=== PATIENT | male | born 1960 | race American Indian/Alaskan Native ===

== ENCOUNTER 2016-08-24 14:56 | Inpatient (IN) | payer MEDICARE, MEDICAID ==
[2016-08-24 14:56] VITALS: BMI 25.9
[2016-08-24] MEDS ORDERED: Sodium Chloride 0.9% 1,000 ML IV ONE (15:16)
[2016-08-24 15:37] LABS: BASO % 0.7 % (0.0-2.0); HEMATOCRIT 46.8 % (35.0-51.0); LYMPH # 0.7 K/uL (1.0-4.3); LYMPH % 10.4 % (20.0-40.0); MEAN CELL VOLUME 77.7 fL (80.0-94.0); MEAN CORPUSCULAR HEMOGLOBIN 25.3 pg (27.0-31.0); MEAN CORPUSCULAR HGB CONC 32.5 g/dL (33.0-37.0); MEAN PLATELET VOLUME 7.7 fL (7.2-11.7); MONO # 0.5 K/uL (0.0-0.8); MONO % 8.6 % (0.0-10.0); NRBC % 0.1 % (0.0-2.0); RED CELL DISTRIBUTION WIDTH 13.5 % (11.5-14.5); WHITE BLOOD COUNT 6.3 K/uL (4.8-10.8)
[2016-08-24 15:43] LABS: CHLORIDE 82 mmol/L (98-107)
[2016-08-24 15:44] LABS: POTASSIUM 3.8 mmol/L (3.6-5.2)
[2016-08-24 15:46] LABS: BILIRUBIN,TOTAL 0.6 mg/dL (0.2-1.3); GFR AFRICAN-AMERICAN > 60
[2016-08-24 15:47] LABS: ALB/GLOB RATIO 1.1 (1.0-2.1); ALKALINE PHOSPHATASE 73 U/L (38-126); ALT/SGPT 42 U/L (21-72); AST/SGOT 69 U/L (17-59); BLOOD UREA NITROGEN 12 mg/dL (9-20); CALCIUM 8.5 mg/dl (8.6-10.4); CARBON DIOXIDE 24 mmol/L (22-30); GLUCOSE,RANDOM 87 mg/dL (75-110); TOTAL PROTEIN 7.9 g/dL (6.3-8.3)
[2016-08-24 15:48] LABS: ALCOHOL SERUM 20 mg/dl (0-10)
[2016-08-24 15:50] LABS: SODIUM 118 mmol/L (132-148)
[2016-08-24] MEDS ORDERED: Sodium Chloride 0.9% 1,000 ML ONE (16:37)
--- NOTE | 2016-08-24 17:02 | RAD ---
PROCEDURE: CHEST RADIOGRAPH, 1 VIEW. Portable study 15:15. HISTORY: FEVER COMPARISON: 06/12/2016. FINDINGS: LUNGS: New right lower lobe infiltrate with air bronchograms consistent with acute pneumonia. PLEURA: No pneumothorax or pleural fluid seen. CARDIOVASCULAR: No radiographic findings to suggest acute or significant cardiovascular disease. OSSEOUS STRUCTURES: No significant abnormalities. VISUALIZED UPPER ABDOMEN: Normal. OTHER FINDINGS: None. IMPRESSION: Right lower lobe infiltrate suspicious for acute pneumonia. Finding not seen previously.
--- NOTE | 2016-08-24 17:03 | C.PDOC ---
History Of Present Illness 56-year-old male BIBA for evaluation of witnessed seizure at [facility]. Patient admits to a history of seizures, states he has seizure disorder independently of alcohol withdrawal. He states he has not taken any seizure medications "for a long time". Last alcoholic drink was this morning. Patient does admit to being sick recently with a productive cough, fever and chills. He denies chest pain, shortness of breath, nausea/vomiting/diarrhea, dysuria. . No other complaints at this time. Time Seen by Provider: 08/24/16 15:16 Chief Complaint (Nursing): Seizure History Per: Patient, EMS History/Exam Limitations: no limitations Recent Seizure Activity Began: Just Before Arrival Number Of Seizures: One Length Of Seizures (Duration): Unknown Quality Of Seizure: Generalized Precipitating Factor(s): Other (medication noncompliance vs alcohol withdrawal) Past Medical History Reviewed: Historical Data, Nursing Documentation, Vital Signs Vital Signs: Last Vital Signs Temp 100.6 F H 08/27/16 03:17 Pulse 98 H 08/27/16 03:17 Resp 20 08/27/16 03:17 BP 151/83 H 08/27/16 03:17 Pulse Ox 98 08/27/16 03:17 - Medical History PMH: Anxiety, Asthma, Bipolar Disorder, Depression, Deep Vein Thrombosis (IVC FILTER INSERTED), HTN, Schizophrenia, Seizures (Alcohol induced) - [facility] Procedures DETOXIFICATION SERVICES FOR SUBSTANCE ABUSE TREATMENT (04/07/15) GROUP PSYCHOTHERAPY (05/14/15) MEDICATION MANAGEMENT (05/14/15) Family History: States: No Known Family Hx - Social History Hx Tobacco Use: Yes Hx Alcohol Use: Yes Hx Substance Use: No - Immunization History Hx Tetanus Toxoid Vaccination: No Hx Influenza Vaccination: Yes Hx Pneumococcal Vaccination: Yes Review Of Systems Except As Marked, All Systems Reviewed And Found Negative. Constitutional: Positive for: Fever, Chills Cardiovascular: Negative for: Chest Pain, Palpitations Respiratory: Positive for: Cough, Sputum. Negative for: Shortness of Breath Gastrointestinal: Negative for: Nausea, Vomiting, Abdominal Pain, Diarrhea Genitourinary: Negative for: Dysuria, Hematuria Musculoskeletal: Negative for: Back Pain Neurological: Positive for: Seizures. Negative for: Weakness, Numbness, Headache, Dizziness Physical Exam - Physical Exam Appears: Non-toxic, No Acute Distress, Other ( trembling due to fever) Skin: Warm, Dry, No Rash Head: Atraumatic, Normacephalic Eye(s): bilateral: Normal Inspection, PERRL, EOMI Oral Mucosa: Moist Tongue: No Laceration, Other (No fasciculations) Neck: Normal, Normal ROM, No Midline Cervical Tenderness, No Paracervical Tenderness, No Step Off Deformity, Supple Cardiovascular: Rhythm Regular Respiratory: Normal Breath Sounds, No Accessory Muscle Use, No Rales, No Rhonchi , No Wheezing Gastrointestinal/Abdominal: Normal Exam, Bowel Sounds, Soft, No Tenderness Extremity: Normal ROM, No Pedal Edema, No Calf Tenderness Extremity: Bilateral: Atraumatic, Normal Color And Temperature, Normal ROM Neurological/Psych: Oriented x3, Normal Speech, Normal Cognition, Other (no tremors) ED Course And Treatment - Laboratory Results Result Diagrams: 08/25/16 10:56 08/26/16 23:38 O2 Sat by Pulse Oximetry: 96 (RA) Pulse Ox Interpretation: Normal - Radiology CXR: Read By Radiologist (right lower lobe suspicious for infiltrate) Progress Note: Blood work, CXR and UA ordered and reviewed. Patient given IV NS bolus. Prior records reviewed - patient has had hyponatremia during prior visits. PO tylenol given for fever, and IV rocephin + azithromycin given for pneumonia. - Physician Consult Information Physician Contacted: Mikel Carroll Outcome Of Conversation: Discussed patient with hospitalist, he agrees with admission for fever, pneumonia, seizure (withdrawal vs hyponatremia vs epilepsy) , hyponatremia. Disposition - Disposition Disposition: HOSPITALIZED Disposition Time: 18:06 Condition: STABLE - Clinical Impression Clinical Impression: Tonic-clonic seizure, Alcohol abuse, Hyponatremia, Pneumonia - Scribe Statement The provider has reviewed the documentation as recorded by the Kyler Browning All medical record entries made by the Alexisibdre were at my direction and personally dictated by me. I have reviewed the chart and agree that the record accurately reflects my personal performance of the history, physical exam, medical decision making, and the department course for this patient. I have also personally directed, reviewed, and agree with the discharge instructions and disposition. Decision To Admit - Pt Status Changed To: Hospital Disposition Of: Inpatient - Admit Certification Admit to Inpatient:: After my assessment, the patient will require hospitalization for at least two midnights. This is because of the severity of symptoms shown, intensity of services needed, and/or the medical risk in this patient being treated as an outpatient. - InPatient: Physician Admission Certification: I certify that this patient requires 2 or more midnights of care for the following reason:: see notes - . Bed Request Type: Telemetry Admitting Physician: Mikel Craroll Patient Diagnosis: Tonic-clonic seizure, Alcohol abuse, Hyponatremia, Pneumonia
[2016-08-24 17:33] LABS: RBC URINE 2 /hpf (0-3); URINE BILIRUBIN NEGATIVE (NEGATIVE); URINE BLOOD TRACE (NEGATIVE); URINE COLOR Yellow (YELLOW); URINE GLUCOSE (UA) NORMAL (Normal); URINE KETONE NEGATIVE (NEGATIVE); URINE LEUKOCYTE ESTERASE NEG Leu/uL (Negative); URINE PROTEIN 3+ mg/dL (NEGATIVE); URINE UROBILINOGEN NORMAL mg/dL (0.2-1.0); WBC URINE 2 /hpf (0-5)
[2016-08-24] MEDS ORDERED: cefTRIAXone IV 1 gm in Dextros 50 ML IV ONE (17:55)
[2016-08-24] MEDS ORDERED: Azithromycin 500 MG in Sodium Chloride 0.9% 250 ML IVPB STA (17:56)
[2016-08-24] MEDS ORDERED: cefTRIAXone IV 1 gm in Dextros 50 ML IVPB ONE (18:14)
--- NOTE | 2016-08-24 18:19 | CP.PCM.HP ---
<Vonda Monsalve - Last Filed: 08/24/16 20:50> History of Present Illness - History of Present Illness History of Present Illness: CC: "I got pnuemonia" HPI: Patient is a 56 year old male PMHx of EtOH abuse, HTN? 2 CVAs in the past? DM? RLE DVT? schizophrenia and anxiety presenting after having a witnessed seizure. Patient reports he had as seizure this AM and one last night and another one 2 days prior while he was going to the bathroom. The most recent seizure on morning of presentation occurred when he was sitting in a chair and he fell to the floor. Patient denied any tongue biting or incontinence but reported he fell hard and his head and neck hurt from the fall. Patient denied any history of seizures and denied taking any medications for seizures. He reported an extensive EtOh abuse history where he drinks 3 cans of 24oz beer daily and has been since he was 17 years old. Patient stated he stopped drinking hard liquor when he was hospitalized for it. He reported he drank this morning. Patient stated he has been having a runny nose, productive cough with white sputum and no blood, and some dyspnea with coughing recently. He also admitted to subjective fevers, chills, diaphoresis, weakness, dry mouth, headache, SOB, cough. Patient denied chest pain, palpitations, abdominal pain, nausea, vomiting, bowel/bladder complaints, pain in his legs bilaterally. He denied travel recently but admitted to sick contacts and recent cold/cough symptoms. He also admitted to a decreased appetite and that he had not eaten in 4 days as he was feeling unwell. PMD: None PMHx: EtOH abuse, HTN? 2 CVAs in the past? DM? RLE DVT? schizophrenia and anxiety Meds: vitamins, an anxiety pill, BP pill - not taken any of his medications today ALL: NKDA PSurg: R leg stent placed at [facility]? questionable Hx of IVC filter? Family Hx: sister with seizures, cousin with cancer, [place] in mother Social Hx: drinks 3 cans of 24oz beer daily since he was 17yo, smokes < 1ppd since he was 17 years old, has roommates but does not live in a prison, on social security money ROS: admitted to: fever, chills, diaphoresis, weakness, dry mouth, headache, SOB , cough. ED Course: Blood work, CXR and UA, IVF and abx Present on Admission - Present on Admission Any Indicators Present on Admission: No Review of Systems - Constitutional Constitutional: As Per HPI, Chills, Excessive Sweating, Fever, Headache, Weakness - EENT Eyes: As Per HPI. absent: Blurred Vision Ears: As Per HPI. absent: Decreased Hearing, Dizziness Nose/Mouth/Throat: As Per HPI. absent: Dysphagia, Sore Throat - Cardiovascular Cardiovascular: As Per HPI. absent: Chest Pain, Edema, Palpitations - Respiratory Respiratory: As Per HPI, Cough, Dyspnea, Chest Congestion. absent: Wheezing - Gastrointestinal Gastrointestinal: As Per HPI. absent: Abdominal Pain, Constipation, Diarrhea, Nausea, Vomiting - Genitourinary Genitourinary: As Per HPI. absent: Dysuria, Hematuria, Pyuria, Urinary Frequency - Musculoskeletal Musculoskeletal: As Per HPI. absent: Back Pain, Myalgias, Numbness, Tingling - Integumentary Integumentary: As Per HPI. absent: Rash - Neurological Neurological: As Per HPI, Weakness. absent: Dizziness, Syncope - Endocrine Endocrine: As Per HPI. absent: Polydipsia, Polyphagia, Polyuria - Hematologic/Lymphatic Hematologic: As Per HPI. absent: Easy Bleeding, Easy Bruising Past Patient History - Infectious Disease Hx of Infectious Diseases: None - Past Medical History & Family History Past Medical History?: No - Past Social History Smoking Status: Heavy Smoker > 10 Cigarettes Daily - CARDIAC Hx Hypertension: Yes - PULMONARY Hx Asthma: Yes - NEUROLOGICAL Hx Seizures: Yes (Alcohol induced) - HEENT Hx HEENT Problems: No - RENAL Hx Chronic Kidney Disease: No - ENDOCRINE/METABOLIC Hx Endocrine Disorders: Yes Hx Diabetes Mellitus Type 2: Yes (no meds) Other/Comment: does not follow an a.d.a. diet - HEMATOLOGICAL/ONCOLOGICAL Hx Human Immunodeficiency Virus (HIV): No - INTEGUMENTARY Hx Dermatological Problems: No - MUSCULOSKELETAL/RHEUMATOLOGICAL Hx Musculoskeletal Disorders: No - GASTROINTESTINAL Hx Gastrointestinal Disorders: No - GENITOURINARY/GYNECOLOGICAL Hx Sexually Transmitted Disorders: No - PSYCHIATRIC Hx Anxiety: Yes Hx Bipolar Disorder: Yes Hx Depression: Yes Hx Schizophrenia: Yes Hx Substance Use: No - SURGICAL HISTORY Hx Surgeries: Yes Other/Comment: claims he had a mikey in his right leg. no scar noted. IVC FILTER INSERTED - ANESTHESIA Hx Anesthesia: Yes Hx Anesthesia Reactions: No Meds Allergies/Adverse Reactions: Allergies Allergy/AdvReac Type Severity Reaction Status Date / Time No Known Allergies Allergy Verified 06/12/16 12:29 Physical Exam - Constitutional Appears: Chronically Ill - Head Exam Head Exam: NORMAL INSPECTION - Eye Exam Eye Exam: Conjunctival injection, EOMI, PERRL Pupil Exam: NORMAL ACCOMODATION - ENT Exam ENT Exam: Mucous Membranes Dry - Neck Exam Neck exam: Positive for: Normal Inspection. Negative for: Tenderness - Respiratory Exam Respiratory Exam: Clear to Auscultation Bilateral, NORMAL BREATHING PATTERN. absent: Accessory Muscle Use, Rales, Rhonchi, Wheezes, Respiratory Distress - Cardiovascular Exam Cardiovascular Exam: Tachycardia, REGULAR RHYTHM, +S1, +S2. absent: Systolic Murmur - GI/Abdominal Exam GI & Abdominal Exam: Normal Bowel Sounds, Soft. absent: Distended, Firm, Guarding, Rigid, Tenderness - Rectal Exam Rectal Exam: Deferred - Extremities Exam Extremities exam: Positive for: normal inspection, pedal pulses present. Negative for: tenderness - Back Exam Back exam: NORMAL INSPECTION. absent: rash noted, tenderness - Neurological Exam Neurological exam: Alert, CN II-XII Intact, Oriented x3 Additional comments: slight tremors when doing finger to nose test RLE weaker than LLE - Psychiatric Exam Psychiatric exam: Normal Affect, Normal Mood - Skin Skin Exam: Dry, Intact, Normal Color, Warm Results - Vital Signs Recent Vital Signs: Last Vital Signs Temp 100.7 F H 08/24/16 14:58 Pulse 102 H 08/24/16 14:58 Resp 18 08/24/16 14:58 BP 176/90 H 08/24/16 14:58 Pulse Ox 96 08/24/16 17:05 - Labs Result Diagrams: 08/24/16 15:31 08/24/16 15:31 Labs: Laboratory Results - last 24 hr 08/24/16 08/24/16 08/24/16 15:27 15:31 15:31 WBC 6.3 D RBC 6.03 H Hgb 15.2 Hct 46.8 MCV 77.7 L D MCH 25.3 L MCHC 32.5 L RDW 13.5 Plt Count 152 MPV 7.7 Neut % (Auto) 80.3 H Lymph % (Auto) 10.4 L [place] % (Auto) 8.6 Eos % (Auto) 0.0 Baso % (Auto) 0.7 Neut # 5.1 Lymph # 0.7 L [place] # 0.5 Eos # 0.0 Baso # 0.0 Sodium 118 L* Potassium 3.8 Chloride 82 L Carbon Dioxide 24 Anion Gap 16 BUN 12 Creatinine 1.0 Est GFR ( Amer) > 60 Est GFR (Non-Af Amer) > 60 POC Glucose (mg/dL) 79 Random Glucose 87 Calcium 8.5 L Total Bilirubin 0.6 AST 69 H ALT 42 Alkaline Phosphatase 73 Total Creatine Kinase 547 H Total Protein 7.9 Albumin 4.1 Globulin 3.8 Albumin/Globulin Ratio 1.1 Urine Color Urine Clarity Urine pH Ur Specific [place] Urine Protein Urine Glucose (UA) Urine Ketones Urine Blood Urine Nitrate Urine Bilirubin Urine Urobilinogen Ur Leukocyte Esterase Urine WBC (Auto) Urine RBC (Auto) Hyaline Casts Urine Opiates Screen Urine Methadone Screen Ur Barbiturates Screen Ur Phencyclidine Scrn Ur Amphetamines Screen U Benzodiazepines Scrn U Oth Cocaine Metabols U Cannabinoids Screen Alcohol, Quantitative 20 H 08/24/16 08/24/16 17:06 17:06 WBC RBC Hgb Hct MCV MCH MCHC RDW Plt Count MPV Neut % (Auto) Lymph % (Auto) [place] % (Auto) Eos % (Auto) Baso % (Auto) Neut # Lymph # [place] # Eos # Baso # Sodium Potassium Chloride Carbon Dioxide Anion Gap BUN Creatinine Est GFR ( Amer) Est GFR (Non-Af Amer) POC Glucose (mg/dL) Random Glucose Calcium Total Bilirubin AST ALT Alkaline Phosphatase Total Creatine Kinase Total Protein Albumin Globulin Albumin/Globulin Ratio Urine Color Yellow Urine Clarity Clear Urine pH 6.0 Ur Specific [place] 1.015 Urine Protein 3+ H Urine Glucose (UA) Normal Urine Ketones Negative Urine Blood Trace H Urine Nitrate Negative Urine Bilirubin Negative Urine Urobilinogen Normal Ur Leukocyte Esterase Neg Urine WBC (Auto) 2 Urine RBC (Auto) 2 Hyaline Casts 11-20 H Urine Opiates Screen Negative Urine Methadone Screen Negative Ur Barbiturates Screen Negative Ur Phencyclidine Scrn Negative Ur Amphetamines Screen Negative U Benzodiazepines Scrn Negative U Oth Cocaine Metabols Negative U Cannabinoids Screen Negative Alcohol, Quantitative Assessment & Plan - Assessment and Plan (Free Text) Assessment: 56 year old male PMHx of EtOH abuse, HTN? 2 CVAs in the past? DM? RLE DVT? schizophrenia and anxiety presenting after having a witnessed seizure Plan: Seizures admit to TELE f/y head CT w/o contrast likely alcohol related seizures f/u EEG f/u AM labs f/u repeat UA seizure precautions fall risk precautions Neuro consult: Dr. Catherine Madera- f/u recommendations Pneumonia f/u CT Chest/abdomen/pelvis f/u urine culture and blood culture CXR: RLL infiltrate suspicious for acute pneumonia Azithromycin 500mg @ 250cc/hr IVPB daily Rocephin 1gm @ 100cc/hr IVPB daily Tylenol 650mg PO q6H prn fever Hyponatremia with dehydration NS @ 150cc/hr f/u repeat CMP at 2am f/u AM labs Hx of Alcoholism Alc level 20 UDS negative Librium 25mg PO Q6 AMINTA- hold if lethargic Ativan 1mg IVP Q3 PRN agitation IV thiamine 1 dose PO thiamine daily PO folic acid PO multivitamins f/u B12 and folate labs f/u vitamin D Hx of Hypertension hold meds for now f/u TSH/free T4 Prior R SFA stent Questionable Hx of IVC filter ASA 81mg po daily Prior CVA f/u head CT ASA 81mg po daily Crestor 20mg po qhs PPX SCDs Heparin 5000U SC Q12 Pepcid 20mg PO BID Seizure precautions Fall precautions Heart Healthy Diet Plan discussed with Dr. Mone Monsalve PGY1 <Ramin Shore P - Last Filed: 08/30/16 05:47> Results - Vital Signs Recent Vital Signs: Last Vital Signs Temp 97.3 F L 08/30/16 04:00 Pulse 87 08/30/16 05:00 Resp 31 H 08/30/16 05:00 BP 101/56 L 08/30/16 05:00 Pulse Ox 99 08/30/16 05:00 - Labs Result Diagrams: 08/29/16 06:18 08/29/16 06:17 Labs: Laboratory Results - last 24 hr 08/27/16 08/27/16 08/28/16 06:27 06:27 06:46 WBC RBC Hgb Hct MCV MCH MCHC RDW Plt Count MPV Neut % (Auto) Lymph % (Auto) [place] % (Auto) Eos % (Auto) Baso % (Auto) Neut # Lymph # [place] # Eos # Baso # Differential Comment PT INR APTT Puncture Site pCO2 pO2 HCO3 ABG pH ABG Total CO2 ABG O2 Saturation ABG Base Excess ABG Hemoglobin ABG Carboxyhemoglobin POC ABG HHb (Measured) ABG Methemoglobin Lisandro Test A-a O2 Difference Respiratory Index Hgb O2 Saturation Mechanical Rate FiO2 Tidal Volume PEEP Sodium Potassium Chloride Carbon Dioxide Anion Gap BUN Creatinine Est GFR ( Amer) Est GFR (Non-Af Amer) POC Glucose (mg/dL) Random Glucose Hemoglobin A1c 5.7 Calcium Phosphorus Magnesium Total Bilirubin AST ALT Alkaline Phosphatase Ammonia Total Creatine Kinase Total Protein Albumin Globulin Albumin/Globulin Ratio Procalcitonin Prolactin Calcium (PTH Intact) 7.3 L PTH w/Ion &Tot Calcium 48 BETSEY 6 Profile Negative 08/29/16 08/29/16 08/29/16 06:17 06:18 06:53 WBC 3.2 L RBC 5.42 Hgb 13.5 Hct 42.3 MCV 78.0 L MCH 24.9 L MCHC 32.0 L RDW 14.4 Plt Count 94 L MPV 8.8 Neut % (Auto) 65.8 Lymph % (Auto) 21.9 [place] % (Auto) 11.8 H Eos % (Auto) 0.1 Baso % (Auto) 0.4 Neut # 2.1 Lymph # 0.7 L [place] # 0.4 Eos # 0.0 Baso # 0.0 Differential Comment PT INR APTT Puncture Site pCO2 pO2 HCO3 ABG pH ABG Total CO2 ABG O2 Saturation ABG Base Excess ABG Hemoglobin ABG Carboxyhemoglobin POC ABG HHb (Measured) ABG Methemoglobin Lisandro Test A-a O2 Difference Respiratory Index Hgb O2 Saturation Mechanical Rate FiO2 Tidal Volume PEEP Sodium 126 L Potassium 4.1 Chloride 100 Carbon Dioxide 21 L Anion Gap 9 L BUN 32 H Creatinine 2.6 H Est GFR ( Amer) 31 Est GFR (Non-Af Amer) 26 POC Glucose (mg/dL) Random Glucose 108 Hemoglobin A1c Calcium 6.9 L Phosphorus 4.1 Magnesium 2.2 Total Bilirubin < 0.1 L AST 188 H D ALT 64 Alkaline Phosphatase 51 Ammonia Total Creatine Kinase Total Protein 4.6 L Albumin 1.8 L Globulin 2.8 Albumin/Globulin Ratio 0.6 L Procalcitonin 21.71 H Prolactin Calcium (PTH Intact) PTH w/Ion &Tot Calcium BETSEY 6 Profile 08/29/16 08/29/16 08/29/16 11:50 17:26 17:26 WBC RBC Hgb Hct MCV MCH MCHC RDW Plt Count MPV Neut % (Auto) Lymph % (Auto) [place] % (Auto) Eos % (Auto) Baso % (Auto) Neut # Lymph # [place] # Eos # Baso # Differential Comment PT 10.5 INR 0.9 APTT 63 H Puncture Site pCO2 pO2 HCO3 ABG pH ABG Total CO2 ABG O2 Saturation ABG Base Excess ABG Hemoglobin ABG Carboxyhemoglobin POC ABG HHb (Measured) ABG Methemoglobin Lisandro Test A-a O2 Difference Respiratory Index Hgb O2 Saturation Mechanical Rate FiO2 Tidal Volume PEEP Sodium Potassium Chloride Carbon Dioxide Anion Gap BUN Creatinine Est GFR ( Amer) Est GFR (Non-Af Amer) POC Glucose (mg/dL) 140 H Random Glucose Hemoglobin A1c Calcium Phosphorus Magnesium Total Bilirubin AST ALT Alkaline Phosphatase Ammonia Total Creatine Kinase 3336 H Total Protein Albumin Globulin Albumin/Globulin Ratio Procalcitonin Prolactin 21.9 H Calcium (PTH Intact) PTH w/Ion &Tot Calcium BETSEY 6 Profile 08/29/16 08/29/16 08/29/16 17:26 18:15 23:42 WBC RBC Hgb Hct MCV MCH MCHC RDW Plt Count MPV Neut % (Auto) Lymph % (Auto) [place] % (Auto) Eos % (Auto) Baso % (Auto) Neut # Lymph # [place] # Eos # Baso # Differential Comment PT INR APTT Puncture Site pCO2 pO2 HCO3 ABG pH ABG Total CO2 ABG O2 Saturation ABG Base Excess ABG Hemoglobin ABG Carboxyhemoglobin POC ABG HHb (Measured) ABG Methemoglobin Lisandro Test A-a O2 Difference Respiratory Index Hgb O2 Saturation Mechanical Rate FiO2 Tidal Volume PEEP Sodium Potassium Chloride Carbon Dioxide Anion Gap BUN Creatinine Est GFR ( Amer) Est GFR (Non-Af Amer) POC Glucose (mg/dL) 128 H 119 H Random Glucose Hemoglobin A1c Calcium Phosphorus Magnesium Total Bilirubin AST ALT Alkaline Phosphatase Ammonia 11 D Total Creatine Kinase Total Protein Albumin Globulin Albumin/Globulin Ratio Procalcitonin Prolactin Calcium (PTH Intact) PTH w/Ion &Tot Calcium BETSEY 6 Profile 08/30/16 04:20 WBC RBC Hgb Hct MCV MCH MCHC RDW Plt Count MPV Neut % (Auto) Lymph % (Auto) [place] % (Auto) Eos % (Auto) Baso % (Auto) Neut # Lymph # [place] # Eos # Baso # Differential Comment PT INR APTT Puncture Site Rr pCO2 46 H pO2 89 HCO3 17.6 L ABG pH 7.21 L ABG Total CO2 19.8 L ABG O2 Saturation 98.4 H ABG Base Excess -9.3 L ABG Hemoglobin 13.1 ABG Carboxyhemoglobin 1.6 H POC ABG HHb (Measured) 1.6 ABG Methemoglobin 1.2 Lisandro Test Pos A-a O2 Difference 567.0 Respiratory Index 6.4 Hgb O2 Saturation 95.5 Mechanical Rate 20 FiO2 100.0 Tidal Volume 450 PEEP 9 Sodium Potassium Chloride Carbon Dioxide Anion Gap BUN Creatinine Est GFR ( Amer) Est GFR (Non-Af Amer) POC Glucose (mg/dL) Random Glucose Hemoglobin A1c Calcium Phosphorus Magnesium Total Bilirubin AST ALT Alkaline Phosphatase Ammonia Total Creatine Kinase Total Protein Albumin Globulin Albumin/Globulin Ratio Procalcitonin Prolactin Calcium (PTH Intact) PTH w/Ion &Tot Calcium BETSEY 6 Profile Attending/Attestation - Attestation I have personally seen and examined this patient.: Yes I have fully participated in the care of the patient.: Yes I have reviewed all pertinent clinical information: Yes
[2016-08-24] MEDS ORDERED: Azithromycin 500mg/250ML NS 500 MG/250 ML BAG IVPB ONE (18:45)
[2016-08-24] MEDS ORDERED: Thiamine 100 mg/ml Inj IV ONE (20:45)
[2016-08-24] MEDS ORDERED: Iohexol 350mg/ml 100 ML ONE (20:47)
[2016-08-24 22:03] LABS: MAGNESIUM 1.5 mg/dL (1.6-2.3); PHOSPHOROUS 3.4 mg/dL (2.5-4.5)
[2016-08-24] MEDS: Sodium Chloride 0.9% 1,000 ML IV SCH (22:54)
--- NOTE | 2016-08-24 23:15 | CT ---
EXAM: CT Head Without Intravenous Contrast CLINICAL HISTORY: 56 years old, male; Signs and symptoms; Other: Seizure; Additional info: Seizure and fall TECHNIQUE: Axial computed tomography images of the head/brain without intravenous contrast. This CT exam was performed using one or more of the following dose reduction techniques: automated exposure control, adjustment of the mA and/or kV according to patient size, and/or use of iterative reconstruction technique. EXAM DATE/TIME: 08/24/2016 8:30 PM COMPARISON: No relevant prior studies available. FINDINGS: There is atrophy. There is decreased attenuation in the periventricular white matter consistent with chronic small vessel ischemic disease. There is encephalomalacia in the cerebellum consistent with numerous old infarcts. Old infarct in the white matter of the left frontal lobe and the anterior external capsule of the left basal ganglia. Small amount of ex-vacuo dilatation of the adjacent frontal horn of the left lateral ventricle. No intracranial hemorrhage. No extra axial collections. No intracranial edema. Trace mucosal thickening in the ethmoid sinuses. No depressed fractures. IMPRESSION: No acute intracranial injury.
--- NOTE | 2016-08-24 23:38 | CT ---
EXAM: CT Abdomen and Pelvis With Intravenous Contrast CLINICAL HISTORY: 56 years old, male; Condition or disease; Other: Ivc and fever; Lung condition and disease and other: Ivc; Pneumonia; Additional info: Pneumonia, HX of ivc, fevers TECHNIQUE: Axial computed tomography images of the abdomen and pelvis with intravenous contrast. This CT exam was performed using one or more of the following dose reduction techniques: automated exposure control, adjustment of the mA and/or kV according to patient size, and/or use of iterative reconstruction technique. Coronal and sagittal reformatted images were created and reviewed. CONTRAST: 100 mL of visipaque 320 administered intravenously. COMPARISON: No relevant prior studies available. FINDINGS: IVC filter. There are atherosclerotic changes of the aorta. Right iliac artery stent. The liver is normal. The spleen is normal. The pancreas is normal. No gallstones. No hydronephrosis. There is mild perinephric stranding. No striated nephrograms. There is fluid within the colon most notably in the distal sigmoid and rectum, . The appendix is identified coronal images 50 through 66. There is intraluminal fluid however it measures 4 mm in diameter which is within normal limits and there is no wall thickening, wall hyperemia, or periappendiceal stranding. There are degenerative changes in the osseous structures. IMPRESSION: Colonic fluid, a nonspecific finding however can also be associated with diarrhea/enteritis. Mild bilateral perinephric stranding which may be a chronic finding however could also be indicative of a infectious/inflammatory process.Recommend correlation with urinalysis. EXAM: CT Chest With Intravenous Contrast CLINICAL HISTORY: 56 years old, male; Condition or disease; Other: Ivc and fever; Lung condition and disease and other: Ivc; Pneumonia; Additional info: Pneumonia, HX of ivc, fevers TECHNIQUE: Axial computed tomography images of the chest with intravenous contrast. This CT exam was performed using one or more of the following dose reduction techniques: automated exposure control, adjustment of the mA and/or kV according to patient size, and/or use of iterative reconstruction technique. Coronal and sagittal reformatted images were created and reviewed. CONTRAST: 100 mL of visipaque 320 administered intravenously. EXAM DATE/TIME: 08/24/2016 8:31 PM COMPARISON: No relevant prior studies available. FINDINGS: Evidence of emphysematous disease in the upper lungs. There is dense infiltrate with consolidation in the right lower lung some of which has a fibrotic appearance. Tiny faint nodular opacities in the left lower lung. No effusions. No aortic aneurysm or dissection. Pulmonary emboli cannot be excluded due to bolus timing. Few small scattered mediastinal lymph nodes are noted. IMPRESSION: Dense infiltrate and consolidation in the right lower lung. Inflammatory, infectious, atelectatic and neoplastic etiologies would all be possible. Followup is recommended to ensure resolution. Suggestion of faint nodular infiltrate left lower lung for which followup is recommended.
[2016-08-25 02:36] LABS: CHLORIDE 89 mmol/L (98-107); POTASSIUM 3.7 mmol/L (3.6-5.2)
[2016-08-25 02:38] LABS: AST/SGOT 68 U/L (17-59); BILIRUBIN,TOTAL 0.6 mg/dL (0.2-1.3); CARBON DIOXIDE 22 mmol/L (22-30); GFR AFRICAN-AMERICAN > 60
[2016-08-25 02:39] LABS: ALKALINE PHOSPHATASE 62 U/L (38-126); ALT/SGPT 40 U/L (21-72); BLOOD UREA NITROGEN 11 mg/dL (9-20); CALCIUM 7.6 mg/dl (8.6-10.4); GLUCOSE,RANDOM 91 mg/dL (75-110); TOTAL PROTEIN 6.8 g/dL (6.3-8.3)
[2016-08-25 02:50] LABS: SODIUM 120 mmol/L (132-148)
[2016-08-25] MEDS: Magnesium Sulfate 1 gm in D5W 1 GM/100 ML BAG IVPB SCH ×2 (03:15→03:36)
[2016-08-25] MEDS: Sodium Chloride 0.9% 1,000 ML IV SCH ×3 (03:36→17:59)
[2016-08-25 04:11] LABS: RBC URINE 6 /hpf (0-3); URINE BILIRUBIN NEGATIVE (NEGATIVE); URINE BLOOD 1+ (NEGATIVE); URINE COLOR Yellow (YELLOW); URINE GLUCOSE (UA) NORMAL (Normal); URINE KETONE TRACE mg/dL (NEGATIVE); URINE LEUKOCYTE ESTERASE NEG Leu/uL (Negative); URINE PROTEIN 2+ mg/dL (NEGATIVE); URINE UROBILINOGEN NORMAL mg/dL (0.2-1.0); WBC URINE 1 /hpf (0-5)
[2016-08-25 06:47] LABS: CHLORIDE 88 mmol/L (98-107); POTASSIUM 3.5 mmol/L (3.6-5.2)
[2016-08-25 06:49] LABS: AST/SGOT 73 U/L (17-59); BILIRUBIN,TOTAL 0.6 mg/dL (0.2-1.3); CARBON DIOXIDE 21 mmol/L (22-30); GFR AFRICAN-AMERICAN > 60
[2016-08-25 06:50] LABS: ALKALINE PHOSPHATASE 72 U/L (38-126); ALT/SGPT 34 U/L (21-72); BLOOD UREA NITROGEN 11 mg/dL (9-20); CALCIUM 7.5 mg/dl (8.6-10.4); GLUCOSE,RANDOM 94 mg/dL (75-110); PHOSPHOROUS 3.3 mg/dL (2.5-4.5); SODIUM 119 mmol/L (132-148); TOTAL PROTEIN 7.1 g/dL (6.3-8.3)
[2016-08-25 06:51] LABS: MAGNESIUM 2.1 mg/dL (1.6-2.3)
[2016-08-25 06:56] LABS: T4 5.31 ug/dL (5.5-11.0)
[2016-08-25 07:09] LABS: THYROID STIMULATING HORMONE 1.31 mIU/L (0.46-4.68)
--- NOTE | 2016-08-25 07:24 | CP.PCM.PN ---
<Juan J Garcia - Last Filed: 08/25/16 11:32> Subjective - Date & Time of Evaluation Date of Evaluation: 08/25/16 Time of Evaluation: 07:45 - Subjective Subjective: PGY 1 Medicine Note- Dr. Farrell's service Pt seen and examined bedside. Patient with waxing and waning alertness. Per nursing, patient had a fever early this morning which responded to tylenol; but increased again. He states that he has been drinking for approximately 9 years and would like to quit. Patient not completely alert during encounter and thus a ROS was not obtained. Objective - Vital Signs/Intake and Output Vital Signs (last 24 hours): Temp Pulse Resp BP Pulse Ox 100.1 F H 76 20 139/82 97 08/25/16 04:00 08/25/16 04:00 08/25/16 04:00 08/25/16 04:00 08/25/16 04:00 Intake and Output: 08/25/16 08/25/16 06:59 18:59 Intake Total 1310 Output Total 800 Balance 510 - Medications Medications: Current Medications Acetaminophen (Tylenol 325mg Tab) 650 mg PO Q6 PRN PRN Reason: Fever >100.4 F Last Admin: 08/25/16 01:48 Dose: 650 mg Aspirin (Aspirin Chewable) 81 mg PO DAILY [facility] Chlordiazepoxide (Librium) 25 mg PO Q6H [facility] Last Admin: 08/25/16 03:23 Dose: 25 mg Famotidine (Pepcid) 20 mg PO BID [facility] [place] Last Admin: 08/24/16 22:52 Dose: 20 mg Folic Acid (Folic Acid) 1 mg PO DAILY [facility] Heparin Sodium (Porcine) (Heparin) 5,000 units SC Q8 [facility] Last Admin: 08/25/16 05:19 Dose: 5,000 units Sodium Chloride (Sodium Chloride 0.9%) 1,000 mls @ 150 mls/hr IV .Q6H40M [facility] [place] Last Admin: 08/25/16 03:36 Dose: 150 mls/hr Azithromycin 500 mg/ Sodium (Chloride) 250 mls @ 250 mls/hr IVPB DAILY [facility] [place] Ceftriaxone Sodium 1 gm/ (Sodium Chloride) 100 mls @ 100 mls/hr IVPB DAILY [facility] [place] Lorazepam (Ativan) 1 mg IVP Q3H PRN PRN Reason: Agitation Last Admin: 08/25/16 01:36 Dose: 1 mg Multivitamins (Hexavitamin) 1 tab PO DAILY [facility] Rosuvastatin Calcium (Crestor) 20 mg PO HS [facility] [place] Last Admin: 08/24/16 22:53 Dose: 20 mg Thiamine HCl (Vitamin B1 Tab) 100 mg PO DAILY [facility] - Labs Labs: 08/25/16 06:09 - Constitutional Appears: Non-toxic, No Acute Distress - Head Exam Head Exam: ATRAUMATIC, NORMAL INSPECTION, NORMOCEPHALIC - Eye Exam Eye Exam: EOMI, Normal appearance, PERRL Pupil Exam: NORMAL ACCOMODATION - ENT Exam ENT Exam: Mucous Membranes Moist - Neck Exam Neck Exam: Full ROM - Respiratory Exam Respiratory Exam: NORMAL BREATHING PATTERN. absent: Wheezes - Cardiovascular Exam Cardiovascular Exam: +S1, +S2 - GI/Abdominal Exam GI & Abdominal Exam: Soft. absent: Distended, Firm, Guarding, Rigid, Tenderness - Extremities Exam Extremities Exam: Full ROM, Normal Capillary Refill - Back Exam Back Exam: Full ROM - Neurological Exam Neurological Exam: Altered. absent: Oriented x3 (oriented to person) - Psychiatric Exam Psychiatric exam: Flat Affect - Skin Skin Exam: Dry, Intact, Warm Assessment and Plan - Assessment and Plan (Free Text) Assessment: Seizures Tele monitoring head CT w/o contrast negative for intracranial bleed likely secondary to hyponatremia brought on by chronic alcohol use ( encephalopathic) f/u EEG f/u AM labs f/u repeat UA f/u MRI seizure precautions fall risk precautions Neuro consult: Dr. Catherine Madera- f/u recommendations Recurrent Fevers F/U sputum, urine culture and blood culture CXR: RLL infiltrate suspicious for acute pneumonia Azithromycin 500mg @ 250cc/hr IVPB daily Rocephin 1gm @ 100cc/hr IVPB daily Tylenol 650mg PO q6H prn fever Venous dopplers to rule out DVT as a source for spiking fevers Pneumonia CT Chest/abdomen/pelvis- dense infiltrates and consolidation in right lower lung; faint nodular infiltrates in left lower lobe. Refer to full report F/U sputum culture CXR: RLL infiltrate suspicious for acute pneumonia Azithromycin 500mg @ 250cc/hr IVPB daily Rocephin 1gm @ 100cc/hr IVPB daily Florastor BID Tylenol 650mg PO q6H prn fever Hyponatremia with dehydration Encourage intake NS @ 150cc/hr Initially 118->120->119 Hx of Alcoholism Alc level 20 UDS negative Librium 25mg PO Q6 AMINTA- hold if lethargic Ativan 1mg IVP Q3 PRN agitation- holf if lethargic PO thiamine daily, folic acid and multivitamins B12 and folate labs WNL Vitamin D WNL Hx of Hypertension No known meds Hydralazine 50 mg PO TID Hydralazine IV PRN if SBP above 160 Prior R SFA stent Questionable Hx of IVC filter Venous dopplers obtained for spiking fevers- Maybe hx of DVT ASA 81mg po daily Prior CVA Head CT negative ASA 81mg po daily Crestor 20mg po QHS PPX SCDs Heparin 5000U SC Q12 Pepcid 20mg PO BID Seizure precautions Fall precautions Heart Healthy Diet <Serafin Farrell H - Last Filed: 08/25/16 13:31> Objective - Vital Signs/Intake and Output Vital Signs (last 24 hours): Temp Pulse Resp BP Pulse Ox 100.2 F H 88 18 144/78 97 08/25/16 12:05 08/25/16 12:20 08/25/16 12:05 08/25/16 12:05 08/25/16 12:05 Intake and Output: 08/25/16 08/25/16 06:59 18:59 Intake Total 1310 Output Total 800 Balance 510 - Medications Medications: Current Medications Acetaminophen (Tylenol 325mg Tab) 650 mg PO Q6 PRN PRN Reason: Fever >100.4 F Last Admin: 08/25/16 10:47 Dose: 650 mg Aspirin (Aspirin Chewable) 81 mg PO DAILY [facility] [place] Last Admin: 08/25/16 09:26 Dose: 81 mg Chlordiazepoxide (Librium) 25 mg PO Q6H [facility] Last Admin: 08/25/16 08:18 Dose: 25 mg Famotidine (Pepcid) 20 mg PO BID [facility] [place] Last Admin: 08/25/16 09:26 Dose: 20 mg Folic Acid (Folic Acid) 1 mg PO DAILY [facility] [place] Last Admin: 08/25/16 09:26 Dose: 1 mg Heparin Sodium (Porcine) (Heparin) 5,000 units SC Q8 [facility] Last Admin: 08/25/16 05:19 Dose: 5,000 units Hydralazine HCl (Apresoline) 50 mg PO TID [facility] Last Admin: 08/25/16 10:48 Dose: 50 mg Hydralazine HCl (Apresoline) 10 mg IVP Q6H PRN PRN Reason: hypertension Sodium Chloride (Sodium Chloride 0.9%) 1,000 mls @ 150 mls/hr IV .Q6H40M [facility] [place] Last Admin: 08/25/16 10:55 Dose: Not Given Azithromycin 500 mg/ Sodium (Chloride) 250 mls @ 250 mls/hr IVPB DAILY [facility] [place] Last Admin: 08/25/16 10:48 Dose: 250 mls/hr Ceftriaxone Sodium 1 gm/ (Sodium Chloride) 100 mls @ 100 mls/hr IVPB DAILY [facility] [place] Last Admin: 08/25/16 09:27 Dose: 100 mls/hr Lorazepam (Ativan) 1 mg IVP Q3H PRN PRN Reason: Agitation Last Admin: 08/25/16 10:48 Dose: 1 mg Multivitamins (Hexavitamin) 1 tab PO DAILY [facility] [place] Last Admin: 08/25/16 09:26 Dose: 1 tab Rosuvastatin Calcium (Crestor) 20 mg PO HS [facility] [place] Last Admin: 08/24/16 22:53 Dose: 20 mg Saccharomyces Boulardii (Florastor) 250 mg PO BID [facility] [place] Last Admin: 08/25/16 12:09 Dose: 250 mg Thiamine HCl (Vitamin B1 Tab) 100 mg PO DAILY [facility] [place] Last Admin: 08/25/16 09:26 Dose: 100 mg - Labs Labs: 08/25/16 10:56 08/25/16 06:09 APTT 39 SECONDS (21-34) H 08/25/16 10:56 Attending/Attestation - Attestation I have personally seen and examined this patient.: Yes I have fully participated in the care of the patient.: Yes I have reviewed all pertinent clinical information, including history, physical exam and plan: Yes Notes (Text): 08/25/16 13:29 Medical attending: Patient was seen and examined by me, agree with the above note by medical office scheduler. The patient came in overnight. We saw him he stated that he is feeling okay. He still has a low sodium level. This may be a combination of his poor eating habits and possibly complicated with continuous alcohol intake. At the meantime were giving continue with the intravenous fluids. Will have to recheck another BMP later on today He did not have a seizure this morning. He is still on Librium as well as IV Ativan the patient reports that he thinks that the Librium and Ativan are helping him cope this time. The patient is currently on IV into biotics at this time for the potential pneumonia on chest imaging. Thank you very much, Serafin Farrell 08/25/16 13:30
[2016-08-25 07:44] LABS: FOLATE 14.7 ng/mL
[2016-08-25] MEDS ORDERED: Potassium Chloride 20 mEq ER Tab PO ONE (08:15)
[2016-08-25] MEDS: Multiple Vitamins Tab PO SCH (09:26)
--- NOTE | 2016-08-25 09:32 | CON ---
DATE: 08/25/2016 NEUROLOGY CONSULTATION REASON FOR CONSULTATION: Seizures. HISTORY OF PRESENTING ILLNESS: The patient is a 56-year-old male who has been asked for evaluation o f seizure. The patient apparently had 2 seizures. The patient had a seizure yesterday morning, as w ell as the night before. As per the patient, he does drink alcohol. However, he only has a few drin ks. The patient apparently stopped drinking hard liquor a few days ago. The patient has [place] ng [place] [facility]. Denies any headache or dizziness. Denies any focal weakness in arm s or legs. REVIEW OF SYSTEMS: Denies any headache, dizziness, chest pain, shortness of breath, abdominal pain, constipation, diarrhea, dysuria, pyuria, cough, or sputum production. PAST MEDICAL HISTORY: Includes hypertension, schizophrenia, anxiety. MEDICATIONS: At home, vitamins, blood pressure pills. ALLERGIES: No known drug allergies. SOCIAL HISTORY: He does drink alcohol, 3 cans of 24-ounce beer daily. He does smoke cigarettes. De nies use of any illicit drugs. FAMILY HISTORY: Reviewed and noncontributory to the case. PHYSICAL EXAMINATION: GENERAL: The patient is a middle-aged male lying on the bed, in no acute distress. VITAL SIGNS: His blood pressure is 139/82. Heart rate is 76 per minute, breathing at a rate of 16 p er minute. Temperature is 100.1 degrees Fahrenheit. HEENT: Normocephalic, atraumatic. NECK: Supple. There are no carotid bruits. LUNGS: Clear. CARDIOVASCULAR: S1, S2 audible. No murmurs. ABDOMEN: Soft, nontender. Bowel sounds present. NEUROLOGIC EXAMINATION: MENTAL STATUS: The patient is awake, alert, oriented to time, place, and person. Speech is fluent. Naming and repetition are normal. Memory and cognition are intact. CRANIAL NERVES: Pupils are 3 mm bilaterally reactive to light. Visual goldberg are full. Extraocular movements are intact. There is no facial asymmetry. He is moving all 4 extremities symmetrically. Power appears to be 5/5 bilaterally. Plantars are downgoing bilaterally. Positive tremulousness no ticed in both his hands. Gait is deferred at the moment. LABORATORY DATA: Labs reviewed show WBC of 6.3, hemoglobin 15.2, hematocrit 46.8, and platelets of 1 52. Sodium is ____, potassium 3.5, chloride 88, carbon dioxide content 21. BUN of 11, creatinine 0. 9, and glucose of 91. IMPRESSION: New-onset seizure, which appears to be secondary to alcohol withdrawal in addition to hy ponatremia. RECOMMENDATIONS: 1. The patient to have MRI of the brain without contrast. 2. The patient to have an electroencephalogram. 3. I agree with the use of Librium for his alcohol withdrawal symptoms. 4. We will hold off any antiepileptic medication at present. 5. The patient's sodium is to be corrected. 6. Maintain seizure precautions. 7. Please continue other treatment and supportive care. Thank you for the opportunity to participate in the care of this patient. Allyson Madera MD cc: [id number] TT: 08/25/2016 09:32:20 Confirmation # [id number] Dictation # [id number] jorden
[2016-08-25] MEDS: Azithromycin 500 MG in Sodium Chloride 0.9% 250 ML IVPB SCH (10:48)
[2016-08-25 11:04] LABS: BASO # 0.1 K/uL (0.0-0.2); BASO % 0.9 % (0.0-2.0); HEMATOCRIT 49.1 % (35.0-51.0); LYMPH # 0.6 K/uL (1.0-4.3); LYMPH % 9.6 % (20.0-40.0); MEAN CELL VOLUME 78.6 fL (80.0-94.0); MEAN CORPUSCULAR HEMOGLOBIN 24.8 pg (27.0-31.0); MEAN CORPUSCULAR HGB CONC 31.6 g/dL (33.0-37.0); MEAN PLATELET VOLUME 7.5 fL (7.2-11.7); MONO # 0.4 K/uL (0.0-0.8); NRBC % 0.2 % (0.0-2.0); RED CELL DISTRIBUTION WIDTH 13.8 % (11.5-14.5); WHITE BLOOD COUNT 6.3 K/uL (4.8-10.8)
[2016-08-25 11:13] LABS: PLATELET COUNT 114 K/uL (130-400)
[2016-08-25] MEDS: Saccharomyces Boulardi 250 mg Cap PO SCH ×2 (12:09→17:27)
[2016-08-25 12:43] LABS: NEUTROPHIL 81 % (50-75); TOTAL CELLS COUNTED 100
[2016-08-25 21:52] LABS: POTASSIUM 3.6 mmol/L (3.6-5.2)
[2016-08-25 21:54] LABS: SODIUM 118 mmol/L (132-148)
[2016-08-25 21:55] LABS: BLOOD UREA NITROGEN 10 mg/dL (9-20); CARBON DIOXIDE 22 mmol/L (22-30); GFR AFRICAN-AMERICAN > 60
[2016-08-25 21:56] LABS: CALCIUM 7.4 mg/dl (8.6-10.4); GLUCOSE,RANDOM 99 mg/dL (75-110)
[2016-08-26] MEDS ORDERED: Potassium Chloride 20 mEq/15 ml LIQ UD PO ONE (00:22)
[2016-08-26] MEDS: Sodium Chloride 0.9% 1,000 ML IV SCH ×5 (01:07→19:52)
[2016-08-26] MEDS: Saccharomyces Boulardi 250 mg Cap PO SCH ×2 (09:45→17:46)
[2016-08-26] MEDS: Multiple Vitamins Tab PO SCH (09:45)
[2016-08-26] MEDS: Azithromycin 500 MG in Sodium Chloride 0.9% 250 ML IVPB SCH (09:46)
--- NOTE | 2016-08-26 12:18 | MRI ---
PROCEDURE: MRI BRAIN WITHOUT CONTRAST HISTORY: seizure COMPARISON: None. TECHNIQUE: Multiplanar, multisequence MR images of the brain were obtained without intravenous contrast enhancement. FINDINGS: The study is markedly limited due to patient's motion. HEMORRHAGE: None DWI: No evidence of an acute or early subacute infarction. BRAIN PARENCHYMA: There is focal encephalomalacia at the left basal ganglia and bloom radiata suggestive of old infarct. Moderate atrophy and moderate white matter chronic microvascular ischemic disease are noted. VENTRICLES: Unremarkable. No hydrocephalus. CRANIUM: Unremarkable. ORBITS: Grossly unremarkable. PARANASAL SINUSES/MASTOIDS: Clear VASCULAR SYSTEM: Skull base flow voids intact. OTHER FINDINGS: None. IMPRESSION: Markedly limited study due to patient's motion. No evidence of acute infarct. No evidence of mass lesion mass effect or midline shift.
--- NOTE | 2016-08-26 15:08 | CP.PCM.PN ---
Subjective - Date & Time of Evaluation Date of Evaluation: 08/26/16 Time of Evaluation: 15:05 - Subjective Subjective: Patient seen and examined at bedside. Per nursing, no acute events overnight. Patient continues to demonstrate shaking/tremors. He is oriented to place but mumbles in response to other questions asked. Full review of systems unable to be obtained. He denies chest pain and shortness of breath. Objective - Vital Signs/Intake and Output Vital Signs (last 24 hours): Temp Pulse Resp BP Pulse Ox 98.1 F 93 H 18 174/97 H 93 L 08/26/16 07:00 08/26/16 12:00 08/26/16 07:00 08/26/16 07:00 08/26/16 07:00 Intake and Output: 08/26/16 08/26/16 06:59 18:59 Intake Total 1370 3350 Output Total 1 Balance 1370 3349 - Medications Medications: Current Medications Acetaminophen (Tylenol 325mg Tab) 650 mg PO Q6 PRN PRN Reason: Fever >100.4 F Last Admin: 08/25/16 20:06 Dose: 650 mg Aspirin (Aspirin Chewable) 81 mg PO DAILY [facility] Last Admin: 08/26/16 09:44 Dose: 81 mg Chlordiazepoxide (Librium) 25 mg PO Q6H [facility] Last Admin: 08/26/16 13:56 Dose: 25 mg Famotidine (Pepcid) 20 mg PO BID [facility] Last Admin: 08/26/16 09:45 Dose: 20 mg Folic Acid (Folic Acid) 1 mg PO DAILY [facility] Last Admin: 08/26/16 09:45 Dose: 1 mg Heparin Sodium (Porcine) (Heparin) 5,000 units SC Q8 [facility] Last Admin: 08/26/16 13:56 Dose: 5,000 units Hydralazine HCl (Apresoline) 10 mg IVP Q6H PRN PRN Reason: hypertension Hydralazine HCl (Apresoline) 50 mg PO TID [facility] Last Admin: 08/26/16 13:56 Dose: 50 mg Sodium Chloride (Sodium Chloride 0.9%) 1,000 mls @ 150 mls/hr IV .Q6H40M [facility] Last Admin: 08/26/16 13:57 Dose: Not Given Azithromycin 500 mg/ Sodium (Chloride) 250 mls @ 250 mls/hr IVPB DAILY [facility] Last Admin: 08/26/16 09:46 Dose: 250 mls/hr Ceftriaxone Sodium 1 gm/ (Sodium Chloride) 100 mls @ 100 mls/hr IVPB DAILY [facility] Last Admin: 08/26/16 09:45 Dose: 100 mls/hr Lorazepam (Ativan) 1 mg IVP Q3H PRN PRN Reason: Agitation Last Admin: 08/25/16 10:48 Dose: 1 mg Multivitamins (Hexavitamin) 1 tab PO DAILY [facility] Last Admin: 08/26/16 09:45 Dose: 1 tab Rosuvastatin Calcium (Crestor) 20 mg PO HS [facility] Last Admin: 08/25/16 21:50 Dose: 20 mg Saccharomyces Boulardii (Florastor) 250 mg PO BID [facility] Last Admin: 08/26/16 09:45 Dose: 250 mg Thiamine HCl (Vitamin B1 Tab) 100 mg PO DAILY [facility] Last Admin: 08/26/16 09:45 Dose: 100 mg - Labs Labs: 08/25/16 10:56 08/25/16 21:31 APTT 39 SECONDS (21-34) H 08/25/16 10:56 - Constitutional Appears: No Acute Distress, Other (tremulous ) - Head Exam Head Exam: ATRAUMATIC, NORMAL INSPECTION, NORMOCEPHALIC - Eye Exam Eye Exam: EOMI, Normal appearance - ENT Exam Additional comments: saliva noted on lower lip - Respiratory Exam Respiratory Exam: Decreased Breath Sounds - Cardiovascular Exam Cardiovascular Exam: +S1, +S2. absent: Bradycardia, Tachycardia - GI/Abdominal Exam GI & Abdominal Exam: Soft, Normal Bowel Sounds. absent: Guarding, Rigid, Tenderness - Extremities Exam Extremities Exam: Normal Inspection. absent: Pedal Edema, Tenderness - Neurological Exam Neurological Exam: Awake. absent: Oriented x3 Additional comments: oriented to place - Skin Skin Exam: Intact, Normal Color Assessment and Plan - Assessment and Plan (Free Text) Assessment: Seizures Tele monitoring head CT w/o contrast negative for intracranial bleed Brain MRI - Markedly limited study due to patient's motion. No evidence of acute infarct. No evidence of mass lesion mass effect or midline shift. likely secondary to hyponatremia brought on by chronic alcohol use ( encephalopathic) f/u EEG repeat UA: sp gravity elevated 1.049, urine protein 2+, urine blood 1+, RBC 6 seizure precautions fall risk precautions Neuro consult: Dr. M Madera- f/u recommendations Recurrent Fevers F/U sputum urine culture - no growth blood culture - no growth preliminary x2 CXR: RLL infiltrate suspicious for acute pneumonia Continue Azithromycin 500mg @ 250cc/hr IVPB daily Continue Rocephin 1gm @ 100cc/hr IVPB daily Tylenol 650mg PO q6H prn fever Venous dopplers to rule out DVT - negative Pneumonia CT Chest/abdomen/pelvis- dense infiltrates and consolidation in right lower lung; faint nodular infiltrates in left lower lobe. Refer to full report F/U sputum culture CXR: RLL infiltrate suspicious for acute pneumonia Azithromycin 500mg @ 250cc/hr IVPB daily Rocephin 1gm @ 100cc/hr IVPB daily Florastor BID Tylenol 650mg PO q6H prn fever Hyponatremia with dehydration Encourage intake NS @ 150cc/hr Initially 118->120->119-> 118 Nephrology, Dr. Mascorro, consulted. Will follow-up recommendations Urine sodium, osmolarity, and creatinine ordered Hx of Alcoholism Alc level 20 UDS negative Librium 25mg PO Q6 AMINTA- hold if lethargic Ativan 1mg IVP Q3 PRN agitation- holf if lethargic PO thiamine daily, folic acid and multivitamins B12 and folate labs WNL Vitamin D WNL Hx of Hypertension No known meds Hydralazine 50 mg PO TID Hydralazine IV PRN if SBP above 160 Started Clonidine 0.1 mg po TID Prior R SFA stent Questionable Hx of IVC filter Venous dopplers obtained for spiking fevers- negative ASA 81mg po daily Prior CVA Head CT negative Brain MRI negative ASA 81mg po daily Crestor 20mg po QHS PPX SCDs Heparin 5000U SC Q12 Pepcid 20mg PO BID Seizure precautions Fall precautions Heart Healthy Diet
[2016-08-26 17:14] LABS: CHLORIDE 88 mmol/L (98-107)
--- NOTE | 2016-08-26 18:23 | VASCLAB ---
PROCEDURE: Lower Extremity Venous Duplex Exam. HISTORY: recurrent spiking fevers PRIORS: 05/17/2015 TECHNIQUE: Bilateral common femoral, femoral, popliteal and posterior tibial, peroneal and great saphenous veins were evaluated. Flow was assessed with color Doppler, compressibility, assessment of phasic flow and augmentation response. Report prepared by Freedom Bautista, PAULINA, RVT FINDINGS: RIGHT: 1. Common Femoral Vein: 1.1. Compressibility - Fully compressible: Thrombus - None : Flow - Phasic: Augmentation -Normal: Reflux - None. 2. Femoral Vein: 2.1. Compressibility - Fully compressible: Thrombus - None : Flow - Phasic: Augmentation -Normal: Reflux - None. 3. Popliteal Vein: 3.1. Compressibility - Fully compressible: Thrombus - None : Flow - Phasic: Augmentation -Normal: Reflux - Severe. 4. Posterior Tibial Vein: 4.1. Compressibility - Fully compressible: Thrombus - None: Flow - Phasic: Augmentation -Normal: Reflux - None. 5. Peroneal Vein: 5.1. Compressibility - Fully compressible: Thrombus - None: Flow - Phasic: Augmentation -Normal: Reflux - Severe. 6. Great Saphenous Vein: 6.1. Compressibility - Fully compressible: Thrombus - None: Flow - Phasic: Augmentation - Normal: Reflux - None. LEFT: 1. Common Femoral Vein: 1.1. Compressibility - Fully compressible: Thrombus - None: Flow - Phasic: Augmentation -Normal: Reflux - None. 2. Femoral Vein: 2.1. Compressibility - Fully compressible: Thrombus - None: Flow - Phasic: Augmentation -Normal: Reflux - None. 3. Popliteal Vein: 3.1. Compressibility - Fully compressible: Thrombus - None : Flow - Phasic: Augmentation -Normal: Reflux - None. 4. Posterior Tibial Vein: 4.1. Compressibility - Fully compressible: Thrombus - None: Flow - Phasic: Augmentation -Normal: Reflux - Severe. 5. Peroneal Vein: 5.1. Compressibility - Fully compressible: Thrombus - None: Flow - Phasic: Augmentation -Normal: Reflux - None. 6. Great Saphenous Vein: 6.1. Compressibility - Fully compressible: Thrombus - None: Flow - Phasic: Augmentation - Normal: Reflux - None. OTHER FINDINGS: Right: Severe valvular incompetence of the right popliteal and peroneal veins. Eccentric calcification in the right common femoral artery. Left: Severe valvular incompetence of the left posterior tibial vein. Eccentric plaque in the left common femoral artery. IMPRESSION: Right: No evidence of deep or superficial vein thrombosis of the right lower extremity. Left: No evidence of deep or superficial vein thrombosis of the left lower extremity.
--- NOTE | 2016-08-26 18:54 | CP.PCM.CON ---
History of Present Illness - History of Present Illness History of Present Illness: 56 yo M w/ pmh of ETOH abuse, unclear seizure history, DVT s/p IVC filter, s/p R SFA stent, htn, schizoaffective disorder, brought to ED 2 days ago after witnessed seizure episode (per one report, stopped drinking hard liquor several days before presentation); found to have RLL pneumonia, altered mental status and with hyponatremia (Na 118-120) not improving with IVF, nephrology hence being consulted; Patient not able to give adequate history; ROS limited and doesn't appear trustworthy; he denies any headaches or dizziness; admits to shortness of breath ; denies urinary frequency; During current hospital course, patient put on IV abx for PNA; CT and MRI obtained as part of seizure workup; put on IVF w/ NS at 150 cc/hr since admission (2 days ago) after being bolused with 1L NS in ED; Patient has been confused per nursing staff and incontinent; needing to be fed by staff but very difficult to feed (at time of interview, had a mouthful of un- chewed food in mouth); patient denying any difficulty swallowing; Review of Systems - Review of Systems Systems not reviewed;Unavailable: Altered Mental Status (Limited ROS obtained from nursing staff, no family member ) Past Patient History - Infectious Disease Hx of Infectious Diseases: None - Past Medical History & Family History Past Medical History?: Yes Pertinent Family History: Unable to obtain, altered mental status - Past Social History Smoking Status: Heavy Smoker > 10 Cigarettes Daily - CARDIAC Hx Hypertension: Yes - PULMONARY Hx Asthma: Yes - NEUROLOGICAL Hx Seizures: Yes (Alcohol induced) - HEENT Hx HEENT Problems: No - RENAL Hx Chronic Kidney Disease: No - ENDOCRINE/METABOLIC Hx Diabetes Mellitus Type 2: Yes (no meds) - HEMATOLOGICAL/ONCOLOGICAL Hx Human Immunodeficiency Virus (HIV): No - INTEGUMENTARY Hx Dermatological Problems: No - MUSCULOSKELETAL/RHEUMATOLOGICAL Hx Musculoskeletal Disorders: No - GASTROINTESTINAL Hx Gastrointestinal Disorders: No - GENITOURINARY/GYNECOLOGICAL Hx Sexually Transmitted Disorders: No - PSYCHIATRIC Hx Anxiety: Yes Hx Bipolar Disorder: Yes Hx Depression: Yes Hx Schizophrenia: Yes Hx Substance Use: No - SURGICAL HISTORY Hx Surgeries: Yes Other/Comment: claims he had a mikey in his right leg. no scar noted. IVC FILTER INSERTED - ANESTHESIA Hx Anesthesia: Yes Hx Anesthesia Reactions: No Meds Allergies/Adverse Reactions: Allergies Allergy/AdvReac Type Severity Reaction Status Date / Time No Known Allergies Allergy Verified 06/12/16 12:29 - Medications Medications: Current Medications Acetaminophen (Tylenol 325mg Tab) 650 mg PO Q6 PRN PRN Reason: Fever >100.4 F Last Admin: 08/25/16 20:06 Dose: 650 mg Aspirin (Aspirin Chewable) 81 mg PO DAILY [facility] Last Admin: 08/26/16 09:44 Dose: 81 mg Chlordiazepoxide (Librium) 25 mg PO Q6H [facility] Last Admin: 08/26/16 13:56 Dose: 25 mg Clonidine HCl (Catapres) 0.1 mg PO TID [facility] Last Admin: 08/26/16 17:51 Dose: Not Given Famotidine (Pepcid) 20 mg PO BID [facility] Last Admin: 08/26/16 17:46 Dose: 20 mg Folic Acid (Folic Acid) 1 mg PO DAILY [facility] Last Admin: 08/26/16 09:45 Dose: 1 mg Heparin Sodium (Porcine) (Heparin) 5,000 units SC Q8 [facility] Last Admin: 08/26/16 13:56 Dose: 5,000 units Hydralazine HCl (Apresoline) 10 mg IVP Q6H PRN PRN Reason: hypertension Hydralazine HCl (Apresoline) 50 mg PO TID [facility] Last Admin: 08/26/16 17:46 Dose: 50 mg Sodium Chloride (Sodium Chloride 0.9%) 1,000 mls @ 150 mls/hr IV .Q6H40M [facility] Last Admin: 08/26/16 13:57 Dose: Not Given Azithromycin 500 mg/ Sodium (Chloride) 250 mls @ 250 mls/hr IVPB DAILY [facility] Last Admin: 08/26/16 09:46 Dose: 250 mls/hr Ceftriaxone Sodium 1 gm/ (Sodium Chloride) 100 mls @ 100 mls/hr IVPB DAILY [facility] Last Admin: 08/26/16 09:45 Dose: 100 mls/hr Lorazepam (Ativan) 1 mg IVP Q3H PRN PRN Reason: Agitation Last Admin: 08/25/16 10:48 Dose: 1 mg Multivitamins (Hexavitamin) 1 tab PO DAILY [facility] Last Admin: 08/26/16 09:45 Dose: 1 tab Rosuvastatin Calcium (Crestor) 20 mg PO HS [facility] Last Admin: 08/25/16 21:50 Dose: 20 mg Saccharomyces Boulardii (Florastor) 250 mg PO BID [facility] Last Admin: 08/26/16 17:46 Dose: 250 mg Thiamine HCl (Vitamin B1 Tab) 100 mg PO DAILY [facility] Last Admin: 08/26/16 09:45 Dose: 100 mg Physical Exam - Constitutional Appears: No Acute Distress, Confused - Head Exam Head Exam: ATRAUMATIC, NORMOCEPHALIC - Eye Exam Eye Exam: Conjunctival injection. absent: Scleral icterus - ENT Exam ENT Exam: Mucous Membranes Moist - Neck Exam Neck exam: Positive for: Normal Inspection - Respiratory Exam Respiratory Exam: absent: Wheezes Additional comments: RLL mild rhonchi; tachypneic; - Cardiovascular Exam Cardiovascular Exam: Tachycardia, REGULAR RHYTHM, +S1, +S2 - GI/Abdominal Exam GI & Abdominal Exam: Soft. absent: Distended, Tenderness - Exam Exam: absent: Bladder Distension - Extremities Exam Extremities exam: Positive for: normal capillary refill, pedal pulses present. Negative for: pedal edema - Neurological Exam Neurological exam: Alert Additional comments: Oriented only to self; 5/5 motor strength in b/l UE and LE; - Psychiatric Exam Psychiatric exam: Agitated - Skin Skin Exam: Normal Color, Warm Results - Vital Signs Recent Vital Signs: Last Vital Signs Temp 99.2 F 08/26/16 15:00 Pulse 103 H 08/26/16 15:00 Resp 20 08/26/16 15:00 BP 178/92 H 08/26/16 15:00 Pulse Ox 96 08/26/16 15:00 - Labs Result Diagrams: 08/25/16 10:56 08/25/16 21:31 Labs: Laboratory Results - last 24 hr 08/25/16 21:31 Sodium 118 L* Potassium 3.6 Chloride 88 L Carbon Dioxide 22 Anion Gap 12 BUN 10 Creatinine 0.8 Est GFR ( Amer) > 60 Est GFR (Non-Af Amer) > 60 Random Glucose 99 Calcium 7.4 L - Imaging and Cardiology Chest x-ray Status: Image reviewed by me Additional comment: RLL inflitrate; no vascular congestion; Assessment & Plan (1) Hyponatremia Assessment and Plan: Appears euvolemic on exam; also, on aggressive IVF and elevated BP which is indicative of being adequately volume replete; TSH normal; unable to obtain previous history regarding diet as the possibility of inadequate solute intake is possible in an alcoholic, however, would have corrected with isotonic saline ; no acute intracranial pathology to suggest cerebral salt wasting (and patient would be hypotensive in this setting); primary polydipsia is also a possibility with history of schizoaffective disorder but should not persist in hospitalized patient with limited access to free water; Most likely possibility is SIADH due to pneumonia but will get workup to confirm ; isotonic saline can worsen hyponatremia in this condition; Has risk factors for developing osmotic demyelination if serum Na corrected too rapidly (serum Na < 120, alcoholism); will hold off on giving tolvaptan for now; -check serum osm, uric acid level -check urine Na, osm -decrease NS to amount needed for maintenance (60 cc/hr) -keep serum potassium closer to 4.0 (will help correct hyponatremia) Status: Acute (2) Altered mental status Assessment and Plan: Etiology unclear; hepatic encephalopathy possible as is Wernicke's encephalopathy in the setting of ETOH abuse; -avoid rapid correction of serum Na -check ammonia level -consider more aggressive IV thiamine Status: Acute (3) Proteinuria Assessment and Plan: Seen on UA during this admission and previously; normal renal function but does have 1+ blood on dipstick; hep B and C previously negative (in 2015); will obtain limited workup; -check HgbA1c -repeat hep B and C serologies, HIV Ab -C3 and C4 -ANCA screen, BETSEY -urine cytology (for hematuria workup) Status: Acute (4) Pneumonia Assessment and Plan: On ceftriaxone and azithromycin; consider anaerobic coverage with clindamycin for possible aspiration; Status: Acute (5) Hypertension, uncontrolled Assessment and Plan: Possibly due to ETOH withdrawal and so would not treat aggressively for now; on hydralazine, started on clonidine today; consider changing clonidine to prn only for SBP > 160; Status: Acute (6) Thrombocytopenia Assessment and Plan: Likely due to bone marrow suppression from ETOH abuse; will check hep B and C serologies; Status: Acute (7) History of CVA (cerebrovascular accident) Assessment and Plan: Multiple old CVA sequelae seen on head CT; will check lipid panel, HgbA1c; Status: Acute
[2016-08-26 22:38] LABS: CREATININE, RANDOM URINE 93.5 mg/dL
[2016-08-26 23:21] LABS: CHLORIDE 87 mmol/L (98-107)
[2016-08-26 23:24] LABS: ALB/GLOB RATIO 0.8 (1.0-2.1); ALKALINE PHOSPHATASE 57 U/L (38-126); AST/SGOT 93 U/L (17-59); BILIRUBIN,TOTAL 0.4 mg/dL (0.2-1.3); BLOOD UREA NITROGEN 10 mg/dL (9-20); CARBON DIOXIDE 21 mmol/L (22-30); GFR AFRICAN-AMERICAN > 60; TOTAL PROTEIN 6.7 g/dL (6.3-8.3)
[2016-08-26 23:25] LABS: ALT/SGPT 34 U/L (21-72); CALCIUM 7.6 mg/dl (8.6-10.4); GLUCOSE,RANDOM 95 mg/dL (75-110); URIC ACID 3.1 mg/dL (3.5-8.5)
[2016-08-26 23:39] LABS: POTASSIUM 4.1 mmol/L (3.6-5.2)
[2016-08-26 23:40] LABS: SODIUM 119 mmol/L (132-148)
[2016-08-27 06:52] LABS: CHLORIDE 88 mmol/L (98-107)
[2016-08-27 06:53] LABS: POTASSIUM 3.7 mmol/L (3.6-5.2); SODIUM 122 mmol/L (132-148)
[2016-08-27 06:55] LABS: ALB/GLOB RATIO 0.9 (1.0-2.1); ALKALINE PHOSPHATASE 51 U/L (38-126); AST/SGOT 91 U/L (17-59); BILIRUBIN,TOTAL 0.6 mg/dL (0.2-1.3); BLOOD UREA NITROGEN 13 mg/dL (9-20); CARBON DIOXIDE 24 mmol/L (22-30); CHOLESTEROL 113 mg/dL (0-199); GFR AFRICAN-AMERICAN > 60; GLUCOSE,RANDOM 101 mg/dL (75-110); TOTAL PROTEIN 5.8 g/dL (6.3-8.3)
[2016-08-27 06:56] LABS: ALT/SGPT 33 U/L (21-72); MAGNESIUM 1.5 mg/dL (1.6-2.3); PHOSPHOROUS 2.8 mg/dL (2.5-4.5); URIC ACID 3.2 mg/dL (3.5-8.5)
[2016-08-27 07:02] LABS: BASO % 0.5 % (0.0-2.0); LYMPH # 0.7 K/uL (1.0-4.3); LYMPH % 17.7 % (20.0-40.0); MEAN CELL VOLUME 78.6 fL (80.0-94.0); MEAN CORPUSCULAR HEMOGLOBIN 24.8 pg (27.0-31.0); MEAN CORPUSCULAR HGB CONC 31.5 g/dL (33.0-37.0); MEAN PLATELET VOLUME 8.5 fL (7.2-11.7); MONO # 0.2 K/uL (0.0-0.8); MONO % 5.7 % (0.0-10.0); NRBC % 0.1 % (0.0-2.0); RED CELL DISTRIBUTION WIDTH 13.5 % (11.5-14.5); WHITE BLOOD COUNT 4.2 K/uL (4.8-10.8)
--- NOTE | 2016-08-27 09:44 | CP.PCM.PN ---
Subjective - Date & Time of Evaluation Date of Evaluation: 08/27/16 Time of Evaluation: 09:00 - Subjective Subjective: Patient was seen and examined by me. The patient was sleeping, he woke up - however speech was barely understandable. He says yes to every single question I ask. He does not know he is here and he is not aware of time or place. He does not follow commands. Reviewed his medications and will decrease the librium to 25 BID as well as decrease ativan. The patient Na is 122, nephrology decreased the IVF rate. Per nephrolgy the hyponatremia may be from SIADH or poor nutrion as well. There is currently an ongoing 24 hr urine collection. He is still on IV abx for pneumonia - the tmax is 100.6, WBC are stable. The cultures negative at the moment MRI the patient was moving a lot, but the report suggested no infacrt and no bleeding. Objective - Vital Signs/Intake and Output Vital Signs (last 24 hours): Temp Pulse Resp BP Pulse Ox 99.4 F 96 H 20 144/71 96 08/27/16 07:05 08/27/16 07:05 08/27/16 07:05 08/27/16 07:05 08/27/16 07:05 Intake and Output: 08/27/16 08/27/16 06:59 18:59 Intake Total 1690 Output Total 600 Balance 1090 - Medications Medications: Current Medications Acetaminophen (Tylenol 325mg Tab) 650 mg PO Q6 PRN PRN Reason: Fever >100.4 F Last Admin: 08/27/16 03:10 Dose: 650 mg Aspirin (Aspirin Chewable) 81 mg PO DAILY [facility] Last Admin: 08/26/16 09:44 Dose: 81 mg Chlordiazepoxide (Librium) 25 mg PO BID [facility] Clonidine HCl (Catapres) 0.1 mg PO TID [facility] Last Admin: 08/26/16 17:51 Dose: Not Given Famotidine (Pepcid) 20 mg PO BID [facility] Last Admin: 08/26/16 17:46 Dose: 20 mg Folic Acid (Folic Acid) 1 mg PO DAILY [facility] Last Admin: 08/26/16 09:45 Dose: 1 mg Hydralazine HCl (Apresoline) 10 mg IVP Q6H PRN PRN Reason: hypertension Last Admin: 08/26/16 20:34 Dose: 10 mg Hydralazine HCl (Apresoline) 50 mg PO TID [facility] Last Admin: 08/26/16 17:46 Dose: 50 mg Azithromycin 500 mg/ Sodium (Chloride) 250 mls @ 250 mls/hr IVPB DAILY [facility] Last Admin: 08/26/16 09:46 Dose: 250 mls/hr Ceftriaxone Sodium 1 gm/ (Sodium Chloride) 100 mls @ 100 mls/hr IVPB DAILY [facility] Last Admin: 08/26/16 09:45 Dose: 100 mls/hr Sodium Chloride (Sodium Chloride 0.9%) 1,000 mls @ 60 mls/hr IV .[id number] [facility] Last Admin: 08/26/16 19:50 Dose: 60 mls/hr Lorazepam (Ativan) 1 mg IVP Q3H PRN PRN Reason: Agitation Last Admin: 08/25/16 10:48 Dose: 1 mg Multivitamins (Hexavitamin) 1 tab PO DAILY [facility] Last Admin: 08/26/16 09:45 Dose: 1 tab Rosuvastatin Calcium (Crestor) 20 mg PO HS [facility] Last Admin: 08/26/16 22:16 Dose: 20 mg Saccharomyces Boulardii (Florastor) 250 mg PO BID [facility] Last Admin: 08/26/16 17:46 Dose: 250 mg Thiamine HCl (Vitamin B1 Inj) 100 mg IV DAILY [facility] - Labs Labs: 08/27/16 06:27 08/27/16 06:27 APTT 39 SECONDS (21-34) H 08/25/16 10:56 Assessment and Plan - Assessment and Plan (Free Text) Assessment: Recurrent Fevers 5/6: Tamx 100.6 F/U sputum urine culture - no growth blood culture - no growth preliminary x2 CXR: RLL infiltrate suspicious for acute pneumonia Continue Azithromycin 500mg @ 250cc/hr IVPB daily Continue Rocephin 1gm @ 100cc/hr IVPB daily Tylenol 650mg PO q6H prn fever Venous dopplers to rule out DVT - negative Pneumonia 5/6: Patient still has elevated temperatures, WBC stable, cultures are negative at this time. CT Chest/abdomen/pelvis- dense infiltrates and consolidation in right lower lung; faint nodular infiltrates in left lower lobe. Refer to full report F/U sputum culture CXR: RLL infiltrate suspicious for acute pneumonia Azithromycin 500mg @ 250cc/hr IVPB daily Rocephin 1gm @ 100cc/hr IVPB daily Florastor BID Tylenol 650mg PO q6H prn fever Hyponatremia, SIADH vs poor nutrion from alcoholism 08/27: IVF rate changed to 50 ml hr. Continue monitoring. 24 hr collection at the moment. He has a hidalgo cathter. Initially 118->120->119-> 118 Nephrology, Dr. Mascorro, consulted. Will follow-up recommendations Urine sodium, osmolarity, and creatinine ordered Seizures 08/27: Tele monitoring head CT w/o contrast negative for intracranial bleed Brain MRI - Markedly limited study due to patient's motion. No evidence of acute infarct. No evidence of mass lesion mass effect or midline shift. likely secondary to hyponatremia brought on by chronic alcohol use ( encephalopathic) f/u EEG repeat UA: sp gravity elevated 1.049, urine protein 2+, urine blood 1+, RBC 6 seizure precautions fall risk precautions Neuro consult: Dr. Catherine Madera- f/u recommendations Hx of Alcoholism 08/27: Decrease librium to 25 BID and decrease ativan. Alc level 20 UDS negative Librium 25mg PO Q6 AMINTA- hold if lethargic Ativan 1mg IVP Q3 PRN agitation- holf if lethargic PO thiamine daily, folic acid and multivitamins B12 and folate labs WNL Vitamin D WNL Hx of Hypertension No known meds Hydralazine 50 mg PO TID Hydralazine IV PRN if SBP above 160 Started Clonidine 0.1 mg po TID Prior R SFA stent Questionable Hx of IVC filter Venous dopplers obtained for spiking fevers- negative ASA 81mg po daily Prior CVA Head CT negative Brain MRI negative ASA 81mg po daily Crestor 20mg po QHS PPX SCDs Heparin 5000U SC Q12 Pepcid 20mg PO BID Seizure precautions Fall precautions Heart Healthy Diet
[2016-08-27] MEDS: Azithromycin 500 MG in Sodium Chloride 0.9% 250 ML IVPB SCH (10:23)
[2016-08-27] MEDS: Saccharomyces Boulardi 250 mg Cap PO SCH (12:15)
[2016-08-27] MEDS: Multiple Vitamins Tab PO SCH (12:16)
[2016-08-27] MEDS: Thiamine 100 mg/ml Inj IV SCH (13:42)
[2016-08-27] MEDS: Sodium Chloride 0.9% 1,000 ML IV SCH ×2 (13:43→13:46)
--- NOTE | 2016-08-27 14:51 | PN ---
DATE: 08/27/2016 NEPHROLOGY FOLLOWUP NOTE A 56-year-old male with past medical history of alcoholism abuse, unclear seizure history, DVT, statu s post IVC filter, status post right superficial femoral artery stent, hypertension, schizoaffective disorder, admitted after witnessed seizure episode, having persistent fevers, found to have right low er lobe pneumonia, altered mental status. Nephrology consulted for hyponatremia. The patient is still not able to give any adequate history. Therefore, review of systems limited. S till unable to adequately chew food and therefore placed n.p.o. by primary team awaiting swallow eval . PHYSICAL EXAMINATION: VITAL SIGNS: This morning, blood pressure 144/71, heart rate 96, respirations 20, temperature 99.4, T. max overnight 100.6, O2 sat 96% on nasal cannula. GENERAL: No acute distress, appears confused, not oriented to place. HEENT: Conjunctivae oval ejection present. No scleral icterus. Moist mucous membranes. CHEST: Clear to auscultation bilaterally. No rales, no rhonchi, no wheezes. HEART: S1, S2 normal, no murmurs, no gallops, no rubs. ABDOMEN: Soft, nontender, nondistended. Bladder nondistended, Kumar in place. EXTREMITIES: No leg edema. Hands cool to touch. NEUROLOGIC: Able to follow commands. PSYCHIATRIC: Normal mood. LABORATORY DATA: WBC 4.2, hemoglobin 15.1, hematocrit 48.0, platelets 91. Chemistry: Sodium 122, p otassium 3.7, chloride 88, bicarbonate 24, BUN 13, creatinine 1.1. Magnesium 1.5, albumin 2.7. Seru m osmolality 257, ammonia less than 9. Urine electrolytes from last night: Urine sodium 90, urine o smolality 569, urine protein 574 mg/dL, urine creatinine 93.5 mg/dL. ASSESSMENT: 1. Hyponatremia, hypotonic hyponatremia with euvolemia. Most likely secondary to syndrome of inappr opriate antidiuretic hormone secretion secondary to pneumonia, normal saline rate decreased yesterday from 150 to 60 mL per hour. Mild improvement in serum sodium noted going from 119 to 122 this morni ng over a span of about 30 hours. With high urine osmolality would have expected overall drop in ser um sodium; however, this is likely being offset by ____ losses in the setting of fever. The patient still appears volume replete. Blood pressure better controlled after decreasing IV fluids. Need to insure that patient continues to be volume replete. We will increase normal saline to 80 mL per hour. Repeat urine electrolytes, urine sodium, urine creatinine and urine osmolality. If serum sodium decreases or fails to increase further, we will give a dose of tolvaptan. 2. Acute kidney injury. Serum creatinine increasing from 0.8-1.1 in the setting of sepsis despite h ypotension. Urine ____ observed directly showing 10-15 granular casts per high power field which is consistent with acute tubular necrosis. Need to insure that the patient remains volume replete and r enal perfusion is preserved. Will discontinue clonidine and decrease hydralazine dose to 25 mg t.i.d . 3. Proteinuria. Has significant amount of proteinuria by urine protein, creatinine ratio of approxi mately 6 grams. Workup thus far is unremarkable with hepatitis B and C serologies negative. HIV neg ative. We will check complements and continue to monitor. We will repeat random urine protein and c reatinine. If repeat proteinuria is confirmed, we will obtain 24-hour for more accurate assessment. 4. Hypertension. Should not treat very aggressively as blood pressure in 150-160 range is acceptabl e for now. Recommendations as above. 5. Pneumonia on ceftriaxone and azithromycin. Consider anaerobic coverage. No need for renal dose adjustment for the above antibiotics. Ish Mascorro MD cc: [id number] TT: 08/27/2016 14:50:22 Confirmation # [id number] Dictation # [id number] jorden
[2016-08-27] MEDS ORDERED: Midazolam 2 MG/2 ML VIAL ONE (16:22)
[2016-08-27] MEDS ORDERED: Propofol 10 mg/ml Inj (20 ML) ONE (16:31)
[2016-08-27] MEDS ORDERED: Midazolam 2 MG/2 ML VIAL IVP ONE (16:44)
[2016-08-27] MEDS ORDERED: Propofol 10 mg/ml Inj (20 ML) IV ONE (16:45)
--- NOTE | 2016-08-27 16:45 | PCM.PROC ---
<Jacqui Bragg - Last Filed: 08/27/16 16:44> Procedures Attestation:: I certify that I have explained the specified Operation(s) or Procedure(s), risks, benefits and reasonable alternatives to the Patient and/or other person responsible. The opportunity was given to ask questions and all questions answered - Intubation Sedative: Versed Paralytic: Succinylholine Laryngoscope: Glidescope Assist Device Used: Fiber Optic Device ET Tube Size: 8.0 ET Tube Uncuffed: No ET Tube Secured at Depth: 26 ET Tube Secured Locarion: Lips ET Tube Placement Confirmation: Visualized Passing Through Cords, Breath Sounds Equal Bilaterally, Confirmation w/Capnometry Patient Tolerated Procedure: Well Procedure Immediate Complications: None <Danie Landeros - Last Filed: 08/27/16 17:33> Attending/Attestation - Attestation I have personally seen and examined this patient.: Yes I have fully participated in the care of the patient.: Yes I have reviewed all pertinent clinical information, including history, physical exam and plan: Yes Notes (Text): 08/27/16 17:33 I was present, instructed and assisted the resident physician with this procedure. The patient tolerated the procedure well with no complications.
[2016-08-27] MEDS ORDERED: Sodium Chloride 0.9% 1,000 ML IV ONE (16:46)
[2016-08-27] MEDS: Propofol 10 mg/ml 1,000 MG/100 ML VIAL IV PRN (17:00)
--- NOTE | 2016-08-27 17:12 | RAD ---
HISTORY: rapid response SOB, fever, tachy . Portable study 16:46. COMPARISON: 08/24/2016. FINDINGS: LUNGS: Marked progression of infiltrate primarily affecting the right lower lobe. PLEURA: Increase in right pleural effusion. CARDIOVASCULAR: No radiographic findings to suggest acute or significant cardiovascular disease. OSSEOUS STRUCTURES: No significant abnormalities. VISUALIZED UPPER ABDOMEN: Normal. OTHER FINDINGS: Satisfactory position of recently placed support apparatus including nasogastric tube endotracheal tube. IMPRESSION: Marked progression of alveolar consolidative changes right lower lobe and to a lesser extent right upper lobe.
--- NOTE | 2016-08-27 17:18 | PCM.SEPTIC ---
<Jacqui Bragg - Last Filed: 08/27/16 17:15> Sepsis Progress Note - Reassessment Type Date of Evaluation: 08/27/16 Time of Evaluation: 16:00 Reassessment Type: Non-invasive reassessment - Non Invasive Reassessment Were the most recent vital sign reviewed: Yes Vital Sign (Latest): Temp Pulse Resp BP Pulse Ox 99.4 F 82 20 144/71 96 08/27/16 07:05 08/27/16 08:00 08/27/16 07:05 08/27/16 07:05 08/27/16 07:05 Cardiovascular: Yes: Tachycardia Respiratory: Yes: Accessory Muscle Use, Rhonchi, Respiratory Distress Capillary Refill: Normal (Less than 2 sec) Skin: Warm - Invasive Reassessment (complete 2 of 4) Was a Central Venous Pressure Measurement obtained within 6 Hours after the presentation of septic shock: No Was a bedside cardiovascular ultrasound performed within 6 hours after the presentation of septic shock: No Was a passive leg raise performed or was a fluid challenge performed within 6 hrs of the initial fluid bolus: No Fluid Challenge performed: Yes <Danie Landeros - Last Filed: 08/27/16 17:35> Sepsis Progress Note - Non Invasive Reassessment Vital Sign (Latest): Temp Pulse Resp BP Pulse Ox 99.4 F 82 20 144/71 96 08/27/16 07:05 08/27/16 08:00 08/27/16 07:05 08/27/16 07:05 08/27/16 07:05 Attending/Attestation - Attestation I have personally seen and examined this patient.: Yes I have fully participated in the care of the patient.: Yes I have reviewed all pertinent clinical information, including history, physical exam and plan: Yes
[2016-08-27] MEDS: Clindamycin 300 MG in Sodium Chloride 0.9% 50 ML IVPB SCH ×2 (17:30→20:24)
--- NOTE | 2016-08-27 17:38 | CP.PCM.CON ---
History of Present Illness - History of Present Illness History of Present Illness: 56-year-old male with past medical history of ethanol abuse (drinking since age 17), hypertension, CVA 2 in the past, schizophrenia, anxiety, diabetes?, RLE DVT with IVC filter. Presented with recurrent seizures at home as described by patient. Patient was being treated on the floor for her pneumonia. Rapid response called (08/27/16) for worsening dyspnea. Patient brought to ICU and intubated. Review of Systems - Review of Systems Systems not reviewed;Unavailable: Altered Mental Status, Intubated Past Patient History - Infectious Disease Hx of Infectious Diseases: None - Past Medical History & Family History Past Medical History?: Yes - Past Social History Smoking Status: Heavy Smoker > 10 Cigarettes Daily - CARDIAC Hx Hypertension: Yes - PULMONARY Hx Asthma: Yes - NEUROLOGICAL Hx Seizures: Yes (Alcohol induced) - HEENT Hx HEENT Problems: No - RENAL Hx Chronic Kidney Disease: No - ENDOCRINE/METABOLIC Hx Diabetes Mellitus Type 2: Yes (no meds) - HEMATOLOGICAL/ONCOLOGICAL Hx Human Immunodeficiency Virus (HIV): No - INTEGUMENTARY Hx Dermatological Problems: No - MUSCULOSKELETAL/RHEUMATOLOGICAL Hx Musculoskeletal Disorders: No - GASTROINTESTINAL Hx Gastrointestinal Disorders: No - GENITOURINARY/GYNECOLOGICAL Hx Sexually Transmitted Disorders: No - PSYCHIATRIC Hx Anxiety: Yes Hx Bipolar Disorder: Yes Hx Depression: Yes Hx Schizophrenia: Yes Hx Substance Use: No - SURGICAL HISTORY Hx Surgeries: Yes Other/Comment: claims he had a mikey in his right leg. no scar noted. IVC FILTER INSERTED - ANESTHESIA Hx Anesthesia: Yes Hx Anesthesia Reactions: No Meds Allergies/Adverse Reactions: Allergies Allergy/AdvReac Type Severity Reaction Status Date / Time No Known Allergies Allergy Verified 06/12/16 12:29 - Medications Medications: Current Medications Acetaminophen (Tylenol 325mg Tab) 650 mg PO Q6 PRN PRN Reason: Fever >100.4 F Last Admin: 08/27/16 03:10 Dose: 650 mg Aspirin (Aspirin Chewable) 81 mg PO DAILY [facility] Last Admin: 08/27/16 12:15 Dose: Not Given Chlordiazepoxide (Librium) 25 mg PO BID [facility] Last Admin: 08/27/16 12:16 Dose: Not Given Clonidine HCl (Catapres) 0.1 mg PO TID [facility] Last Admin: 08/27/16 12:15 Dose: Not Given Famotidine (Pepcid) 20 mg PO BID [facility] Last Admin: 08/27/16 12:16 Dose: Not Given Folic Acid (Folic Acid) 1 mg PO DAILY [facility] Last Admin: 08/27/16 12:16 Dose: Not Given Hydralazine HCl (Apresoline) 10 mg IVP Q6H PRN PRN Reason: hypertension Last Admin: 08/26/16 20:34 Dose: 10 mg Hydralazine HCl (Apresoline) 25 mg PO Q8 [facility] Last Admin: 08/27/16 13:47 Dose: Not Given Azithromycin 500 mg/ Sodium (Chloride) 250 mls @ 250 mls/hr IVPB DAILY [facility] Last Admin: 08/27/16 10:23 Dose: 250 mls/hr Ceftriaxone Sodium 1 gm/ (Sodium Chloride) 100 mls @ 100 mls/hr IVPB DAILY [facility] Last Admin: 08/27/16 10:24 Dose: 100 mls/hr Sodium Chloride (Sodium Chloride 0.9%) 1,000 mls @ 80 mls/hr IV .[id number] [facility] Last Admin: 08/27/16 13:46 Dose: 80 mls/hr Clindamycin Phosphate 300 mg/ (Sodium Chloride) 52 mls @ 100 mls/hr IVPB Q6H [facility] Propofol (Diprivan) 1,000 mg in 100 mls @ 2.449 mls/hr IV .Q24H PRN; Protocol; 5 MCG/KG/MIN PRN Reason: TITRATE PER MD ORDER Last Titration: 08/27/16 17:10 Dose: 50 mcg/kg/min, 24.494 mls/hr Sodium Chloride (Sodium Chloride 0.9%) 1,000 mls @ 1,000 mls/hr IV .Q1H ONE Stop: 08/27/16 17:45 Last Admin: 08/27/16 17:20 Dose: 1,000 mls/hr Lactobacillus Acidophilus (Bacid Acidophilus) 1 cap PO BID [facility] Lorazepam (Ativan) 1 mg IVP Q3H PRN PRN Reason: Agitation Last Admin: 08/27/16 13:42 Dose: 1 mg Multivitamins (Hexavitamin) 1 tab PO DAILY [facility] Last Admin: 08/27/16 12:16 Dose: Not Given Rosuvastatin Calcium (Crestor) 20 mg PO HS [facility] Last Admin: 05/05/17 22:16 Dose: 20 mg Thiamine HCl (Vitamin B1 Inj) 100 mg IV DAILY [facility] Last Admin: 08/27/16 13:42 Dose: 100 mg Physical Exam - Head Exam Head Exam: ATRAUMATIC, NORMAL INSPECTION, NORMOCEPHALIC - Eye Exam Eye Exam: EOMI, Normal appearance, PERRL Pupil Exam: NORMAL ACCOMODATION, PERRL - Respiratory Exam Respiratory Exam: Rhonchi - Cardiovascular Exam Cardiovascular Exam: Tachycardia - GI/Abdominal Exam GI & Abdominal Exam: Normal Bowel Sounds. absent: Distended - Neurological Exam Neurological exam: Alert - Psychiatric Exam Psychiatric exam: Agitated Additional comments: delirious on presentation, now sedated on vent. Results - Vital Signs Recent Vital Signs: Last Vital Signs Temp 99.4 F 08/27/16 07:05 Pulse 82 08/27/16 08:00 Resp 20 08/27/16 07:05 BP 144/71 08/27/16 07:05 Pulse Ox 96 08/27/16 07:05 - Labs Result Diagrams: 08/27/16 06:27 08/27/16 06:27 Labs: Laboratory Results - last 24 hr 08/26/16 08/26/16 08/26/16 22:10 22:10 22:10 WBC RBC Hgb Hct MCV MCH MCHC RDW Plt Count MPV Neut % (Auto) Lymph % (Auto) [place] % (Auto) Eos % (Auto) Baso % (Auto) Neut # Lymph # [place] # Eos # Baso # Sodium Potassium Chloride Carbon Dioxide Anion Gap BUN Creatinine Est GFR ( Amer) Est GFR (Non-Af Amer) Random Glucose Serum Osmolality Uric Acid Calcium Phosphorus Magnesium Total Bilirubin AST ALT Alkaline Phosphatase Ammonia Total Protein Albumin Globulin Albumin/Globulin Ratio Triglycerides Cholesterol LDL Cholesterol Direct HDL Cholesterol Urine Osmolality 569 Ur Random Creatinine 93.5 U Random Total Protein Cancelled Ur Random Sodium 90 Ur Random Potassium 45.1 Ur Random Calcium 3.2 Hep Bs Antigen Hepatitis C Antibody HIV 1&2 Antibody Screen 08/26/16 08/26/16 08/27/16 23:38 23:56 06:27 WBC 4.2 L RBC 6.11 H Hgb 15.1 Hct 48.0 MCV 78.6 L MCH 24.8 L MCHC 31.5 L RDW 13.5 Plt Count 91 L D MPV 8.5 Neut % (Auto) 76.1 H Lymph % (Auto) 17.7 L [place] % (Auto) 5.7 Eos % (Auto) 0.0 Baso % (Auto) 0.5 Neut # 3.2 Lymph # 0.7 L [place] # 0.2 Eos # 0.0 Baso # 0.0 Sodium 119 L* Potassium 4.1 Chloride 87 L Carbon Dioxide 21 L Anion Gap 15 BUN 10 Creatinine 0.8 Est GFR ( Amer) > 60 Est GFR (Non-Af Amer) > 60 Random Glucose 95 Serum Osmolality Uric Acid 3.1 L Calcium 7.6 L Phosphorus Magnesium Total Bilirubin 0.4 AST 93 H D ALT 34 Alkaline Phosphatase 57 Ammonia Total Protein 6.7 Albumin 2.9 L Globulin 3.8 Albumin/Globulin Ratio 0.8 L Triglycerides Cholesterol LDL Cholesterol Direct HDL Cholesterol Urine Osmolality Ur Random Creatinine U Random Total Protein 574.0 H Ur Random Sodium Ur Random Potassium Ur Random Calcium Hep Bs Antigen Negative Hepatitis C Antibody HIV 1&2 Antibody Screen 08/27/16 08/27/16 08/27/16 06:27 06:27 06:27 WBC RBC Hgb Hct MCV MCH MCHC RDW Plt Count MPV Neut % (Auto) Lymph % (Auto) [place] % (Auto) Eos % (Auto) Baso % (Auto) Neut # Lymph # [place] # Eos # Baso # Sodium 122 L Potassium 3.7 Chloride 88 L Carbon Dioxide 24 Anion Gap 14 BUN 13 Creatinine 1.1 Est GFR ( Amer) > 60 Est GFR (Non-Af Amer) > 60 Random Glucose 101 Serum Osmolality 257 L Uric Acid 3.2 L Calcium 7.0 L Phosphorus 2.8 Magnesium 1.5 L Total Bilirubin 0.6 AST 91 H ALT 33 Alkaline Phosphatase 51 Ammonia Total Protein 5.8 L Albumin 2.7 L Globulin 3.1 Albumin/Globulin Ratio 0.9 L Triglycerides 78 D Cholesterol 113 LDL Cholesterol Direct 53 HDL Cholesterol 34 Urine Osmolality Ur Random Creatinine U Random Total Protein Ur Random Sodium Ur Random Potassium Ur Random Calcium Hep Bs Antigen Hepatitis C Antibody HIV 1&2 Antibody Screen Negative 08/27/16 08/27/16 06:27 06:27 WBC RBC Hgb Hct MCV MCH MCHC RDW Plt Count MPV Neut % (Auto) Lymph % (Auto) [place] % (Auto) Eos % (Auto) Baso % (Auto) Neut # Lymph # [place] # Eos # Baso # Sodium Potassium Chloride Carbon Dioxide Anion Gap BUN Creatinine Est GFR ( Amer) Est GFR (Non-Af Amer) Random Glucose Serum Osmolality Uric Acid Calcium Phosphorus Magnesium Total Bilirubin AST ALT Alkaline Phosphatase Ammonia < 9 L Total Protein Albumin Globulin Albumin/Globulin Ratio Triglycerides Cholesterol LDL Cholesterol Direct HDL Cholesterol Urine Osmolality Ur Random Creatinine U Random Total Protein Ur Random Sodium Ur Random Potassium Ur Random Calcium Hep Bs Antigen Hepatitis C Antibody Negative HIV 1&2 Antibody Screen Assessment & Plan (1) Pneumonia Assessment and Plan: 56-year-old male with past medical history of ethanol abuse (drinking since age 17), hypertension, CVA 2 in the past, schizophrenia, anxiety, diabetes?, RLE DVT with IVC filter. Presented with recurrent seizures at home as described by patient. Patient was being treated on the floor for her pneumonia. Rapid response called (08/27/16) for worsening dyspnea. Patient brought to ICU and intubated. Neuro: Altered mental status is metabolic encephalopathy secondary to sepsis. Sedated on vent with propofol drip. Pulm: Acute respiratory failure with hypoxia secondary to pneumonia, now on vent. Continue antibiotics, DuoNeb's, mucolytic's. CV: Hemodynamically stable Hem: No acute issues, no current DVT, patient was not on long goods drier a/c most likely because of non-compliance. Renal: hypochloremic hyponatremia, continue normal saline at 100. Endo: check A1C to r/o Diabetes. GI: Nothing by mouth, tube feeds Isosource@20, goal TBD ID: Severe sepsis from RLL aspiration pneumonia, continue azithromycin and rocephin. Continue bacid. DVT proph - heparin subcutaneous GI proph - Pepcid [place] for strict I/O's during acute illness Code status - full code Crtical Care Time spent 50 minutes Multi-disciplinary rounds were performed with house staff, nursing, speech therapy, respiratory therapy, pharmacy and nutrition with integrated input from the primary team/attending and other consulting services. The documented time is cumulative and includes review of patient data/exams/labs/chart review and examination of the patient on rounds and throughout the day; time is exclusive of any procedures or teaching time. Status: Acute
[2016-08-27 17:52] LABS: ABG ALLEN TEST POS; ATERIAL BLOOD GAS PEEP 7; DRAW SITE RRA
[2016-08-27] MEDS: Lactobacillus Acidophilus 500 MU Cap PO SCH (18:52)
[2016-08-27 18:58] LABS: GRANULAR CAST 18 /lpf (0-1); RBC URINE 68 /hpf (0-3); URINE BACTERIA RARE (<OCC); URINE BILIRUBIN NEGATIVE (NEGATIVE); URINE BLOOD 3+ (NEGATIVE); URINE COLOR Yellow (YELLOW); URINE GLUCOSE (UA) NORMAL (Normal); URINE KETONE NEGATIVE (NEGATIVE); URINE LEUKOCYTE ESTERASE NEG Leu/uL (Negative); URINE PROTEIN 3+ mg/dL (NEGATIVE); URINE UROBILINOGEN NORMAL mg/dL (0.2-1.0); WBC URINE 5 /hpf (0-5)
[2016-08-27 19:24] LABS: CREATININE, RANDOM URINE 128.5 mg/dL
[2016-08-27] MEDS: Magnesium Sulfate 1 gm in D5W 1 GM/100 ML BAG IVPB SCH ×2 (20:42→21:53)
[2016-08-27] MEDS ORDERED: Magnesium Sulfate 1 gm in D5W 1 GM/100 ML BAG IVPB SCH (22:00)
[2016-08-28] MEDS: Clindamycin 300 MG in Sodium Chloride 0.9% 50 ML IVPB SCH ×4 (02:08→19:46)
[2016-08-28] MEDS: Propofol 10 mg/ml 1,000 MG/100 ML VIAL IV PRN ×2 (02:10→17:33)
[2016-08-28] MEDS: Sodium Chloride 0.9% 1,000 ML IV SCH ×3 (02:22→22:59)
[2016-08-28 04:15] LABS: ABG MECHANICAL RATE 14; ARTERIAL BLOOD HGB O2 SAT 96.7 % (95.0-98.0); ATERIAL BLOOD GAS PEEP 7; CARBOXYHEMOGLOBIN 1.4 % (0.5-1.5); DRAW SITE RB; HHB 0.8 % (0.0-5.0)
[2016-08-28 06:55] LABS: BASO % 0.3 % (0.0-2.0); HEMATOCRIT 46.3 % (35.0-51.0); LYMPH # 0.6 K/uL (1.0-4.3); LYMPH % 12.5 % (20.0-40.0); MEAN CELL VOLUME 78.2 fL (80.0-94.0); MEAN CORPUSCULAR HEMOGLOBIN 24.9 pg (27.0-31.0); MEAN CORPUSCULAR HGB CONC 31.9 g/dL (33.0-37.0); MEAN PLATELET VOLUME 9.3 fL (7.2-11.7); MONO # 0.2 K/uL (0.0-0.8); MONO % 4.5 % (0.0-10.0); NRBC % 0.1 % (0.0-2.0); RED CELL DISTRIBUTION WIDTH 13.8 % (11.5-14.5); WHITE BLOOD COUNT 4.9 K/uL (4.8-10.8)
[2016-08-28 07:01] LABS: POTASSIUM 4.1 mmol/L (3.6-5.2)
[2016-08-28 07:03] LABS: ALB/GLOB RATIO 0.7 (1.0-2.1); BILIRUBIN,TOTAL 0.7 mg/dL (0.2-1.3); PHOSPHOROUS 4.2 mg/dL (2.5-4.5); TOTAL PROTEIN 5.2 g/dL (6.3-8.3)
[2016-08-28 07:04] LABS: CALCIUM 6.8 mg/dl (8.6-10.4); MAGNESIUM 2.4 mg/dL (1.6-2.3)
[2016-08-28] MEDS: Azithromycin 500 MG in Sodium Chloride 0.9% 250 ML IVPB SCH (09:00)
[2016-08-28] MEDS: Multiple Vitamins Tab PO SCH (09:12)
[2016-08-28] MEDS: Lactobacillus Acidophilus 500 MU Cap PO SCH ×2 (09:13→18:23)
[2016-08-28] MEDS: Thiamine 100 mg/ml Inj IV SCH (09:13)
[2016-08-28] MEDS: Midazolam 2 MG/2 ML VIAL IVP PRN ×2 (10:03→17:25)
[2016-08-28 10:15] LABS: ABG ALLEN TEST POS; ABG MECHANICAL RATE 14; ARTERIAL BLOOD HGB O2 SAT 91.6 % (95.0-98.0); ATERIAL BLOOD GAS PEEP 7; CARBOXYHEMOGLOBIN 1.7 % (0.5-1.5); DRAW SITE RR; HHB 5.8 % (0.0-5.0); METHEMOGLOBIN 0.9 % (0.0-3.0)
[2016-08-28] MEDS ORDERED: Iodixanol 320 MG/ML 100 ML BOTTLE IV ONE (11:04)
--- NOTE | 2016-08-28 12:20 | CP.CCUPN ---
CCU Subjective - Physician Review Events Since Last Encounter (Free Text): 08/28/16 12:18 intubated, sedated. CCU Objective - Vital Signs / Intake & Output Vital Signs (Last 4 hours): Vital Signs Temp Pulse Resp BP Pulse Ox 08/28/16 11:00 98.4 F 82 37 H 97 08/28/16 10:00 80 39 H 93 L 08/28/16 09:11 81 37 H 99/58 L 97 08/28/16 09:00 81 23 95 Intake and Output (Last 8hrs): Intake & Output 08/27/16 08/28/16 08/28/16 22:59 06:59 14:59 Intake Total 2727.7 963.7 634.0 Output Total 500 460 265 Balance 2227.7 503.7 369.0 Weight 160 lb 14.999 oz 169 lb 12.095 oz Intake: IV 96 38 37 Intake, IV Amount 2531.7 745.7 537.0 Left Antecubital 121.7 135.7 22.0 Right Forearm 2410 610 515 Other 100 180 60 Output: Urine 500 460 165 Urethral ([place]) 500 460 165 Other 100 Other: # Bowel Movements 1 - Physical Exam Physical Exam Limitations: Positive for: Other (sedated) Head: Positive for: Atraumatic, Normocephalic Pupils: Positive for: PERRL Extroacular Muscles: Positive for: EOMI Conjunctiva: Positive for: Normal Mouth: Positive for: Moist Mucous Membranes Respiratory/Chest: Positive for: Decreased Breath Sounds Cardiovascular: Positive for: Regular Rate and Rhythm Abdomen: Positive for: Normal Bowel Sounds. Negative for: Tenderness, Distention Neurological: Positive for: Other (sedated) - Medications Active Medications: Active Medications Generic Name Dose Route Start Last Admin Trade Name Freq PRN Reason Stop Dose Admin Acetaminophen 650 mg 08/24/16 21:11 08/27/16 03:10 Tylenol 325mg Tab PO 650 mg Q6 PRN Administration Fever >100.4 F Aspirin 81 mg 08/25/16 10:00 08/28/16 09:12 Aspirin Chewable PO 81 mg DAILY AMINTA Administration Chlordiazepoxide 25 mg 08/27/16 10:00 08/28/16 09:12 Librium PO 25 mg BID AMINTA Administration Diltiazem HCl 60 mg 08/27/16 19:30 08/28/16 08:30 Cardizem PO 60 mg Q6H AMINTA Administration Famotidine 20 mg 08/24/16 20:45 08/28/16 09:13 Pepcid PO 20 mg BID AMINTA Administration Folic Acid 1 mg 08/25/16 10:00 08/28/16 09:12 Folic Acid PO 1 mg DAILY AMINTA Administration Hydralazine HCl 10 mg 08/25/16 09:31 08/26/16 20:34 Apresoline IVP 10 mg Q6H PRN Administration hypertension Azithromycin 500 mg/ Sodium 250 mls @ 250 mls/hr 08/25/16 10:00 08/28/16 09: 00 Chloride IVPB 250 mls/hr DAILY AMINTA Administration Ceftriaxone Sodium 1 gm/ 100 mls @ 100 mls/hr 08/25/16 10:00 08/28/16 09:00 Sodium Chloride IVPB 100 mls/hr DAILY AMINTA Administration Sodium Chloride 1,000 mls @ 80 mls/hr 08/27/16 13:36 08/28/16 02:22 Sodium Chloride 0.9% IV Not Given .[id number] AMINTA Clindamycin Phosphate 300 mg/ 52 mls @ 100 mls/hr 08/27/16 14:30 08/28/16 09: 35 Sodium Chloride IVPB 100 mls/hr Q6H AMINTA Administration Propofol 1,000 mg in 100 mls @ 2.449 mls/hr 08/27/16 16:43 08/28/16 11:00 Diprivan IV 11.22 mcg/kg/min .Q24H PRN 5.5 mls/hr TITRATE PER MD ORDER Titration Protocol 5 MCG/KG/MIN Lactobacillus Acidophilus 1 cap 08/27/16 18:00 08/28/16 09:13 Bacid Acidophilus PO 1 cap BID AMINTA Administration Midazolam HCl 2 mg 08/28/16 09:41 08/28/16 10:03 Versed Inj IVP 2 mg Q4H PRN Administration Agitation Multivitamins 1 tab 08/25/16 10:00 08/28/16 09:12 Hexavitamin PO 1 tab DAILY AMINTA Administration Quetiapine Fumarate 50 mg 08/27/16 23:15 08/28/16 05:51 Seroquel PO 50 mg Q8 AMINTA Administration Rosuvastatin Calcium 20 mg 08/24/16 22:00 08/27/16 22:09 Crestor PO 20 mg HS AMINTA Administration Thiamine HCl 100 mg 08/27/16 10:00 08/28/16 09:13 Vitamin B1 Inj IV 100 mg DAILY AMINTA Administration - Patient Studies Lab Studies: Microbiology Studies 08/27/16 19:00 Gram Stain - Final Trachasp 08/24/16 22:15 Blood Culture - Preliminary Blood NO GROWTH AFTER 3 DAYS 08/24/16 22:15 Blood Culture - Preliminary Blood NO GROWTH AFTER 3 DAYS Lab Studies 08/28/16 08/28/16 08/28/16 Range/Units 10:14 10:10 06:46 WBC (4.8-10.8) K/uL RBC (4.40-5.90) Mil/uL Hgb (12.0-18.0) g/dL Hct (35.0-51.0) % MCV (80.0-94.0) fL MCH (27.0-31.0) pg MCHC (33.0-37.0) g/dL RDW (11.5-14.5) % Plt Count (130-400) K/uL MPV (7.2-11.7) fL Neut % (Auto) (50.0-75.0) % Lymph % (Auto) (20.0-40.0) % [place] % (Auto) (0.0-10.0) % Eos % (Auto) (0.0-4.0) % Baso % (Auto) (0.0-2.0) % Neut # (1.8-7.0) K/uL Lymph # (1.0-4.3) K/uL [place] # (0.0-0.8) K/uL Eos # (0.0-0.7) K/uL Baso # (0.0-0.2) K/uL Puncture Site Rr pCO2 29 L (35-45) mm/Hg pO2 58 L (80-100) mm/Hg HCO3 19.7 L (21-28) mmol/L ABG pH 7.38 (7.35-7.45) ABG Total CO2 18.1 L (22-28) mmol/L ABG O2 Saturation 94.0 L (95-98) % ABG Base Excess -6.5 L (-2.0-3.0) mmol/L ABG Hemoglobin 14.5 (11.7-17.4) g/dL ABG Carboxyhemoglobin 1.7 H (0.5-1.5) % POC ABG HHb (Measured) 5.8 H (0.0-5.0) % ABG Methemoglobin 0.9 (0.0-3.0) % Lisandro Test Pos ABG Potassium (3.6-5.2) mmol/L A-a O2 Difference 476.0 mm/Hg Respiratory Index 8.2 Hgb O2 Saturation 91.6 L (95.0-98.0) % Sodium 125 L (132-148) mmol/l Chloride 96 L (98-107) mmol/L Glucose (75-110) mg/dl Lactate (0.7-2.1) mmol/L Mechanical Rate 14 FiO2 80.0 % Tidal Volume 450 PEEP 7 Potassium 4.1 (3.6-5.2) mmol/L Carbon Dioxide 19 L (22-30) mmol/L Anion Gap 14 (10-20) BUN 23 H (9-20) mg/dL Creatinine 1.7 H (0.8-1.5) MG/DL Est GFR ( Amer) 51 Est GFR (Non-Af Amer) 42 Random Glucose 108 (75-110) mg/dL Calcium 6.8 L (8.6-10.4) mg/dl Phosphorus 4.2 (2.5-4.5) mg/dL Magnesium 2.4 H (1.6-2.3) mg/dL Total Bilirubin 0.7 (0.2-1.3) mg/dL AST 149 H D (17-59) U/L ALT 44 (21-72) U/L Alkaline Phosphatase 40 (38-126) U/L Total Protein 5.2 L (6.3-8.3) g/dL Albumin 2.2 L (3.5-5.0) g/dL Globulin 3.0 (2.2-3.9) gm/dL Albumin/Globulin Ratio 0.7 L (1.0-2.1) Arterial Blood Potassium (3.6-5.2) mmol/L Urine Color (YELLOW) Urine Clarity (Clear) Urine pH (5.0-8.0) Ur Specific [place] (1.003-1.030) Urine Protein (NEGATIVE) mg/dL Urine Glucose (UA) (Normal) mg/dL Urine Ketones (NEGATIVE) mg/dL Urine Blood (NEGATIVE) Urine Nitrate (NEGATIVE) Urine Bilirubin (NEGATIVE) Urine Urobilinogen (0.2-1.0) mg/dL Ur Leukocyte Esterase (Negative) Gely/uL Urine WBC (Auto) (0-5) /hpf Urine RBC (Auto) (0-3) /hpf Ur Squamous Epith Cells (0-5) /hpf Urine Bacteria (<OCC) Granular Casts (Auto) (0-1) /lpf Urine Osmolality (300-1000) mosm/kg Ur Random Creatinine mg/dL U Random Total Protein (0.0-12.0) mg/dL Ur Random Sodium mmol/L Complement C3 70.0 L (88.0-165.0) mg/dL Complement C4 23.3 (14.0-44.0) mg/dL Ur L.pneumophila Ag (NEGATIVE) 08/28/16 08/28/16 08/27/16 Range/Units 06:46 04:10 19:47 WBC 4.9 (4.8-10.8) K/uL RBC 5.92 H (4.40-5.90) Mil/uL Hgb 14.8 (12.0-18.0) g/dL Hct 46.3 (35.0-51.0) % MCV 78.2 L (80.0-94.0) fL MCH 24.9 L (27.0-31.0) pg MCHC 31.9 L (33.0-37.0) g/dL RDW 13.8 (11.5-14.5) % Plt Count 86 L (130-400) K/uL MPV 9.3 (7.2-11.7) fL Neut % (Auto) 82.7 H (50.0-75.0) % Lymph % (Auto) 12.5 L (20.0-40.0) % [place] % (Auto) 4.5 (0.0-10.0) % Eos % (Auto) 0.0 (0.0-4.0) % Baso % (Auto) 0.3 (0.0-2.0) % Neut # 4.0 (1.8-7.0) K/uL Lymph # 0.6 L (1.0-4.3) K/uL [place] # 0.2 (0.0-0.8) K/uL Eos # 0.0 (0.0-0.7) K/uL Baso # 0.0 (0.0-0.2) K/uL Puncture Site Rb pCO2 30 L (35-45) mm/Hg pO2 102 H (80-100) mm/Hg HCO3 19.7 L (21-28) mmol/L ABG pH 7.37 (7.35-7.45) ABG Total CO2 18.2 L (22-28) mmol/L ABG O2 Saturation 99.2 H (95-98) % ABG Base Excess -6.7 L (-2.0-3.0) mmol/L ABG Hemoglobin 14.5 (11.7-17.4) g/dL ABG Carboxyhemoglobin 1.4 (0.5-1.5) % POC ABG HHb (Measured) 0.8 (0.0-5.0) % ABG Methemoglobin 1.0 (0.0-3.0) % Lisandro Test Na ABG Potassium (3.6-5.2) mmol/L A-a O2 Difference 431.0 mm/Hg Respiratory Index 4.2 Hgb O2 Saturation 96.7 (95.0-98.0) % Sodium (132-148) mmol/l Chloride (98-107) mmol/L Glucose (75-110) mg/dl Lactate (0.7-2.1) mmol/L Mechanical Rate 14 FiO2 80.0 % Tidal Volume 450 PEEP 7 Potassium (3.6-5.2) mmol/L Carbon Dioxide (22-30) mmol/L Anion Gap (10-20) BUN (9-20) mg/dL Creatinine (0.8-1.5) MG/DL Est GFR ( Amer) Est GFR (Non-Af Amer) Random Glucose (75-110) mg/dL Calcium (8.6-10.4) mg/dl Phosphorus (2.5-4.5) mg/dL Magnesium (1.6-2.3) mg/dL Total Bilirubin (0.2-1.3) mg/dL AST (17-59) U/L ALT (21-72) U/L Alkaline Phosphatase (38-126) U/L Total Protein (6.3-8.3) g/dL Albumin (3.5-5.0) g/dL Globulin (2.2-3.9) gm/dL Albumin/Globulin Ratio (1.0-2.1) Arterial Blood Potassium (3.6-5.2) mmol/L Urine Color (YELLOW) Urine Clarity (Clear) Urine pH (5.0-8.0) Ur Specific [place] (1.003-1.030) Urine Protein (NEGATIVE) mg/dL Urine Glucose (UA) (Normal) mg/dL Urine Ketones (NEGATIVE) mg/dL Urine Blood (NEGATIVE) Urine Nitrate (NEGATIVE) Urine Bilirubin (NEGATIVE) Urine Urobilinogen (0.2-1.0) mg/dL Ur Leukocyte Esterase (Negative) Gely/uL Urine WBC (Auto) (0-5) /hpf Urine RBC (Auto) (0-3) /hpf Ur Squamous Epith Cells (0-5) /hpf Urine Bacteria (<OCC) Granular Casts (Auto) (0-1) /lpf Urine Osmolality (300-1000) mosm/kg Ur Random Creatinine mg/dL U Random Total Protein 899.0 H (0.0-12.0) mg/dL Ur Random Sodium mmol/L Complement C3 (88.0-165.0) mg/dL Complement C4 (14.0-44.0) mg/dL Ur L.pneumophila Ag (NEGATIVE) 08/27/16 08/27/16 08/27/16 Range/Units 19:00 18:49 18:49 WBC (4.8-10.8) K/uL RBC (4.40-5.90) Mil/uL Hgb (12.0-18.0) g/dL Hct (35.0-51.0) % MCV (80.0-94.0) fL MCH (27.0-31.0) pg MCHC (33.0-37.0) g/dL RDW (11.5-14.5) % Plt Count (130-400) K/uL MPV (7.2-11.7) fL Neut % (Auto) (50.0-75.0) % Lymph % (Auto) (20.0-40.0) % [place] % (Auto) (0.0-10.0) % Eos % (Auto) (0.0-4.0) % Baso % (Auto) (0.0-2.0) % Neut # (1.8-7.0) K/uL Lymph # (1.0-4.3) K/uL [place] # (0.0-0.8) K/uL Eos # (0.0-0.7) K/uL Baso # (0.0-0.2) K/uL Puncture Site pCO2 (35-45) mm/Hg pO2 (80-100) mm/Hg HCO3 (21-28) mmol/L ABG pH (7.35-7.45) ABG Total CO2 (22-28) mmol/L ABG O2 Saturation (95-98) % ABG Base Excess (-2.0-3.0) mmol/L ABG Hemoglobin (11.7-17.4) g/dL ABG Carboxyhemoglobin (0.5-1.5) % POC ABG HHb (Measured) (0.0-5.0) % ABG Methemoglobin (0.0-3.0) % Lisandro Test ABG Potassium (3.6-5.2) mmol/L A-a O2 Difference mm/Hg Respiratory Index Hgb O2 Saturation (95.0-98.0) % Sodium (132-148) mmol/l Chloride (98-107) mmol/L Glucose (75-110) mg/dl Lactate (0.7-2.1) mmol/L Mechanical Rate FiO2 % Tidal Volume PEEP Potassium (3.6-5.2) mmol/L Carbon Dioxide (22-30) mmol/L Anion Gap (10-20) BUN (9-20) mg/dL Creatinine (0.8-1.5) MG/DL Est GFR ( Amer) Est GFR (Non-Af Amer) Random Glucose (75-110) mg/dL Calcium (8.6-10.4) mg/dl Phosphorus (2.5-4.5) mg/dL Magnesium (1.6-2.3) mg/dL Total Bilirubin (0.2-1.3) mg/dL AST (17-59) U/L ALT (21-72) U/L Alkaline Phosphatase (38-126) U/L Total Protein (6.3-8.3) g/dL Albumin (3.5-5.0) g/dL Globulin (2.2-3.9) gm/dL Albumin/Globulin Ratio (1.0-2.1) Arterial Blood Potassium (3.6-5.2) mmol/L Urine Color Yellow (YELLOW) Urine Clarity Hazy (Clear) Urine pH 5.0 (5.0-8.0) Ur Specific [place] 1.017 (1.003-1.030) Urine Protein 3+ H (NEGATIVE) mg/dL Urine Glucose (UA) Normal (Normal) mg/dL Urine Ketones Negative (NEGATIVE) mg/dL Urine Blood 3+ H (NEGATIVE) Urine Nitrate Negative (NEGATIVE) Urine Bilirubin Negative (NEGATIVE) Urine Urobilinogen Normal (0.2-1.0) mg/dL Ur Leukocyte Esterase Neg (Negative) Gely/uL Urine WBC (Auto) 5 (0-5) /hpf Urine RBC (Auto) 68 H (0-3) /hpf Ur Squamous Epith Cells 1 (0-5) /hpf Urine Bacteria Rare (<OCC) Granular Casts (Auto) 18 (0-1) /lpf Urine Osmolality 529 (300-1000) mosm/kg Ur Random Creatinine 128.5 mg/dL U Random Total Protein (0.0-12.0) mg/dL Ur Random Sodium 18 mmol/L Complement C3 (88.0-165.0) mg/dL Complement C4 (14.0-44.0) mg/dL Ur L.pneumophila Ag Negative (NEGATIVE) 08/27/16 Range/Units 17:45 WBC (4.8-10.8) K/uL RBC (4.40-5.90) Mil/uL Hgb (12.0-18.0) g/dL Hct (35.0-51.0) % MCV (80.0-94.0) fL MCH (27.0-31.0) pg MCHC (33.0-37.0) g/dL RDW (11.5-14.5) % Plt Count (130-400) K/uL MPV (7.2-11.7) fL Neut % (Auto) (50.0-75.0) % Lymph % (Auto) (20.0-40.0) % [place] % (Auto) (0.0-10.0) % Eos % (Auto) (0.0-4.0) % Baso % (Auto) (0.0-2.0) % Neut # (1.8-7.0) K/uL Lymph # (1.0-4.3) K/uL [place] # (0.0-0.8) K/uL Eos # (0.0-0.7) K/uL Baso # (0.0-0.2) K/uL Puncture Site Rra pCO2 35 (35-45) mm/Hg pO2 103 H (80-100) mm/Hg HCO3 20.2 L (21-28) mmol/L ABG pH 7.34 L (7.35-7.45) ABG Total CO2 20.0 L (22-28) mmol/L ABG O2 Saturation 99.0 H (95-98) % ABG Base Excess -6.1 L (-2.0-3.0) mmol/L ABG Hemoglobin (11.7-17.4) g/dL ABG Carboxyhemoglobin (0.5-1.5) % POC ABG HHb (Measured) (0.0-5.0) % ABG Methemoglobin (0.0-3.0) % Lisandro Test Pos ABG Potassium 3.6 (3.6-5.2) mmol/L A-a O2 Difference 566.0 mm/Hg Respiratory Index 5.5 Hgb O2 Saturation (95.0-98.0) % Sodium 127.0 L (132-148) mmol/l Chloride 104.0 (98-107) mmol/L Glucose 91 (75-110) mg/dl Lactate 1.1 (0.7-2.1) mmol/L Mechanical Rate FiO2 100.0 % Tidal Volume 450 PEEP 7 Potassium (3.6-5.2) mmol/L Carbon Dioxide (22-30) mmol/L Anion Gap (10-20) BUN (9-20) mg/dL Creatinine (0.8-1.5) MG/DL Est GFR ( Amer) Est GFR (Non-Af Amer) Random Glucose (75-110) mg/dL Calcium (8.6-10.4) mg/dl Phosphorus (2.5-4.5) mg/dL Magnesium (1.6-2.3) mg/dL Total Bilirubin (0.2-1.3) mg/dL AST (17-59) U/L ALT (21-72) U/L Alkaline Phosphatase (38-126) U/L Total Protein (6.3-8.3) g/dL Albumin (3.5-5.0) g/dL Globulin (2.2-3.9) gm/dL Albumin/Globulin Ratio (1.0-2.1) Arterial Blood Potassium 3.6 (3.6-5.2) mmol/L Urine Color (YELLOW) Urine Clarity (Clear) Urine pH (5.0-8.0) Ur Specific [place] (1.003-1.030) Urine Protein (NEGATIVE) mg/dL Urine Glucose (UA) (Normal) mg/dL Urine Ketones (NEGATIVE) mg/dL Urine Blood (NEGATIVE) Urine Nitrate (NEGATIVE) Urine Bilirubin (NEGATIVE) Urine Urobilinogen (0.2-1.0) mg/dL Ur Leukocyte Esterase (Negative) Gely/uL Urine WBC (Auto) (0-5) /hpf Urine RBC (Auto) (0-3) /hpf Ur Squamous Epith Cells (0-5) /hpf Urine Bacteria (<OCC) Granular Casts (Auto) (0-1) /lpf Urine Osmolality (300-1000) mosm/kg Ur Random Creatinine mg/dL U Random Total Protein (0.0-12.0) mg/dL Ur Random Sodium mmol/L Complement C3 (88.0-165.0) mg/dL Complement C4 (14.0-44.0) mg/dL Ur L.pneumophila Ag (NEGATIVE) Laboratory Results - last 24 hr 08/27/16 08/27/16 08/27/16 17:45 18:49 18:49 WBC RBC Hgb Hct MCV MCH MCHC RDW Plt Count MPV Neut % (Auto) Lymph % (Auto) [place] % (Auto) Eos % (Auto) Baso % (Auto) Neut # Lymph # [place] # Eos # Baso # Puncture Site Rra pCO2 35 pO2 103 H HCO3 20.2 L ABG pH 7.34 L ABG Total CO2 20.0 L ABG O2 Saturation 99.0 H ABG Base Excess -6.1 L ABG Hemoglobin ABG Carboxyhemoglobin POC ABG HHb (Measured) ABG Methemoglobin Lisandro Test Pos ABG Potassium 3.6 A-a O2 Difference 566.0 Respiratory Index 5.5 Hgb O2 Saturation Sodium 127.0 L Chloride 104.0 Glucose 91 Lactate 1.1 Mechanical Rate FiO2 100.0 Tidal Volume 450 PEEP 7 Potassium Carbon Dioxide Anion Gap BUN Creatinine Est GFR ( Amer) Est GFR (Non-Af Amer) Random Glucose Calcium Phosphorus Magnesium Total Bilirubin AST ALT Alkaline Phosphatase Total Protein Albumin Globulin Albumin/Globulin Ratio Arterial Blood Potassium 3.6 Urine Color Yellow Urine Clarity Hazy Urine pH 5.0 Ur Specific [place] 1.017 Urine Protein 3+ H Urine Glucose (UA) Normal Urine Ketones Negative Urine Blood 3+ H Urine Nitrate Negative Urine Bilirubin Negative Urine Urobilinogen Normal Ur Leukocyte Esterase Neg Urine WBC (Auto) 5 Urine RBC (Auto) 68 H Ur Squamous Epith Cells 1 Urine Bacteria Rare Granular Casts (Auto) 18 Urine Osmolality 529 Ur Random Creatinine 128.5 U Random Total Protein Ur Random Sodium 18 Complement C3 Complement C4 Ur L.pneumophila Ag 08/27/16 08/27/16 08/28/16 19:00 19:47 04:10 WBC RBC Hgb Hct MCV MCH MCHC RDW Plt Count MPV Neut % (Auto) Lymph % (Auto) [place] % (Auto) Eos % (Auto) Baso % (Auto) Neut # Lymph # [place] # Eos # Baso # Puncture Site Rb pCO2 30 L pO2 102 H HCO3 19.7 L ABG pH 7.37 ABG Total CO2 18.2 L ABG O2 Saturation 99.2 H ABG Base Excess -6.7 L ABG Hemoglobin 14.5 ABG Carboxyhemoglobin 1.4 POC ABG HHb (Measured) 0.8 ABG Methemoglobin 1.0 Lisandro Test Na ABG Potassium A-a O2 Difference 431.0 Respiratory Index 4.2 Hgb O2 Saturation 96.7 Sodium Chloride Glucose Lactate Mechanical Rate 14 FiO2 80.0 Tidal Volume 450 PEEP 7 Potassium Carbon Dioxide Anion Gap BUN Creatinine Est GFR ( Amer) Est GFR (Non-Af Amer) Random Glucose Calcium Phosphorus Magnesium Total Bilirubin AST ALT Alkaline Phosphatase Total Protein Albumin Globulin Albumin/Globulin Ratio Arterial Blood Potassium Urine Color Urine Clarity Urine pH Ur Specific [place] Urine Protein Urine Glucose (UA) Urine Ketones Urine Blood Urine Nitrate Urine Bilirubin Urine Urobilinogen Ur Leukocyte Esterase Urine WBC (Auto) Urine RBC (Auto) Ur Squamous Epith Cells Urine Bacteria Granular Casts (Auto) Urine Osmolality Ur Random Creatinine U Random Total Protein 899.0 H Ur Random Sodium Complement C3 Complement C4 Ur L.pneumophila Ag Negative 08/28/16 08/28/16 08/28/16 06:46 06:46 10:10 WBC 4.9 RBC 5.92 H Hgb 14.8 Hct 46.3 MCV 78.2 L MCH 24.9 L MCHC 31.9 L RDW 13.8 Plt Count 86 L MPV 9.3 Neut % (Auto) 82.7 H Lymph % (Auto) 12.5 L [place] % (Auto) 4.5 Eos % (Auto) 0.0 Baso % (Auto) 0.3 Neut # 4.0 Lymph # 0.6 L [place] # 0.2 Eos # 0.0 Baso # 0.0 Puncture Site Rr pCO2 29 L pO2 58 L HCO3 19.7 L ABG pH 7.38 ABG Total CO2 18.1 L ABG O2 Saturation 94.0 L ABG Base Excess -6.5 L ABG Hemoglobin 14.5 ABG Carboxyhemoglobin 1.7 H POC ABG HHb (Measured) 5.8 H ABG Methemoglobin 0.9 Lisandro Test Pos ABG Potassium A-a O2 Difference 476.0 Respiratory Index 8.2 Hgb O2 Saturation 91.6 L Sodium 125 L Chloride 96 L Glucose Lactate Mechanical Rate 14 FiO2 80.0 Tidal Volume 450 PEEP 7 Potassium 4.1 Carbon Dioxide 19 L Anion Gap 14 BUN 23 H Creatinine 1.7 H Est GFR ( Amer) 51 Est GFR (Non-Af Amer) 42 Random Glucose 108 Calcium 6.8 L Phosphorus 4.2 Magnesium 2.4 H Total Bilirubin 0.7 AST 149 H D ALT 44 Alkaline Phosphatase 40 Total Protein 5.2 L Albumin 2.2 L Globulin 3.0 Albumin/Globulin Ratio 0.7 L Arterial Blood Potassium Urine Color Urine Clarity Urine pH Ur Specific [place] Urine Protein Urine Glucose (UA) Urine Ketones Urine Blood Urine Nitrate Urine Bilirubin Urine Urobilinogen Ur Leukocyte Esterase Urine WBC (Auto) Urine RBC (Auto) Ur Squamous Epith Cells Urine Bacteria Granular Casts (Auto) Urine Osmolality Ur Random Creatinine U Random Total Protein Ur Random Sodium Complement C3 Complement C4 Ur L.pneumophila Ag 08/28/16 10:14 WBC RBC Hgb Hct MCV MCH MCHC RDW Plt Count MPV Neut % (Auto) Lymph % (Auto) [place] % (Auto) Eos % (Auto) Baso % (Auto) Neut # Lymph # [place] # Eos # Baso # Puncture Site pCO2 pO2 HCO3 ABG pH ABG Total CO2 ABG O2 Saturation ABG Base Excess ABG Hemoglobin ABG Carboxyhemoglobin POC ABG HHb (Measured) ABG Methemoglobin Lisandro Test ABG Potassium A-a O2 Difference Respiratory Index Hgb O2 Saturation Sodium Chloride Glucose Lactate Mechanical Rate FiO2 Tidal Volume PEEP Potassium Carbon Dioxide Anion Gap BUN Creatinine Est GFR ( Amer) Est GFR (Non-Af Amer) Random Glucose Calcium Phosphorus Magnesium Total Bilirubin AST ALT Alkaline Phosphatase Total Protein Albumin Globulin Albumin/Globulin Ratio Arterial Blood Potassium Urine Color Urine Clarity Urine pH Ur Specific [place] Urine Protein Urine Glucose (UA) Urine Ketones Urine Blood Urine Nitrate Urine Bilirubin Urine Urobilinogen Ur Leukocyte Esterase Urine WBC (Auto) Urine RBC (Auto) Ur Squamous Epith Cells Urine Bacteria Granular Casts (Auto) Urine Osmolality Ur Random Creatinine U Random Total Protein Ur Random Sodium Complement C3 70.0 L Complement C4 23.3 Ur L.pneumophila Ag EKG/Cardiology Studies: Cardiology / EKG Studies 08/27/16 16:03 EKG [ELECTROCARDIOGRAM] Stat Comment: Mode Of Transportation: Reason For Exam: tachycardia Isolation: Droplet Fingerstick Blood Sugar Results: 79 Review of Systems - Review of Systems Systems not reviewed;Unavailable: Intubated All systems: reviewed and no additional remarkable complaints except Critical Care Progress Note - Ventilator Checklist Head of Bed 30 Degrees: Yes Daily Sedation Vacation: Yes Daily Assessment of Readiness to Wean: Yes Daily Spontaneous Breathing Trial: Yes PUD Prophalyxis: Yes DVT Prophylaxis: Yes - Nutrition Nutrition: Nutrition Category Date Time Status NPO Diet [DIET] Diets 08/27/16 Lunch Active Assessment/Plan (1) Pneumonia Assessment and plan: 56-year-old male with past medical history of ethanol abuse (drinking since age 17), hypertension, CVA 2 in the past, schizophrenia, anxiety, diabetes?, RLE DVT with IVC filter. Presented with recurrent seizures at home as described by patient. Patient was being treated on the floor for her pneumonia. Rapid response called (08/27/16) for worsening dyspnea. Patient brought to ICU and intubated (08/27). Neuro: Sedated on vent with propofol drip. Pulm: Acute respiratory failure with hypoxia secondary to pneumonia, now on vent. Continue antibiotics, DuoNeb's, mucolytic's. Worsening right opacification on chest x-ray, will obtain chest CT to rule out pleural effusion versus mucus plugging from underlying pneumonia. Also ruling out PE but unlikely. CV: Hemodynamically stable Hem: No acute issues, no current DVT, patient was not on intermediate a/c most likely because of non-compliance. Worsening thrombocytopenia, secondary to sepsis. Renal: hypochloremic hyponatremia, slowly improving. continue normal saline at 150. Moderate to severe proteinuria, consider renal consult. Endo: A1C pending to r/o Diabetes. Unlikely diabetic with normal blood sugars critically ill. GI: Nothing by mouth, tube feeds Isosource@20, goal TBD ID: Severe sepsis from RLL aspiration pneumonia, continue azithromycin, clindamycin and rocephin. Continue bacid. DVT proph - heparin subcutaneous GI proph - Pepcid hidalgo for strict I/O's during acute illness Code status - full code Crtical Care Time spent 40 minutes Multi-disciplinary rounds were performed with house staff, nursing, speech therapy, respiratory therapy, pharmacy and nutrition with integrated input from the primary team/attending and other consulting services. The documented time is cumulative and includes review of patient data/exams/labs/chart review and examination of the patient on rounds and throughout the day; time is exclusive of any procedures or teaching time. Current Visit: Yes Status: Acute
--- NOTE | 2016-08-28 12:40 | CT ---
PROCEDURE: CT Chest with contrast (Pulmonary Angiogram) HISTORY: r/o pe COMPARISON: 08/24/2016. CT thorax abdomen and pelvis. Summary of findings on the comparison examination: Dense infiltrate and consolidation right lower lung. TECHNIQUE: Axial computed tomography images were obtained of the chest in the pulmonary arterial phase of enhancement. Coronal and sagittal reformatted images were created and reviewed. Maximum intensity projection (MIP) reconstructed images in the following planes: Sagittal and coronal projections. Intravenous contrast dose: 100 cc Visipaque 320. Mean Hounsfield unit values in the main pulmonary artery: 367.52 Radiation dose: Total exam DLP = 678.97 mGy-cm. This CT exam was performed using one or more of the following dose reduction techniques: Automated exposure control, adjustment of the mA and/or kV according to patient size, and/or use of iterative reconstruction technique. FINDINGS: PULMONARY ARTERIES: Unremarkable. No pulmonary embolism. AORTA: No acute findings. No thoracic aortic aneurysm. LUNGS: Marked progression of infiltrates. Dense consolidative changes affecting the entire right lower lobe, sparing the right middle lobe. Subsegmental infiltrate posterior segment right upper lobe. Faint multi segment infiltrate left lower lobe. PLEURAL SPACES: Small right pleural effusion. Trace left pleural effusion. HEART: Unremarkable. No cardiomegaly. No significant pericardial effusion. LYMPH NODES: No lymphadenopathy. BONES, CHEST WALL: Unremarkable. No fracture or destructive lesion OTHER FINDINGS: Nasogastric tube satisfactory position in a decompressed stomach. Endotracheal tube tip 4 cm above the ryan. Incompletely visualized IVC filter. IMPRESSION: 1. Marked progression of infiltrates. The entire right lower lobe displaced infiltrate/consolidation. Subsegmental right upper lobe infiltrate a new finding. Progression of multi segment left lower lobe infiltrates. 2. Satisfactory position of support apparatus. 3. Negative study for pulmonary embolism.
--- NOTE | 2016-08-28 13:50 | RAD ---
HISTORY: Intubated. Portable study 07:20. COMPARISON: August 27, 2016. Portable chest. August 28, 2016. CT angiogram. FINDINGS: LUNGS: Stable infiltrates bilaterally right more extensive than left. PLEURA: No significant pleural effusion identified, no pneumothorax apparent. CARDIOVASCULAR: No radiographic findings to suggest acute or significant cardiovascular disease. OSSEOUS STRUCTURES: No significant abnormalities. VISUALIZED UPPER ABDOMEN: Normal. OTHER FINDINGS: Stable position of support apparatus including nasogastric tube and endotracheal tube. IMPRESSION: Stable bilateral infiltrates right more extensive than left. No significant interval change compared to the prior examination(s).
[2016-08-28] MEDS ORDERED: Albumin Human 25% (12.5 gm/50 ml) IV ONE (15:04)
[2016-08-28] MEDS ORDERED: Sodium Chloride 0.9% 1,000 ML IV ONE (15:31)
[2016-08-28] MEDS: Acetylcysteine 20% Inhal Soln (4ml) INH SCH ×2 (17:57→20:12)
[2016-08-28] MEDS: Albuterol-Ipratrop 3 mg / 0.5 (3 ml) UD INH SCH (20:12)
--- NOTE | 2016-08-28 21:10 | CP.PCM.PN ---
Subjective - Date & Time of Evaluation Date of Evaluation: 08/28/16 Time of Evaluation: 13:00 - Subjective Subjective: Nephrology f/u note for acute renal failure, hyponatremia; Patient intubated yesterday evening for respiratory distress after cold sepsis called; Objective - Vital Signs/Intake and Output Vital Signs (last 24 hours): Temp Pulse Resp BP Pulse Ox 99.6 F 89 45 H 114/48 L 100 08/28/16 20:00 08/28/16 21:00 08/28/16 21:00 08/28/16 20:57 08/28/16 21:00 Intake and Output: 08/28/16 08/29/16 18:59 06:59 Intake Total 2762.3 556.5 Output Total 455 125 Balance 2307.3 431.5 - Medications Medications: Current Medications Acetaminophen (Tylenol 325mg Tab) 650 mg PO Q6 PRN PRN Reason: Fever >100.4 F Last Admin: 08/27/16 03:10 Dose: 650 mg Acetylcysteine (Acetylcysteine 20%) 4 ml INH RQ6 [facility] Last Admin: 08/28/16 20:12 Dose: 4 ml Albuterol/Ipratropium (Duoneb 3 Mg/0.5 Mg (3 Ml) Ud) 3 ml INH RQ6 [facility] Last Admin: 08/28/16 20:12 Dose: 3 ml Aspirin (Aspirin Chewable) 81 mg PO DAILY [facility] Last Admin: 08/28/16 09:12 Dose: 81 mg Chlordiazepoxide (Librium) 25 mg PO BID [facility] Last Admin: 08/28/16 17:25 Dose: 25 mg Diltiazem HCl (Cardizem) 60 mg PO Q6H [facility] Last Admin: 08/28/16 18:54 Dose: 60 mg Famotidine (Pepcid) 20 mg PO BID [facility] Last Admin: 08/28/16 17:39 Dose: 20 mg Folic Acid (Folic Acid) 1 mg PO DAILY [facility] Last Admin: 08/28/16 09:12 Dose: 1 mg Hydralazine HCl (Apresoline) 10 mg IVP Q6H PRN PRN Reason: hypertension Last Admin: 08/26/16 20:34 Dose: 10 mg Azithromycin 500 mg/ Sodium (Chloride) 250 mls @ 250 mls/hr IVPB DAILY [facility] Last Admin: 08/28/16 09:00 Dose: 250 mls/hr Ceftriaxone Sodium 1 gm/ (Sodium Chloride) 100 mls @ 100 mls/hr IVPB DAILY [facility] Last Admin: 08/28/16 09:00 Dose: 100 mls/hr Clindamycin Phosphate 300 mg/ (Sodium Chloride) 52 mls @ 100 mls/hr IVPB Q6H [facility] Last Admin: 08/28/16 19:46 Dose: 100 mls/hr Propofol (Diprivan) 1,000 mg in 100 mls @ 2.449 mls/hr IV .Q24H PRN; Protocol; 5 MCG/KG/MIN PRN Reason: TITRATE PER MD ORDER Last Titration: 08/28/16 17:35 Dose: 11.22 mcg/kg/min, 5.5 mls/hr Sodium Chloride (Sodium Chloride 0.9%) 1,000 mls @ 150 mls/hr IV .Q6H40M [facility] Last Admin: 08/28/16 15:41 Dose: 150 mls/hr Lactobacillus Acidophilus (Bacid Acidophilus) 1 cap PO BID [facility] Last Admin: 08/28/16 18:23 Dose: 1 cap Midazolam HCl (Versed Inj) 2 mg IVP Q4H PRN PRN Reason: Agitation Last Admin: 08/28/16 17:25 Dose: 2 mg Multivitamins (Hexavitamin) 1 tab PO DAILY [facility] Last Admin: 08/28/16 09:12 Dose: 1 tab Quetiapine Fumarate (Seroquel) 50 mg PO Q8 [facility] Last Admin: 08/28/16 13:33 Dose: 50 mg Rosuvastatin Calcium (Crestor) 20 mg PO HS [facility] Last Admin: 08/27/16 22:09 Dose: 20 mg Thiamine HCl (Vitamin B1 Inj) 100 mg IV DAILY [facility] Last Admin: 08/28/16 09:13 Dose: 100 mg - Labs Labs: 08/28/16 06:46 08/28/16 06:46 APTT 39 SECONDS (21-34) H 08/25/16 10:56 - Constitutional Appears: Non-toxic, No Acute Distress - Head Exam Head Exam: NORMAL INSPECTION - Eye Exam Eye Exam: absent: Scleral icterus Additional comments: pupils constricted - ENT Exam ENT Exam: Mucous Membranes Moist - Neck Exam Additional comments: intubated - Respiratory Exam Respiratory Exam: absent: NORMAL BREATHING PATTERN Additional comments: rhonchi on R; - Cardiovascular Exam Cardiovascular Exam: REGULAR RHYTHM, +S1, +S2 - GI/Abdominal Exam GI & Abdominal Exam: Soft. absent: Distended - Exam Additional comments: hidalgo in place - Extremities Exam Extremities Exam: absent: Pedal Edema - Neurological Exam Additional comments: sedated, not responsive to tactile stimuli; - Skin Skin Exam: Normal Color, Warm Assessment and Plan (1) Acute renal failure Assessment & Plan: LUIS in the setting of presumed sepsis due to PNA, oliguric renal failure; ATN by urine microscopy; however, an underlying glomerular nephritis is strongly suspected with nephrotic range, ~7g proteinuria by urine protein/creatinine and marked hematuria (although no definite cellular casts or dysmorphic RBC's seen) ; likely two separate processes taking place (ie. ATN from sepsis and GN); however, cannot rule out rapidly progressive GN with pulmonary involvement; imaging not typical for alveolar hemorrhage but should consider BAL to r/o; Will hold off on pulse steroids unless there is alveolar hemorrhage or serology/ biopsy indicative of RPGN; -Needs kidney biopsy when more stable (100% FIO2 as of this afternoon) -awaiting BETSEY and ANCA results, adding anti-GBM Ab -avoid further nephrotoxic agents Status: Acute (2) Hyponatremia Status: Acute (3) Proteinuria Status: Acute (4) Pneumonia Status: Acute (5) Hypertension, uncontrolled Status: Acute (6) Thrombocytopenia Status: Acute
[2016-08-29] MEDS: Acetylcysteine 20% Inhal Soln (4ml) INH SCH ×4 (01:14→20:05)
[2016-08-29] MEDS: Albuterol-Ipratrop 3 mg / 0.5 (3 ml) UD INH SCH ×4 (01:14→20:05)
[2016-08-29] MEDS: Clindamycin 300 MG in Sodium Chloride 0.9% 50 ML IVPB SCH ×2 (02:53→07:56)
[2016-08-29 04:30] LABS: ABG ALLEN TEST POS; ABG MECHANICAL RATE 14; ARTERIAL BLOOD HGB O2 SAT 93.9 % (95.0-98.0); ATERIAL BLOOD GAS PEEP 7; CARBOXYHEMOGLOBIN 1.6 % (0.5-1.5); DRAW SITE RR; HHB 3.3 % (0.0-5.0); METHEMOGLOBIN 1.2 % (0.0-3.0)
[2016-08-29 06:31] LABS: BASO % 0.4 % (0.0-2.0); EOS % 0.1 % (0.0-4.0); HEMATOCRIT 42.3 % (35.0-51.0); LYMPH # 0.7 K/uL (1.0-4.3); LYMPH % 21.9 % (20.0-40.0); MEAN CORPUSCULAR HEMOGLOBIN 24.9 pg (27.0-31.0); MEAN PLATELET VOLUME 8.8 fL (7.2-11.7); MONO # 0.4 K/uL (0.0-0.8); MONO % 11.8 % (0.0-10.0); NRBC % 0.2 % (0.0-2.0); RED CELL DISTRIBUTION WIDTH 14.4 % (11.5-14.5); WHITE BLOOD COUNT 3.2 K/uL (4.8-10.8)
[2016-08-29 06:35] LABS: CHLORIDE 100 mmol/L (98-107); SODIUM 126 mmol/L (132-148)
[2016-08-29 06:36] LABS: POTASSIUM 4.1 mmol/L (3.6-5.2)
[2016-08-29 06:37] LABS: GFR AFRICAN-AMERICAN 31
[2016-08-29 06:38] LABS: ALKALINE PHOSPHATASE 51 U/L (38-126); ALT/SGPT 64 U/L (21-72); AST/SGOT 188 U/L (17-59); BILIRUBIN,TOTAL < 0.1 mg/dL (0.2-1.3); BLOOD UREA NITROGEN 32 mg/dL (9-20); CARBON DIOXIDE 21 mmol/L (22-30); GLUCOSE,RANDOM 108 mg/dL (75-110); PHOSPHOROUS 4.1 mg/dL (2.5-4.5); TOTAL PROTEIN 4.6 g/dL (6.3-8.3)
[2016-08-29 06:39] LABS: ALB/GLOB RATIO 0.6 (1.0-2.1); CALCIUM 6.9 mg/dl (8.6-10.4); MAGNESIUM 2.2 mg/dL (1.6-2.3)
[2016-08-29] MEDS: Sodium Chloride 0.9% 1,000 ML IV SCH ×3 (07:57→23:18)
[2016-08-29] MEDS ORDERED: Vancomycin 1 gm/NS 200 ml 1 GM/200 ML BAG IVPB SCH (08:30)
[2016-08-29] MEDS: Propofol 10 mg/ml 1,000 MG/100 ML VIAL IV PRN ×3 (08:41→23:11)
--- NOTE | 2016-08-29 08:42 | RAD ---
PROCEDURE: CHEST RADIOGRAPH, 1 VIEW HISTORY: Intubated COMPARISON: 08/28/2016 FINDINGS: LUNGS: Endotracheal tube extending into the mid thoracic trachea. Moderate right pleural effusion. Moderate venous congestion. Prominent consolidative changes in the right mid to lower lung zone. Biapical pleural thickening with lobe granulomatous changes. PLEURA: As above. CARDIOVASCULAR: Cardiomegaly. OSSEOUS STRUCTURES: No significant abnormalities. VISUALIZED UPPER ABDOMEN: Normal. OTHER FINDINGS: None. IMPRESSION: Endotracheal tube extending into the mid thoracic trachea. Moderate right pleural effusion. Moderate venous congestion. Prominent consolidative changes in the right mid to lower lung zone. Biapical pleural thickening with lobe granulomatous changes.
--- NOTE | 2016-08-29 09:18 | CP.PCM.PN ---
Subjective - Date & Time of Evaluation Date of Evaluation: 08/29/16 Time of Evaluation: 09:10 - Subjective Subjective: Medical Attending Note Follow-up: Metabolic Encephalopathy, Sepsis, Acute Respiratory Failure, Seizures ; Aspiration Pneumonia, Acute Kidney Injury, Hyponatremia, Alcohol Abuse, Hypertension, RLE DVT, Schizophrenia Patient seen, examined and case discussed with ICU. Patient is sedated. Patient is intubated and OGT tube feeding. Unable to evaluate ROS secondary to clinical condition. No family is at bedside. Objective - Vital Signs/Intake and Output Vital Signs (last 24 hours): Temp Pulse Resp BP Pulse Ox 99.3 F 94 H 33 H 107/60 96 08/29/16 08:00 08/29/16 08:00 08/29/16 08:00 08/29/16 08:00 08/29/16 08:00 Intake and Output: 08/29/16 08/29/16 06:59 18:59 Intake Total 2226.0 379.4 Output Total 540 50 Balance 1686.0 329.4 - Medications Medications: Current Medications Acetaminophen (Tylenol 325mg Tab) 650 mg PO Q6 PRN PRN Reason: Fever >100.4 F Last Admin: 08/27/16 03:10 Dose: 650 mg Acetylcysteine (Acetylcysteine 20%) 4 ml INH RQ6 [facility] Last Admin: 08/29/16 07:25 Dose: 4 ml Albuterol/Ipratropium (Duoneb 3 Mg/0.5 Mg (3 Ml) Ud) 3 ml INH RQ6 [facility] Last Admin: 08/29/16 07:25 Dose: 3 ml Aspirin (Aspirin Chewable) 81 mg PO DAILY [facility] Last Admin: 08/28/16 09:12 Dose: 81 mg Chlordiazepoxide (Librium) 25 mg PO BID [facility] Last Admin: 08/28/16 17:25 Dose: 25 mg Diltiazem HCl (Cardizem) 60 mg PO Q6H [facility] Last Admin: 08/29/16 07:56 Dose: 60 mg Famotidine (Pepcid) 20 mg PO BID [facility] Last Admin: 08/28/16 17:39 Dose: 20 mg Folic Acid (Folic Acid) 1 mg PO DAILY [facility] Last Admin: 08/28/16 09:12 Dose: 1 mg Hydralazine HCl (Apresoline) 10 mg IVP Q6H PRN PRN Reason: hypertension Last Admin: 08/26/16 20:34 Dose: 10 mg Propofol (Diprivan) 1,000 mg in 100 mls @ 2.449 mls/hr IV .Q24H PRN; Protocol; 5 MCG/KG/MIN PRN Reason: TITRATE PER MD ORDER Last Admin: 08/29/16 08:41 Dose: 11.22 mcg/kg/min, 5.496 mls/hr Sodium Chloride (Sodium Chloride 0.9%) 1,000 mls @ 150 mls/hr IV .Q6H40M [facility] Last Admin: 08/29/16 07:57 Dose: 150 mls/hr Vancomycin/Sodium Chloride (Vancocin) 1 gm in 200 mls @ 133.333 mls/hr IVPB Q12H [facility] Stop: 09/03/16 08:31 Last Admin: 08/29/16 08:40 Dose: 133.333 mls/hr Piperacillin Sod/Tazobactam Sod (Zosyn 2.25 Gm Iv Premix) 2.25 gm in 50 mls @ 100 mls/hr IVPB Q8H [facility] Lactobacillus Acidophilus (Bacid Acidophilus) 1 cap PO BID [facility] Last Admin: 08/28/16 18:23 Dose: 1 cap Midazolam HCl (Versed Inj) 2 mg IVP Q4H PRN PRN Reason: Agitation Last Admin: 08/28/16 17:25 Dose: 2 mg Multivitamins (Hexavitamin) 1 tab PO DAILY [facility] Last Admin: 08/28/16 09:12 Dose: 1 tab Quetiapine Fumarate (Seroquel) 50 mg PO Q8 [facility] Last Admin: 08/28/16 21:22 Dose: 50 mg Thiamine HCl (Vitamin B1 Inj) 100 mg IV DAILY [facility] Last Admin: 08/28/16 09:13 Dose: 100 mg - Labs Labs: 08/29/16 06:18 08/29/16 06:17 APTT 39 SECONDS (21-34) H 08/25/16 10:56 - Constitutional Appears: Non-toxic, In Acute Distress - Head Exam Head Exam: NORMAL INSPECTION - Eye Exam Eye Exam: EOMI - ENT Exam ENT Exam: Mucous Membranes Dry - Respiratory Exam Respiratory Exam: Decreased Breath Sounds, Rales, NORMAL BREATHING PATTERN. absent: Wheezes - Cardiovascular Exam Cardiovascular Exam: REGULAR RHYTHM, +S1, +S2 - GI/Abdominal Exam GI & Abdominal Exam: Soft, Normal Bowel Sounds. absent: Distended, Firm, Guarding, Rigid, Tenderness, Rebound - Psychiatric Exam Psychiatric exam: Normal Affect, Normal Mood - Skin Skin Exam: Dry, Normal Color, Warm Assessment and Plan (1) Metabolic encephalopathy Status: Acute (2) Acute respiratory failure Status: Acute (3) Aspiration pneumonia Status: Acute (4) Sepsis Status: Acute (5) Acute kidney injury Status: Acute (6) Alcohol intoxication Status: Acute (7) Seizure Status: Acute (8) History of DVT (deep vein thrombosis) Status: Chronic (9) Hypertension Status: Chronic (10) Prophylactic measure Status: Acute (11) DVT (deep venous thrombosis) Status: Acute - Assessment and Plan (Free Text) Assessment: Assessment/Plan 1) Sepsis * Criteria: Leukopenia (WBC< 4), tachypnea, febrile, etiology: aspiration pneumonia * Chest xray: prominent consolidate changes in right to mid to lower lung zone * Chest xray (08/29/16): endotracheal tube extending into mid thoracic trachea. Moderate right pleural effusion. Moderate venous congestion. Prominent consolidative changes oin the right mid to lower lung zone. Biapical pleural thickening with lobe granulmoatous changes * Chest CT (08/28/16): marked progression of infiltrates. Entire right lowr lobe displaced infiltrate/consolidation. Subsgementall right upper lobe infiltrate a new finding Progression of multisegment left lower lobe infiltrates * 08/24/16: Blood culture: no growth after 4 days X2 * MRSA not detected * 08/27/16 Sputum: pending * Elevated procalcitonin: 21 * Repeat blood cultures today 08/29/16 2) Acute respiratory failure * secondary to aspiration pneumonia and/or seizure * Patient is currently intubated * Patient is currently on high peep of 7; unable to wean given high peep and high need for sedation 3) Metabolic Encephalopathy * Etiologies: sepsis, alcohol use, aspiration pneumonia * f/u ammonia * f/u prolactin * CT Head (08/24/16): no acute intracranial injury * Brain MRI (08/26/16): no evidence of acute infarct. No evidence of mass lesion, mass effect, or midline shift 4) Aspiration pneumonia * Risk factor: seizure and alcoholism * Chest xray: prominent consolidate changes in right to mid to lower lung zone * Chest xray (08/29/16): endotracheal tube extending into mid thoracic trachea. Moderate right pleural effusion. Moderate venous congestion. Prominent consolidative changes oin the right mid to lower lung zone. Biapical pleural thickening with lobe granulmoatous changes * Chest CT (08/28/16): marked progression of infiltrates. Entire right lowr lobe displaced infiltrate/consolidation. Subsgementall right upper lobe infiltrate a new finding Progression of multisegment left lower lobe infiltrates * Abx switched today: Zosyn 2.25 IV Q 8 hours and Vancomycin 1 gram IV Q 12 hours 5) Seizures * f/u prolactin * Brain MRI (08/26/16): no evidence of acute infarct. No evidence of mass lesion, mass effect, or midline shift * Neurology (Dr. Madera) on board help appreciated * EEG ordered * on Profol * Ativan PRN * unclear if patient has hx of seizures or history of alcohol withdrawal seizures 6) Hx of Right DVT * IVC filter noted on CT scan 08/24/16 * Right iliac artery stent * 08/25/16: b/l Venous doppler: negative * CT Chest/Abdomen/Pelvis: IVC filter, There are atherosclerotic changes of the aorta, Right iliac artery stent. No hydronephrosis. There is mild perinephric stranding. No striated nephrograms. There is fluid within the colon most notably in the distal sigmoid and rectum, The appendix is identified coronal images 50 through 66. There is intraluminal fluid however it measures 4 mm in diameter which is within normal limits and there is no wall thickening, wall hyperemia, or periappendiceal stranding. here are degenerative changes in the osseous structures. Colonic fluid, a nonspecific finding however can also be associated with diarrhea/enteritis. Mild bilateral perinephric stranding which may be a chronic finding however could also be indicative of a infectious/ inflammatory process. Evidence of emphysematous disease in the upper lungs. There is dense infiltrate with consolidation in the right lower lung some of which has a fibrotic appearance. Tiny faint nodular opacities in the left lower lung. No effusions. No aortic aneurysm or dissection. Pulmonary emboli cannot be excluded due to bolus timing. Few small scattered mediastinal lymph nodes are noted. 7) ATN * Nephrology (Dr. Katie Mathews) on board * Contributing factor: sepsis * Patient is currently on renally dosed: Zosyn and Vancomycin * Discussed with nephrology * NS 75cc/hr 8) Alcohol Abuse * on sedation and Ativan PRN 9) Emphysema * CT Chest/Abdomen/Pelvis: IVC filter, There are atherosclerotic changes of the aorta, Right iliac artery stent. No hydronephrosis. There is mild perinephric stranding. No striated nephrograms. There is fluid within the colon most notably in the distal sigmoid and rectum, The appendix is identified coronal images 50 through 66. There is intraluminal fluid however it measures 4 mm in diameter which is within normal limits and there is no wall thickening, wall hyperemia, or periappendiceal stranding. here are degenerative changes in the osseous structures. Colonic fluid, a nonspecific finding however can also be associated with diarrhea/enteritis. Mild bilateral perinephric stranding which may be a chronic finding however could also be indicative of a infectious/ inflammatory process. Evidence of emphysematous disease in the upper lungs. There is dense infiltrate with consolidation in the right lower lung some of which has a fibrotic appearance. Tiny faint nodular opacities in the left lower lung. No effusions. No aortic aneurysm or dissection. Pulmonary emboli cannot be excluded due to bolus timing. Few small scattered mediastinal lymph nodes are noted. 10) Peripheral vascular disease * Right iliac artery stent * Aspirin 81mg PO daily 11) Prior history of CVA * noted in H&P * Patient is currently on Aspirin, held crestor, and patient hypotensive 12) History of Hypertension * off anti-hypertensives 13) History of diabetes * Controlled * Hgba1c: 5.7 * Accuchecks Q 6 hours 14) Malnutrition * contributing factor alcohol * OGT tube feedings 15) Prophylactic measure * Heparin 5000 units subq 8 hours for DVT ppx * Protonix 40mg IV q daily * NS 75 cc/hr
[2016-08-29] MEDS: Piperacill/Tazo 2.25gm in Dex 2.25 GM/50 ML BAG IVPB SCH ×2 (10:12→17:29)
[2016-08-29] MEDS: Thiamine 100 mg/ml Inj IV SCH (10:13)
[2016-08-29] MEDS: Multiple Vitamins Tab PO SCH (10:13)
[2016-08-29] MEDS: Lactobacillus Acidophilus 500 MU Cap PO SCH ×2 (10:14→17:29)
--- NOTE | 2016-08-29 11:36 | CP.CCUPN ---
CCU Subjective - Physician Review Subjective (Free Text): 08/29/16 11:32 PGY-1 progress note Pt seen and examined at bedside. There were no overnight events per staff. Pt is intubated and sedated. Critical Care Time Spent (in minutes): 35 CCU Objective - Vital Signs / Intake & Output Vital Signs (Last 4 hours): Vital Signs Temp Pulse Resp BP Pulse Ox 08/29/16 11:00 88 29 H 84/44 L 99 08/29/16 10:00 85 30 H 89/47 L 99 08/29/16 09:00 89 34 H 93/50 L 96 08/29/16 08:00 99.3 F 94 H 33 H 107/60 96 Intake and Output (Last 8hrs): Intake & Output 08/28/16 08/29/16 08/29/16 22:59 06:59 14:59 Intake Total 2399.4 1484.0 811.1 Output Total 285 355 210 Balance 2114.4 1129.0 601.1 Weight 184 lb Intake: IV 25 100 Intake, IV Amount 2134.4 1244.0 561.1 Left Antecubital 34.4 44.0 61.1 Right Forearm 2050 1200 500 Right Proximal Port 50 Forearm Tube Feeding 240 240 150 Output: Urine 285 355 210 Urethral (Hidalgo) 285 355 210 - Physical Exam Head: Positive for: Atraumatic, Normocephalic Pupils: Positive for: PERRL Extroacular Muscles: Positive for: EOMI Conjunctiva: Positive for: Normal Mouth: Positive for: Moist Mucous Membranes Respiratory/Chest: Positive for: Decreased Breath Sounds Cardiovascular: Positive for: Regular Rate and Rhythm Abdomen: Positive for: Normal Bowel Sounds. Negative for: Tenderness, Distention Neurological: Positive for: Other (sedated) - Medications Active Medications: Active Medications Generic Name Dose Route Start Last Admin Trade Name Freq PRN Reason Stop Dose Admin Acetaminophen 650 mg 08/24/16 21:11 08/27/16 03:10 Tylenol 325mg Tab PO 650 mg Q6 PRN Administration Fever >100.4 F Acetylcysteine 4 ml 08/28/16 15:15 08/29/16 07:25 Acetylcysteine 20% INH 4 ml RQ6 AMINTA Administration Albuterol/Ipratropium 3 ml 08/28/16 20:00 08/29/16 07:25 Duoneb 3 Mg/0.5 Mg (3 Ml) Ud INH 3 ml RQ6 AMINTA Administration Aspirin 81 mg 08/25/16 10:00 08/29/16 10:13 Aspirin Chewable PO 81 mg DAILY AMINTA Administration Folic Acid 1 mg 08/25/16 10:00 08/29/16 10:13 Folic Acid PO 1 mg DAILY AMINTA Administration Heparin Sodium (Porcine) 5,000 units 08/29/16 14:00 Heparin SC Q8 AMINTA Propofol 1,000 mg in 100 mls @ 2.449 mls/hr 08/27/16 16:43 08/29/16 08:41 Diprivan IV 11.22 mcg/kg/min .Q24H PRN 5.496 mls/hr TITRATE PER MD ORDER Administration Protocol 5 MCG/KG/MIN Vancomycin/Sodium Chloride 1 gm in 200 mls @ 133.333 mls/hr 08/29/16 08:30 08:40 Vancocin IVPB 09/03/16 08:31 133.333 mls/hr Q12H AMINTA Administration Piperacillin Sod/Tazobactam Sod 2.25 gm in 50 mls @ 100 mls/hr 08/29/16 10:00 08/29/16 10:12 Zosyn 2.25 Gm Iv Premix IVPB 100 mls/hr Q8H AMINTA Administration Sodium Chloride 1,000 mls @ 75 mls/hr 08/29/16 09:29 08/29/16 10:15 Sodium Chloride 0.9% IV Not Given .[id number] AMINTA Lactobacillus Acidophilus 1 cap 08/27/16 18:00 08/29/16 10:14 Bacid Acidophilus PO 1 cap BID AMINTA Administration Lorazepam 2 mg 08/29/16 10:00 Ativan IVP Q6H PRN Anxiety Multivitamins 1 tab 08/25/16 10:00 08/29/16 10:13 Hexavitamin PO 1 tab DAILY AMINTA Administration Pantoprazole Sodium 40 mg 08/29/16 10:00 08/29/16 10:12 Protonix Inj IVP 40 mg DAILY AMINTA Administration Thiamine HCl 100 mg 08/27/16 10:00 08/29/16 10:13 Vitamin B1 Inj IV 100 mg DAILY AMINTA Administration - Patient Studies Lab Studies: Microbiology Studies 08/24/16 22:15 Blood Culture - Preliminary Blood NO GROWTH AFTER 4 DAYS 08/24/16 22:15 Blood Culture - Preliminary Blood NO GROWTH AFTER 4 DAYS 08/27/16 19:00 MRSA Culture (Admit) - Final Nose MRSA NOT DETECTED 08/27/16 19:00 Gram Stain - Final Trachasp Lab Studies 08/29/16 08/29/16 08/29/16 Range/Units 06:53 06:18 06:17 WBC 3.2 L (4.8-10.8) K/uL RBC 5.42 (4.40-5.90) Mil/uL Hgb 13.5 (12.0-18.0) g/dL Hct 42.3 (35.0-51.0) % MCV 78.0 L (80.0-94.0) fL MCH 24.9 L (27.0-31.0) pg MCHC 32.0 L (33.0-37.0) g/dL RDW 14.4 (11.5-14.5) % Plt Count 94 L (130-400) K/uL MPV 8.8 (7.2-11.7) fL Neut % (Auto) 65.8 (50.0-75.0) % Lymph % (Auto) 21.9 (20.0-40.0) % Mccormick % (Auto) 11.8 H (0.0-10.0) % Eos % (Auto) 0.1 (0.0-4.0) % Baso % (Auto) 0.4 (0.0-2.0) % Neut # 2.1 (1.8-7.0) K/uL Lymph # 0.7 L (1.0-4.3) K/uL Mccormick # 0.4 (0.0-0.8) K/uL Eos # 0.0 (0.0-0.7) K/uL Baso # 0.0 (0.0-0.2) K/uL Differential Comment Puncture Site pCO2 (35-45) mm/Hg pO2 (80-100) mm/Hg HCO3 (21-28) mmol/L ABG pH (7.35-7.45) ABG Total CO2 (22-28) mmol/L ABG O2 Saturation (95-98) % ABG Base Excess (-2.0-3.0) mmol/L ABG Hemoglobin (11.7-17.4) g/dL ABG Carboxyhemoglobin (0.5-1.5) % POC ABG HHb (Measured) (0.0-5.0) % ABG Methemoglobin (0.0-3.0) % Lisandro Test A-a O2 Difference mm/Hg Respiratory Index Hgb O2 Saturation (95.0-98.0) % Mechanical Rate FiO2 % Tidal Volume PEEP Sodium 126 L (132-148) mmol/L Potassium 4.1 (3.6-5.2) mmol/L Chloride 100 (98-107) mmol/L Carbon Dioxide 21 L (22-30) mmol/L Anion Gap 9 L (10-20) BUN 32 H (9-20) mg/dL Creatinine 2.6 H (0.8-1.5) MG/DL Est GFR ( Amer) 31 Est GFR (Non-Af Amer) 26 Random Glucose 108 (75-110) mg/dL Hemoglobin A1c (4.2-6.5) % Calcium 6.9 L (8.6-10.4) mg/dl Phosphorus 4.1 (2.5-4.5) mg/dL Magnesium 2.2 (1.6-2.3) mg/dL Total Bilirubin < 0.1 L (0.2-1.3) mg/dL AST 188 H D (17-59) U/L ALT 64 (21-72) U/L Alkaline Phosphatase 51 (38-126) U/L Total Protein 4.6 L (6.3-8.3) g/dL Albumin 1.8 L (3.5-5.0) g/dL Globulin 2.8 (2.2-3.9) gm/dL Albumin/Globulin Ratio 0.6 L (1.0-2.1) Procalcitonin 21.71 H (0.19-0.49) NG/ML 08/29/16 08/28/16 Range/Units 04:10 06:46 WBC (4.8-10.8) K/uL RBC (4.40-5.90) Mil/uL Hgb (12.0-18.0) g/dL Hct (35.0-51.0) % MCV (80.0-94.0) fL MCH (27.0-31.0) pg MCHC (33.0-37.0) g/dL RDW (11.5-14.5) % Plt Count (130-400) K/uL MPV (7.2-11.7) fL Neut % (Auto) (50.0-75.0) % Lymph % (Auto) (20.0-40.0) % Mccormick % (Auto) (0.0-10.0) % Eos % (Auto) (0.0-4.0) % Baso % (Auto) (0.0-2.0) % Neut # (1.8-7.0) K/uL Lymph # (1.0-4.3) K/uL Mccormick # (0.0-0.8) K/uL Eos # (0.0-0.7) K/uL Baso # (0.0-0.2) K/uL Differential Comment Puncture Site Rr pCO2 37 (35-45) mm/Hg pO2 76 L (80-100) mm/Hg HCO3 19.8 L (21-28) mmol/L ABG pH 7.32 L (7.35-7.45) ABG Total CO2 20.2 L (22-28) mmol/L ABG O2 Saturation 96.6 (95-98) % ABG Base Excess -6.4 L (-2.0-3.0) mmol/L ABG Hemoglobin 13.7 (11.7-17.4) g/dL ABG Carboxyhemoglobin 1.6 H (0.5-1.5) % POC ABG HHb (Measured) 3.3 (0.0-5.0) % ABG Methemoglobin 1.2 (0.0-3.0) % Lisandro Test Pos A-a O2 Difference 591.0 mm/Hg Respiratory Index 7.8 Hgb O2 Saturation 93.9 L (95.0-98.0) % Mechanical Rate 14 FiO2 100.0 % Tidal Volume 450 PEEP 7 Sodium (132-148) mmol/L Potassium (3.6-5.2) mmol/L Chloride (98-107) mmol/L Carbon Dioxide (22-30) mmol/L Anion Gap (10-20) BUN (9-20) mg/dL Creatinine (0.8-1.5) MG/DL Est GFR ( Amer) Est GFR (Non-Af Amer) Random Glucose (75-110) mg/dL Hemoglobin A1c 5.7 (4.2-6.5) % Calcium (8.6-10.4) mg/dl Phosphorus (2.5-4.5) mg/dL Magnesium (1.6-2.3) mg/dL Total Bilirubin (0.2-1.3) mg/dL AST (17-59) U/L ALT (21-72) U/L Alkaline Phosphatase (38-126) U/L Total Protein (6.3-8.3) g/dL Albumin (3.5-5.0) g/dL Globulin (2.2-3.9) gm/dL Albumin/Globulin Ratio (1.0-2.1) Procalcitonin (0.19-0.49) NG/ML Laboratory Results - last 24 hr 08/28/16 08/29/16 08/29/16 06:46 04:10 06:17 WBC RBC Hgb Hct MCV MCH MCHC RDW Plt Count MPV Neut % (Auto) Lymph % (Auto) Mccormick % (Auto) Eos % (Auto) Baso % (Auto) Neut # Lymph # Mccormick # Eos # Baso # Differential Comment Puncture Site Rr pCO2 37 pO2 76 L HCO3 19.8 L ABG pH 7.32 L ABG Total CO2 20.2 L ABG O2 Saturation 96.6 ABG Base Excess -6.4 L ABG Hemoglobin 13.7 ABG Carboxyhemoglobin 1.6 H POC ABG HHb (Measured) 3.3 ABG Methemoglobin 1.2 Lisandro Test Pos A-a O2 Difference 591.0 Respiratory Index 7.8 Hgb O2 Saturation 93.9 L Mechanical Rate 14 FiO2 100.0 Tidal Volume 450 PEEP 7 Sodium 126 L Potassium 4.1 Chloride 100 Carbon Dioxide 21 L Anion Gap 9 L BUN 32 H Creatinine 2.6 H Est GFR ( Amer) 31 Est GFR (Non-Af Amer) 26 Random Glucose 108 Hemoglobin A1c 5.7 Calcium 6.9 L Phosphorus 4.1 Magnesium 2.2 Total Bilirubin < 0.1 L AST 188 H D ALT 64 Alkaline Phosphatase 51 Total Protein 4.6 L Albumin 1.8 L Globulin 2.8 Albumin/Globulin Ratio 0.6 L Procalcitonin 08/29/16 08/29/16 06:18 06:53 WBC 3.2 L RBC 5.42 Hgb 13.5 Hct 42.3 MCV 78.0 L MCH 24.9 L MCHC 32.0 L RDW 14.4 Plt Count 94 L MPV 8.8 Neut % (Auto) 65.8 Lymph % (Auto) 21.9 Mccormick % (Auto) 11.8 H Eos % (Auto) 0.1 Baso % (Auto) 0.4 Neut # 2.1 Lymph # 0.7 L Mccormick # 0.4 Eos # 0.0 Baso # 0.0 Differential Comment Puncture Site pCO2 pO2 HCO3 ABG pH ABG Total CO2 ABG O2 Saturation ABG Base Excess ABG Hemoglobin ABG Carboxyhemoglobin POC ABG HHb (Measured) ABG Methemoglobin Lisandro Test A-a O2 Difference Respiratory Index Hgb O2 Saturation Mechanical Rate FiO2 Tidal Volume PEEP Sodium Potassium Chloride Carbon Dioxide Anion Gap BUN Creatinine Est GFR ( Amer) Est GFR (Non-Af Amer) Random Glucose Hemoglobin A1c Calcium Phosphorus Magnesium Total Bilirubin AST ALT Alkaline Phosphatase Total Protein Albumin Globulin Albumin/Globulin Ratio Procalcitonin 21.71 H Fingerstick Blood Sugar Results: 79 Review of Systems - Review of Systems Systems not reviewed;Unavailable: Intubated Critical Care Progress Note - Nutrition Nutrition: Nutrition Category Date Time Status NPO Diet [DIET] Diets 08/27/16 Lunch Active Assessment/Plan - Assessment and Plan (Free Text) Assessment: This is 56 yo male with past medical history of ethanol abuse (drinking since age 17), hypertension, CVA 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 Patient was being treated on the floor for his pneumonia. A rapid response called (08/27/16) for worsening dyspnea. Patient brought to ICU and intubated (08/27). Plan: Neuro: Sedated on vent with propofol drip. Will get EEG to assess for continued seizure activity Pulm: Acute respiratory failure with hypoxia secondary to pneumonia, now on vent. Continue antibiotics, changed to Vancomycin and Zosyn , DuoNeb's, mucolytic's. Chest CT (08/28) - Marked progression of infiltrates. The entire right lower lobe displaced infiltrate/consolidation. Subsegmental right upper lobe infiltrate a new finding. Progression of multi segment left lower lobe infiltrates. Negative for PE. 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 Worsening thrombocytopenia, secondary to sepsis. Continue to monitor Renal: Hypochloremic hyponatremia, slowly improving NS decreased to 75 ml/hr Moderate to severe proteinuria, Nephro consulted Endo: A1C 5.7. No acute issues GI: Nothing by mouth, tube feeds Isosource 1.5 @30 ID: Severe sepsis from RLL aspiration pneumonia, changed to Vancomycin and Zosyn. Continue bacid. DVT proph - heparin subcutaneous GI proph - Protonix hidalgo for strict I/O's during acute illness Code status - full code
[2016-08-29 18:02] LABS: INR 0.9
[2016-08-29 19:16] LABS: CALCIUM 7.3 mg/dL (8.6-10.3)
--- NOTE | 2016-08-29 21:06 | PN ---
DATE: 08/29/2016 A 56-year-old male with past medical history of alcoholism abuse, unclear seizure history, DVT, statu s post IVC filter, status post right SFA stent, hypertension, schizoaffective disorder admitted after witnessed seizure. Hospital course complicated by acute hypoxemic respiratory failure requiring int ubation, and acute renal failure. Nephrology patient for the same. The patient intubated per [facility] staff. Urine output has picked up to about 50 mL per hour. VITAL SIGNS: This morning, blood pressure 93/50, heart rate 89, respirations 34, O2 sat 96% on 100% FIO2 via mechanical ventilation. PHYSICAL EXAMINATION: GENERAL: Sedated, not responsive verbal stimuli, tachypneic. HEENT: Moist mucous membranes. No scleral icterus. CHEST: Clear to auscultation bilaterally. No rhonchi, no wheezes. HEART: Multiple sounds. No obvious murmurs, no rubs, no gallops. ABDOMEN: Soft, nondistended. EXTREMITIES: Mild comfortable leg bilateral edema, normal capillary refill. NEUROLOGIC: Corneal reflexes intact. LABORATORY DATA: WBC 3.2, hemoglobin 13.5, hematocrit 42.3, platelets 94. Chemistry: Sodium 126, p otassium 4.1, chloride 100, bicarbonate 21, BUN 32, creatinine 2.6, calcium 6.9, phosphorus 4.1, albu min 1.8, ammonia 11. ASSESSMENT: 1. Acute renal failure, most likely acute tubular necrosis in the setting of sepsis and now hypotens ion. Had been oliguric, although urine output appears to have improved and currently nonoliguric. Q uestion of whether patient has an acute glomerulonephritis as he has nephrotic range proteinuria and marked hematuria, although low RBC casts or dysmorphic RBCs seen on urine micro. Questions about pos sibly of pulmonary renal syndrome due to coincidence of acute renal failure and severe hypoxemic resp iratory failure. However, on review of images with radiologist and discussion with garageman, imag ing not consistent with alveolar hemorrhage. Therefore, underlying glomerular process is likely pure ly coincidental and will need further workup once patient more stable. Electrolyte status is relativ philipp stable. Volume status no indication for hemodialysis at this point. We will continue to monitor daily. 2. Acute hypoxemic respiratory failure secondary to pneumonia. Images reviewed with radiologist so progression of right lower lobe infiltrate to what now appears to be a dense consolidation. The tesfaye ent currently getting IV fluids with NS at 75 mL an hour as lungs do not seen to be congested and pat ient is having adequate urine output. Would continue the same. 3. Sepsis secondary to pneumonia, possibly due to aspiration. Antibiotics coverage escalated today with the patient having received Zosyn renally dosed at 0.25 grams q. 8 hours. Received dose of vanc omycin as well 1 gram this morning. Would check rennin vancomycin level tonight and if level is belo w 15, should be redosed with 500 mg. 4 . Hyponatremia. Workup done while renal function was intact was consistent with syndrome of inappr opriate antidiuretic hormone secretion secondary to pneumonia. Serum sodium has improved since then, likely due to an ____ losses as well as now with tubular dysfunction. Can continue normal saline. 5. Proteinuria. Nephrotic range proteinuria with marked hematuria. Serologies thus far negative fo r hepatitis B and hepatitis C, mildly low C3 level indicative of some complement consumption. Serolog ic workup sent for ANCA, anti GBM, IgG, and BETSEY to look for lupus. Awaiting results. Sepsis can cau se MPGN pattern, but would have expected positive blood cultures. The patient will need kidney biops y once he is more stable. Will send antiphospholipid panel as patient has history of arterial and ve nous thromboses. Total critical care time spent evaluating patient record, discussion with garageman, primary attend ing and radiologist: Over 40 minutes. Ish Mascorro MD cc: [id number] TT: 08/29/2016 21:05:38 Confirmation # [id number] Dictation # [id number] jn
[2016-08-30] MEDS: Acetylcysteine 20% Inhal Soln (4ml) INH SCH ×3 (01:12→13:47)
[2016-08-30] MEDS: Albuterol-Ipratrop 3 mg / 0.5 (3 ml) UD INH SCH ×4 (01:12→19:42)
[2016-08-30] MEDS: Piperacill/Tazo 2.25gm in Dex 2.25 GM/50 ML BAG IVPB SCH ×3 (01:53→17:45)
[2016-08-30 04:32] LABS: ABG ALLEN TEST POS; ABG MECHANICAL RATE 20; ARTERIAL BLOOD HGB O2 SAT 95.5 % (95.0-98.0); ATERIAL BLOOD GAS PEEP 9; CARBOXYHEMOGLOBIN 1.6 % (0.5-1.5); DRAW SITE RR; HHB 1.6 % (0.0-5.0); METHEMOGLOBIN 1.2 % (0.0-3.0)
[2016-08-30 06:15] LABS: BASO % 0.3 % (0.0-2.0); EOS % 0.1 % (0.0-4.0); HEMATOCRIT 42.3 % (35.0-51.0); LYMPH # 0.4 K/uL (1.0-4.3); LYMPH % 7.6 % (20.0-40.0); MEAN CORPUSCULAR HEMOGLOBIN 25.1 pg (27.0-31.0); MEAN CORPUSCULAR HGB CONC 31.4 g/dL (33.0-37.0); MEAN PLATELET VOLUME 9.5 fL (7.2-11.7); MONO # 0.6 K/uL (0.0-0.8); MONO % 10.4 % (0.0-10.0); NRBC % 0.1 % (0.0-2.0); RED CELL DISTRIBUTION WIDTH 15.1 % (11.5-14.5)
[2016-08-30 06:25] LABS: PLATELET COUNT 125 K/uL (130-400); WHITE BLOOD COUNT 5.9 K/uL (4.8-10.8)
[2016-08-30 06:37] LABS: CHLORIDE 101 mmol/L (98-107); SODIUM 127 mmol/L (132-148)
[2016-08-30 06:39] LABS: GFR AFRICAN-AMERICAN 17
[2016-08-30 06:40] LABS: ALB/GLOB RATIO 0.7 (1.0-2.1); ALKALINE PHOSPHATASE 66 U/L (38-126); ALT/SGPT 67 U/L (21-72); AST/SGOT 194 U/L (17-59); BILIRUBIN,TOTAL < 0.1 mg/dL (0.2-1.3); BLOOD UREA NITROGEN 46 mg/dL (9-20); CALCIUM 7.3 mg/dl (8.6-10.4); CARBON DIOXIDE 18 mmol/L (22-30); GLUCOSE,RANDOM 118 mg/dL (75-110); PHOSPHOROUS 6.3 mg/dL (2.5-4.5); TOTAL PROTEIN 4.8 g/dL (6.3-8.3)
[2016-08-30 06:41] LABS: MAGNESIUM 2.5 mg/dL (1.6-2.3)
[2016-08-30] MEDS: Propofol 10 mg/ml 1,000 MG/100 ML VIAL IV PRN ×3 (07:32→18:31)
--- NOTE | 2016-08-30 07:42 | CARD ---
APPROVED REPORT EKG Measurement Heart [id number] <Conclusion> Atrial fibrillation with rapid ventricular response Abnormal ECG
--- NOTE | 2016-08-30 08:44 | EEG ---
DATE: 08/25/2016 EEG REPORT INTRODUCTION: This is a digitally recorded EEG monitoring using standard EEG montages. BACKGROUND RHYTHM: The EEG shows a background activity of 7-8 Hz activity in parietooccipital region . The EEG activity is bilaterally symmetrical and synchronous. There is attenuation of the backgrou nd activity on eye opening. Small amount of myogenic artifact noticed in this EEG recording. ABNORMAL POTENTIALS: No spikes, sharp waves, or focal slowing was seen. PHOTIC STIMULATION AND HYPERVENTILATION: Photic stimulation did not reveal any abnormality. Hyperve ntilation was not performed. IMPRESSION: Normal EEG. No epileptiform activity is seen in this EEG recording. Allyson Madera MD cc: [id number] TT: 08/29/2016 11:23:11 Confirmation # [id number] Dictation # [id number]
--- NOTE | 2016-08-30 08:56 | RAD ---
HISTORY: Tachypnea COMPARISON: 08/29/2016 FINDINGS: LUNGS: NG tube extending into the stomach. Other lines and tubes stable position. Worsening now near complete opacification of the right delisa thorax. More ground-glass increasing consolidative changes noted within the left mid to lower lung zone. PLEURA: As above. CARDIOVASCULAR: Normal. OSSEOUS STRUCTURES: No significant abnormalities. VISUALIZED UPPER ABDOMEN: Normal. OTHER FINDINGS: None. IMPRESSION: NG tube extending into the stomach. Other lines and tubes stable position. Worsening now near complete opacification of the right delisa thorax. More ground-glass increasing consolidative changes noted within the left mid to lower lung zone.
[2016-08-30 09:07] LABS: NEUTROPHIL 80 % (50-75); TOTAL CELLS COUNTED 100
[2016-08-30] MEDS ORDERED: Sodium Chloride 0.9% 1,000 ML IV ONE (09:11)
--- NOTE | 2016-08-30 09:23 | RAD ---
HISTORY: intubated COMPARISON: 08/29/2016 FINDINGS: LUNGS: Lines and tubes in stable position. Worsening airspace consolidative changes in the right mid to lower lung zone with likely associated effusion. More patchy consolidative changes at the left lung base. PLEURA: As above. CARDIOVASCULAR: Normal. OSSEOUS STRUCTURES: No significant abnormalities. VISUALIZED UPPER ABDOMEN: Normal. OTHER FINDINGS: None. IMPRESSION: Lines and tubes in stable position. Worsening airspace consolidative changes in the right mid to lower lung zone with likely associated effusion. More patchy consolidative changes at the left lung base.
[2016-08-30] MEDS ORDERED: Albumin Human 25% (12.5 gm/50 ml) IV ONE (09:42)
[2016-08-30] MEDS: Thiamine 100 mg/ml Inj IV SCH (09:50)
[2016-08-30] MEDS: Lactobacillus Acidophilus 500 MU Cap PO SCH ×2 (09:51→18:30)
[2016-08-30] MEDS: Multiple Vitamins Tab PO SCH (09:51)
[2016-08-30] MEDS ORDERED: Vancomycin 1 gm/NS 200 ml 1 GM/200 ML BAG IVPB SCH (10:00)
[2016-08-30] MEDS: Sodium Chloride 0.9% 1,000 ML IV SCH ×2 (11:00→12:10)
--- NOTE | 2016-08-30 11:10 | CP.CCUPN ---
<Tonny Knight - Last Filed: 08/30/16 15:21> CCU Subjective - Physician Review Subjective (Free Text): 08/30/16 11:06 PGY-1 progress note Pt seen and examined at bedside. Pt is intubated and sedated. Overnight he was noticed to be in increased respiratory distress, CXR showed white out of the right lung. He was suctioned and he improved. Critical Care Time Spent (in minutes): 35 CCU Objective - Vital Signs / Intake & Output Vital Signs (Last 4 hours): Vital Signs Temp Pulse Resp BP Pulse Ox 08/30/16 10:16 87 20 78/39 L 97 08/30/16 10:00 86 20 97 08/30/16 09:16 87 20 89/45 L 94 L 08/30/16 09:08 86 20 89/44 L 94 L 08/30/16 09:00 85 25 H 92 L 08/30/16 08:16 87 21 103/50 L 95 08/30/16 08:00 98.4 F 89 28 H 100 08/30/16 07:16 100/49 L Intake and Output (Last 8hrs): Intake & Output 08/29/16 08/30/16 08/30/16 22:59 06:59 14:59 Intake Total 970.8 1069.6 1743.6 Output Total 350 245 80 Balance 620.8 824.6 1663.6 Weight 189 lb 9.561 oz Intake: IV 100 100 0 Intake, IV Amount 690.8 729.6 1623.6 Left Antecubital 115.8 129.6 55.6 Right Forearm [phone] Right Proximal Port 344 Forearm Oral 0 Tube Feeding 180 240 120 Output: Urine 350 245 80 Urethral ([place]) 350 245 80 Other: # Bowel Movements 0 - Physical Exam Head: Positive for: Atraumatic, Normocephalic Pupils: Positive for: PERRL Extroacular Muscles: Positive for: EOMI Conjunctiva: Positive for: Normal Mouth: Positive for: Moist Mucous Membranes Respiratory/Chest: Positive for: Accessory Muscle Use, Decreased Breath Sounds Cardiovascular: Positive for: Regular Rate and Rhythm Abdomen: Positive for: Normal Bowel Sounds. Negative for: Tenderness, Distention Neurological: Positive for: Other (sedated) Skin: Positive for: Warm, Dry - Medications Active Medications: Active Medications Generic Name Dose Route Start Last Admin Trade Name Freq PRN Reason Stop Dose Admin Acetaminophen 650 mg 08/24/16 21:11 08/27/16 03:10 Tylenol 325mg Tab PO 650 mg Q6 PRN Administration Fever >100.4 F Acetylcysteine 4 ml 08/28/16 15:15 08/30/16 08:13 Acetylcysteine 20% INH 4 ml RQ6 AMINTA Administration Albuterol/Ipratropium 3 ml 08/28/16 20:00 08/30/16 08:13 Duoneb 3 Mg/0.5 Mg (3 Ml) Ud INH 3 ml RQ6 AMINTA Administration Aspirin 81 mg 08/25/16 10:00 08/30/16 09:51 Aspirin Chewable PO 81 mg DAILY AMINTA Administration Folic Acid 1 mg 08/25/16 10:00 08/30/16 09:51 Folic Acid PO 1 mg DAILY AMINTA Administration Heparin Sodium (Porcine) 5,000 units 08/29/16 14:00 08/30/16 06:04 Heparin SC 5,000 units Q8 AMINTA Administration Propofol 1,000 mg in 100 mls @ 2.449 mls/hr 08/27/16 16:43 08/30/16 11:03 Diprivan IV 25 mcg/kg/min .Q24H PRN 12.247 mls/hr TITRATE PER MD ORDER Titration Protocol 5 MCG/KG/MIN Piperacillin Sod/Tazobactam Sod 2.25 gm in 50 mls @ 100 mls/hr 08/29/16 10:00 08/30/16 09:57 Zosyn 2.25 Gm Iv Premix IVPB 100 mls/hr Q8H AMINTA Administration Sodium Chloride 1,000 mls @ 75 mls/hr 08/29/16 09:29 08/30/16 11:00 Sodium Chloride 0.9% IV 75 mls/hr .[id number] AMINTA Administration Fentanyl Citrate 2,500 mcg/ 250 mls @ 86 mls/hr 08/30/16 06:45 08/30/16 11:04 Sodium Chloride IV Not Given .[id number] AMINTA Protocol 10 MCG/KG/HR Lactobacillus Acidophilus 1 cap 08/27/16 18:00 08/30/16 09:51 Bacid Acidophilus PO 1 cap BID AMINTA Administration Lorazepam 2 mg 08/29/16 10:00 08/30/16 04:25 Ativan IVP 2 mg Q6H PRN Administration Anxiety Multivitamins 1 tab 08/25/16 10:00 08/30/16 09:51 Hexavitamin PO 1 tab DAILY AMINTA Administration Pantoprazole Sodium 40 mg 08/29/16 10:00 08/30/16 09:50 Protonix Inj IVP 40 mg DAILY AMINTA Administration Thiamine HCl 100 mg 08/27/16 10:00 08/30/16 09:50 Vitamin B1 Inj IV 100 mg DAILY AMINTA Administration - Patient Studies Lab Studies: Microbiology Studies 08/24/16 22:15 Blood Culture - Final Blood NO GROWTH AFTER 5 DAYS Gram Stain - Final TEST NOT PERFORMED 08/24/16 22:15 Blood Culture - Final Blood NO GROWTH AFTER 5 DAYS Gram Stain - Final TEST NOT PERFORMED 08/27/16 19:00 Gram Stain - Final Trachasp Sputum Culture - Final NORMAL ORAL EILEEN Lab Studies 08/30/16 08/30/16 08/30/16 Range/Units 07:47 06:04 06:04 WBC (4.8-10.8) K/uL RBC (4.40-5.90) Mil/uL Hgb (12.0-18.0) g/dL Hct (35.0-51.0) % MCV (80.0-94.0) fL MCH (27.0-31.0) pg MCHC (33.0-37.0) g/dL RDW (11.5-14.5) % Plt Count (130-400) K/uL MPV (7.2-11.7) fL Neut % (Auto) (50.0-75.0) % Lymph % (Auto) (20.0-40.0) % [place] % (Auto) (0.0-10.0) % Eos % (Auto) (0.0-4.0) % Baso % (Auto) (0.0-2.0) % Neut # (1.8-7.0) K/uL Lymph # (1.0-4.3) K/uL [place] # (0.0-0.8) K/uL Eos # (0.0-0.7) K/uL Baso # (0.0-0.2) K/uL Neutrophils % (Manual) (50-75) % Band Neutrophils % (0-2) % Lymphocytes % (Manual) (20-40) % Monocytes % (Manual) (0-10) % Platelet Estimate (NORMAL) RBC Morphology PT (9.7-12.2) SECONDS INR APTT (21-34) SECONDS Puncture Site pCO2 (35-45) mm/Hg pO2 (80-100) mm/Hg HCO3 (21-28) mmol/L ABG pH (7.35-7.45) ABG Total CO2 (22-28) mmol/L ABG O2 Saturation (95-98) % ABG Base Excess (-2.0-3.0) mmol/L ABG Hemoglobin (11.7-17.4) g/dL ABG Carboxyhemoglobin (0.5-1.5) % POC ABG HHb (Measured) (0.0-5.0) % ABG Methemoglobin (0.0-3.0) % Lisandro Test A-a O2 Difference mm/Hg Respiratory Index Hgb O2 Saturation (95.0-98.0) % Mechanical Rate FiO2 % Tidal Volume PEEP Sodium 127 L (132-148) mmol/L Potassium 5.0 (3.6-5.2) mmol/L Chloride 101 (98-107) mmol/L Carbon Dioxide 18 L (22-30) mmol/L Anion Gap 13 (10-20) BUN 46 H (9-20) mg/dL Creatinine 4.4 H (0.8-1.5) MG/DL Est GFR ( Amer) 17 Est GFR (Non-Af Amer) 14 POC Glucose (mg/dL) 140 H (65-110) mg/dL Random Glucose 118 H (75-110) mg/dL Calcium 7.3 L (8.6-10.4) mg/dl Phosphorus 6.3 H (2.5-4.5) mg/dL Magnesium 2.5 H (1.6-2.3) mg/dL Total Bilirubin < 0.1 L (0.2-1.3) mg/dL AST 194 H (17-59) U/L ALT 67 (21-72) U/L Alkaline Phosphatase 66 (38-126) U/L Ammonia (9-33) umol/L Total Creatine Kinase (55-170) U/L Total Protein 4.8 L (6.3-8.3) g/dL Albumin 1.9 L (3.5-5.0) g/dL Globulin 2.9 (2.2-3.9) gm/dL Albumin/Globulin Ratio 0.7 L (1.0-2.1) Procalcitonin (0.19-0.49) NG/ML Prolactin (3.7-17.9) ng/mL Calcium (PTH Intact) (8.6-10.3) mg/dL PTH w/Ion &Tot Calcium (14-64) pg/mL Random Vancomycin 11.46 ug/mL BETSEY 6 Profile (NEGATIVE) 08/30/16 08/30/16 08/29/16 Range/Units 06:04 04:20 23:42 WBC 5.9 D (4.8-10.8) K/uL RBC 5.28 (4.40-5.90) Mil/uL Hgb 13.3 (12.0-18.0) g/dL Hct 42.3 (35.0-51.0) % MCV 80.0 D (80.0-94.0) fL MCH 25.1 L (27.0-31.0) pg MCHC 31.4 L (33.0-37.0) g/dL RDW 15.1 H (11.5-14.5) % Plt Count 125 L D (130-400) K/uL MPV 9.5 (7.2-11.7) fL Neut % (Auto) 81.6 H (50.0-75.0) % Lymph % (Auto) 7.6 L (20.0-40.0) % [place] % (Auto) 10.4 H (0.0-10.0) % Eos % (Auto) 0.1 (0.0-4.0) % Baso % (Auto) 0.3 (0.0-2.0) % Neut # 4.8 (1.8-7.0) K/uL Lymph # 0.4 L (1.0-4.3) K/uL [place] # 0.6 (0.0-0.8) K/uL Eos # 0.0 (0.0-0.7) K/uL Baso # 0.0 (0.0-0.2) K/uL Neutrophils % (Manual) 80 H (50-75) % Band Neutrophils % 2 (0-2) % Lymphocytes % (Manual) 9 L (20-40) % Monocytes % (Manual) 9 (0-10) % Platelet Estimate Slightly decreased L (NORMAL) RBC Morphology Normal PT (9.7-12.2) SECONDS INR APTT (21-34) SECONDS Puncture Site Rr pCO2 46 H (35-45) mm/Hg pO2 89 (80-100) mm/Hg HCO3 17.6 L (21-28) mmol/L ABG pH 7.21 L (7.35-7.45) ABG Total CO2 19.8 L (22-28) mmol/L ABG O2 Saturation 98.4 H (95-98) % ABG Base Excess -9.3 L (-2.0-3.0) mmol/L ABG Hemoglobin 13.1 (11.7-17.4) g/dL ABG Carboxyhemoglobin 1.6 H (0.5-1.5) % POC ABG HHb (Measured) 1.6 (0.0-5.0) % ABG Methemoglobin 1.2 (0.0-3.0) % Lisandro Test Pos A-a O2 Difference 567.0 mm/Hg Respiratory Index 6.4 Hgb O2 Saturation 95.5 (95.0-98.0) % Mechanical Rate 20 FiO2 100.0 % Tidal Volume 450 PEEP 9 Sodium (132-148) mmol/L Potassium (3.6-5.2) mmol/L Chloride (98-107) mmol/L Carbon Dioxide (22-30) mmol/L Anion Gap (10-20) BUN (9-20) mg/dL Creatinine (0.8-1.5) MG/DL Est GFR ( Amer) Est GFR (Non-Af Amer) POC Glucose (mg/dL) 119 H (65-110) mg/dL Random Glucose (75-110) mg/dL Calcium (8.6-10.4) mg/dl Phosphorus (2.5-4.5) mg/dL Magnesium (1.6-2.3) mg/dL Total Bilirubin (0.2-1.3) mg/dL AST (17-59) U/L ALT (21-72) U/L Alkaline Phosphatase (38-126) U/L Ammonia (9-33) umol/L Total Creatine Kinase (55-170) U/L Total Protein (6.3-8.3) g/dL Albumin (3.5-5.0) g/dL Globulin (2.2-3.9) gm/dL Albumin/Globulin Ratio (1.0-2.1) Procalcitonin (0.19-0.49) NG/ML Prolactin (3.7-17.9) ng/mL Calcium (PTH Intact) (8.6-10.3) mg/dL PTH w/Ion &Tot Calcium (14-64) pg/mL Random Vancomycin ug/mL BETSEY 6 Profile (NEGATIVE) 08/29/16 08/29/16 08/29/16 Range/Units 18:15 17:26 17:26 WBC (4.8-10.8) K/uL RBC (4.40-5.90) Mil/uL Hgb (12.0-18.0) g/dL Hct (35.0-51.0) % MCV (80.0-94.0) fL MCH (27.0-31.0) pg MCHC (33.0-37.0) g/dL RDW (11.5-14.5) % Plt Count (130-400) K/uL MPV (7.2-11.7) fL Neut % (Auto) (50.0-75.0) % Lymph % (Auto) (20.0-40.0) % [place] % (Auto) (0.0-10.0) % Eos % (Auto) (0.0-4.0) % Baso % (Auto) (0.0-2.0) % Neut # (1.8-7.0) K/uL Lymph # (1.0-4.3) K/uL [place] # (0.0-0.8) K/uL Eos # (0.0-0.7) K/uL Baso # (0.0-0.2) K/uL Neutrophils % (Manual) (50-75) % Band Neutrophils % (0-2) % Lymphocytes % (Manual) (20-40) % Monocytes % (Manual) (0-10) % Platelet Estimate (NORMAL) RBC Morphology PT 10.5 (9.7-12.2) SECONDS INR 0.9 APTT 63 H (21-34) SECONDS Puncture Site pCO2 (35-45) mm/Hg pO2 (80-100) mm/Hg HCO3 (21-28) mmol/L ABG pH (7.35-7.45) ABG Total CO2 (22-28) mmol/L ABG O2 Saturation (95-98) % ABG Base Excess (-2.0-3.0) mmol/L ABG Hemoglobin (11.7-17.4) g/dL ABG Carboxyhemoglobin (0.5-1.5) % POC ABG HHb (Measured) (0.0-5.0) % ABG Methemoglobin (0.0-3.0) % Lisandro Test A-a O2 Difference mm/Hg Respiratory Index Hgb O2 Saturation (95.0-98.0) % Mechanical Rate FiO2 % Tidal Volume PEEP Sodium (132-148) mmol/L Potassium (3.6-5.2) mmol/L Chloride (98-107) mmol/L Carbon Dioxide (22-30) mmol/L Anion Gap (10-20) BUN (9-20) mg/dL Creatinine (0.8-1.5) MG/DL Est GFR ( Amer) Est GFR (Non-Af Amer) POC Glucose (mg/dL) 128 H (65-110) mg/dL Random Glucose (75-110) mg/dL Calcium (8.6-10.4) mg/dl Phosphorus (2.5-4.5) mg/dL Magnesium (1.6-2.3) mg/dL Total Bilirubin (0.2-1.3) mg/dL AST (17-59) U/L ALT (21-72) U/L Alkaline Phosphatase (38-126) U/L Ammonia 11 D (9-33) umol/L Total Creatine Kinase (55-170) U/L Total Protein (6.3-8.3) g/dL Albumin (3.5-5.0) g/dL Globulin (2.2-3.9) gm/dL Albumin/Globulin Ratio (1.0-2.1) Procalcitonin (0.19-0.49) NG/ML Prolactin (3.7-17.9) ng/mL Calcium (PTH Intact) (8.6-10.3) mg/dL PTH w/Ion &Tot Calcium (14-64) pg/mL Random Vancomycin ug/mL BETSEY 6 Profile (NEGATIVE) 08/29/16 08/29/16 08/29/16 Range/Units 17:26 11:50 06:53 WBC (4.8-10.8) K/uL RBC (4.40-5.90) Mil/uL Hgb (12.0-18.0) g/dL Hct (35.0-51.0) % MCV (80.0-94.0) fL MCH (27.0-31.0) pg MCHC (33.0-37.0) g/dL RDW (11.5-14.5) % Plt Count (130-400) K/uL MPV (7.2-11.7) fL Neut % (Auto) (50.0-75.0) % Lymph % (Auto) (20.0-40.0) % [place] % (Auto) (0.0-10.0) % Eos % (Auto) (0.0-4.0) % Baso % (Auto) (0.0-2.0) % Neut # (1.8-7.0) K/uL Lymph # (1.0-4.3) K/uL [place] # (0.0-0.8) K/uL Eos # (0.0-0.7) K/uL Baso # (0.0-0.2) K/uL Neutrophils % (Manual) (50-75) % Band Neutrophils % (0-2) % Lymphocytes % (Manual) (20-40) % Monocytes % (Manual) (0-10) % Platelet Estimate (NORMAL) RBC Morphology PT (9.7-12.2) SECONDS INR APTT (21-34) SECONDS Puncture Site pCO2 (35-45) mm/Hg pO2 (80-100) mm/Hg HCO3 (21-28) mmol/L ABG pH (7.35-7.45) ABG Total CO2 (22-28) mmol/L ABG O2 Saturation (95-98) % ABG Base Excess (-2.0-3.0) mmol/L ABG Hemoglobin (11.7-17.4) g/dL ABG Carboxyhemoglobin (0.5-1.5) % POC ABG HHb (Measured) (0.0-5.0) % ABG Methemoglobin (0.0-3.0) % Lisandro Test A-a O2 Difference mm/Hg Respiratory Index Hgb O2 Saturation (95.0-98.0) % Mechanical Rate FiO2 % Tidal Volume PEEP Sodium (132-148) mmol/L Potassium (3.6-5.2) mmol/L Chloride (98-107) mmol/L Carbon Dioxide (22-30) mmol/L Anion Gap (10-20) BUN (9-20) mg/dL Creatinine (0.8-1.5) MG/DL Est GFR ( Amer) Est GFR (Non-Af Amer) POC Glucose (mg/dL) 140 H (65-110) mg/dL Random Glucose (75-110) mg/dL Calcium (8.6-10.4) mg/dl Phosphorus (2.5-4.5) mg/dL Magnesium (1.6-2.3) mg/dL Total Bilirubin (0.2-1.3) mg/dL AST (17-59) U/L ALT (21-72) U/L Alkaline Phosphatase (38-126) U/L Ammonia (9-33) umol/L Total Creatine Kinase 3336 H (55-170) U/L Total Protein (6.3-8.3) g/dL Albumin (3.5-5.0) g/dL Globulin (2.2-3.9) gm/dL Albumin/Globulin Ratio (1.0-2.1) Procalcitonin 21.71 H (0.19-0.49) NG/ML Prolactin 21.9 H (3.7-17.9) ng/mL Calcium (PTH Intact) (8.6-10.3) mg/dL PTH w/Ion &Tot Calcium (14-64) pg/mL Random Vancomycin ug/mL BETSEY 6 Profile (NEGATIVE) 08/27/16 08/27/16 Range/Units 06:27 06:27 WBC (4.8-10.8) K/uL RBC (4.40-5.90) Mil/uL Hgb (12.0-18.0) g/dL Hct (35.0-51.0) % MCV (80.0-94.0) fL MCH (27.0-31.0) pg MCHC (33.0-37.0) g/dL RDW (11.5-14.5) % Plt Count (130-400) K/uL MPV (7.2-11.7) fL Neut % (Auto) (50.0-75.0) % Lymph % (Auto) (20.0-40.0) % [place] % (Auto) (0.0-10.0) % Eos % (Auto) (0.0-4.0) % Baso % (Auto) (0.0-2.0) % Neut # (1.8-7.0) K/uL Lymph # (1.0-4.3) K/uL [place] # (0.0-0.8) K/uL Eos # (0.0-0.7) K/uL Baso # (0.0-0.2) K/uL Neutrophils % (Manual) (50-75) % Band Neutrophils % (0-2) % Lymphocytes % (Manual) (20-40) % Monocytes % (Manual) (0-10) % Platelet Estimate (NORMAL) RBC Morphology PT (9.7-12.2) SECONDS INR APTT (21-34) SECONDS Puncture Site pCO2 (35-45) mm/Hg pO2 (80-100) mm/Hg HCO3 (21-28) mmol/L ABG pH (7.35-7.45) ABG Total CO2 (22-28) mmol/L ABG O2 Saturation (95-98) % ABG Base Excess (-2.0-3.0) mmol/L ABG Hemoglobin (11.7-17.4) g/dL ABG Carboxyhemoglobin (0.5-1.5) % POC ABG HHb (Measured) (0.0-5.0) % ABG Methemoglobin (0.0-3.0) % Lisandro Test A-a O2 Difference mm/Hg Respiratory Index Hgb O2 Saturation (95.0-98.0) % Mechanical Rate FiO2 % Tidal Volume PEEP Sodium (132-148) mmol/L Potassium (3.6-5.2) mmol/L Chloride (98-107) mmol/L Carbon Dioxide (22-30) mmol/L Anion Gap (10-20) BUN (9-20) mg/dL Creatinine (0.8-1.5) MG/DL Est GFR ( Amer) Est GFR (Non-Af Amer) POC Glucose (mg/dL) (65-110) mg/dL Random Glucose (75-110) mg/dL Calcium (8.6-10.4) mg/dl Phosphorus (2.5-4.5) mg/dL Magnesium (1.6-2.3) mg/dL Total Bilirubin (0.2-1.3) mg/dL AST (17-59) U/L ALT (21-72) U/L Alkaline Phosphatase (38-126) U/L Ammonia (9-33) umol/L Total Creatine Kinase (55-170) U/L Total Protein (6.3-8.3) g/dL Albumin (3.5-5.0) g/dL Globulin (2.2-3.9) gm/dL Albumin/Globulin Ratio (1.0-2.1) Procalcitonin (0.19-0.49) NG/ML Prolactin (3.7-17.9) ng/mL Calcium (PTH Intact) 7.3 L (8.6-10.3) mg/dL PTH w/Ion &Tot Calcium 48 (14-64) pg/mL Random Vancomycin ug/mL BETSEY 6 Profile Negative (NEGATIVE) Laboratory Results - last 24 hr 08/27/16 08/27/16 08/29/16 06:27 06:27 06:53 WBC RBC Hgb Hct MCV MCH MCHC RDW Plt Count MPV Neut % (Auto) Lymph % (Auto) [place] % (Auto) Eos % (Auto) Baso % (Auto) Neut # Lymph # [place] # Eos # Baso # Neutrophils % (Manual) Band Neutrophils % Lymphocytes % (Manual) Monocytes % (Manual) Platelet Estimate RBC Morphology PT INR APTT Puncture Site pCO2 pO2 HCO3 ABG pH ABG Total CO2 ABG O2 Saturation ABG Base Excess ABG Hemoglobin ABG Carboxyhemoglobin POC ABG HHb (Measured) ABG Methemoglobin Lisandro Test A-a O2 Difference Respiratory Index Hgb O2 Saturation Mechanical Rate FiO2 Tidal Volume PEEP Sodium Potassium Chloride Carbon Dioxide Anion Gap BUN Creatinine Est GFR ( Amer) Est GFR (Non-Af Amer) POC Glucose (mg/dL) Random Glucose Calcium Phosphorus Magnesium Total Bilirubin AST ALT Alkaline Phosphatase Ammonia Total Creatine Kinase Total Protein Albumin Globulin Albumin/Globulin Ratio Procalcitonin 21.71 H Prolactin Calcium (PTH Intact) 7.3 L PTH w/Ion &Tot Calcium 48 Random Vancomycin BETSEY 6 Profile Negative 08/29/16 08/29/16 08/29/16 11:50 17:26 17:26 WBC RBC Hgb Hct MCV MCH MCHC RDW Plt Count MPV Neut % (Auto) Lymph % (Auto) [place] % (Auto) Eos % (Auto) Baso % (Auto) Neut # Lymph # [place] # Eos # Baso # Neutrophils % (Manual) Band Neutrophils % Lymphocytes % (Manual) Monocytes % (Manual) Platelet Estimate RBC Morphology PT 10.5 INR 0.9 APTT 63 H Puncture Site pCO2 pO2 HCO3 ABG pH ABG Total CO2 ABG O2 Saturation ABG Base Excess ABG Hemoglobin ABG Carboxyhemoglobin POC ABG HHb (Measured) ABG Methemoglobin Lisandro Test A-a O2 Difference Respiratory Index Hgb O2 Saturation Mechanical Rate FiO2 Tidal Volume PEEP Sodium Potassium Chloride Carbon Dioxide Anion Gap BUN Creatinine Est GFR ( Amer) Est GFR (Non-Af Amer) POC Glucose (mg/dL) 140 H Random Glucose Calcium Phosphorus Magnesium Total Bilirubin AST ALT Alkaline Phosphatase Ammonia Total Creatine Kinase 3336 H Total Protein Albumin Globulin Albumin/Globulin Ratio Procalcitonin Prolactin 21.9 H Calcium (PTH Intact) PTH w/Ion &Tot Calcium Random Vancomycin BETSEY 6 Profile 08/29/16 08/29/16 08/29/16 17:26 18:15 23:42 WBC RBC Hgb Hct MCV MCH MCHC RDW Plt Count MPV Neut % (Auto) Lymph % (Auto) [place] % (Auto) Eos % (Auto) Baso % (Auto) Neut # Lymph # [place] # Eos # Baso # Neutrophils % (Manual) Band Neutrophils % Lymphocytes % (Manual) Monocytes % (Manual) Platelet Estimate RBC Morphology PT INR APTT Puncture Site pCO2 pO2 HCO3 ABG pH ABG Total CO2 ABG O2 Saturation ABG Base Excess ABG Hemoglobin ABG Carboxyhemoglobin POC ABG HHb (Measured) ABG Methemoglobin Lisandro Test A-a O2 Difference Respiratory Index Hgb O2 Saturation Mechanical Rate FiO2 Tidal Volume PEEP Sodium Potassium Chloride Carbon Dioxide Anion Gap BUN Creatinine Est GFR ( Amer) Est GFR (Non-Af Amer) POC Glucose (mg/dL) 128 H 119 H Random Glucose Calcium Phosphorus Magnesium Total Bilirubin AST ALT Alkaline Phosphatase Ammonia 11 D Total Creatine Kinase Total Protein Albumin Globulin Albumin/Globulin Ratio Procalcitonin Prolactin Calcium (PTH Intact) PTH w/Ion &Tot Calcium Random Vancomycin BETSEY 6 Profile 08/30/16 08/30/16 08/30/16 04:20 06:04 06:04 WBC 5.9 D RBC 5.28 Hgb 13.3 Hct 42.3 MCV 80.0 D MCH 25.1 L MCHC 31.4 L RDW 15.1 H Plt Count 125 L D MPV 9.5 Neut % (Auto) 81.6 H Lymph % (Auto) 7.6 L [place] % (Auto) 10.4 H Eos % (Auto) 0.1 Baso % (Auto) 0.3 Neut # 4.8 Lymph # 0.4 L [place] # 0.6 Eos # 0.0 Baso # 0.0 Neutrophils % (Manual) 80 H Band Neutrophils % 2 Lymphocytes % (Manual) 9 L Monocytes % (Manual) 9 Platelet Estimate Slightly decreased L RBC Morphology Normal PT INR APTT Puncture Site Rr pCO2 46 H pO2 89 HCO3 17.6 L ABG pH 7.21 L ABG Total CO2 19.8 L ABG O2 Saturation 98.4 H ABG Base Excess -9.3 L ABG Hemoglobin 13.1 ABG Carboxyhemoglobin 1.6 H POC ABG HHb (Measured) 1.6 ABG Methemoglobin 1.2 Lisandro Test Pos A-a O2 Difference 567.0 Respiratory Index 6.4 Hgb O2 Saturation 95.5 Mechanical Rate 20 FiO2 100.0 Tidal Volume 450 PEEP 9 Sodium 127 L Potassium 5.0 Chloride 101 Carbon Dioxide 18 L Anion Gap 13 BUN 46 H Creatinine 4.4 H Est GFR ( Amer) 17 Est GFR (Non-Af Amer) 14 POC Glucose (mg/dL) Random Glucose 118 H Calcium 7.3 L Phosphorus 6.3 H Magnesium 2.5 H Total Bilirubin < 0.1 L AST 194 H ALT 67 Alkaline Phosphatase 66 Ammonia Total Creatine Kinase Total Protein 4.8 L Albumin 1.9 L Globulin 2.9 Albumin/Globulin Ratio 0.7 L Procalcitonin Prolactin Calcium (PTH Intact) PTH w/Ion &Tot Calcium Random Vancomycin BETSEY 6 Profile 08/30/16 08/30/16 06:04 07:47 WBC RBC Hgb Hct MCV MCH MCHC RDW Plt Count MPV Neut % (Auto) Lymph % (Auto) [place] % (Auto) Eos % (Auto) Baso % (Auto) Neut # Lymph # [place] # Eos # Baso # Neutrophils % (Manual) Band Neutrophils % Lymphocytes % (Manual) Monocytes % (Manual) Platelet Estimate RBC Morphology PT INR APTT Puncture Site pCO2 pO2 HCO3 ABG pH ABG Total CO2 ABG O2 Saturation ABG Base Excess ABG Hemoglobin ABG Carboxyhemoglobin POC ABG HHb (Measured) ABG Methemoglobin Lisandro Test A-a O2 Difference Respiratory Index Hgb O2 Saturation Mechanical Rate FiO2 Tidal Volume PEEP Sodium Potassium Chloride Carbon Dioxide Anion Gap BUN Creatinine Est GFR ( Amer) Est GFR (Non-Af Amer) POC Glucose (mg/dL) 140 H Random Glucose Calcium Phosphorus Magnesium Total Bilirubin AST ALT Alkaline Phosphatase Ammonia Total Creatine Kinase Total Protein Albumin Globulin Albumin/Globulin Ratio Procalcitonin Prolactin Calcium (PTH Intact) PTH w/Ion &Tot Calcium Random Vancomycin 11.46 BETSEY 6 Profile Fingerstick Blood Sugar Results: 140 Review of Systems - Review of Systems Systems not reviewed;Unavailable: Intubated Critical Care Progress Note - Nutrition Nutrition: Nutrition Category Date Time Status NPO Diet [DIET] Diets 08/27/16 Lunch Active Assessment/Plan - Assessment and Plan (Free Text) Assessment: 56 yo M with hypoxemic respiratory failure on ventilatory support, with worsening consolidative changes in the right lung, complicated by worsening LUIS. Plan: Neuro: Sedated on vent with propofol drip. EEG done today, will follow up results Pulm: Acute respiratory failure with hypoxia secondary to pneumonia, on ventilatory support. Cx's negative, will repeat Repeat CXR (08/30) shows worsening airspace consolidative changes in the right mid to lower lung zone with likely associated effusion. More patchy consolidative changes at the left lung base. Continue DuoNeb's, mucolytic's and ABX - discontinued vanco due to renal function. Chest CT (08/28) - Marked progression of infiltrates. The entire right lower lobe displaced infiltrate/consolidation. Subsegmental right upper lobe infiltrate a new finding. Progression of multi segment left lower lobe infiltrates. Negative for PE. CV: Hypotensive. Given fluid challenge but not responsive. Will place central line for pressor support Hem: Hypoalbuminemia, repleted. No current DVT, patient was not on terminal carman a/c most likely because of non- compliance. Worsening thrombocytopenia, secondary to sepsis. Continue to monitor Renal: Worsening renal function, likely ATN due to Vanco vs sepsis Hypochloremic hyponatremia, slowly improving NS decreased to 75 ml/hr Moderate to severe proteinuria, Nephro consulted Endo: A1C 5.7. No acute issues GI: Nothing by mouth, tube feeds Isosource 1.5 @30 ID: Severe sepsis from RLL aspiration pneumonia, on Zosyn - Vanco discontinued. Continue bacid. Will repeat procalcitonin DVT proph - heparin subcutaneous GI proph - Protonix hidalgo for strict I/O's during acute illness Code status - full code <Nii Vargas S - Last Filed: 08/30/16 17:31> CCU Subjective - Physician Review Critical Care Time Spent (in minutes): 45 CCU Objective - Vital Signs / Intake & Output Vital Signs (Last 4 hours): Vital Signs Temp Pulse Pulse Resp BP BP Pulse Ox 08/30/16 17:12 121 H 20 93/43 L 92 L 08/30/16 17:00 130 H 20 102/48 L 102/48 L 91 L 08/30/16 16:57 99 H 20 102/48 L 90 L 08/30/16 16:42 104 H 20 95/47 L 87 L 08/30/16 16:30 90/47 L 08/30/16 16:27 128 H 20 90/47 L 87 L 08/30/16 16:15 84/47 L 08/30/16 16:12 111 H 20 84/47 L 88 L 08/30/16 16:10 98 H 20 95/45 L 08/30/16 16:00 97.7 F 120 H 20 94/41 L 94/41 L 88 L 08/30/16 15:57 108 H 20 94/41 L 90 L 08/30/16 15:45 95/47 L 08/30/16 15:42 97 H 20 95/47 L 91 L 08/30/16 15:36 98 H 20 91/43 L 92 L 08/30/16 15:30 97.7 F 98 H 20 91/43 L 91 L 08/30/16 15:27 97 H 20 95/45 L 92 L 08/30/16 15:25 97.7 F 98 H 20 95/45 L 08/30/16 15:16 95 H 20 97/45 L 92 L 08/30/16 15:00 96 H 20 95/45 L 94 L 08/30/16 14:16 88 19 92/46 L 95 08/30/16 14:00 87 20 92/43 L 95 Intake and Output (Last 8hrs): Intake & Output 08/30/16 08/30/16 08/30/16 06:59 14:59 22:59 Intake Total 1069.6 2798.1 721.9 Output Total 245 100 0 Balance 824.6 2698.1 721.9 Weight 189 lb 9.561 oz 190 lb 4.143 oz Intake: IV 100 350 250 Intake, IV Amount 729.6 2208.1 381.9 Left Antecubital 129.6 100.1 27.9 Right Forearm 600 1499 225 Right Proximal Port 609 129 Forearm Tube Feeding 240 240 90 Output: Urine 245 100 0 Urethral ([place]) 245 100 0 Other: # Bowel Movements 0 0 - Medications Active Medications: Active Medications Generic Name Dose Route Start Last Admin Trade Name Freq PRN Reason Stop Dose Admin Acetaminophen 650 mg 08/24/16 21:11 08/27/16 03:10 Tylenol 325mg Tab PO 650 mg Q6 PRN Administration Fever >100.4 F Albuterol/Ipratropium 3 ml 08/28/16 20:00 08/30/16 13:47 Duoneb 3 Mg/0.5 Mg (3 Ml) Ud INH 3 ml RQ6 AMINTA Administration Aspirin 81 mg 08/25/16 10:00 08/30/16 09:51 Aspirin Chewable PO 81 mg DAILY AMINTA Administration Folic Acid 1 mg 08/25/16 10:00 08/30/16 09:51 Folic Acid PO 1 mg DAILY AMINTA Administration Heparin Sodium (Porcine) 5,000 units 08/29/16 14:00 08/30/16 15:18 Heparin SC 5,000 units Q8 AMINTA Administration Propofol 1,000 mg in 100 mls @ 2.449 mls/hr 08/27/16 16:43 08/30/16 12:06 Diprivan IV 20 mcg/kg/min .Q24H PRN 9.798 mls/hr TITRATE PER MD ORDER Titration Protocol 5 MCG/KG/MIN Piperacillin Sod/Tazobactam Sod 2.25 gm in 50 mls @ 100 mls/hr 08/29/16 10:00 08/30/16 09:57 Zosyn 2.25 Gm Iv Premix IVPB 100 mls/hr Q8H AMINTA Administration Sodium Chloride 1,000 mls @ 75 mls/hr 08/29/16 09:29 08/30/16 12:10 Sodium Chloride 0.9% IV Not Given .[id number] AMINTA Fentanyl Citrate 2,500 mcg/ 250 mls @ 86 mls/hr 08/30/16 06:45 08/30/16 16:41 Sodium Chloride IV 5 mcg/kg/hr .[id number] AMINTA 43 mls/hr Protocol Administration 10 MCG/KG/HR Moxifloxacin HCl 400 mg in 250 mls @ 167 mls/hr 08/30/16 18:00 Avelox Iv 400mg/250ml Ns IVPB Q24H AMINTA Vancomycin/Sodium Chloride 1 gm in 200 mls @ 133.333 mls/hr 08/30/16 16:00 Vancocin IVPB 08/30/16 17:29 ONCE ONE Lactobacillus Acidophilus 1 cap 08/27/16 18:00 08/30/16 09:51 Bacid Acidophilus PO 1 cap BID AMINTA Administration Lorazepam 2 mg 08/29/16 10:00 08/30/16 04:25 Ativan IVP 2 mg Q6H PRN Administration Anxiety Multivitamins 1 tab 08/25/16 10:00 08/30/16 09:51 Hexavitamin PO 1 tab DAILY AMINTA Administration Pantoprazole Sodium 40 mg 08/29/16 10:00 08/30/16 09:50 Protonix Inj IVP 40 mg DAILY AMINTA Administration Thiamine HCl 100 mg 08/27/16 10:00 08/30/16 09:50 Vitamin B1 Inj IV 100 mg DAILY AMINTA Administration - Patient Studies Lab Studies: Microbiology Studies 08/24/16 22:15 Blood Culture - Final Blood NO GROWTH AFTER 5 DAYS Gram Stain - Final TEST NOT PERFORMED 08/24/16 22:15 Blood Culture - Final Blood NO GROWTH AFTER 5 DAYS Gram Stain - Final TEST NOT PERFORMED Lab Studies 08/30/16 08/30/16 08/30/16 Range/Units 15:26 11:43 07:47 WBC (4.8-10.8) K/uL RBC (4.40-5.90) Mil/uL Hgb (12.0-18.0) g/dL Hct (35.0-51.0) % MCV (80.0-94.0) fL MCH (27.0-31.0) pg MCHC (33.0-37.0) g/dL RDW (11.5-14.5) % Plt Count (130-400) K/uL MPV (7.2-11.7) fL Neut % (Auto) (50.0-75.0) % Lymph % (Auto) (20.0-40.0) % [place] % (Auto) (0.0-10.0) % Eos % (Auto) (0.0-4.0) % Baso % (Auto) (0.0-2.0) % Neut # (1.8-7.0) K/uL Lymph # (1.0-4.3) K/uL [place] # (0.0-0.8) K/uL Eos # (0.0-0.7) K/uL Baso # (0.0-0.2) K/uL Neutrophils % (Manual) (50-75) % Band Neutrophils % (0-2) % Lymphocytes % (Manual) (20-40) % Monocytes % (Manual) (0-10) % Platelet Estimate (NORMAL) RBC Morphology PT (9.7-12.2) SECONDS INR APTT (21-34) SECONDS Puncture Site pCO2 (35-45) mm/Hg pO2 (80-100) mm/Hg HCO3 (21-28) mmol/L ABG pH (7.35-7.45) ABG Total CO2 (22-28) mmol/L ABG O2 Saturation (95-98) % ABG Base Excess (-2.0-3.0) mmol/L ABG Hemoglobin (11.7-17.4) g/dL ABG Carboxyhemoglobin (0.5-1.5) % POC ABG HHb (Measured) (0.0-5.0) % ABG Methemoglobin (0.0-3.0) % Lisandro Test A-a O2 Difference mm/Hg Respiratory Index Hgb O2 Saturation (95.0-98.0) % Mechanical Rate FiO2 % Tidal Volume PEEP Sodium 128 L (132-148) mmol/L Potassium 5.3 H (3.6-5.2) mmol/L Chloride 102 (98-107) mmol/L Carbon Dioxide 21 L (22-30) mmol/L Anion Gap 10 (10-20) BUN 49 H (9-20) mg/dL Creatinine 5.5 H (0.8-1.5) MG/DL Est GFR ( Amer) 13 Est GFR (Non-Af Amer) 11 POC Glucose (mg/dL) 132 H 140 H (65-110) mg/dL Random Glucose 103 (75-110) mg/dL Calcium 7.0 L (8.6-10.4) mg/dl Phosphorus (2.5-4.5) mg/dL Magnesium (1.6-2.3) mg/dL Total Bilirubin (0.2-1.3) mg/dL AST (17-59) U/L ALT (21-72) U/L Alkaline Phosphatase (38-126) U/L Ammonia (9-33) umol/L Total Creatine Kinase (55-170) U/L Total Protein (6.3-8.3) g/dL Albumin (3.5-5.0) g/dL Globulin (2.2-3.9) gm/dL Albumin/Globulin Ratio (1.0-2.1) Procalcitonin (0.19-0.49) NG/ML Prolactin (3.7-17.9) ng/mL Calcium (PTH Intact) (8.6-10.3) mg/dL Random Vancomycin ug/mL 08/30/16 08/30/16 08/30/16 Range/Units 06:04 06:04 06:04 WBC (4.8-10.8) K/uL RBC (4.40-5.90) Mil/uL Hgb (12.0-18.0) g/dL Hct (35.0-51.0) % MCV (80.0-94.0) fL MCH (27.0-31.0) pg MCHC (33.0-37.0) g/dL RDW (11.5-14.5) % Plt Count (130-400) K/uL MPV (7.2-11.7) fL Neut % (Auto) (50.0-75.0) % Lymph % (Auto) (20.0-40.0) % [place] % (Auto) (0.0-10.0) % Eos % (Auto) (0.0-4.0) % Baso % (Auto) (0.0-2.0) % Neut # (1.8-7.0) K/uL Lymph # (1.0-4.3) K/uL [place] # (0.0-0.8) K/uL Eos # (0.0-0.7) K/uL Baso # (0.0-0.2) K/uL Neutrophils % (Manual) (50-75) % Band Neutrophils % (0-2) % Lymphocytes % (Manual) (20-40) % Monocytes % (Manual) (0-10) % Platelet Estimate (NORMAL) RBC Morphology PT (9.7-12.2) SECONDS INR APTT (21-34) SECONDS Puncture Site pCO2 (35-45) mm/Hg pO2 (80-100) mm/Hg HCO3 (21-28) mmol/L ABG pH (7.35-7.45) ABG Total CO2 (22-28) mmol/L ABG O2 Saturation (95-98) % ABG Base Excess (-2.0-3.0) mmol/L ABG Hemoglobin (11.7-17.4) g/dL ABG Carboxyhemoglobin (0.5-1.5) % POC ABG HHb (Measured) (0.0-5.0) % ABG Methemoglobin (0.0-3.0) % Lisandro Test A-a O2 Difference mm/Hg Respiratory Index Hgb O2 Saturation (95.0-98.0) % Mechanical Rate FiO2 % Tidal Volume PEEP Sodium 127 L (132-148) mmol/L Potassium 5.0 (3.6-5.2) mmol/L Chloride 101 (98-107) mmol/L Carbon Dioxide 18 L (22-30) mmol/L Anion Gap 13 (10-20) BUN 46 H (9-20) mg/dL Creatinine 4.4 H (0.8-1.5) MG/DL Est GFR ( Amer) 17 Est GFR (Non-Af Amer) 14 POC Glucose (mg/dL) (65-110) mg/dL Random Glucose 118 H (75-110) mg/dL Calcium 7.3 L (8.6-10.4) mg/dl Phosphorus 6.3 H (2.5-4.5) mg/dL Magnesium 2.5 H (1.6-2.3) mg/dL Total Bilirubin < 0.1 L (0.2-1.3) mg/dL AST 194 H (17-59) U/L ALT 67 (21-72) U/L Alkaline Phosphatase 66 (38-126) U/L Ammonia (9-33) umol/L Total Creatine Kinase (55-170) U/L Total Protein 4.8 L (6.3-8.3) g/dL Albumin 1.9 L (3.5-5.0) g/dL Globulin 2.9 (2.2-3.9) gm/dL Albumin/Globulin Ratio 0.7 L (1.0-2.1) Procalcitonin 18.76 H (0.19-0.49) NG/ML Prolactin (3.7-17.9) ng/mL Calcium (PTH Intact) (8.6-10.3) mg/dL Random Vancomycin 11.46 ug/mL 08/30/16 08/30/16 08/29/16 Range/Units 06:04 04:20 23:42 WBC 5.9 D (4.8-10.8) K/uL RBC 5.28 (4.40-5.90) Mil/uL Hgb 13.3 (12.0-18.0) g/dL Hct 42.3 (35.0-51.0) % MCV 80.0 D (80.0-94.0) fL MCH 25.1 L (27.0-31.0) pg MCHC 31.4 L (33.0-37.0) g/dL RDW 15.1 H (11.5-14.5) % Plt Count 125 L D (130-400) K/uL MPV 9.5 (7.2-11.7) fL Neut % (Auto) 81.6 H (50.0-75.0) % Lymph % (Auto) 7.6 L (20.0-40.0) % [place] % (Auto) 10.4 H (0.0-10.0) % Eos % (Auto) 0.1 (0.0-4.0) % Baso % (Auto) 0.3 (0.0-2.0) % Neut # 4.8 (1.8-7.0) K/uL Lymph # 0.4 L (1.0-4.3) K/uL [place] # 0.6 (0.0-0.8) K/uL Eos # 0.0 (0.0-0.7) K/uL Baso # 0.0 (0.0-0.2) K/uL Neutrophils % (Manual) 80 H (50-75) % Band Neutrophils % 2 (0-2) % Lymphocytes % (Manual) 9 L (20-40) % Monocytes % (Manual) 9 (0-10) % Platelet Estimate Slightly decreased L (NORMAL) RBC Morphology Normal PT (9.7-12.2) SECONDS INR APTT (21-34) SECONDS Puncture Site Rr pCO2 46 H (35-45) mm/Hg pO2 89 (80-100) mm/Hg HCO3 17.6 L (21-28) mmol/L ABG pH 7.21 L (7.35-7.45) ABG Total CO2 19.8 L (22-28) mmol/L ABG O2 Saturation 98.4 H (95-98) % ABG Base Excess -9.3 L (-2.0-3.0) mmol/L ABG Hemoglobin 13.1 (11.7-17.4) g/dL ABG Carboxyhemoglobin 1.6 H (0.5-1.5) % POC ABG HHb (Measured) 1.6 (0.0-5.0) % ABG Methemoglobin 1.2 (0.0-3.0) % Lisandro Test Pos A-a O2 Difference 567.0 mm/Hg Respiratory Index 6.4 Hgb O2 Saturation 95.5 (95.0-98.0) % Mechanical Rate 20 FiO2 100.0 % Tidal Volume 450 PEEP 9 Sodium (132-148) mmol/L Potassium (3.6-5.2) mmol/L Chloride (98-107) mmol/L Carbon Dioxide (22-30) mmol/L Anion Gap (10-20) BUN (9-20) mg/dL Creatinine (0.8-1.5) MG/DL Est GFR ( Amer) Est GFR (Non-Af Amer) POC Glucose (mg/dL) 119 H (65-110) mg/dL Random Glucose (75-110) mg/dL Calcium (8.6-10.4) mg/dl Phosphorus (2.5-4.5) mg/dL Magnesium (1.6-2.3) mg/dL Total Bilirubin (0.2-1.3) mg/dL AST (17-59) U/L ALT (21-72) U/L Alkaline Phosphatase (38-126) U/L Ammonia (9-33) umol/L Total Creatine Kinase (55-170) U/L Total Protein (6.3-8.3) g/dL Albumin (3.5-5.0) g/dL Globulin (2.2-3.9) gm/dL Albumin/Globulin Ratio (1.0-2.1) Procalcitonin (0.19-0.49) NG/ML Prolactin (3.7-17.9) ng/mL Calcium (PTH Intact) (8.6-10.3) mg/dL Random Vancomycin ug/mL 08/29/16 08/29/16 08/29/16 Range/Units 18:15 17:26 17:26 WBC (4.8-10.8) K/uL RBC (4.40-5.90) Mil/uL Hgb (12.0-18.0) g/dL Hct (35.0-51.0) % MCV (80.0-94.0) fL MCH (27.0-31.0) pg MCHC (33.0-37.0) g/dL RDW (11.5-14.5) % Plt Count (130-400) K/uL MPV (7.2-11.7) fL Neut % (Auto) (50.0-75.0) % Lymph % (Auto) (20.0-40.0) % [place] % (Auto) (0.0-10.0) % Eos % (Auto) (0.0-4.0) % Baso % (Auto) (0.0-2.0) % Neut # (1.8-7.0) K/uL Lymph # (1.0-4.3) K/uL [place] # (0.0-0.8) K/uL Eos # (0.0-0.7) K/uL Baso # (0.0-0.2) K/uL Neutrophils % (Manual) (50-75) % Band Neutrophils % (0-2) % Lymphocytes % (Manual) (20-40) % Monocytes % (Manual) (0-10) % Platelet Estimate (NORMAL) RBC Morphology PT 10.5 (9.7-12.2) SECONDS INR 0.9 APTT 63 H (21-34) SECONDS Puncture Site pCO2 (35-45) mm/Hg pO2 (80-100) mm/Hg HCO3 (21-28) mmol/L ABG pH (7.35-7.45) ABG Total CO2 (22-28) mmol/L ABG O2 Saturation (95-98) % ABG Base Excess (-2.0-3.0) mmol/L ABG Hemoglobin (11.7-17.4) g/dL ABG Carboxyhemoglobin (0.5-1.5) % POC ABG HHb (Measured) (0.0-5.0) % ABG Methemoglobin (0.0-3.0) % Lisandro Test A-a O2 Difference mm/Hg Respiratory Index Hgb O2 Saturation (95.0-98.0) % Mechanical Rate FiO2 % Tidal Volume PEEP Sodium (132-148) mmol/L Potassium (3.6-5.2) mmol/L Chloride (98-107) mmol/L Carbon Dioxide (22-30) mmol/L Anion Gap (10-20) BUN (9-20) mg/dL Creatinine (0.8-1.5) MG/DL Est GFR ( Amer) Est GFR (Non-Af Amer) POC Glucose (mg/dL) 128 H (65-110) mg/dL Random Glucose (75-110) mg/dL Calcium (8.6-10.4) mg/dl Phosphorus (2.5-4.5) mg/dL Magnesium (1.6-2.3) mg/dL Total Bilirubin (0.2-1.3) mg/dL AST (17-59) U/L ALT (21-72) U/L Alkaline Phosphatase (38-126) U/L Ammonia 11 D (9-33) umol/L Total Creatine Kinase (55-170) U/L Total Protein (6.3-8.3) g/dL Albumin (3.5-5.0) g/dL Globulin (2.2-3.9) gm/dL Albumin/Globulin Ratio (1.0-2.1) Procalcitonin (0.19-0.49) NG/ML Prolactin (3.7-17.9) ng/mL Calcium (PTH Intact) (8.6-10.3) mg/dL Random Vancomycin ug/mL 08/29/16 08/27/16 Range/Units 17:26 06:27 WBC (4.8-10.8) K/uL RBC (4.40-5.90) Mil/uL Hgb (12.0-18.0) g/dL Hct (35.0-51.0) % MCV (80.0-94.0) fL MCH (27.0-31.0) pg MCHC (33.0-37.0) g/dL RDW (11.5-14.5) % Plt Count (130-400) K/uL MPV (7.2-11.7) fL Neut % (Auto) (50.0-75.0) % Lymph % (Auto) (20.0-40.0) % [place] % (Auto) (0.0-10.0) % Eos % (Auto) (0.0-4.0) % Baso % (Auto) (0.0-2.0) % Neut # (1.8-7.0) K/uL Lymph # (1.0-4.3) K/uL [place] # (0.0-0.8) K/uL Eos # (0.0-0.7) K/uL Baso # (0.0-0.2) K/uL Neutrophils % (Manual) (50-75) % Band Neutrophils % (0-2) % Lymphocytes % (Manual) (20-40) % Monocytes % (Manual) (0-10) % Platelet Estimate (NORMAL) RBC Morphology PT (9.7-12.2) SECONDS INR APTT (21-34) SECONDS Puncture Site pCO2 (35-45) mm/Hg pO2 (80-100) mm/Hg HCO3 (21-28) mmol/L ABG pH (7.35-7.45) ABG Total CO2 (22-28) mmol/L ABG O2 Saturation (95-98) % ABG Base Excess (-2.0-3.0) mmol/L ABG Hemoglobin (11.7-17.4) g/dL ABG Carboxyhemoglobin (0.5-1.5) % POC ABG HHb (Measured) (0.0-5.0) % ABG Methemoglobin (0.0-3.0) % Lisandro Test A-a O2 Difference mm/Hg Respiratory Index Hgb O2 Saturation (95.0-98.0) % Mechanical Rate FiO2 % Tidal Volume PEEP Sodium (132-148) mmol/L Potassium (3.6-5.2) mmol/L Chloride (98-107) mmol/L Carbon Dioxide (22-30) mmol/L Anion Gap (10-20) BUN (9-20) mg/dL Creatinine (0.8-1.5) MG/DL Est GFR ( Amer) Est GFR (Non-Af Amer) POC Glucose (mg/dL) (65-110) mg/dL Random Glucose (75-110) mg/dL Calcium (8.6-10.4) mg/dl Phosphorus (2.5-4.5) mg/dL Magnesium (1.6-2.3) mg/dL Total Bilirubin (0.2-1.3) mg/dL AST (17-59) U/L ALT (21-72) U/L Alkaline Phosphatase (38-126) U/L Ammonia (9-33) umol/L Total Creatine Kinase 3336 H (55-170) U/L Total Protein (6.3-8.3) g/dL Albumin (3.5-5.0) g/dL Globulin (2.2-3.9) gm/dL Albumin/Globulin Ratio (1.0-2.1) Procalcitonin (0.19-0.49) NG/ML Prolactin 21.9 H (3.7-17.9) ng/mL Calcium (PTH Intact) 7.3 L (8.6-10.3) mg/dL Random Vancomycin ug/mL Laboratory Results - last 24 hr 08/27/16 08/29/16 08/29/16 06:27 17:26 17:26 WBC RBC Hgb Hct MCV MCH MCHC RDW Plt Count MPV Neut % (Auto) Lymph % (Auto) [place] % (Auto) Eos % (Auto) Baso % (Auto) Neut # Lymph # [place] # Eos # Baso # Neutrophils % (Manual) Band Neutrophils % Lymphocytes % (Manual) Monocytes % (Manual) Platelet Estimate RBC Morphology PT 10.5 INR 0.9 APTT 63 H Puncture Site pCO2 pO2 HCO3 ABG pH ABG Total CO2 ABG O2 Saturation ABG Base Excess ABG Hemoglobin ABG Carboxyhemoglobin POC ABG HHb (Measured) ABG Methemoglobin Lisandro Test A-a O2 Difference Respiratory Index Hgb O2 Saturation Mechanical Rate FiO2 Tidal Volume PEEP Sodium Potassium Chloride Carbon Dioxide Anion Gap BUN Creatinine Est GFR ( Amer) Est GFR (Non-Af Amer) POC Glucose (mg/dL) Random Glucose Calcium Phosphorus Magnesium Total Bilirubin AST ALT Alkaline Phosphatase Ammonia Total Creatine Kinase 3336 H Total Protein Albumin Globulin Albumin/Globulin Ratio Procalcitonin Prolactin 21.9 H Calcium (PTH Intact) 7.3 L Random Vancomycin 08/29/16 08/29/16 08/29/16 17:26 18:15 23:42 WBC RBC Hgb Hct MCV MCH MCHC RDW Plt Count MPV Neut % (Auto) Lymph % (Auto) [place] % (Auto) Eos % (Auto) Baso % (Auto) Neut # Lymph # [place] # Eos # Baso # Neutrophils % (Manual) Band Neutrophils % Lymphocytes % (Manual) Monocytes % (Manual) Platelet Estimate RBC Morphology PT INR APTT Puncture Site pCO2 pO2 HCO3 ABG pH ABG Total CO2 ABG O2 Saturation ABG Base Excess ABG Hemoglobin ABG Carboxyhemoglobin POC ABG HHb (Measured) ABG Methemoglobin Lisandro Test A-a O2 Difference Respiratory Index Hgb O2 Saturation Mechanical Rate FiO2 Tidal Volume PEEP Sodium Potassium Chloride Carbon Dioxide Anion Gap BUN Creatinine Est GFR ( Amer) Est GFR (Non-Af Amer) POC Glucose (mg/dL) 128 H 119 H Random Glucose Calcium Phosphorus Magnesium Total Bilirubin AST ALT Alkaline Phosphatase Ammonia 11 D Total Creatine Kinase Total Protein Albumin Globulin Albumin/Globulin Ratio Procalcitonin Prolactin Calcium (PTH Intact) Random Vancomycin 08/30/16 08/30/16 08/30/16 04:20 06:04 06:04 WBC 5.9 D RBC 5.28 Hgb 13.3 Hct 42.3 MCV 80.0 D MCH 25.1 L MCHC 31.4 L RDW 15.1 H Plt Count 125 L D MPV 9.5 Neut % (Auto) 81.6 H Lymph % (Auto) 7.6 L [place] % (Auto) 10.4 H Eos % (Auto) 0.1 Baso % (Auto) 0.3 Neut # 4.8 Lymph # 0.4 L [place] # 0.6 Eos # 0.0 Baso # 0.0 Neutrophils % (Manual) 80 H Band Neutrophils % 2 Lymphocytes % (Manual) 9 L Monocytes % (Manual) 9 Platelet Estimate Slightly decreased L RBC Morphology Normal PT INR APTT Puncture Site Rr pCO2 46 H pO2 89 HCO3 17.6 L ABG pH 7.21 L ABG Total CO2 19.8 L ABG O2 Saturation 98.4 H ABG Base Excess -9.3 L ABG Hemoglobin 13.1 ABG Carboxyhemoglobin 1.6 H POC ABG HHb (Measured) 1.6 ABG Methemoglobin 1.2 Lisandro Test Pos A-a O2 Difference 567.0 Respiratory Index 6.4 Hgb O2 Saturation 95.5 Mechanical Rate 20 FiO2 100.0 Tidal Volume 450 PEEP 9 Sodium 127 L Potassium 5.0 Chloride 101 Carbon Dioxide 18 L Anion Gap 13 BUN 46 H Creatinine 4.4 H Est GFR ( Amer) 17 Est GFR (Non-Af Amer) 14 POC Glucose (mg/dL) Random Glucose 118 H Calcium 7.3 L Phosphorus 6.3 H Magnesium 2.5 H Total Bilirubin < 0.1 L AST 194 H ALT 67 Alkaline Phosphatase 66 Ammonia Total Creatine Kinase Total Protein 4.8 L Albumin 1.9 L Globulin 2.9 Albumin/Globulin Ratio 0.7 L Procalcitonin Prolactin Calcium (PTH Intact) Random Vancomycin 08/30/16 08/30/16 08/30/16 06:04 06:04 07:47 WBC RBC Hgb Hct MCV MCH MCHC RDW Plt Count MPV Neut % (Auto) Lymph % (Auto) [place] % (Auto) Eos % (Auto) Baso % (Auto) Neut # Lymph # [place] # Eos # Baso # Neutrophils % (Manual) Band Neutrophils % Lymphocytes % (Manual) Monocytes % (Manual) Platelet Estimate RBC Morphology PT INR APTT Puncture Site pCO2 pO2 HCO3 ABG pH ABG Total CO2 ABG O2 Saturation ABG Base Excess ABG Hemoglobin ABG Carboxyhemoglobin POC ABG HHb (Measured) ABG Methemoglobin Lisandro Test A-a O2 Difference Respiratory Index Hgb O2 Saturation Mechanical Rate FiO2 Tidal Volume PEEP Sodium Potassium Chloride Carbon Dioxide Anion Gap BUN Creatinine Est GFR ( Amer) Est GFR (Non-Af Amer) POC Glucose (mg/dL) 140 H Random Glucose Calcium Phosphorus Magnesium Total Bilirubin AST ALT Alkaline Phosphatase Ammonia Total Creatine Kinase Total Protein Albumin Globulin Albumin/Globulin Ratio Procalcitonin 18.76 H Prolactin Calcium (PTH Intact) Random Vancomycin 11.46 08/30/16 08/30/16 11:43 15:26 WBC RBC Hgb Hct MCV MCH MCHC RDW Plt Count MPV Neut % (Auto) Lymph % (Auto) [place] % (Auto) Eos % (Auto) Baso % (Auto) Neut # Lymph # [place] # Eos # Baso # Neutrophils % (Manual) Band Neutrophils % Lymphocytes % (Manual) Monocytes % (Manual) Platelet Estimate RBC Morphology PT INR APTT Puncture Site pCO2 pO2 HCO3 ABG pH ABG Total CO2 ABG O2 Saturation ABG Base Excess ABG Hemoglobin ABG Carboxyhemoglobin POC ABG HHb (Measured) ABG Methemoglobin Lisandro Test A-a O2 Difference Respiratory Index Hgb O2 Saturation Mechanical Rate FiO2 Tidal Volume PEEP Sodium 128 L Potassium 5.3 H Chloride 102 Carbon Dioxide 21 L Anion Gap 10 BUN 49 H Creatinine 5.5 H Est GFR ( Amer) 13 Est GFR (Non-Af Amer) 11 POC Glucose (mg/dL) 132 H Random Glucose 103 Calcium 7.0 L Phosphorus Magnesium Total Bilirubin AST ALT Alkaline Phosphatase Ammonia Total Creatine Kinase Total Protein Albumin Globulin Albumin/Globulin Ratio Procalcitonin Prolactin Calcium (PTH Intact) Random Vancomycin Critical Care Progress Note - Nutrition Nutrition: Nutrition Category Date Time Status NPO Diet [DIET] Diets 08/27/16 Lunch Active Attending/Attestation - Attestation I have personally seen and examined this patient.: Yes I have fully participated in the care of the patient.: Yes I have reviewed all pertinent clinical information: Yes Notes (Text): 08/30/16 17:29 Patient seen and examined in the intensive care unit. Case discussed with STAFF in the morning rounds. HEENT intubated on ventilatory support requiring 100% FiO2 with PEEP of 10 diffuse right lung infiltrate noted Continue antibiotics and follow up culture and sensitivity Tracheal aspirate for culture and sensitivity Franco catheter inserted in right internal jugular vein under aseptic conditions for hemodialysis secondary to acute tubular necrosis Reduce FiO2 as tolerated and increase PEEP
--- NOTE | 2016-08-30 13:42 | PCM.PROC ---
Procedures Attestation:: I certify that I have explained the specified Operation(s) or Procedure(s), risks, benefits and reasonable alternatives to the Patient and/or other person responsible. The opportunity was given to ask questions and all questions answered - Central Line Placement Right Internal Jugular Hemodialysis Access Aseptic technique was employed throughout the procedure: Hand Hygiene done prior to procedure, Full sterile barriers (mask, hair cover, sterile gown, sterile gloves), Full body sterile drape, Chloraprep Antiseptic: 30 second prep for IJ or SC sites Central Line Prep: Chlorhexidine-Alcohol Combination Local Anesthesia Used: Lidocaine 1% Ultrasound Used for Placement: Yes Central Line Lumen Inserted: triple Central Line Length: 16 cm Post Procedure: Sutured in Place, Good Blood Return, All Ports Aspirated, Flushed, Capped Secured by: Suture Post Procedure X-Ray: Yes Patient Tolerated Procedure: Well Immediate Complications: None
--- NOTE | 2016-08-30 14:33 | RAD ---
HISTORY: Central line placement COMPARISON: Chest x-ray performed 08/30/16 TECHNIQUE: Chest, one view. FINDINGS: The endotracheal tube terminates approximately 6.1 cm above the level the ryan. Right IJ approach central venous catheter terminates, likely proximal SVC. Nasogastric tube extends beyond the hemidiaphragm towards the expected location of the stomach, distal tip excluded from view. LUNGS: Patchy right lower lobe consolidation and or pleural effusion. Interstitial prominence may reflect infection or edema. No definite pneumothorax. Please note that chest x-ray has limited sensitivity for the detection of pulmonary masses. CARDIOVASCULAR: Heart size appears within normal limits. OSSEOUS STRUCTURES: Degenerative changes. VISUALIZED UPPER ABDOMEN: Unremarkable. OTHER FINDINGS: None. IMPRESSION: The endotracheal tube terminates approximately 6.1 cm above the level the ryan. Right IJ approach central venous catheter terminates, likely proximal SVC. Nasogastric tube extends beyond the hemidiaphragm towards the expected location of the stomach, distal tip excluded from view. Patchy right lower lobe consolidation and or pleural effusion. Interstitial prominence may reflect infection or edema. No definite pneumothorax.
--- NOTE | 2016-08-30 15:06 | CP.PCM.PN ---
Subjective - Date & Time of Evaluation Date of Evaluation: 08/30/16 Time of Evaluation: 13:45 - Subjective Subjective: Medical Attending Note: Follow-up: Metabolic Encephalopathy, Sepsis, Acute Respiratory Failure, Seizures ; Aspiration Pneumonia, Acute Kidney Injury, Hyponatremia, Alcohol Abuse, Hypertension, RLE DVT, Schizophrenia Patient seen, examined, and discussed with ICU and nephrology. unable to ROS secondary to clinical status. Objective - Vital Signs/Intake and Output Vital Signs (last 24 hours): Temp Pulse Resp BP Pulse Ox 98 F 87 20 92/43 L 95 08/30/16 12:00 08/30/16 14:00 08/30/16 14:00 08/30/16 14:00 08/30/16 14:00 Intake and Output: 08/30/16 08/30/16 06:59 18:59 Intake Total 1619.8 2798.1 Output Total 390 100 Balance 1229.8 2698.1 - Medications Medications: Current Medications Acetaminophen (Tylenol 325mg Tab) 650 mg PO Q6 PRN PRN Reason: Fever >100.4 F Last Admin: 08/27/16 03:10 Dose: 650 mg Albuterol/Ipratropium (Duoneb 3 Mg/0.5 Mg (3 Ml) Ud) 3 ml INH RQ6 [facility] Last Admin: 08/30/16 13:47 Dose: 3 ml Aspirin (Aspirin Chewable) 81 mg PO DAILY [facility] Last Admin: 08/30/16 09:51 Dose: 81 mg Folic Acid (Folic Acid) 1 mg PO DAILY [facility] Last Admin: 08/30/16 09:51 Dose: 1 mg Heparin Sodium (Porcine) (Heparin) 5,000 units SC Q8 [facility] Last Admin: 08/30/16 06:04 Dose: 5,000 units Propofol (Diprivan) 1,000 mg in 100 mls @ 2.449 mls/hr IV .Q24H PRN; Protocol; 5 MCG/KG/MIN PRN Reason: TITRATE PER MD ORDER Last Titration: 08/30/16 12:06 Dose: 20 mcg/kg/min, 9.798 mls/hr Piperacillin Sod/Tazobactam Sod (Zosyn 2.25 Gm Iv Premix) 2.25 gm in 50 mls @ 100 mls/hr IVPB Q8H [facility] Last Admin: 08/30/16 09:57 Dose: 100 mls/hr Sodium Chloride (Sodium Chloride 0.9%) 1,000 mls @ 75 mls/hr IV .[id number] [facility] Last Admin: 08/30/16 11:00 Dose: 75 mls/hr Fentanyl Citrate 2,500 mcg/ (Sodium Chloride) 250 mls @ 86 mls/hr IV .Q2H55M [facility]; 10 MCG/KG/HR PRN Reason: Protocol Last Titration: 08/30/16 14:16 Dose: 5 mcg/kg/hr, 43 mls/hr Moxifloxacin HCl (Avelox Iv 400mg/250ml Ns) 400 mg in 250 mls @ 167 mls/hr IVPB Q24H [facility] Vancomycin HCl 1,000 mg/ (Sodium Chloride) 250 mls @ 166.6 mls/hr IVPB ONCE ONE Stop: 08/30/16 20:30 Lactobacillus Acidophilus (Bacid Acidophilus) 1 cap PO BID [facility] Last Admin: 08/30/16 09:51 Dose: 1 cap Lorazepam (Ativan) 2 mg IVP Q6H PRN PRN Reason: Anxiety Last Admin: 08/30/16 04:25 Dose: 2 mg Multivitamins (Hexavitamin) 1 tab PO DAILY [facility] Last Admin: 08/30/16 09:51 Dose: 1 tab Pantoprazole Sodium (Protonix Inj) 40 mg IVP DAILY [facility] Last Admin: 08/30/16 09:50 Dose: 40 mg Thiamine HCl (Vitamin B1 Inj) 100 mg IV DAILY [facility] Last Admin: 08/30/16 09:50 Dose: 100 mg - Labs Labs: 08/30/16 06:04 08/30/16 06:04 PT 10.5 SECONDS (9.7-12.2) 08/29/16 17:26 INR 0.9 08/29/16 17:26 APTT 63 SECONDS (21-34) H 08/29/16 17:26 - Constitutional Appears: Non-toxic, No Acute Distress - Head Exam Additional comments: intubated, ogt, sedated - ENT Exam ENT Exam: Mucous Membranes Dry - Respiratory Exam Respiratory Exam: Decreased Breath Sounds, Rhonchi. absent: NORMAL BREATHING PATTERN Additional comments: on vent - Cardiovascular Exam Cardiovascular Exam: REGULAR RHYTHM, +S1, +S2 - GI/Abdominal Exam GI & Abdominal Exam: Soft, Normal Bowel Sounds. absent: Guarding, Rigid, Tenderness, Rebound - Skin Skin Exam: Dry, Intact, Normal Color, Warm Assessment and Plan (1) Metabolic encephalopathy Status: Acute (2) Acute respiratory failure Status: Acute (3) Aspiration pneumonia Status: Acute (4) Sepsis Status: Acute (5) Acute kidney injury Status: Acute (6) Alcohol intoxication Status: Acute (7) Seizure Status: Acute (8) History of DVT (deep vein thrombosis) Status: Chronic (9) Hypertension Status: Chronic (10) DVT (deep venous thrombosis) Status: Acute (11) Prophylactic measure Status: Acute - Assessment and Plan (Free Text) Assessment: Assessment/Plan 1) Sepsis * Criteria: Leukopenia (WBC< 4), tachypnea, febrile, etiology: aspiration pneumonia * Chest xray: prominent consolidate changes in right to mid to lower lung zone * Chest xray (08/29/16): endotracheal tube extending into mid thoracic trachea. Moderate right pleural effusion. Moderate venous congestion. Prominent consolidative changes oin the right mid to lower lung zone. Biapical pleural thickening with lobe granulmoatous changes * Chest CT (08/28/16): marked progression of infiltrates. Entire right lowr lobe displaced infiltrate/consolidation. Subsgementall right upper lobe infiltrate a new finding Progression of multisegment left lower lobe infiltrates * 08/24/16: Blood culture: no growth after 5 days X2 * MRSA not detected * 08/27/16 Sputum: pending * Elevated procalcitonin: 21-->18 * Blood cultures(08/29/16)-->pending; received * Infectious disease (Dr. Dos Santos) on consult-->f/u recommendations 2) Acute respiratory failure * secondary to aspiration pneumonia and/or seizure * Patient is currently intubated * Patient is currently on high peep of 10 3) Metabolic Encephalopathy * Etiologies: sepsis, alcohol use, aspiration pneumonia * Ammonia low * prolactin: high * CT Head (08/24/16): no acute intracranial injury * Brain MRI (08/26/16): no evidence of acute infarct. No evidence of mass lesion, mass effect, or midline shift 4) Aspiration pneumonia * Risk factor: seizure and alcoholism * Chest xray: prominent consolidate changes in right to mid to lower lung zone * Chest xray (08/29/16): endotracheal tube extending into mid thoracic trachea. Moderate right pleural effusion. Moderate venous congestion. Prominent consolidative changes oin the right mid to lower lung zone. Biapical pleural thickening with lobe granulmoatous changes * Chest CT (08/28/16): marked progression of infiltrates. Entire right lower lobe displaced infiltrate/consolidation. Subsgemental right upper lobe infiltrate a new finding Progression of multisegment left lower lobe infiltrates * Chest Xray (08/30/16): endotracheal tube terminates approximately 6.1cm above the level of the ryan. patchy right lower lobe consolidation and/or pleural effsion. Interstital prominence may reflect infection or edema. * Zosyn 2.25 IV Q 8 hours and Vancomycin 1 gram IV Q 12 hours (day 2) 5) Seizures * prolactin: elevated * Brain MRI (08/26/16): no evidence of acute infarct. No evidence of mass lesion, mass effect, or midline shift * Neurology (Dr. Madera) on board help appreciated * EEG ordered * on Profol * Ativan PRN * unclear if patient has hx of seizures or history of alcohol withdrawal seizures 6) Hx of Right DVT * IVC filter noted on CT scan 08/24/16 * Right iliac artery stent * 08/25/16: b/l Venous doppler: negative * CT Chest/Abdomen/Pelvis: IVC filter, There are atherosclerotic changes of the aorta, Right iliac artery stent. No hydronephrosis. There is mild perinephric stranding. No striated nephrograms. There is fluid within the colon most notably in the distal sigmoid and rectum, The appendix is identified coronal images 50 through 66. There is intraluminal fluid however it measures 4 mm in diameter which is within normal limits and there is no wall thickening, wall hyperemia, or periappendiceal stranding. here are degenerative changes in the osseous structures. Colonic fluid, a nonspecific finding however can also be associated with diarrhea/enteritis. Mild bilateral perinephric stranding which may be a chronic finding however could also be indicative of a infectious/ inflammatory process. Evidence of emphysematous disease in the upper lungs. There is dense infiltrate with consolidation in the right lower lung some of which has a fibrotic appearance. Tiny faint nodular opacities in the left lower lung. No effusions. No aortic aneurysm or dissection. Pulmonary emboli cannot be excluded due to bolus timing. Few small scattered mediastinal lymph nodes are noted. 7) ATN * Nephrology (Dr. Katie Mathews) on board * Contributing factor: sepsis * Patient is currently on renally dosed: Zosyn and Vancomycin * Discussed with nephrology * NS 75cc/hr * Dialysis catheter placed today * Administrative consent 8) Alcohol Abuse * on sedation and Ativan PRN 9) Emphysema * CT Chest/Abdomen/Pelvis: IVC filter, There are atherosclerotic changes of the aorta, Right iliac artery stent. No hydronephrosis. There is mild perinephric stranding. No striated nephrograms. There is fluid within the colon most notably in the distal sigmoid and rectum, The appendix is identified coronal images 50 through 66. There is intraluminal fluid however it measures 4 mm in diameter which is within normal limits and there is no wall thickening, wall hyperemia, or periappendiceal stranding. here are degenerative changes in the osseous structures. Colonic fluid, a nonspecific finding however can also be associated with diarrhea/enteritis. Mild bilateral perinephric stranding which may be a chronic finding however could also be indicative of a infectious/ inflammatory process. Evidence of emphysematous disease in the upper lungs. There is dense infiltrate with consolidation in the right lower lung some of which has a fibrotic appearance. Tiny faint nodular opacities in the left lower lung. No effusions. No aortic aneurysm or dissection. Pulmonary emboli cannot be excluded due to bolus timing. Few small scattered mediastinal lymph nodes are noted. 10) Peripheral vascular disease * Right iliac artery stent * Aspirin 81mg PO daily 11) Prior history of CVA * noted in H&P * Patient is currently on Aspirin, held crestor, and patient hypotensive 12) History of Hypertension * off anti-hypertensives 13) History of diabetes * Controlled * Hgba1c: 5.7 * Accuchecks Q 6 hours 14) Malnutrition * contributing factor alcohol * OGT tube feedings 15) Prophylactic measure * Heparin 5000 units subq 8 hours for DVT ppx * Protonix 40mg IV q daily * Administrative consent for central line and dialysis catheter
[2016-08-30 15:38] LABS: POTASSIUM 5.3 mmol/L (3.6-5.2)
[2016-08-30] MEDS ORDERED: Vancomycin 1 gm/NS 200 ml 1 GM/200 ML BAG IVPB ONE (16:00)
[2016-08-30] MEDS: Moxifloxacin IV 400mg/250ml NS 400 MG/250 ML BAG IVPB SCH (17:50)
[2016-08-30 19:51] LABS: ABG ALLEN TEST POS; ARTERIAL BLOOD HGB O2 SAT 90.9 % (95.0-98.0); ATERIAL BLOOD GAS PEEP 10; CARBOXYHEMOGLOBIN 1.7 % (0.5-1.5); DRAW SITE RRA; HHB 6.1 % (0.0-5.0); METHEMOGLOBIN 1.3 % (0.0-3.0)
[2016-08-30] MEDS ORDERED: Sodium Bicarbonate (8.4%) 50 Meq Syringe IVP ONE (19:53)
[2016-08-30] MEDS ORDERED: SODIUM BICARBONATE IV SCH ×2 (20:00→22:28)
[2016-08-30] MEDS ORDERED: WATER IV SCH ×2 (20:00→22:28)
[2016-08-30] MEDS ORDERED: DEXTROSE 5% IV SCH ×2 (20:00→22:28)
[2016-08-30] MEDS ORDERED: Norepinephrine 8 MG in Sodium Chloride 0.9% 242 ML IV PRN (20:30)
--- NOTE | 2016-08-30 22:02 | CP.PCM.CON ---
History of Present Illness - History of Present Illness History of Present Illness: dictated Past Patient History - Infectious Disease Hx of Infectious Diseases: None - Past Medical History & Family History Past Medical History?: Yes - Past Social History Smoking Status: Heavy Smoker > 10 Cigarettes Daily - CARDIAC Hx Hypertension: Yes - PULMONARY Hx Asthma: Yes - NEUROLOGICAL Hx Seizures: Yes (Alcohol induced) - HEENT Hx HEENT Problems: No - RENAL Hx Chronic Kidney Disease: No - ENDOCRINE/METABOLIC Hx Diabetes Mellitus Type 2: Yes (no meds) - HEMATOLOGICAL/ONCOLOGICAL Hx Human Immunodeficiency Virus (HIV): No - INTEGUMENTARY Hx Dermatological Problems: No - MUSCULOSKELETAL/RHEUMATOLOGICAL Hx Musculoskeletal Disorders: No - GASTROINTESTINAL Hx Gastrointestinal Disorders: No - GENITOURINARY/GYNECOLOGICAL Hx Sexually Transmitted Disorders: No - PSYCHIATRIC Hx Anxiety: Yes Hx Bipolar Disorder: Yes Hx Depression: Yes Hx Schizophrenia: Yes Hx Substance Use: No - SURGICAL HISTORY Hx Surgeries: Yes Other/Comment: claims he had a mikey in his right leg. no scar noted. IVC FILTER INSERTED - ANESTHESIA Hx Anesthesia: Yes Hx Anesthesia Reactions: No Meds Allergies/Adverse Reactions: Allergies Allergy/AdvReac Type Severity Reaction Status Date / Time No Known Allergies Allergy Verified 06/12/16 12:29 - Medications Medications: Current Medications Acetaminophen (Tylenol 325mg Tab) 650 mg PO Q6 PRN PRN Reason: Fever >100.4 F Last Admin: 08/27/16 03:10 Dose: 650 mg Albuterol/Ipratropium (Duoneb 3 Mg/0.5 Mg (3 Ml) Ud) 3 ml INH RQ6 [facility] Last Admin: 08/30/16 19:42 Dose: 3 ml Aspirin (Aspirin Chewable) 81 mg PO DAILY [facility] Last Admin: 08/30/16 09:51 Dose: 81 mg Folic Acid (Folic Acid) 1 mg PO DAILY [facility] Last Admin: 08/30/16 09:51 Dose: 1 mg Heparin Sodium (Porcine) (Heparin) 5,000 units SC Q8 [facility] Last Admin: 08/30/16 21:05 Dose: 5,000 units Propofol (Diprivan) 1,000 mg in 100 mls @ 2.449 mls/hr IV .Q24H PRN; Protocol; 5 MCG/KG/MIN PRN Reason: TITRATE PER MD ORDER Last Titration: 08/30/16 19:30 Dose: 10 mcg/kg/min, 4.899 mls/hr Piperacillin Sod/Tazobactam Sod (Zosyn 2.25 Gm Iv Premix) 2.25 gm in 50 mls @ 100 mls/hr IVPB Q8H [facility] Last Admin: 08/30/16 17:45 Dose: 100 mls/hr Sodium Chloride (Sodium Chloride 0.9%) 1,000 mls @ 75 mls/hr IV .[id number] [facility] Last Admin: 08/30/16 12:10 Dose: Not Given Fentanyl Citrate 2,500 mcg/ (Sodium Chloride) 250 mls @ 86 mls/hr IV .Q2H55M [facility]; 10 MCG/KG/HR PRN Reason: Protocol Last Admin: 08/30/16 18:25 Dose: Not Given Moxifloxacin HCl (Avelox Iv 400mg/250ml Ns) 400 mg in 250 mls @ 167 mls/hr IVPB Q24H [facility] Last Admin: 08/30/16 17:50 Dose: 167 mls/hr Sodium Bicarbonate 300 meq/ (Dextrose) 1,300 mls @ 50 mls/hr IV .Q24H [facility] Last Admin: 08/30/16 20:40 Dose: 50 mls/hr Norepinephrine Bitartrate 8 mg (/ Sodium Chloride) 250 mls @ 7.5 mls/hr IV .Q24H PRN; Protocol; 4 MCG/MIN PRN Reason: TITRATE PER MD ORDER Lactobacillus Acidophilus (Bacid Acidophilus) 1 cap PO BID [facility] Last Admin: 08/30/16 18:30 Dose: 1 cap Lorazepam (Ativan) 2 mg IVP Q6H PRN PRN Reason: Anxiety Last Admin: 08/30/16 04:25 Dose: 2 mg Multivitamins (Hexavitamin) 1 tab PO DAILY [facility] Last Admin: 08/30/16 09:51 Dose: 1 tab Pantoprazole Sodium (Protonix Inj) 40 mg IVP DAILY [facility] Last Admin: 08/30/16 09:50 Dose: 40 mg Thiamine HCl (Vitamin B1 Inj) 100 mg IV DAILY [facility] Last Admin: 08/30/16 09:50 Dose: 100 mg Results - Vital Signs Recent Vital Signs: Last Vital Signs Temp 98.6 F 08/30/16 17:30 Pulse 95 H 08/30/16 19:31 Resp 20 08/30/16 19:31 BP 75/38 L 05/09/17 19:31 Pulse Ox 92 L 08/30/16 19:31 - Labs Result Diagrams: 08/30/16 06:04 08/30/16 15:26 Labs: Laboratory Results - last 24 hr 08/29/16 08/30/16 08/30/16 23:42 04:20 06:04 WBC 5.9 D RBC 5.28 Hgb 13.3 Hct 42.3 MCV 80.0 D MCH 25.1 L MCHC 31.4 L RDW 15.1 H Plt Count 125 L D MPV 9.5 Neut % (Auto) 81.6 H Lymph % (Auto) 7.6 L [place] % (Auto) 10.4 H Eos % (Auto) 0.1 Baso % (Auto) 0.3 Neut # 4.8 Lymph # 0.4 L [place] # 0.6 Eos # 0.0 Baso # 0.0 Neutrophils % (Manual) 80 H Band Neutrophils % 2 Lymphocytes % (Manual) 9 L Monocytes % (Manual) 9 Platelet Estimate Slightly decreased L RBC Morphology Normal Puncture Site Rr pCO2 46 H pO2 89 HCO3 17.6 L ABG pH 7.21 L ABG Total CO2 19.8 L ABG O2 Saturation 98.4 H ABG Base Excess -9.3 L ABG Hemoglobin 13.1 ABG Carboxyhemoglobin 1.6 H POC ABG HHb (Measured) 1.6 ABG Methemoglobin 1.2 Lisandro Test Pos A-a O2 Difference 567.0 Respiratory Index 6.4 Hgb O2 Saturation 95.5 Mechanical Rate 20 FiO2 100.0 Tidal Volume 450 PEEP 9 Crit Value Called To Crit Value Called By Crit Value Read Back Blood Gas Notified Time Sodium Potassium Chloride Carbon Dioxide Anion Gap BUN Creatinine Est GFR ( Amer) Est GFR (Non-Af Amer) POC Glucose (mg/dL) 119 H Random Glucose Calcium Phosphorus Magnesium Total Bilirubin AST ALT Alkaline Phosphatase Total Protein Albumin Globulin Albumin/Globulin Ratio Procalcitonin Random Vancomycin 08/30/16 08/30/16 08/30/16 06:04 06:04 06:04 WBC RBC Hgb Hct MCV MCH MCHC RDW Plt Count MPV Neut % (Auto) Lymph % (Auto) [place] % (Auto) Eos % (Auto) Baso % (Auto) Neut # Lymph # [place] # Eos # Baso # Neutrophils % (Manual) Band Neutrophils % Lymphocytes % (Manual) Monocytes % (Manual) Platelet Estimate RBC Morphology Puncture Site pCO2 pO2 HCO3 ABG pH ABG Total CO2 ABG O2 Saturation ABG Base Excess ABG Hemoglobin ABG Carboxyhemoglobin POC ABG HHb (Measured) ABG Methemoglobin Lisandro Test A-a O2 Difference Respiratory Index Hgb O2 Saturation Mechanical Rate FiO2 Tidal Volume PEEP Crit Value Called To Crit Value Called By Crit Value Read Back Blood Gas Notified Time Sodium 127 L Potassium 5.0 Chloride 101 Carbon Dioxide 18 L Anion Gap 13 BUN 46 H Creatinine 4.4 H Est GFR ( Amer) 17 Est GFR (Non-Af Amer) 14 POC Glucose (mg/dL) Random Glucose 118 H Calcium 7.3 L Phosphorus 6.3 H Magnesium 2.5 H Total Bilirubin < 0.1 L AST 194 H ALT 67 Alkaline Phosphatase 66 Total Protein 4.8 L Albumin 1.9 L Globulin 2.9 Albumin/Globulin Ratio 0.7 L Procalcitonin 18.76 H Random Vancomycin 11.46 08/30/16 08/30/16 08/30/16 07:47 11:43 15:26 WBC RBC Hgb Hct MCV MCH MCHC RDW Plt Count MPV Neut % (Auto) Lymph % (Auto) [place] % (Auto) Eos % (Auto) Baso % (Auto) Neut # Lymph # [place] # Eos # Baso # Neutrophils % (Manual) Band Neutrophils % Lymphocytes % (Manual) Monocytes % (Manual) Platelet Estimate RBC Morphology Puncture Site pCO2 pO2 HCO3 ABG pH ABG Total CO2 ABG O2 Saturation ABG Base Excess ABG Hemoglobin ABG Carboxyhemoglobin POC ABG HHb (Measured) ABG Methemoglobin Lisandro Test A-a O2 Difference Respiratory Index Hgb O2 Saturation Mechanical Rate FiO2 Tidal Volume PEEP Crit Value Called To Crit Value Called By Crit Value Read Back Blood Gas Notified Time Sodium 128 L Potassium 5.3 H Chloride 102 Carbon Dioxide 21 L Anion Gap 10 BUN 49 H Creatinine 5.5 H Est GFR ( Amer) 13 Est GFR (Non-Af Amer) 11 POC Glucose (mg/dL) 140 H 132 H Random Glucose 103 Calcium 7.0 L Phosphorus Magnesium Total Bilirubin AST ALT Alkaline Phosphatase Total Protein Albumin Globulin Albumin/Globulin Ratio Procalcitonin Random Vancomycin 08/30/16 08/30/16 17:53 19:40 WBC RBC Hgb Hct MCV MCH MCHC RDW Plt Count MPV Neut % (Auto) Lymph % (Auto) [place] % (Auto) Eos % (Auto) Baso % (Auto) Neut # Lymph # [place] # Eos # Baso # Neutrophils % (Manual) Band Neutrophils % Lymphocytes % (Manual) Monocytes % (Manual) Platelet Estimate RBC Morphology Puncture Site Rra pCO2 73 H* pO2 62 L HCO3 19.0 L ABG pH 7.11 L* ABG Total CO2 25.4 ABG O2 Saturation 93.7 L ABG Base Excess -7.4 L ABG Hemoglobin 12.4 ABG Carboxyhemoglobin 1.7 H POC ABG HHb (Measured) 6.1 H ABG Methemoglobin 1.3 Lisandro Test Pos A-a O2 Difference 417.0 Respiratory Index 6.7 Hgb O2 Saturation 90.9 L Mechanical Rate FiO2 80.0 Tidal Volume 450 PEEP 10 Crit Value Called To Dr howell Crit Value Called By Catherine ross Crit Value Read Back Y Blood Gas Notified Time 1954 Sodium Potassium Chloride Carbon Dioxide Anion Gap BUN Creatinine Est GFR ( Amer) Est GFR (Non-Af Amer) POC Glucose (mg/dL) 106 Random Glucose Calcium Phosphorus Magnesium Total Bilirubin AST ALT Alkaline Phosphatase Total Protein Albumin Globulin Albumin/Globulin Ratio Procalcitonin Random Vancomycin
[2016-08-30 22:19] LABS: POTASSIUM 4.5 mmol/L (3.6-5.2)
[2016-08-30 22:21] LABS: ABG ALLEN TEST POS; ARTERIAL BLOOD HGB O2 SAT 91.1 % (95.0-98.0); ATERIAL BLOOD GAS PEEP 10; CARBOXYHEMOGLOBIN 1.7 % (0.5-1.5); DRAW SITE RRA; HHB 5.8 % (0.0-5.0); METHEMOGLOBIN 1.3 % (0.0-3.0)
[2016-08-30 22:22] LABS: CALCIUM 6.6 mg/dl (8.6-10.4); MAGNESIUM 2.5 mg/dL (1.6-2.3)
[2016-08-31] MEDS: Albuterol-Ipratrop 3 mg / 0.5 (3 ml) UD INH SCH ×4 (01:28→19:45)
[2016-08-31] MEDS: Piperacill/Tazo 2.25gm in Dex 2.25 GM/50 ML BAG IVPB SCH ×3 (01:45→17:23)
[2016-08-31 05:27] LABS: ABG ALLEN TEST POS; ABG MECHANICAL RATE 24; ARTERIAL BLOOD HGB O2 SAT 78.7 % (95.0-98.0); ATERIAL BLOOD GAS PEEP 10; CARBOXYHEMOGLOBIN 1.8 % (0.5-1.5); DRAW SITE RR; HHB 18.4 % (0.0-5.0); METHEMOGLOBIN 1.1 % (0.0-3.0)
[2016-08-31 06:16] LABS: BASO % 0.1 % (0.0-2.0); EOS # 0.1 K/uL (0.0-0.7); EOS % 0.7 % (0.0-4.0); HEMATOCRIT 38.6 % (35.0-51.0); LYMPH # 0.7 K/uL (1.0-4.3); LYMPH % 9.3 % (20.0-40.0); MEAN CELL VOLUME 79.4 fL (80.0-94.0); MEAN CORPUSCULAR HEMOGLOBIN 24.8 pg (27.0-31.0); MEAN CORPUSCULAR HGB CONC 31.2 g/dL (33.0-37.0); MEAN PLATELET VOLUME 8.9 fL (7.2-11.7); MONO # 0.7 K/uL (0.0-0.8); MONO % 8.6 % (0.0-10.0); NRBC % 0.1 % (0.0-2.0); PLATELET COUNT 145 K/uL (130-400); RED CELL DISTRIBUTION WIDTH 15.1 % (11.5-14.5); WHITE BLOOD COUNT 7.8 K/uL (4.8-10.8)
[2016-08-31 06:21] LABS: CHLORIDE 96 mmol/L (98-107)
[2016-08-31 06:22] LABS: POTASSIUM 4.5 mmol/L (3.6-5.2); SODIUM 132 mmol/L (132-148)
[2016-08-31 06:24] LABS: ALB/GLOB RATIO 0.7 (1.0-2.1); ALKALINE PHOSPHATASE 56 U/L (38-126); ALT/SGPT 66 U/L (21-72); AST/SGOT 211 U/L (17-59); BILIRUBIN,TOTAL < 0.1 mg/dL (0.2-1.3); BLOOD UREA NITROGEN 43 mg/dL (9-20); CARBON DIOXIDE 29 mmol/L (22-30); GFR AFRICAN-AMERICAN 13; GLUCOSE,RANDOM 112 mg/dL (75-110); PHOSPHOROUS 6.4 mg/dL (2.5-4.5); TOTAL PROTEIN 4.4 g/dL (6.3-8.3)
[2016-08-31 06:25] LABS: CALCIUM 6.7 mg/dl (8.6-10.4); MAGNESIUM 2.4 mg/dL (1.6-2.3)
[2016-08-31] MEDS: Propofol 10 mg/ml 1,000 MG/100 ML VIAL IV PRN ×2 (07:30→19:25)
--- NOTE | 2016-08-31 08:13 | PN ---
DATE: 08/30/2016 NEPHROLOGY FOLLOWUP NOTE A 56-year-old male with past medical history of alcohol abuse; unclear seizure history; DVT, status p ost IVC filter, status post right SFA stent; hypertension; schizoaffective disorder; admitted witness ed seizure. Hospital course complicated by acute hypoxemic respiratory failure and acute renal failu re. Nephrology following the patient for the same. The patient remains intubated, sedated. Urine output, per nursing staff, has dropped off considerabl y today. VITAL SIGNS: This morning: Blood pressure 103/61, heart rate 98, respirations 35, O2 sat 100% on 10 0% FIO2 via mechanical ventilation. GENERAL: Sedated. Not responding tactile stimuli. HEENT: Moist mucous membranes. Non-icteric. CHEST: Clear to auscultation bilaterally. No rales. No rhonchi. No wheezes. HEART: S1, S2 normal, although muffled full sounds. No overt murmurs, rubs, or gallops. GASTROINTESTINAL: Abdomen is soft, nontender, nondistended. GENITOURINARY: No blood or distention. Kumar in place. EXTREMITIES: Minimal edema of legs. Mild edema of bilateral upper extremities. NEUROLOGIC: Corneal reflexes intact bilaterally. LABORATORY DATA: WBC 5.9, hemoglobin 13.3, hematocrit 42.3, platelets 125. Chemistry: Sodium 127, potassium 5.0, chloride 101, bicarb 18, BUN 46, creatinine 4.4, glucose 118, calcium 7.3, phosphorus 6.3, albumin 1.9. ASSESSMENT: 1. Acute renal failure. Acute tubular necrosis in the setting of sepsis and now hypotension. Oligo -anuric renal failure with borderline hyperkalemia today. Blood pressure is dropping further today; therefore hemodialysis initiated preemptively to avoid needing emergent hemodialysis with anticipatio n that electrolyte status will continue to worsen as patient is anuric. Dialyzing today for 2 hours via right IJ hemodialysis catheter placed by critical care team on 2K, 2.5 calcium, 34 bicarb dialysa te with zero ultrafiltration. Will likely give another dialysis session tomorrow. 2. Proteinuria/hematuria. Nephrotic-range proteinuria consistent with glomerular etiology. Serolog ies thus far, negative for hepatitis B and C. BETSEY negative. Serologic workup sent for ANCA, anti GM B, IgG as well. Antiphospholipid antibody sent, particularly with history of deep vein thrombosis an d arterial thrombosis. Current renal failure, most likely due to acute tubular necrosis, although ca nnot rule out glomerular cause. The patient will need renal biopsy once more stable. 3. Acute hypoxic respiratory failure secondary to pneumonia. The patient no longer having urine out put. Would be cautious in giving volume replacement as patient already on very high FIO2 requirement , and in the setting of anuric renal failure, respiratory status can worsen. 4. Sepsis secondary to pneumonia. The patient on Zosyn dosed correctly for hemodialysis. Received dose of vancomycin yesterday. Recommending to redose vancomycin after hemodialysis, as it is readily dialyzable. Started by infectious disease on Avelox. Should be dosed after dialysis daily. 5. Hyponatremia. Workup done while renal function was intact. Was consistent with syndrome of inap propriate antidiuretic hormone secondary to pneumonia. Serum sodium will correct with hemodialysis. Ish Mascorro MD cc: [id number] TT: 08/30/2016 21:59:52 Confirmation # [id number] Dictation # [id number] tn
[2016-08-31 08:22] LABS: EOSINOPHIL 1 % (0-4); NEUTROPHIL 79 % (50-75); TOTAL CELLS COUNTED 100
--- NOTE | 2016-08-31 09:34 | CON ---
DATE: 08/30/2016 REQUESTING PHYSICIAN: Dr. Mikel Carroll. HISTORY OF PRESENT ILLNESS: This patient is a 56-year-old male. He has a history of ETOH abuse, hyp ertension, CVA, DVT, schizophrenia. He was admitted after a seizure he had. He denied any tongue bi ting or incontinence, but he fell hard on his head and neck. He denied any seizures. Denied any med ications on admission. The patient presently is intubated. He was initially admitted to floor but e nded up in ICU, and he is on Zosyn. He is also in renal failure, and he has proteinuria, and came in after a seizure and now intubated with respiratory failure. PAST MEDICAL HISTORY: Significant for ETOH abuse, hypertension, possible CVA, diabetes, DVT, schizop hrenia, anemia. ALLERGIES: He is not allergic to any medicine. There is a question of IVC filter. SOCIAL HISTORY: He drinks 3 cans of beer daily and has since he was 17. Smokes 1 pack per day from the age 17, and has roommates but does not live in a [facility]. REVIEW OF SYSTEMS: Had fever, chills, diaphoresis, weakness, dry mouth, headache, shortness of breat h and cough when he came in. At present time, however, I cannot ask for any symptoms as he is intuba flako. MEDICATIONS: He is on Tylenol, DuoNeb, aspirin, fentanyl, folic acid. He is on heparin, lactobacill us capsule, Ativan, moxifloxacin, vitamin, norepinephrine, and now been placed on Zosyn, Dipriv an, sodium bicarbonate, thiamine, propofol. He is on propofol and fentanyl. His previous problems were kind of history which we are not very sure of, as dictated above. PHYSICAL EXAMINATION: VITAL SIGNS: I find temperature is 98.6, pulse is 97, blood pressure 83/39, respirations are 19. GENERAL: Dialysis access catheter in the right IJ, which is going to be used today. HEENT: Head is atraumatic, normocephalic. NECK: Supple. LUNGS: Have clear breath sounds. Decreased breath sounds on right base. HEART: S1, S2 regular. ABDOMEN: Soft, nontender. No guarding. No rigidity present. EXTREMITIES: No edema, clubbing, or cyanosis. LABORATORY DATA: Noted. White count is 5.9, hemoglobin 13.3, hematocrit 42.3, platelet count is 125 , neutrophils are 80, bands are 2. Chemistry shows sodium is 132, potassium 4.5, chloride 98, CO2 is 29, BUN is 10, creatinine is 4.6 BUN. Micro-shell: He had blood cultures, urine cultures, whi ch are all negative, and there was a sputum culture on 08/27 which shows normal shahzad. He had a ches t x-ray today which showed endotracheal tube terminates about 6.1 cm over the level of the ryan, th is is kind of high. Right IJ terminates likely in proximal SVC, NG tube beyond the hemidiaphra gm, patchy right lower lobe consolidation and pleural effusion, interstitial prominence may reflect i nfection or edema. No definite pneumothorax. This patient who has a history of alcoholism is in with respiratory failure with pneumonia, consolida tion and effusion. At this time, he is double covered with Zosyn and Avelox. He does also have acut e renal failure, came in with seizure disorder, and the sputum has been negative. Cultures have been negative. Will follow. He is on vasopressors at this time. Melanie Dos Santos MD cc: [id number] TT: 08/31/2016 03:56:03 Confirmation # [id number] Dictation # [id number] tn 08/31/2016 08:33:43
[2016-08-31] MEDS: Lactobacillus Acidophilus 500 MU Cap PO SCH ×2 (10:08→17:23)
[2016-08-31] MEDS: Multiple Vitamins Tab PO SCH (10:08)
[2016-08-31] MEDS: Thiamine 100 mg/ml Inj IV SCH (10:08)
[2016-08-31] MEDS ORDERED: Lidocaine 2% Inj (20ml) ONE (10:48)
[2016-08-31] MEDS: Albumin Human 25% (12.5 gm/50 ml) IV SCH ×2 (10:48→12:40)
[2016-08-31] MEDS ORDERED: EPINEPHrine 1 mg/ml (1:1000) Inj ONE (10:49)
--- NOTE | 2016-08-31 10:56 | CP.CCUPN ---
<Tonny Knight - Last Filed: 08/31/16 10:53> CCU Subjective - Physician Review Subjective (Free Text): 08/31/16 10:53 PGY-1 progress note Pt seen and examined at bedside. No acute events overnight. Pt intubated and sedated. Critical Care Time Spent (in minutes): 35 CCU Objective - Vital Signs / Intake & Output Vital Signs (Last 4 hours): Vital Signs Temp Pulse Resp BP Pulse Ox 08/31/16 08:01 96 H 24 102/50 L 88 L 08/31/16 08:00 99.1 F 96 H 23 102/50 L 88 L 08/31/16 07:01 128 H 11 L 101/55 L 86 L Intake and Output (Last 8hrs): Intake & Output 08/30/16 08/31/16 08/31/16 22:59 06:59 14:59 Intake Total 2394.3 1520.8 526.2 Output Total 0 0 0 Balance 2394.3 1520.8 526.2 Weight 190 lb 4.143 oz 195 lb 1.745 oz Intake: IV 585 250 103 Intake, IV Amount 1479.3 1030.8 363.2 Left Antecubital 221.5 600 225 Right Distal Port 213.8 36.8 9.2 Internal Jugular Right Forearm 679 344 129 Right Forearm #2 150 50 Right Proximal Port 215 Forearm Oral 40 Tube Feeding 240 240 60 Other 50 Output: Urine 0 0 0 Urethral (Hidalgo) 0 0 0 Other: # Bowel Movements 0 - Physical Exam Head: Positive for: Atraumatic, Normocephalic Pupils: Positive for: PERRL Extroacular Muscles: Positive for: EOMI Conjunctiva: Positive for: Normal Mouth: Positive for: Moist Mucous Membranes Respiratory/Chest: Positive for: Accessory Muscle Use, Decreased Breath Sounds Cardiovascular: Positive for: Normal S1, S2 Abdomen: Positive for: Normal Bowel Sounds. Negative for: Tenderness, Distention Neurological: Positive for: Other (sedated) Skin: Positive for: Warm, Dry - Medications Active Medications: Active Medications Generic Name Dose Route Start Last Admin Trade Name Freq PRN Reason Stop Dose Admin Acetaminophen 650 mg 08/24/16 21:11 08/27/16 03:10 Tylenol 325mg Tab PO 650 mg Q6 PRN Administration Fever >100.4 F Albuterol/Ipratropium 3 ml 08/28/16 20:00 08/31/16 07:34 Duoneb 3 Mg/0.5 Mg (3 Ml) Ud INH 3 ml RQ6 AMINTA Administration Aspirin 81 mg 08/25/16 10:00 08/31/16 10:13 Aspirin Chewable PO 81 mg DAILY AMINTA Administration Folic Acid 1 mg 08/25/16 10:00 08/31/16 10:08 Folic Acid PO 1 mg DAILY AMINTA Administration Heparin Sodium (Porcine) 5,000 units 08/29/16 14:00 08/31/16 06:10 Heparin SC 5,000 units Q8 AMINTA Administration Propofol 1,000 mg in 100 mls @ 2.449 mls/hr 08/27/16 16:43 08/31/16 07:30 Diprivan IV 10 mcg/kg/min .Q24H PRN 4.899 mls/hr TITRATE PER MD ORDER Administration Protocol 5 MCG/KG/MIN Piperacillin Sod/Tazobactam Sod 2.25 gm in 50 mls @ 100 mls/hr 08/29/16 10:00 08/31/16 01:45 Zosyn 2.25 Gm Iv Premix IVPB 100 mls/hr Q8H AMINTA Administration Fentanyl Citrate 2,500 mcg/ 250 mls @ 86 mls/hr 08/30/16 06:45 08/31/16 10:50 Sodium Chloride IV 5 mcg/kg/hr .Q2H55M AMINTA 43 mls/hr Protocol Administration 10 MCG/KG/HR Moxifloxacin HCl 400 mg in 250 mls @ 167 mls/hr 08/30/16 18:00 08/30/16 17:50 Avelox Iv 400mg/250ml Ns IVPB 167 mls/hr Q24H AMINTA Administration Norepinephrine Bitartrate 8 mg 250 mls @ 7.5 mls/hr 08/30/16 20:30 / Sodium Chloride IV .Q24H PRN TITRATE PER MD ORDER Protocol 4 MCG/MIN Lactobacillus Acidophilus 1 cap 08/27/16 18:00 08/31/16 10:08 Bacid Acidophilus PO 1 cap BID AMINTA Administration Lorazepam 2 mg 08/29/16 10:00 08/30/16 04:25 Ativan IVP 2 mg Q6H PRN Administration Anxiety Multivitamins 1 tab 08/25/16 10:00 08/31/16 10:08 Hexavitamin PO 1 tab DAILY AMINTA Administration Pantoprazole Sodium 40 mg 08/29/16 10:00 08/31/16 10:10 Protonix Inj IVP 40 mg DAILY AMINTA Administration Thiamine HCl 100 mg 08/27/16 10:00 08/31/16 10:08 Vitamin B1 Inj IV 100 mg DAILY AMINTA Administration - Patient Studies Lab Studies: Microbiology Studies 08/29/16 19:00 Blood Culture - Preliminary Blood NO GROWTH AFTER 24 HOURS 08/29/16 19:00 Blood Culture - Preliminary Blood NO GROWTH AFTER 24 HOURS Lab Studies 08/31/16 08/31/16 08/31/16 Range/Units 06:08 06:05 05:52 WBC 7.8 (4.8-10.8) K/uL RBC 4.86 (4.40-5.90) Mil/uL Hgb 12.0 (12.0-18.0) g/dL Hct 38.6 (35.0-51.0) % MCV 79.4 L (80.0-94.0) fL MCH 24.8 L (27.0-31.0) pg MCHC 31.2 L (33.0-37.0) g/dL RDW 15.1 H (11.5-14.5) % Plt Count 145 (130-400) K/uL MPV 8.9 (7.2-11.7) fL Neut % (Auto) 81.3 H (50.0-75.0) % Lymph % (Auto) 9.3 L (20.0-40.0) % Steele % (Auto) 8.6 (0.0-10.0) % Eos % (Auto) 0.7 (0.0-4.0) % Baso % (Auto) 0.1 (0.0-2.0) % Neut # 6.3 (1.8-7.0) K/uL Lymph # 0.7 L (1.0-4.3) K/uL Steele # 0.7 (0.0-0.8) K/uL Eos # 0.1 (0.0-0.7) K/uL Baso # 0.0 (0.0-0.2) K/uL Neutrophils % (Manual) 79 H (50-75) % Band Neutrophils % 3 H (0-2) % Lymphocytes % (Manual) 14 L (20-40) % Monocytes % (Manual) 3 (0-10) % Eosinophils % (Manual) 1 (0-4) % Platelet Estimate Normal (NORMAL) RBC Morphology Normal Puncture Site pCO2 (35-45) mm/Hg pO2 (80-100) mm/Hg HCO3 (21-28) mmol/L ABG pH (7.35-7.45) ABG Total CO2 (22-28) mmol/L ABG O2 Saturation (95-98) % ABG Base Excess (-2.0-3.0) mmol/L ABG Hemoglobin (11.7-17.4) g/dL ABG Carboxyhemoglobin (0.5-1.5) % POC ABG HHb (Measured) (0.0-5.0) % ABG Methemoglobin (0.0-3.0) % Lisandro Test A-a O2 Difference mm/Hg Respiratory Index Hgb O2 Saturation (95.0-98.0) % Mechanical Rate FiO2 % Tidal Volume PEEP Crit Value Called To Crit Value Called By Crit Value Read Back Blood Gas Notified Time Sodium 132 (132-148) mmol/L Potassium 4.5 (3.6-5.2) mmol/L Chloride 96 L (98-107) mmol/L Carbon Dioxide 29 (22-30) mmol/L Anion Gap 12 (10-20) BUN 43 H (9-20) mg/dL Creatinine 5.4 H (0.8-1.5) MG/DL Est GFR ( Amer) 13 Est GFR (Non-Af Amer) 11 POC Glucose (mg/dL) 139 H (65-110) mg/dL Random Glucose 112 H (75-110) mg/dL Calcium 6.7 L (8.6-10.4) mg/dl Phosphorus 6.4 H (2.5-4.5) mg/dL Magnesium 2.4 H (1.6-2.3) mg/dL Total Bilirubin < 0.1 L (0.2-1.3) mg/dL AST 211 H (17-59) U/L ALT 66 (21-72) U/L Alkaline Phosphatase 56 (38-126) U/L Total Protein 4.4 L (6.3-8.3) g/dL Albumin 1.8 L (3.5-5.0) g/dL Globulin 2.6 (2.2-3.9) gm/dL Albumin/Globulin Ratio 0.7 L (1.0-2.1) Procalcitonin (0.19-0.49) NG/ML 08/31/16 08/30/16 08/30/16 Range/Units 05:16 23:57 22:15 WBC (4.8-10.8) K/uL RBC (4.40-5.90) Mil/uL Hgb (12.0-18.0) g/dL Hct (35.0-51.0) % MCV (80.0-94.0) fL MCH (27.0-31.0) pg MCHC (33.0-37.0) g/dL RDW (11.5-14.5) % Plt Count (130-400) K/uL MPV (7.2-11.7) fL Neut % (Auto) (50.0-75.0) % Lymph % (Auto) (20.0-40.0) % Steele % (Auto) (0.0-10.0) % Eos % (Auto) (0.0-4.0) % Baso % (Auto) (0.0-2.0) % Neut # (1.8-7.0) K/uL Lymph # (1.0-4.3) K/uL Steele # (0.0-0.8) K/uL Eos # (0.0-0.7) K/uL Baso # (0.0-0.2) K/uL Neutrophils % (Manual) (50-75) % Band Neutrophils % (0-2) % Lymphocytes % (Manual) (20-40) % Monocytes % (Manual) (0-10) % Eosinophils % (Manual) (0-4) % Platelet Estimate (NORMAL) RBC Morphology Puncture Site Rr Rra pCO2 62 H 71 H* (35-45) mm/Hg pO2 42 L* 59 L (80-100) mm/Hg HCO3 23.7 21.8 (21-28) mmol/L ABG pH 7.25 L 7.17 L* (7.35-7.45) ABG Total CO2 29.1 H 28.1 H (22-28) mmol/L ABG O2 Saturation 81.1 L 94.0 L (95-98) % ABG Base Excess -1.0 -3.8 L (-2.0-3.0) mmol/L ABG Hemoglobin 11.6 L 12.0 (11.7-17.4) g/dL ABG Carboxyhemoglobin 1.8 H 1.7 H (0.5-1.5) % POC ABG HHb (Measured) 18.4 H 5.8 H (0.0-5.0) % ABG Methemoglobin 1.1 1.3 (0.0-3.0) % Lisandro Test Pos Pos A-a O2 Difference 451.0 423.0 mm/Hg Respiratory Index 10.7 7.2 Hgb O2 Saturation 78.7 L 91.1 L (95.0-98.0) % Mechanical Rate 24 FiO2 80.0 80.0 % Tidal Volume 550 550 PEEP 10 10 Crit Value Called To Maddie fitzgerald Crit Value Called By Calixto bahena Crit Value Read Back Y Y Blood Gas Notified Time 527 2220 Sodium (132-148) mmol/L Potassium (3.6-5.2) mmol/L Chloride (98-107) mmol/L Carbon Dioxide (22-30) mmol/L Anion Gap (10-20) BUN (9-20) mg/dL Creatinine (0.8-1.5) MG/DL Est GFR ( Amer) Est GFR (Non-Af Amer) POC Glucose (mg/dL) 116 H (65-110) mg/dL Random Glucose (75-110) mg/dL Calcium (8.6-10.4) mg/dl Phosphorus (2.5-4.5) mg/dL Magnesium (1.6-2.3) mg/dL Total Bilirubin (0.2-1.3) mg/dL AST (17-59) U/L ALT (21-72) U/L Alkaline Phosphatase (38-126) U/L Total Protein (6.3-8.3) g/dL Albumin (3.5-5.0) g/dL Globulin (2.2-3.9) gm/dL Albumin/Globulin Ratio (1.0-2.1) Procalcitonin (0.19-0.49) NG/ML 08/30/16 08/30/16 08/30/16 Range/Units 22:07 19:40 17:53 WBC (4.8-10.8) K/uL RBC (4.40-5.90) Mil/uL Hgb (12.0-18.0) g/dL Hct (35.0-51.0) % MCV (80.0-94.0) fL MCH (27.0-31.0) pg MCHC (33.0-37.0) g/dL RDW (11.5-14.5) % Plt Count (130-400) K/uL MPV (7.2-11.7) fL Neut % (Auto) (50.0-75.0) % Lymph % (Auto) (20.0-40.0) % Steele % (Auto) (0.0-10.0) % Eos % (Auto) (0.0-4.0) % Baso % (Auto) (0.0-2.0) % Neut # (1.8-7.0) K/uL Lymph # (1.0-4.3) K/uL Steele # (0.0-0.8) K/uL Eos # (0.0-0.7) K/uL Baso # (0.0-0.2) K/uL Neutrophils % (Manual) (50-75) % Band Neutrophils % (0-2) % Lymphocytes % (Manual) (20-40) % Monocytes % (Manual) (0-10) % Eosinophils % (Manual) (0-4) % Platelet Estimate (NORMAL) RBC Morphology Puncture Site Rra pCO2 73 H* (35-45) mm/Hg pO2 62 L (80-100) mm/Hg HCO3 19.0 L (21-28) mmol/L ABG pH 7.11 L* (7.35-7.45) ABG Total CO2 25.4 (22-28) mmol/L ABG O2 Saturation 93.7 L (95-98) % ABG Base Excess -7.4 L (-2.0-3.0) mmol/L ABG Hemoglobin 12.4 (11.7-17.4) g/dL ABG Carboxyhemoglobin 1.7 H (0.5-1.5) % POC ABG HHb (Measured) 6.1 H (0.0-5.0) % ABG Methemoglobin 1.3 (0.0-3.0) % Lisandro Test Pos A-a O2 Difference 417.0 mm/Hg Respiratory Index 6.7 Hgb O2 Saturation 90.9 L (95.0-98.0) % Mechanical Rate FiO2 80.0 % Tidal Volume 450 PEEP 10 Crit Value Called To Dr howell Crit Value Called By Catherine ross Crit Value Read Back Y Blood Gas Notified Time 1954 Sodium 132 (132-148) mmol/L Potassium 4.5 (3.6-5.2) mmol/L Chloride 98 (98-107) mmol/L Carbon Dioxide 29 (22-30) mmol/L Anion Gap 10 (10-20) BUN 37 H (9-20) mg/dL Creatinine 4.6 H (0.8-1.5) MG/DL Est GFR ( Amer) 16 Est GFR (Non-Af Amer) 13 POC Glucose (mg/dL) 106 (65-110) mg/dL Random Glucose 97 (75-110) mg/dL Calcium 6.6 L (8.6-10.4) mg/dl Phosphorus (2.5-4.5) mg/dL Magnesium 2.5 H (1.6-2.3) mg/dL Total Bilirubin (0.2-1.3) mg/dL AST (17-59) U/L ALT (21-72) U/L Alkaline Phosphatase (38-126) U/L Total Protein (6.3-8.3) g/dL Albumin (3.5-5.0) g/dL Globulin (2.2-3.9) gm/dL Albumin/Globulin Ratio (1.0-2.1) Procalcitonin (0.19-0.49) NG/ML 08/30/16 08/30/16 08/30/16 Range/Units 15:26 11:43 06:04 WBC (4.8-10.8) K/uL RBC (4.40-5.90) Mil/uL Hgb (12.0-18.0) g/dL Hct (35.0-51.0) % MCV (80.0-94.0) fL MCH (27.0-31.0) pg MCHC (33.0-37.0) g/dL RDW (11.5-14.5) % Plt Count (130-400) K/uL MPV (7.2-11.7) fL Neut % (Auto) (50.0-75.0) % Lymph % (Auto) (20.0-40.0) % Steele % (Auto) (0.0-10.0) % Eos % (Auto) (0.0-4.0) % Baso % (Auto) (0.0-2.0) % Neut # (1.8-7.0) K/uL Lymph # (1.0-4.3) K/uL Steele # (0.0-0.8) K/uL Eos # (0.0-0.7) K/uL Baso # (0.0-0.2) K/uL Neutrophils % (Manual) (50-75) % Band Neutrophils % (0-2) % Lymphocytes % (Manual) (20-40) % Monocytes % (Manual) (0-10) % Eosinophils % (Manual) (0-4) % Platelet Estimate (NORMAL) RBC Morphology Puncture Site pCO2 (35-45) mm/Hg pO2 (80-100) mm/Hg HCO3 (21-28) mmol/L ABG pH (7.35-7.45) ABG Total CO2 (22-28) mmol/L ABG O2 Saturation (95-98) % ABG Base Excess (-2.0-3.0) mmol/L ABG Hemoglobin (11.7-17.4) g/dL ABG Carboxyhemoglobin (0.5-1.5) % POC ABG HHb (Measured) (0.0-5.0) % ABG Methemoglobin (0.0-3.0) % Lisandro Test A-a O2 Difference mm/Hg Respiratory Index Hgb O2 Saturation (95.0-98.0) % Mechanical Rate FiO2 % Tidal Volume PEEP Crit Value Called To Crit Value Called By Crit Value Read Back Blood Gas Notified Time Sodium 128 L (132-148) mmol/L Potassium 5.3 H (3.6-5.2) mmol/L Chloride 102 (98-107) mmol/L Carbon Dioxide 21 L (22-30) mmol/L Anion Gap 10 (10-20) BUN 49 H (9-20) mg/dL Creatinine 5.5 H (0.8-1.5) MG/DL Est GFR ( Amer) 13 Est GFR (Non-Af Amer) 11 POC Glucose (mg/dL) 132 H (65-110) mg/dL Random Glucose 103 (75-110) mg/dL Calcium 7.0 L (8.6-10.4) mg/dl Phosphorus (2.5-4.5) mg/dL Magnesium (1.6-2.3) mg/dL Total Bilirubin (0.2-1.3) mg/dL AST (17-59) U/L ALT (21-72) U/L Alkaline Phosphatase (38-126) U/L Total Protein (6.3-8.3) g/dL Albumin (3.5-5.0) g/dL Globulin (2.2-3.9) gm/dL Albumin/Globulin Ratio (1.0-2.1) Procalcitonin 18.76 H (0.19-0.49) NG/ML Laboratory Results - last 24 hr 08/30/16 08/30/16 08/30/16 06:04 11:43 15:26 WBC RBC Hgb Hct MCV MCH MCHC RDW Plt Count MPV Neut % (Auto) Lymph % (Auto) Steele % (Auto) Eos % (Auto) Baso % (Auto) Neut # Lymph # Steele # Eos # Baso # Neutrophils % (Manual) Band Neutrophils % Lymphocytes % (Manual) Monocytes % (Manual) Eosinophils % (Manual) Platelet Estimate RBC Morphology Puncture Site pCO2 pO2 HCO3 ABG pH ABG Total CO2 ABG O2 Saturation ABG Base Excess ABG Hemoglobin ABG Carboxyhemoglobin POC ABG HHb (Measured) ABG Methemoglobin Lisandro Test A-a O2 Difference Respiratory Index Hgb O2 Saturation Mechanical Rate FiO2 Tidal Volume PEEP Crit Value Called To Crit Value Called By Crit Value Read Back Blood Gas Notified Time Sodium 128 L Potassium 5.3 H Chloride 102 Carbon Dioxide 21 L Anion Gap 10 BUN 49 H Creatinine 5.5 H Est GFR ( Amer) 13 Est GFR (Non-Af Amer) 11 POC Glucose (mg/dL) 132 H Random Glucose 103 Calcium 7.0 L Phosphorus Magnesium Total Bilirubin AST ALT Alkaline Phosphatase Total Protein Albumin Globulin Albumin/Globulin Ratio Procalcitonin 18.76 H 08/30/16 08/30/16 08/30/16 17:53 19:40 22:07 WBC RBC Hgb Hct MCV MCH MCHC RDW Plt Count MPV Neut % (Auto) Lymph % (Auto) Steele % (Auto) Eos % (Auto) Baso % (Auto) Neut # Lymph # Steele # Eos # Baso # Neutrophils % (Manual) Band Neutrophils % Lymphocytes % (Manual) Monocytes % (Manual) Eosinophils % (Manual) Platelet Estimate RBC Morphology Puncture Site Rra pCO2 73 H* pO2 62 L HCO3 19.0 L ABG pH 7.11 L* ABG Total CO2 25.4 ABG O2 Saturation 93.7 L ABG Base Excess -7.4 L ABG Hemoglobin 12.4 ABG Carboxyhemoglobin 1.7 H POC ABG HHb (Measured) 6.1 H ABG Methemoglobin 1.3 Lisandro Test Pos A-a O2 Difference 417.0 Respiratory Index 6.7 Hgb O2 Saturation 90.9 L Mechanical Rate FiO2 80.0 Tidal Volume 450 PEEP 10 Crit Value Called To Dr howell Crit Value Called By Catherine ross Crit Value Read Back Y Blood Gas Notified Time 1954 Sodium 132 Potassium 4.5 Chloride 98 Carbon Dioxide 29 Anion Gap 10 BUN 37 H Creatinine 4.6 H Est GFR ( Amer) 16 Est GFR (Non-Af Amer) 13 POC Glucose (mg/dL) 106 Random Glucose 97 Calcium 6.6 L Phosphorus Magnesium 2.5 H Total Bilirubin AST ALT Alkaline Phosphatase Total Protein Albumin Globulin Albumin/Globulin Ratio Procalcitonin 08/30/16 08/30/16 08/31/16 22:15 23:57 05:16 WBC RBC Hgb Hct MCV MCH MCHC RDW Plt Count MPV Neut % (Auto) Lymph % (Auto) Steele % (Auto) Eos % (Auto) Baso % (Auto) Neut # Lymph # Steele # Eos # Baso # Neutrophils % (Manual) Band Neutrophils % Lymphocytes % (Manual) Monocytes % (Manual) Eosinophils % (Manual) Platelet Estimate RBC Morphology Puncture Site Rra Rr pCO2 71 H* 62 H pO2 59 L 42 L* HCO3 21.8 23.7 ABG pH 7.17 L* 7.25 L ABG Total CO2 28.1 H 29.1 H ABG O2 Saturation 94.0 L 81.1 L ABG Base Excess -3.8 L -1.0 ABG Hemoglobin 12.0 11.6 L ABG Carboxyhemoglobin 1.7 H 1.8 H POC ABG HHb (Measured) 5.8 H 18.4 H ABG Methemoglobin 1.3 1.1 Lisandro Test Pos Pos A-a O2 Difference 423.0 451.0 Respiratory Index 7.2 10.7 Hgb O2 Saturation 91.1 L 78.7 L Mechanical Rate 24 FiO2 80.0 80.0 Tidal Volume 550 550 PEEP 10 10 Crit Value Called To Dr amilcar herring rn Crit Value Called By Catherine De Luna aircraft engine mechanic Crit Value Read Back Y Y Blood Gas Notified Time 2219 527 Sodium Potassium Chloride Carbon Dioxide Anion Gap BUN Creatinine Est GFR ( Amer) Est GFR (Non-Af Amer) POC Glucose (mg/dL) 116 H Random Glucose Calcium Phosphorus Magnesium Total Bilirubin AST ALT Alkaline Phosphatase Total Protein Albumin Globulin Albumin/Globulin Ratio Procalcitonin 08/31/16 08/31/16 08/31/16 05:52 06:05 06:08 WBC 7.8 RBC 4.86 Hgb 12.0 Hct 38.6 MCV 79.4 L MCH 24.8 L MCHC 31.2 L RDW 15.1 H Plt Count 145 MPV 8.9 Neut % (Auto) 81.3 H Lymph % (Auto) 9.3 L Steele % (Auto) 8.6 Eos % (Auto) 0.7 Baso % (Auto) 0.1 Neut # 6.3 Lymph # 0.7 L Steele # 0.7 Eos # 0.1 Baso # 0.0 Neutrophils % (Manual) 79 H Band Neutrophils % 3 H Lymphocytes % (Manual) 14 L Monocytes % (Manual) 3 Eosinophils % (Manual) 1 Platelet Estimate Normal RBC Morphology Normal Puncture Site pCO2 pO2 HCO3 ABG pH ABG Total CO2 ABG O2 Saturation ABG Base Excess ABG Hemoglobin ABG Carboxyhemoglobin POC ABG HHb (Measured) ABG Methemoglobin Lisandro Test A-a O2 Difference Respiratory Index Hgb O2 Saturation Mechanical Rate FiO2 Tidal Volume PEEP Crit Value Called To Crit Value Called By Crit Value Read Back Blood Gas Notified Time Sodium 132 Potassium 4.5 Chloride 96 L Carbon Dioxide 29 Anion Gap 12 BUN 43 H Creatinine 5.4 H Est GFR ( Amer) 13 Est GFR (Non-Af Amer) 11 POC Glucose (mg/dL) 139 H Random Glucose 112 H Calcium 6.7 L Phosphorus 6.4 H Magnesium 2.4 H Total Bilirubin < 0.1 L AST 211 H ALT 66 Alkaline Phosphatase 56 Total Protein 4.4 L Albumin 1.8 L Globulin 2.6 Albumin/Globulin Ratio 0.7 L Procalcitonin Fingerstick Blood Sugar Results: 139 Review of Systems - Review of Systems Systems not reviewed;Unavailable: Intubated Critical Care Progress Note - Nutrition Nutrition: Nutrition Category Date Time Status NPO Diet [DIET] Diets 08/27/16 Lunch Active Assessment/Plan - Assessment and Plan (Free Text) Assessment: 56 yo M with hypoxemic respiratory failure on ventilatory support, with worsening consolidative changes in the right lung, complicated by worsening LUIS. Plan: Neuro: Sedated on vent with propofol drip. EEG done today, will follow up results Pulm: Acute hypoxic, hypercapneic respiratory failure secondary to pneumonia, on ventilatory support. Initial sputum Cx's negative Repeat CXR (08/31) shows worsening airspace consolidative changes in the right mid to lower lung zone with likely associated effusion. More patchy consolidative changes at the left lung base. Continue DuoNeb's, mucolytic's and ABX - Changed abx to Moxifloxacin and Zosyn per ID Will do bronchoscopy today and also obtain repeat cultures CV: Persistently hypotensive, started on bicarb drip through the night. On pressors, will continue to monitor and titrate as necessary. Hem: Hypoalbuminemia, will replete during dialysis Renal: Worsening renal function, likely ATN due to Vanco vs sepsis Hypochloremic hyponatremia, slowly improving Acidemic - given bicarb drip overnight. pH partially corrected to 7.25 this morning Nephro following, will have dialysis today again Endo: A1C 5.7. No acute issues GI: Nothing by mouth, tube feeds Isosource 1.5 @30 ID: Severe sepsis from RLL aspiration pneumonia, ABX changed to Moxifloxacin and Zosyn per ID. Procalcitonin trending down, but minimally. DVT proph - heparin subcutaneous GI proph - Protonix hidalgo for strict I/O's during acute illness Code status - full code <Nii Vargas S - Last Filed: 08/31/16 16:20> CCU Subjective - Physician Review Critical Care Time Spent (in minutes): 50 CCU Objective - Vital Signs / Intake & Output Vital Signs (Last 4 hours): Vital Signs Pulse Resp BP BP Pulse Ox 08/31/16 15:32 111 H 24 103/52 L 83 L 08/31/16 15:00 108 H 24 82 L 08/31/16 14:32 94/50 L 08/31/16 14:31 108 H 20 81 L 08/31/16 14:00 108 H 23 82 L 08/31/16 13:32 110 H 24 95/44 L 81 L 08/31/16 13:26 109 H 24 92/47 L 81 L 08/31/16 13:11 120 H 18 93/49 L 72 L 08/31/16 13:00 115 H 19 70 L 08/31/16 12:56 114 H 19 78/37 L 70 L 08/31/16 12:42 111 H 19 85/42 L 71 L 08/31/16 12:30 90/46 L 08/31/16 12:26 111 H 16 90/46 L 74 L Intake and Output (Last 8hrs): Intake & Output 08/31/16 08/31/16 08/31/16 06:59 14:59 22:59 Intake Total 1520.8 1141.8 155.2 Output Total 0 0 0 Balance 1520.8 1141.8 155.2 Weight 195 lb 1.745 oz Intake: IV 250 103 Intake, IV Amount 1030.8 698.8 95.2 Left Antecubital 600 275 Right Distal Port 36.8 36.8 9.2 Internal Jugular Right Forearm 344 387 86 Right Forearm #2 50 Tube Feeding 240 240 60 Other 100 Output: Urine 0 0 0 Urethral (Hidalgo) 0 0 0 Other: # Bowel Movements 0 0 - Medications Active Medications: Active Medications Generic Name Dose Route Start Last Admin Trade Name Freq PRN Reason Stop Dose Admin Acetaminophen 650 mg 08/24/16 21:11 08/27/16 03:10 Tylenol 325mg Tab PO 650 mg Q6 PRN Administration Fever >100.4 F Albuterol/Ipratropium 3 ml 08/28/16 20:00 05/10/17 13:34 Duoneb 3 Mg/0.5 Mg (3 Ml) Ud INH 3 ml RQ6 AMINTA Administration Aspirin 81 mg 08/25/16 10:00 08/31/16 10:13 Aspirin Chewable PO 81 mg DAILY AMINTA Administration Folic Acid 1 mg 08/25/16 10:00 08/31/16 10:08 Folic Acid PO 1 mg DAILY AMINTA Administration Heparin Sodium (Porcine) 5,000 units 08/29/16 14:00 08/31/16 13:21 Heparin SC 5,000 units Q8 AMINTA Administration Propofol 1,000 mg in 100 mls @ 2.449 mls/hr 08/27/16 16:43 08/31/16 07:30 Diprivan IV 10 mcg/kg/min .Q24H PRN 4.899 mls/hr TITRATE PER MD ORDER Administration Protocol 5 MCG/KG/MIN Piperacillin Sod/Tazobactam Sod 2.25 gm in 50 mls @ 100 mls/hr 08/29/16 10:00 08/31/16 13:19 Zosyn 2.25 Gm Iv Premix IVPB 100 mls/hr Q8H AMINTA Administration Fentanyl Citrate 2,500 mcg/ 250 mls @ 86 mls/hr 08/30/16 06:45 08/31/16 10:50 Sodium Chloride IV 5 mcg/kg/hr .Q2H55M AMINTA 43 mls/hr Protocol Administration 10 MCG/KG/HR Moxifloxacin HCl 400 mg in 250 mls @ 167 mls/hr 08/30/16 18:00 08/30/16 17:50 Avelox Iv 400mg/250ml Ns IVPB 167 mls/hr Q24H AMINTA Administration Norepinephrine Bitartrate 8 mg 250 mls @ 7.5 mls/hr 08/30/16 20:30 / Sodium Chloride IV .Q24H PRN TITRATE PER MD ORDER Protocol 4 MCG/MIN Lactobacillus Acidophilus 1 cap 08/27/16 18:00 08/31/16 10:08 Bacid Acidophilus PO 1 cap BID AMINTA Administration Lorazepam 2 mg 08/29/16 10:00 08/30/16 04:25 Ativan IVP 2 mg Q6H PRN Administration Anxiety Multivitamins 1 tab 08/25/16 10:00 08/31/16 10:08 Hexavitamin PO 1 tab DAILY AMINTA Administration Pantoprazole Sodium 40 mg 08/29/16 10:00 08/31/16 10:10 Protonix Inj IVP 40 mg DAILY AMINTA Administration Thiamine HCl 100 mg 08/27/16 10:00 08/31/16 10:08 Vitamin B1 Inj IV 100 mg DAILY AMINTA Administration - Patient Studies Lab Studies: Microbiology Studies 08/29/16 19:00 Blood Culture - Preliminary Blood NO GROWTH AFTER 24 HOURS 08/29/16 19:00 Blood Culture - Preliminary Blood NO GROWTH AFTER 24 HOURS Lab Studies 08/31/16 08/31/16 08/31/16 Range/Units 12:06 06:08 06:05 WBC 7.8 (4.8-10.8) K/uL RBC 4.86 (4.40-5.90) Mil/uL Hgb 12.0 (12.0-18.0) g/dL Hct 38.6 (35.0-51.0) % MCV 79.4 L (80.0-94.0) fL MCH 24.8 L (27.0-31.0) pg MCHC 31.2 L (33.0-37.0) g/dL RDW 15.1 H (11.5-14.5) % Plt Count 145 (130-400) K/uL MPV 8.9 (7.2-11.7) fL Neut % (Auto) 81.3 H (50.0-75.0) % Lymph % (Auto) 9.3 L (20.0-40.0) % Steele % (Auto) 8.6 (0.0-10.0) % Eos % (Auto) 0.7 (0.0-4.0) % Baso % (Auto) 0.1 (0.0-2.0) % Neut # 6.3 (1.8-7.0) K/uL Lymph # 0.7 L (1.0-4.3) K/uL Steele # 0.7 (0.0-0.8) K/uL Eos # 0.1 (0.0-0.7) K/uL Baso # 0.0 (0.0-0.2) K/uL Neutrophils % (Manual) 79 H (50-75) % Band Neutrophils % 3 H (0-2) % Lymphocytes % (Manual) 14 L (20-40) % Monocytes % (Manual) 3 (0-10) % Eosinophils % (Manual) 1 (0-4) % Platelet Estimate Normal (NORMAL) RBC Morphology Normal Puncture Site pCO2 (35-45) mm/Hg pO2 (80-100) mm/Hg HCO3 (21-28) mmol/L ABG pH (7.35-7.45) ABG Total CO2 (22-28) mmol/L ABG O2 Saturation (95-98) % ABG Base Excess (-2.0-3.0) mmol/L ABG Hemoglobin (11.7-17.4) g/dL ABG Carboxyhemoglobin (0.5-1.5) % POC ABG HHb (Measured) (0.0-5.0) % ABG Methemoglobin (0.0-3.0) % Lisandro Test A-a O2 Difference mm/Hg Respiratory Index Hgb O2 Saturation (95.0-98.0) % Mechanical Rate FiO2 % Tidal Volume PEEP Crit Value Called To Crit Value Called By Crit Value Read Back Blood Gas Notified Time Sodium 132 (132-148) mmol/L Potassium 4.5 (3.6-5.2) mmol/L Chloride 96 L (98-107) mmol/L Carbon Dioxide 29 (22-30) mmol/L Anion Gap 12 (10-20) BUN 43 H (9-20) mg/dL Creatinine 5.4 H (0.8-1.5) MG/DL Est GFR ( Amer) 13 Est GFR (Non-Af Amer) 11 POC Glucose (mg/dL) 104 (65-110) mg/dL Random Glucose 112 H (75-110) mg/dL Calcium 6.7 L (8.6-10.4) mg/dl Phosphorus 6.4 H (2.5-4.5) mg/dL Magnesium 2.4 H (1.6-2.3) mg/dL Total Bilirubin < 0.1 L (0.2-1.3) mg/dL AST 211 H (17-59) U/L ALT 66 (21-72) U/L Alkaline Phosphatase 56 (38-126) U/L Total Protein 4.4 L (6.3-8.3) g/dL Albumin 1.8 L (3.5-5.0) g/dL Globulin 2.6 (2.2-3.9) gm/dL Albumin/Globulin Ratio 0.7 L (1.0-2.1) 08/31/16 08/31/16 08/30/16 Range/Units 05:52 05:16 23:57 WBC (4.8-10.8) K/uL RBC (4.40-5.90) Mil/uL Hgb (12.0-18.0) g/dL Hct (35.0-51.0) % MCV (80.0-94.0) fL MCH (27.0-31.0) pg MCHC (33.0-37.0) g/dL RDW (11.5-14.5) % Plt Count (130-400) K/uL MPV (7.2-11.7) fL Neut % (Auto) (50.0-75.0) % Lymph % (Auto) (20.0-40.0) % Steele % (Auto) (0.0-10.0) % Eos % (Auto) (0.0-4.0) % Baso % (Auto) (0.0-2.0) % Neut # (1.8-7.0) K/uL Lymph # (1.0-4.3) K/uL Steele # (0.0-0.8) K/uL Eos # (0.0-0.7) K/uL Baso # (0.0-0.2) K/uL Neutrophils % (Manual) (50-75) % Band Neutrophils % (0-2) % Lymphocytes % (Manual) (20-40) % Monocytes % (Manual) (0-10) % Eosinophils % (Manual) (0-4) % Platelet Estimate (NORMAL) RBC Morphology Puncture Site Rr pCO2 62 H (35-45) mm/Hg pO2 42 L* (80-100) mm/Hg HCO3 23.7 (21-28) mmol/L ABG pH 7.25 L (7.35-7.45) ABG Total CO2 29.1 H (22-28) mmol/L ABG O2 Saturation 81.1 L (95-98) % ABG Base Excess -1.0 (-2.0-3.0) mmol/L ABG Hemoglobin 11.6 L (11.7-17.4) g/dL ABG Carboxyhemoglobin 1.8 H (0.5-1.5) % POC ABG HHb (Measured) 18.4 H (0.0-5.0) % ABG Methemoglobin 1.1 (0.0-3.0) % Lisandro Test Pos A-a O2 Difference 451.0 mm/Hg Respiratory Index 10.7 Hgb O2 Saturation 78.7 L (95.0-98.0) % Mechanical Rate 24 FiO2 80.0 % Tidal Volume 550 PEEP 10 Crit Value Called To Maddie herring rn Crit Value Called By [employer] aircraft engine mechanic Crit Value Read Back Y Blood Gas Notified Time 527 Sodium (132-148) mmol/L Potassium (3.6-5.2) mmol/L Chloride (98-107) mmol/L Carbon Dioxide (22-30) mmol/L Anion Gap (10-20) BUN (9-20) mg/dL Creatinine (0.8-1.5) MG/DL Est GFR ( Amer) Est GFR (Non-Af Amer) POC Glucose (mg/dL) 139 H 116 H (65-110) mg/dL Random Glucose (75-110) mg/dL Calcium (8.6-10.4) mg/dl Phosphorus (2.5-4.5) mg/dL Magnesium (1.6-2.3) mg/dL Total Bilirubin (0.2-1.3) mg/dL AST (17-59) U/L ALT (21-72) U/L Alkaline Phosphatase (38-126) U/L Total Protein (6.3-8.3) g/dL Albumin (3.5-5.0) g/dL Globulin (2.2-3.9) gm/dL Albumin/Globulin Ratio (1.0-2.1) 08/30/16 08/30/16 08/30/16 Range/Units 22:15 22:07 19:40 WBC (4.8-10.8) K/uL RBC (4.40-5.90) Mil/uL Hgb (12.0-18.0) g/dL Hct (35.0-51.0) % MCV (80.0-94.0) fL MCH (27.0-31.0) pg MCHC (33.0-37.0) g/dL RDW (11.5-14.5) % Plt Count (130-400) K/uL MPV (7.2-11.7) fL Neut % (Auto) (50.0-75.0) % Lymph % (Auto) (20.0-40.0) % Steele % (Auto) (0.0-10.0) % Eos % (Auto) (0.0-4.0) % Baso % (Auto) (0.0-2.0) % Neut # (1.8-7.0) K/uL Lymph # (1.0-4.3) K/uL Steele # (0.0-0.8) K/uL Eos # (0.0-0.7) K/uL Baso # (0.0-0.2) K/uL Neutrophils % (Manual) (50-75) % Band Neutrophils % (0-2) % Lymphocytes % (Manual) (20-40) % Monocytes % (Manual) (0-10) % Eosinophils % (Manual) (0-4) % Platelet Estimate (NORMAL) RBC Morphology Puncture Site Rra Rra pCO2 71 H* 73 H* (35-45) mm/Hg pO2 59 L 62 L (80-100) mm/Hg HCO3 21.8 19.0 L (21-28) mmol/L ABG pH 7.17 L* 7.11 L* (7.35-7.45) ABG Total CO2 28.1 H 25.4 (22-28) mmol/L ABG O2 Saturation 94.0 L 93.7 L (95-98) % ABG Base Excess -3.8 L -7.4 L (-2.0-3.0) mmol/L ABG Hemoglobin 12.0 12.4 (11.7-17.4) g/dL ABG Carboxyhemoglobin 1.7 H 1.7 H (0.5-1.5) % POC ABG HHb (Measured) 5.8 H 6.1 H (0.0-5.0) % ABG Methemoglobin 1.3 1.3 (0.0-3.0) % Lisandro Test Pos Pos A-a O2 Difference 423.0 417.0 mm/Hg Respiratory Index 7.2 6.7 Hgb O2 Saturation 91.1 L 90.9 L (95.0-98.0) % Mechanical Rate FiO2 80.0 80.0 % Tidal Volume 550 450 PEEP 10 10 Crit Value Called To Dr amilcar howell Crit Value Called By Catherine ross Crit Value Read Back Y Y Blood Gas Notified Time 2219 1954 Sodium 132 (132-148) mmol/L Potassium 4.5 (3.6-5.2) mmol/L Chloride 98 (98-107) mmol/L Carbon Dioxide 29 (22-30) mmol/L Anion Gap 10 (10-20) BUN 37 H (9-20) mg/dL Creatinine 4.6 H (0.8-1.5) MG/DL Est GFR ( Amer) 16 Est GFR (Non-Af Amer) 13 POC Glucose (mg/dL) (65-110) mg/dL Random Glucose 97 (75-110) mg/dL Calcium 6.6 L (8.6-10.4) mg/dl Phosphorus (2.5-4.5) mg/dL Magnesium 2.5 H (1.6-2.3) mg/dL Total Bilirubin (0.2-1.3) mg/dL AST (17-59) U/L ALT (21-72) U/L Alkaline Phosphatase (38-126) U/L Total Protein (6.3-8.3) g/dL Albumin (3.5-5.0) g/dL Globulin (2.2-3.9) gm/dL Albumin/Globulin Ratio (1.0-2.1) 08/30/16 Range/Units 17:53 WBC (4.8-10.8) K/uL RBC (4.40-5.90) Mil/uL Hgb (12.0-18.0) g/dL Hct (35.0-51.0) % MCV (80.0-94.0) fL MCH (27.0-31.0) pg MCHC (33.0-37.0) g/dL RDW (11.5-14.5) % Plt Count (130-400) K/uL MPV (7.2-11.7) fL Neut % (Auto) (50.0-75.0) % Lymph % (Auto) (20.0-40.0) % Steele % (Auto) (0.0-10.0) % Eos % (Auto) (0.0-4.0) % Baso % (Auto) (0.0-2.0) % Neut # (1.8-7.0) K/uL Lymph # (1.0-4.3) K/uL Steele # (0.0-0.8) K/uL Eos # (0.0-0.7) K/uL Baso # (0.0-0.2) K/uL Neutrophils % (Manual) (50-75) % Band Neutrophils % (0-2) % Lymphocytes % (Manual) (20-40) % Monocytes % (Manual) (0-10) % Eosinophils % (Manual) (0-4) % Platelet Estimate (NORMAL) RBC Morphology Puncture Site pCO2 (35-45) mm/Hg pO2 (80-100) mm/Hg HCO3 (21-28) mmol/L ABG pH (7.35-7.45) ABG Total CO2 (22-28) mmol/L ABG O2 Saturation (95-98) % ABG Base Excess (-2.0-3.0) mmol/L ABG Hemoglobin (11.7-17.4) g/dL ABG Carboxyhemoglobin (0.5-1.5) % POC ABG HHb (Measured) (0.0-5.0) % ABG Methemoglobin (0.0-3.0) % Lisandro Test A-a O2 Difference mm/Hg Respiratory Index Hgb O2 Saturation (95.0-98.0) % Mechanical Rate FiO2 % Tidal Volume PEEP Crit Value Called To Crit Value Called By Crit Value Read Back Blood Gas Notified Time Sodium (132-148) mmol/L Potassium (3.6-5.2) mmol/L Chloride (98-107) mmol/L Carbon Dioxide (22-30) mmol/L Anion Gap (10-20) BUN (9-20) mg/dL Creatinine (0.8-1.5) MG/DL Est GFR ( Amer) Est GFR (Non-Af Amer) POC Glucose (mg/dL) 106 (65-110) mg/dL Random Glucose (75-110) mg/dL Calcium (8.6-10.4) mg/dl Phosphorus (2.5-4.5) mg/dL Magnesium (1.6-2.3) mg/dL Total Bilirubin (0.2-1.3) mg/dL AST (17-59) U/L ALT (21-72) U/L Alkaline Phosphatase (38-126) U/L Total Protein (6.3-8.3) g/dL Albumin (3.5-5.0) g/dL Globulin (2.2-3.9) gm/dL Albumin/Globulin Ratio (1.0-2.1) Laboratory Results - last 24 hr 08/30/16 08/30/16 08/30/16 17:53 19:40 22:07 WBC RBC Hgb Hct MCV MCH MCHC RDW Plt Count MPV Neut % (Auto) Lymph % (Auto) Steele % (Auto) Eos % (Auto) Baso % (Auto) Neut # Lymph # Steele # Eos # Baso # Neutrophils % (Manual) Band Neutrophils % Lymphocytes % (Manual) Monocytes % (Manual) Eosinophils % (Manual) Platelet Estimate RBC Morphology Puncture Site Rra pCO2 73 H* pO2 62 L HCO3 19.0 L ABG pH 7.11 L* ABG Total CO2 25.4 ABG O2 Saturation 93.7 L ABG Base Excess -7.4 L ABG Hemoglobin 12.4 ABG Carboxyhemoglobin 1.7 H POC ABG HHb (Measured) 6.1 H ABG Methemoglobin 1.3 Lisandro Test Pos A-a O2 Difference 417.0 Respiratory Index 6.7 Hgb O2 Saturation 90.9 L Mechanical Rate FiO2 80.0 Tidal Volume 450 PEEP 10 Crit Value Called To Dr howell Crit Value Called By Catherine ross Crit Value Read Back Y Blood Gas Notified Time 1954 Sodium 132 Potassium 4.5 Chloride 98 Carbon Dioxide 29 Anion Gap 10 BUN 37 H Creatinine 4.6 H Est GFR ( Amer) 16 Est GFR (Non-Af Amer) 13 POC Glucose (mg/dL) 106 Random Glucose 97 Calcium 6.6 L Phosphorus Magnesium 2.5 H Total Bilirubin AST ALT Alkaline Phosphatase Total Protein Albumin Globulin Albumin/Globulin Ratio 08/30/16 08/30/16 08/31/16 22:15 23:57 05:16 WBC RBC Hgb Hct MCV MCH MCHC RDW Plt Count MPV Neut % (Auto) Lymph % (Auto) Steele % (Auto) Eos % (Auto) Baso % (Auto) Neut # Lymph # Steele # Eos # Baso # Neutrophils % (Manual) Band Neutrophils % Lymphocytes % (Manual) Monocytes % (Manual) Eosinophils % (Manual) Platelet Estimate RBC Morphology Puncture Site Rra Rr pCO2 71 H* 62 H pO2 59 L 42 L* HCO3 21.8 23.7 ABG pH 7.17 L* 7.25 L ABG Total CO2 28.1 H 29.1 H ABG O2 Saturation 94.0 L 81.1 L ABG Base Excess -3.8 L -1.0 ABG Hemoglobin 12.0 11.6 L ABG Carboxyhemoglobin 1.7 H 1.8 H POC ABG HHb (Measured) 5.8 H 18.4 H ABG Methemoglobin 1.3 1.1 Lisandro Test Pos Pos A-a O2 Difference 423.0 451.0 Respiratory Index 7.2 10.7 Hgb O2 Saturation 91.1 L 78.7 L Mechanical Rate 24 FiO2 80.0 80.0 Tidal Volume 550 550 PEEP 10 10 Crit Value Called To Dr amilcar herring rn Crit Value Called By Catherine De Luna aircraft engine mechanic Crit Value Read Back Y Y Blood Gas Notified Time 2220 527 Sodium Potassium Chloride Carbon Dioxide Anion Gap BUN Creatinine Est GFR ( Amer) Est GFR (Non-Af Amer) POC Glucose (mg/dL) 116 H Random Glucose Calcium Phosphorus Magnesium Total Bilirubin AST ALT Alkaline Phosphatase Total Protein Albumin Globulin Albumin/Globulin Ratio 08/31/16 08/31/16 08/31/16 05:52 06:05 06:08 WBC 7.8 RBC 4.86 Hgb 12.0 Hct 38.6 MCV 79.4 L MCH 24.8 L MCHC 31.2 L RDW 15.1 H Plt Count 145 MPV 8.9 Neut % (Auto) 81.3 H Lymph % (Auto) 9.3 L Steele % (Auto) 8.6 Eos % (Auto) 0.7 Baso % (Auto) 0.1 Neut # 6.3 Lymph # 0.7 L Steele # 0.7 Eos # 0.1 Baso # 0.0 Neutrophils % (Manual) 79 H Band Neutrophils % 3 H Lymphocytes % (Manual) 14 L Monocytes % (Manual) 3 Eosinophils % (Manual) 1 Platelet Estimate Normal RBC Morphology Normal Puncture Site pCO2 pO2 HCO3 ABG pH ABG Total CO2 ABG O2 Saturation ABG Base Excess ABG Hemoglobin ABG Carboxyhemoglobin POC ABG HHb (Measured) ABG Methemoglobin Lisandro Test A-a O2 Difference Respiratory Index Hgb O2 Saturation Mechanical Rate FiO2 Tidal Volume PEEP Crit Value Called To Crit Value Called By Crit Value Read Back Blood Gas Notified Time Sodium 132 Potassium 4.5 Chloride 96 L Carbon Dioxide 29 Anion Gap 12 BUN 43 H Creatinine 5.4 H Est GFR ( Amer) 13 Est GFR (Non-Af Amer) 11 POC Glucose (mg/dL) 139 H Random Glucose 112 H Calcium 6.7 L Phosphorus 6.4 H Magnesium 2.4 H Total Bilirubin < 0.1 L AST 211 H ALT 66 Alkaline Phosphatase 56 Total Protein 4.4 L Albumin 1.8 L Globulin 2.6 Albumin/Globulin Ratio 0.7 L 08/31/16 12:06 WBC RBC Hgb Hct MCV MCH MCHC RDW Plt Count MPV Neut % (Auto) Lymph % (Auto) Steele % (Auto) Eos % (Auto) Baso % (Auto) Neut # Lymph # Steele # Eos # Baso # Neutrophils % (Manual) Band Neutrophils % Lymphocytes % (Manual) Monocytes % (Manual) Eosinophils % (Manual) Platelet Estimate RBC Morphology Puncture Site pCO2 pO2 HCO3 ABG pH ABG Total CO2 ABG O2 Saturation ABG Base Excess ABG Hemoglobin ABG Carboxyhemoglobin POC ABG HHb (Measured) ABG Methemoglobin Lisandro Test A-a O2 Difference Respiratory Index Hgb O2 Saturation Mechanical Rate FiO2 Tidal Volume PEEP Crit Value Called To Crit Value Called By Crit Value Read Back Blood Gas Notified Time Sodium Potassium Chloride Carbon Dioxide Anion Gap BUN Creatinine Est GFR ( Amer) Est GFR (Non-Af Amer) POC Glucose (mg/dL) 104 Random Glucose Calcium Phosphorus Magnesium Total Bilirubin AST ALT Alkaline Phosphatase Total Protein Albumin Globulin Albumin/Globulin Ratio Critical Care Progress Note - Nutrition Nutrition: Nutrition Category Date Time Status NPO Diet [DIET] Diets 08/27/16 Lunch Active Attending/Attestation - Attestation I have personally seen and examined this patient.: Yes I have fully participated in the care of the patient.: Yes I have reviewed all pertinent clinical information: Yes Notes (Text): 08/31/16 16:17 Patient seen and examined in the intensive care unit. Case discussed with house staff in the morning rounds. Overnight patient was started on bicarbonate drip for extreme acidosis, status post hemodialysis yesterday Worsening infiltrate noted on chest x-ray requiring 100% FiO2 with saturation in the mid 80s. With PEEP of 10 On antibiotics Bronchoscopy could not be performed because of hypoxemia hemodialysis today spoke with sister at length about the patient's condition Palliative consult
--- NOTE | 2016-08-31 11:18 | RAD ---
HISTORY: intubated COMPARISON: Comparison is made to 08/30/2016 FINDINGS: LUNGS: Interval worsening of reticulonodular opacities in the lungs since the previous study. The ET tube is seen at appropriate position. PLEURA: Right pleural effusion is again seen. CARDIOVASCULAR: The cardiac silhouette is not enlarged. OSSEOUS STRUCTURES: No significant abnormalities. VISUALIZED UPPER ABDOMEN: Normal. OTHER FINDINGS: Right jugular central line is seen in place. IMPRESSION: Interval worsening of reticulonodular opacities in the lungs since the previous exam. Stable position of the support devices.
[2016-08-31] MEDS ORDERED: Albumin Human 25% (12.5 gm/50 ml) IV SCH (12:15)
--- NOTE | 2016-08-31 15:27 | CP.PCM.CON ---
History of Present Illness - History of Present Illness History of Present Illness: Palliative consult Requested by Adeline ZAIDI Reason: Goals of care Patient is a 56 yo male admitted after witnessed seizures. Patient had a few more seizing activities in the last 2 days. Patient also complained of cough, runny nose, dyspnea and poor appetite. Patient was drinking onthe day of seizures as he was doing almost daily for long time. On admission patient stated " I have pneumonia". The CT chest was significant for RLL infiltrate. The repeated CT chest from 08/28/2016 showed marked progression of RLL infiltrate and Left lobe. patient required assistance from MV to support respirations and was transfered to ICU for further care. PMH: ETOH, HTN, DM, RLE DVT, scizophrenia Soc. Hx: single, unemployed, Drinks beer daily, has one son whose whereabouts are not known, lives in the [place], has two sisters, oldest is [facility] [phone], lives in [place] and younger [phone] Fam. Hx: Unknown Review of Systems - Review of Systems Systems not reviewed;Unavailable: Intubated Past Patient History - Infectious Disease Hx of Infectious Diseases: None - Past Medical History & Family History Past Medical History?: Yes - Past Social History Smoking Status: Heavy Smoker > 10 Cigarettes Daily - CARDIAC Hx Hypertension: Yes - PULMONARY Hx Asthma: Yes - NEUROLOGICAL Hx Seizures: Yes (Alcohol induced) - HEENT Hx HEENT Problems: No - RENAL Hx Chronic Kidney Disease: No - ENDOCRINE/METABOLIC Hx Diabetes Mellitus Type 2: Yes (no meds) - HEMATOLOGICAL/ONCOLOGICAL Hx Human Immunodeficiency Virus (HIV): No - INTEGUMENTARY Hx Dermatological Problems: No - MUSCULOSKELETAL/RHEUMATOLOGICAL Hx Musculoskeletal Disorders: No - GASTROINTESTINAL Hx Gastrointestinal Disorders: No - GENITOURINARY/GYNECOLOGICAL Hx Sexually Transmitted Disorders: No - PSYCHIATRIC Hx Anxiety: Yes Hx Bipolar Disorder: Yes Hx Depression: Yes Hx Schizophrenia: Yes Hx Substance Use: No - SURGICAL HISTORY Hx Surgeries: Yes Other/Comment: claims he had a mikey in his right leg. no scar noted. IVC FILTER INSERTED - ANESTHESIA Hx Anesthesia: Yes Hx Anesthesia Reactions: No Meds Allergies/Adverse Reactions: Allergies Allergy/AdvReac Type Severity Reaction Status Date / Time No Known Allergies Allergy Verified 06/12/16 12:29 - Medications Medications: Current Medications Acetaminophen (Tylenol 325mg Tab) 650 mg PO Q6 PRN PRN Reason: Fever >100.4 F Last Admin: 08/27/16 03:10 Dose: 650 mg Albuterol/Ipratropium (Duoneb 3 Mg/0.5 Mg (3 Ml) Ud) 3 ml INH RQ6 [facility] Last Admin: 08/31/16 13:34 Dose: 3 ml Aspirin (Aspirin Chewable) 81 mg PO DAILY [facility] Last Admin: 08/31/16 10:13 Dose: 81 mg Folic Acid (Folic Acid) 1 mg PO DAILY [facility] Last Admin: 08/31/16 10:08 Dose: 1 mg Heparin Sodium (Porcine) (Heparin) 5,000 units SC Q8 [facility] Last Admin: 08/31/16 13:21 Dose: 5,000 units Propofol (Diprivan) 1,000 mg in 100 mls @ 2.449 mls/hr IV .Q24H PRN; Protocol; 5 MCG/KG/MIN PRN Reason: TITRATE PER MD ORDER Last Admin: 08/31/16 07:30 Dose: 10 mcg/kg/min, 4.899 mls/hr Piperacillin Sod/Tazobactam Sod (Zosyn 2.25 Gm Iv Premix) 2.25 gm in 50 mls @ 100 mls/hr IVPB Q8H [facility] Last Admin: 08/31/16 13:19 Dose: 100 mls/hr Fentanyl Citrate 2,500 mcg/ (Sodium Chloride) 250 mls @ 86 mls/hr IV .Q2H55M AMINTA; 10 MCG/KG/HR PRN Reason: Protocol Last Admin: 08/31/16 10:50 Dose: 5 mcg/kg/hr, 43 mls/hr Moxifloxacin HCl (Avelox Iv 400mg/250ml Ns) 400 mg in 250 mls @ 167 mls/hr IVPB Q24H [facility] Last Admin: 08/30/16 17:50 Dose: 167 mls/hr Norepinephrine Bitartrate 8 mg (/ Sodium Chloride) 250 mls @ 7.5 mls/hr IV .Q24H PRN; Protocol; 4 MCG/MIN PRN Reason: TITRATE PER MD ORDER Lactobacillus Acidophilus (Bacid Acidophilus) 1 cap PO BID [facility] Last Admin: 08/31/16 10:08 Dose: 1 cap Lorazepam (Ativan) 2 mg IVP Q6H PRN PRN Reason: Anxiety Last Admin: 08/30/16 04:25 Dose: 2 mg Multivitamins (Hexavitamin) 1 tab PO DAILY [facility] Last Admin: 08/31/16 10:08 Dose: 1 tab Pantoprazole Sodium (Protonix Inj) 40 mg IVP DAILY [facility] Last Admin: 08/31/16 10:10 Dose: 40 mg Thiamine HCl (Vitamin B1 Inj) 100 mg IV DAILY [facility] Last Admin: 08/31/16 10:08 Dose: 100 mg Physical Exam - Constitutional Appears: In Acute Distress - Head Exam Head Exam: ATRAUMATIC, NORMAL INSPECTION, NORMOCEPHALIC - Eye Exam Eye Exam: Normal appearance - ENT Exam ENT Exam: Mucous Membranes Dry Additional comments: OT tube - Neck Exam Neck exam: Positive for: Normal Inspection Additional comments: ET tube - Respiratory Exam Additional comments: On MV support - Cardiovascular Exam Additional comments: On Levophed IV - GI/Abdominal Exam GI & Abdominal Exam: Diminished Bowel Sounds - Rectal Exam Rectal Exam: Deferred - Extremities Exam Extremities exam: Positive for: pedal edema - Back Exam Back exam: NORMAL INSPECTION - Neurological Exam Neurological exam: Motor Sensory Deficit - Psychiatric Exam Psychiatric exam: Flat Affect - Skin Skin Exam: Normal Color, Warm Results - Vital Signs Recent Vital Signs: Last Vital Signs Temp 98.8 F 08/31/16 12:00 Pulse 120 H 08/31/16 13:11 Resp 18 08/31/16 13:11 BP 93/49 L 08/31/16 13:11 Pulse Ox 72 L 08/31/16 13:11 - Labs Result Diagrams: 08/31/16 06:08 08/31/16 06:05 Labs: Laboratory Results - last 24 hr 08/30/16 08/30/16 08/30/16 15:26 17:53 19:40 WBC RBC Hgb Hct MCV MCH MCHC RDW Plt Count MPV Neut % (Auto) Lymph % (Auto) [place] % (Auto) Eos % (Auto) Baso % (Auto) Neut # Lymph # [place] # Eos # Baso # Neutrophils % (Manual) Band Neutrophils % Lymphocytes % (Manual) Monocytes % (Manual) Eosinophils % (Manual) Platelet Estimate RBC Morphology Puncture Site Rra pCO2 73 H* pO2 62 L HCO3 19.0 L ABG pH 7.11 L* ABG Total CO2 25.4 ABG O2 Saturation 93.7 L ABG Base Excess -7.4 L ABG Hemoglobin 12.4 ABG Carboxyhemoglobin 1.7 H POC ABG HHb (Measured) 6.1 H ABG Methemoglobin 1.3 Lisandro Test Pos A-a O2 Difference 417.0 Respiratory Index 6.7 Hgb O2 Saturation 90.9 L Mechanical Rate FiO2 80.0 Tidal Volume 450 PEEP 10 Crit Value Called To Dr howell Crit Value Called By Catherine ross Crit Value Read Back Y Blood Gas Notified Time 1954 Sodium 128 L Potassium 5.3 H Chloride 102 Carbon Dioxide 21 L Anion Gap 10 BUN 49 H Creatinine 5.5 H Est GFR ( Amer) 13 Est GFR (Non-Af Amer) 11 POC Glucose (mg/dL) 106 Random Glucose 103 Calcium 7.0 L Phosphorus Magnesium Total Bilirubin AST ALT Alkaline Phosphatase Total Protein Albumin Globulin Albumin/Globulin Ratio 08/30/16 08/30/16 08/30/16 22:07 22:15 23:57 WBC RBC Hgb Hct MCV MCH MCHC RDW Plt Count MPV Neut % (Auto) Lymph % (Auto) [place] % (Auto) Eos % (Auto) Baso % (Auto) Neut # Lymph # [place] # Eos # Baso # Neutrophils % (Manual) Band Neutrophils % Lymphocytes % (Manual) Monocytes % (Manual) Eosinophils % (Manual) Platelet Estimate RBC Morphology Puncture Site Rra pCO2 71 H* pO2 59 L HCO3 21.8 ABG pH 7.17 L* ABG Total CO2 28.1 H ABG O2 Saturation 94.0 L ABG Base Excess -3.8 L ABG Hemoglobin 12.0 ABG Carboxyhemoglobin 1.7 H POC ABG HHb (Measured) 5.8 H ABG Methemoglobin 1.3 Lisandro Test Pos A-a O2 Difference 423.0 Respiratory Index 7.2 Hgb O2 Saturation 91.1 L Mechanical Rate FiO2 80.0 Tidal Volume 550 PEEP 10 Crit Value Called To Dr fitzgerald Crit Value Called By Catherine bahena Crit Value Read Back Y Blood Gas Notified Time 2219 Sodium 132 Potassium 4.5 Chloride 98 Carbon Dioxide 29 Anion Gap 10 BUN 37 H Creatinine 4.6 H Est GFR ( Amer) 16 Est GFR (Non-Af Amer) 13 POC Glucose (mg/dL) 116 H Random Glucose 97 Calcium 6.6 L Phosphorus Magnesium 2.5 H Total Bilirubin AST ALT Alkaline Phosphatase Total Protein Albumin Globulin Albumin/Globulin Ratio 08/31/16 08/31/16 08/31/16 05:16 05:52 06:05 WBC RBC Hgb Hct MCV MCH MCHC RDW Plt Count MPV Neut % (Auto) Lymph % (Auto) [place] % (Auto) Eos % (Auto) Baso % (Auto) Neut # Lymph # [place] # Eos # Baso # Neutrophils % (Manual) Band Neutrophils % Lymphocytes % (Manual) Monocytes % (Manual) Eosinophils % (Manual) Platelet Estimate RBC Morphology Puncture Site Rr pCO2 62 H pO2 42 L* HCO3 23.7 ABG pH 7.25 L ABG Total CO2 29.1 H ABG O2 Saturation 81.1 L ABG Base Excess -1.0 ABG Hemoglobin 11.6 L ABG Carboxyhemoglobin 1.8 H POC ABG HHb (Measured) 18.4 H ABG Methemoglobin 1.1 Lisandro Test Pos A-a O2 Difference 451.0 Respiratory Index 10.7 Hgb O2 Saturation 78.7 L Mechanical Rate 24 FiO2 80.0 Tidal Volume 550 PEEP 10 Crit Value Called To Maddie herring rn Crit Value Called By Cailxto pbx wire chief Crit Value Read Back Y Blood Gas Notified Time 527 Sodium 132 Potassium 4.5 Chloride 96 L Carbon Dioxide 29 Anion Gap 12 BUN 43 H Creatinine 5.4 H Est GFR ( Amer) 13 Est GFR (Non-Af Amer) 11 POC Glucose (mg/dL) 139 H Random Glucose 112 H Calcium 6.7 L Phosphorus 6.4 H Magnesium 2.4 H Total Bilirubin < 0.1 L AST 211 H ALT 66 Alkaline Phosphatase 56 Total Protein 4.4 L Albumin 1.8 L Globulin 2.6 Albumin/Globulin Ratio 0.7 L 08/31/16 08/31/16 06:08 12:06 WBC 7.8 RBC 4.86 Hgb 12.0 Hct 38.6 MCV 79.4 L MCH 24.8 L MCHC 31.2 L RDW 15.1 H Plt Count 145 MPV 8.9 Neut % (Auto) 81.3 H Lymph % (Auto) 9.3 L [place] % (Auto) 8.6 Eos % (Auto) 0.7 Baso % (Auto) 0.1 Neut # 6.3 Lymph # 0.7 L [place] # 0.7 Eos # 0.1 Baso # 0.0 Neutrophils % (Manual) 79 H Band Neutrophils % 3 H Lymphocytes % (Manual) 14 L Monocytes % (Manual) 3 Eosinophils % (Manual) 1 Platelet Estimate Normal RBC Morphology Normal Puncture Site pCO2 pO2 HCO3 ABG pH ABG Total CO2 ABG O2 Saturation ABG Base Excess ABG Hemoglobin ABG Carboxyhemoglobin POC ABG HHb (Measured) ABG Methemoglobin Lisandro Test A-a O2 Difference Respiratory Index Hgb O2 Saturation Mechanical Rate FiO2 Tidal Volume PEEP Crit Value Called To Crit Value Called By Crit Value Read Back Blood Gas Notified Time Sodium Potassium Chloride Carbon Dioxide Anion Gap BUN Creatinine Est GFR ( Amer) Est GFR (Non-Af Amer) POC Glucose (mg/dL) 104 Random Glucose Calcium Phosphorus Magnesium Total Bilirubin AST ALT Alkaline Phosphatase Total Protein Albumin Globulin Albumin/Globulin Ratio Assessment & Plan - Assessment and Plan (Free Text) Assessment: Palliative consult Code status Full Code, no Advance directive on chart, ROS unobtainable due to intubation, PPS 10% Charts and diagnostic studies reviewed, patient examined in bed, goals of care discussed over the phone with patient's sister Kendy Patient is sedated , intubated on MV support with motor sensory deficit. BP is supported by Levophed IV; BP 102/50, HR 96, afebrile. Patient was startted on HD yesterday for Acute kidney injury; BUN 43, Orchid Worker 5.4. Albumin of 1.8 is being replaced. I discussed goals of care with patient's older sister Kendy. She reported being informed of patient's condition by her younger sister Ronny. Kendy suggested that patient has been drinking alcohol for many years. She had spoken to him in past about getting some help for his addiction with alcohol, but he never agreed to it. The sister understands that patient's condition is widely affected by his life style and blames only him for what happens. She recalls that last year patient had some liver issues due to heavy drinking. I elicited her knowledge about patient's wishes for the end of life care. Kendy stated she was not sure what patient would say if he was able to talk, but assumes that if his life becomes dependent of life support he would want to be allowed to naturally. I reviewed with her latest diagnostic studies and interventions applied to cure the onset of pneumonia and to hopefully remove him from the MV support. We agreed to fallow with patient's progress and readjust goals of care based on it. Impression * Patient is on MV support , diagnosed with pneumonia, sepsis and LUIS * Patient's wishes for the end of life care are not known * Patient's older sister Kendy is advocating for him * Hypotension, on pressors * Hypoalbuminemia * At risk for skin injuries due to prolonged bed rest, inadequate nutrition, and poor perfusion Suggestion * Apply all reasonable interventions to support life * Goals of care are to be readjusted based on patient's progress * Patient's sister Kendy is open for further discussion Thank you very much for consulting Palliative care
[2016-08-31 17:05] LABS: ABG ALLEN TEST POS; ABG MECHANICAL RATE 24; ATERIAL BLOOD GAS PEEP 12; DRAW SITE RRA
[2016-08-31] MEDS: Moxifloxacin IV 400mg/250ml NS 400 MG/250 ML BAG IVPB SCH (17:08)
[2016-08-31] MEDS: MethylPREDNISolone 40 mg Vial IVP SCH (17:21)
[2016-08-31] MEDS: Sulfamethoxazole/Trimethoprim 80 MG in Dextrose 5% In Water 100 ML IVPB SCH ×2 (17:22→19:02)
--- NOTE | 2016-08-31 17:41 | RAD ---
HISTORY: intubated, low sat COMPARISON: Chest x-ray performed 08/31/16 TECHNIQUE: Chest, one view. FINDINGS: Right IJ approach central venous catheter extends to the SVC. Endotracheal tube terminates approximately 6.1 cm above the ryan. Nasogastric tube extends expected location of the stomach. LUNGS: Extensive bilateral reticular nodular opacities. Small right pleural effusion. No definite pneumothorax. Please note that chest x-ray has limited sensitivity for the detection of pulmonary masses. CARDIOVASCULAR: Partially obscured, appears grossly within normal limits of size. OSSEOUS STRUCTURES: No acute osseous abnormality identified. VISUALIZED UPPER ABDOMEN: Unremarkable. OTHER FINDINGS: None. IMPRESSION: Extensive reticular nodular opacities appear stable. Small right pleural effusion. Support lines and tubes as above.
--- NOTE | 2016-08-31 20:00 | CP.PCM.PN ---
Subjective - Date & Time of Evaluation Date of Evaluation: 08/31/16 Time of Evaluation: 18:30 - Subjective Subjective: Medical Attending Note: Follow-up: Metabolic Encephalopathy, Sepsis, Acute Respiratory Failure, Seizures ; Aspiration Pneumonia, Acute Kidney Injury, Hyponatremia, Alcohol Abuse, Hypertension, RLE DVT, Schizophrenia Patient seen, examined, and case discussed with ICU, nephrology, and palliative care. Unable to review clinical status. Spoke with palliative care, Audrey regarding patient's goals of care and her discussions with patient's sister, Kendy and Ronny regarding critical nature of her brother. Discussed independently with patient's sisters--Kendy, Ronny, over the phone and together on conference call, witnessed by ICU nursing staff, Madhavi (day-time) and Ronna (night). Regarding the nature of her brother's state given in spite of IV abx, dialysis, and intubated on ventilated, patient is septic secondary to aspiration pneumonia, in addition to multiple co-morbidities, there is a strong possibility that patient decompensate and/or heart may stop over night, both sisters have expressed to "allow him to go with god" and "to let him go in peace." I have also spoken with patient's Shin (brother) who was present at bedside to update him regarding the critical nature of his brother and he has expressed this same sentiment. Each sibling has independently expressed the above sentiment and all siblings are aware, he may not make it overnight. I have indicated this decision to night-intemaryvist, Dr. Rosales following these conversations. Patient's two years ago per discussion with the brother and patient's son is not in the picture and no one knows his whereabout per conversation with both Kendy and Shin. All questions answered. Phone numbers of siblings: Kendy (sister): [phone], Ronny (sister) [phone], and Shin (brother) who was in person at bedside. There is no designated proxy for the family at this time. Objective - Vital Signs/Intake and Output Vital Signs (last 24 hours): Temp Pulse Resp BP Pulse Ox 97.4 F L 108 H 18 94/47 L 81 L 08/31/16 16:00 08/31/16 19:32 08/31/16 19:32 08/31/16 19:32 08/31/16 19:32 Intake and Output: 08/31/16 09/01/16 18:59 06:59 Intake Total 2152.2 208.2 Output Total 5 0 Balance 2147.2 208.2 - Medications Medications: Current Medications Acetaminophen (Tylenol 325mg Tab) 650 mg PO Q6 PRN PRN Reason: Fever >100.4 F Last Admin: 08/27/16 03:10 Dose: 650 mg Albuterol/Ipratropium (Duoneb 3 Mg/0.5 Mg (3 Ml) Ud) 3 ml INH RQ6 [facility] Last Admin: 08/31/16 19:45 Dose: 3 ml Aspirin (Aspirin Chewable) 81 mg PO DAILY [facility] Last Admin: 08/31/16 10:13 Dose: 81 mg Folic Acid (Folic Acid) 1 mg PO DAILY [facility] Last Admin: 08/31/16 10:08 Dose: 1 mg Heparin Sodium (Porcine) (Heparin) 5,000 units SC Q8 [facility] Last Admin: 08/31/16 13:21 Dose: 5,000 units Propofol (Diprivan) 1,000 mg in 100 mls @ 2.449 mls/hr IV .Q24H PRN; Protocol; 5 MCG/KG/MIN PRN Reason: TITRATE PER MD ORDER Last Admin: 08/31/16 19:25 Dose: 10 mcg/kg/min, 4.899 mls/hr Piperacillin Sod/Tazobactam Sod (Zosyn 2.25 Gm Iv Premix) 2.25 gm in 50 mls @ 100 mls/hr IVPB Q8H [facility] Last Admin: 08/31/16 17:23 Dose: 100 mls/hr Fentanyl Citrate 2,500 mcg/ (Sodium Chloride) 250 mls @ 86 mls/hr IV .Q2H55M [facility]; 10 MCG/KG/HR PRN Reason: Protocol Last Admin: 08/31/16 17:00 Dose: 5 mcg/kg/hr, 43 mls/hr Moxifloxacin HCl (Avelox Iv 400mg/250ml Ns) 400 mg in 250 mls @ 167 mls/hr IVPB Q24H [facility] Last Admin: 08/31/16 17:08 Dose: 167 mls/hr Norepinephrine Bitartrate 8 mg (/ Sodium Chloride) 250 mls @ 7.5 mls/hr IV .Q24H PRN; Protocol; 4 MCG/MIN PRN Reason: TITRATE PER MD ORDER Diltiazem HCl 125 mg/ Sodium (Chloride) 125 mls @ 5 mls/hr IV .Q24H [facility]; 5 MG/ HR PRN Reason: Protocol Last Admin: 08/31/16 17:52 Dose: Not Given Trimethoprim/Sulfamethoxazole (80 mg/ Dextrose) 100 mls @ 100 mls/hr IVPB Q12H [facility] Last Admin: 08/31/16 19:02 Dose: Not Given Lactobacillus Acidophilus (Bacid Acidophilus) 1 cap PO BID [facility] Last Admin: 08/31/16 17:23 Dose: 1 cap Lorazepam (Ativan) 2 mg IVP Q6H PRN PRN Reason: Anxiety Last Admin: 08/30/16 04:25 Dose: 2 mg Methylprednisolone (Solu-Medrol) 40 mg IVP Q8H [facility] Last Admin: 08/31/16 17:21 Dose: 40 mg Multivitamins (Hexavitamin) 1 tab PO DAILY [facility] Last Admin: 08/31/16 10:08 Dose: 1 tab Pantoprazole Sodium (Protonix Inj) 40 mg IVP DAILY [facility] Last Admin: 08/31/16 10:10 Dose: 40 mg Thiamine HCl (Vitamin B1 Inj) 100 mg IV DAILY [facility] Last Admin: 08/31/16 10:08 Dose: 100 mg - Labs Labs: 08/31/16 06:08 08/31/16 06:05 PT 10.5 SECONDS (9.7-12.2) 08/29/16 17:26 INR 0.9 08/29/16 17:26 APTT 63 SECONDS (21-34) H 08/29/16 17:26 - Constitutional Appears: Chronically Ill - Head Exam Head Exam: NORMAL INSPECTION - ENT Exam ENT Exam: Mucous Membranes Dry - Respiratory Exam Respiratory Exam: Decreased Breath Sounds, Rhonchi. absent: Stridor Additional comments: patient is on ventilator - Cardiovascular Exam Cardiovascular Exam: REGULAR RHYTHM, +S1, +S2 - GI/Abdominal Exam GI & Abdominal Exam: Soft, Normal Bowel Sounds. absent: Distended, Guarding, Rigid, Tenderness, Rebound - Neurological Exam Additional comments: sedated - Skin Skin Exam: Dry, Normal Color, Warm Assessment and Plan (1) Sepsis Status: Acute (2) Metabolic encephalopathy Status: Acute (3) Acute respiratory failure Status: Acute (4) Aspiration pneumonia Status: Acute (5) Acute kidney injury Status: Acute (6) Alcohol intoxication Status: Acute (7) Seizure Status: Acute (8) History of DVT (deep vein thrombosis) Status: Chronic (9) Hypertension Status: Chronic (10) DVT (deep venous thrombosis) Status: Acute (11) Prophylactic measure Status: Acute - Assessment and Plan (Free Text) Assessment: Assessment/Plan 1) Sepsis * Criteria: Leukopenia (WBC< 4), tachypnea, febrile, etiology: aspiration pneumonia * Chest xray: prominent consolidate changes in right to mid to lower lung zone * Chest xray (08/31/16): extensive reticular nodular opacities appear stable. Small right pleural effusion * Chest xray (08/29/16): endotracheal tube extending into mid thoracic trachea. Moderate right pleural effusion. Moderate venous congestion. Prominent consolidative changes oin the right mid to lower lung zone. Biapical pleural thickening with lobe granulmoatous changes * Chest CT (08/28/16): marked progression of infiltrates. Entire right lowr lobe displaced infiltrate/consolidation. Subsgementall right upper lobe infiltrate a new finding Progression of multisegment left lower lobe infiltrates * 08/24/16: Blood culture: no growth after 5 days X2 * MRSA not detected * 08/27/16 Sputum: pending * Elevated procalcitonin: 21-->18 * Blood cultures(08/29/16)--> no growth for 48 hours X2 * Infectious disease (Dr. Dos Santos) on consult 2) Acute respiratory failure * secondary to aspiration pneumonia and/or seizure * Patient is currently intubated and vented * Discussed with ICU, patient is hypoxic and unable to have bronchoscopy today * requiring high FiO2 on vent 3) Metabolic Encephalopathy * Etiologies: sepsis, alcohol use, aspiration pneumonia * Ammonia low * prolactin: high * CT Head (08/24/16): no acute intracranial injury * Brain MRI (08/26/16): no evidence of acute infarct. No evidence of mass lesion, mass effect, or midline shift 4) Aspiration pneumonia * Risk factor: seizure and alcoholism * Chest xray: prominent consolidate changes in right to mid to lower lung zone * Chest xray (08/29/16): endotracheal tube extending into mid thoracic trachea. Moderate right pleural effusion. Moderate venous congestion. Prominent consolidative changes oin the right mid to lower lung zone. Biapical pleural thickening with lobe granulmoatous changes * Chest CT (08/28/16): marked progression of infiltrates. Entire right lower lobe displaced infiltrate/consolidation. Subsgemental right upper lobe infiltrate a new finding Progression of multisegment left lower lobe infiltrates * Chest Xray (08/30/16): endotracheal tube terminates approximately 6.1cm above the level of the ryan. patchy right lower lobe consolidation and/or pleural effsion. Interstital prominence may reflect infection or edema. * Avelox 400mg IVPB Q 24hours (day 2) * Bactrim 80mg IVPB Q 12hours (day 1) * Zosyn 2.25 IVPB Q 8 hours (day 3) 5) Seizures * prolactin: elevated * Brain MRI (08/26/16): no evidence of acute infarct. No evidence of mass lesion, mass effect, or midline shift * Neurology (Dr. Madera) on board help appreciated * EEG ordered * on Profol * Ativan PRN * unclear if patient has hx of seizures or history of alcohol withdrawal seizures 6) Hx of Right DVT * IVC filter noted on CT scan 08/24/16 * Right iliac artery stent * 08/25/16: b/l Venous doppler: negative * CT Chest/Abdomen/Pelvis: IVC filter, There are atherosclerotic changes of the aorta, Right iliac artery stent. No hydronephrosis. There is mild perinephric stranding. No striated nephrograms. There is fluid within the colon most notably in the distal sigmoid and rectum, The appendix is identified coronal images 50 through 66. There is intraluminal fluid however it measures 4 mm in diameter which is within normal limits and there is no wall thickening, wall hyperemia, or periappendiceal stranding. here are degenerative changes in the osseous structures. Colonic fluid, a nonspecific finding however can also be associated with diarrhea/enteritis. Mild bilateral perinephric stranding which may be a chronic finding however could also be indicative of a infectious/ inflammatory process. Evidence of emphysematous disease in the upper lungs. There is dense infiltrate with consolidation in the right lower lung some of which has a fibrotic appearance. Tiny faint nodular opacities in the left lower lung. No effusions. No aortic aneurysm or dissection. Pulmonary emboli cannot be excluded due to bolus timing. Few small scattered mediastinal lymph nodes are noted. 7) ATN * Nephrology (Dr. Katie Mathews) on board * Contributing factor: sepsis * Discussed with nephrology * Dialysis catheter placed * severe acidosis * Patient has received dialysis at night and dialysis again today * worsening 8) Alcohol Abuse * on sedation and Ativan PRN 9) Emphysema * CT Chest/Abdomen/Pelvis: IVC filter, There are atherosclerotic changes of the aorta, Right iliac artery stent. No hydronephrosis. There is mild perinephric stranding. No striated nephrograms. There is fluid within the colon most notably in the distal sigmoid and rectum, The appendix is identified coronal images 50 through 66. There is intraluminal fluid however it measures 4 mm in diameter which is within normal limits and there is no wall thickening, wall hyperemia, or periappendiceal stranding. here are degenerative changes in the osseous structures. Colonic fluid, a nonspecific finding however can also be associated with diarrhea/enteritis. Mild bilateral perinephric stranding which may be a chronic finding however could also be indicative of a infectious/ inflammatory process. Evidence of emphysematous disease in the upper lungs. There is dense infiltrate with consolidation in the right lower lung some of which has a fibrotic appearance. Tiny faint nodular opacities in the left lower lung. No effusions. No aortic aneurysm or dissection. Pulmonary emboli cannot be excluded due to bolus timing. Few small scattered mediastinal lymph nodes are noted. * Smoking history 10) Peripheral vascular disease * Right iliac artery stent * Aspirin 81mg PO daily 11) Prior history of CVA * noted in H&P * Patient is currently on Aspirin, held crestor, and patient hypotensive 12) History of Hypertension * off anti-hypertensives 13) History of diabetes * Controlled * Hgba1c: 5.7 * Accuchecks Q 6 hours 14) Malnutrition * contributing factor alcohol * OGT tube feedings 15) Prophylactic measure * Heparin 5000 units subq 8 hours for DVT ppx * Protonix 40mg IV q daily * Palliative care on board-->help appreciated * Patient is DNR-->spoke with both sisters and brother, witnessed by ICU nursing staff, and discussed with night-time ICU given shift change.
[2016-09-01] MEDS: MethylPREDNISolone 40 mg Vial IVP SCH ×2 (00:55→08:04)
[2016-09-01] MEDS: Piperacill/Tazo 2.25gm in Dex 2.25 GM/50 ML BAG IVPB SCH ×2 (01:00→09:12)
[2016-09-01] MEDS: Albuterol-Ipratrop 3 mg / 0.5 (3 ml) UD INH SCH ×3 (01:15→13:28)
[2016-09-01] MEDS: Sulfamethoxazole/Trimethoprim 80 MG in Dextrose 5% In Water 100 ML IVPB SCH (05:45)
[2016-09-01 05:53] LABS: ABG ALLEN TEST POS; ABG MECHANICAL RATE 24; ARTERIAL BLOOD HGB O2 SAT 81.7 % (95.0-98.0); ATERIAL BLOOD GAS PEEP 14; CARBOXYHEMOGLOBIN 1.8 % (0.5-1.5); DRAW SITE L RAD; HHB 15.4 % (0.0-5.0)
[2016-09-01 06:22] LABS: BASO % 0.1 % (0.0-2.0); HEMATOCRIT 37.2 % (35.0-51.0); LYMPH # 0.6 K/uL (1.0-4.3); LYMPH % 4.8 % (20.0-40.0); MEAN CELL VOLUME 79.7 fL (80.0-94.0); MEAN CORPUSCULAR HEMOGLOBIN 24.5 pg (27.0-31.0); MEAN CORPUSCULAR HGB CONC 30.7 g/dL (33.0-37.0); MEAN PLATELET VOLUME 8.7 fL (7.2-11.7); MONO % 8.1 % (0.0-10.0); PLATELET COUNT 187 K/uL (130-400); RED CELL DISTRIBUTION WIDTH 15.2 % (11.5-14.5); WHITE BLOOD COUNT 12.9 K/uL (4.8-10.8)
[2016-09-01 06:46] LABS: CHLORIDE 95 mmol/L (98-107); POTASSIUM 5.5 mmol/L (3.6-5.2); SODIUM 132 mmol/L (132-148)
[2016-09-01 06:48] LABS: BILIRUBIN,TOTAL < 0.1 mg/dL (0.2-1.3)
[2016-09-01 06:49] LABS: ALB/GLOB RATIO 0.7 (1.0-2.1); ALKALINE PHOSPHATASE 111 U/L (38-126); ALT/SGPT 78 U/L (21-72); AST/SGOT 269 U/L (17-59); BLOOD UREA NITROGEN 46 mg/dL (9-20); CARBON DIOXIDE 29 mmol/L (22-30); GLUCOSE,RANDOM 153 mg/dL (75-110); PHOSPHOROUS 9.3 mg/dL (2.5-4.5); TOTAL PROTEIN 4.8 g/dL (6.3-8.3)
[2016-09-01 06:50] LABS: CALCIUM 6.6 mg/dl (8.6-10.4); MAGNESIUM 2.5 mg/dL (1.6-2.3)
[2016-09-01 07:03] LABS: GFR AFRICAN-AMERICAN 11
[2016-09-01] MEDS: Propofol 10 mg/ml 1,000 MG/100 ML VIAL IV PRN (07:35)
[2016-09-01] MEDS: Multiple Vitamins Tab PO SCH (09:11)
[2016-09-01] MEDS: Thiamine 100 mg/ml Inj IV SCH (09:11)
[2016-09-01] MEDS: Lactobacillus Acidophilus 500 MU Cap PO SCH (09:13)
[2016-09-01 09:20] LABS: NEUTROPHIL 89 % (50-75); TOTAL CELLS COUNTED 100
--- NOTE | 2016-09-01 10:28 | CP.PCM.PN ---
Subjective - Date & Time of Evaluation Date of Evaluation: 08/31/16 Time of Evaluation: 18:00 - Subjective Subjective: Nephrology f/u note, seeing patient for acute renal failure; Patient sedated; s/p HD today but with poor blood flows per HD nurse; Objective - Vital Signs/Intake and Output Vital Signs (last 24 hours): Temp Pulse Resp BP Pulse Ox 98.5 F 91 H 24 85/43 L 80 L 09/01/16 08:00 09/01/16 08:42 09/01/16 08:42 09/01/16 08:42 09/01/16 08:42 Intake and Output: 09/01/16 09/01/16 06:59 18:59 Intake Total 2018.4 238.4 Output Total 0 5 Balance 2017.4 233.4 - Medications Medications: Current Medications Acetaminophen (Tylenol 325mg Tab) 650 mg PO Q6 PRN PRN Reason: Fever >100.4 F Last Admin: 08/27/16 03:10 Dose: 650 mg Albuterol/Ipratropium (Duoneb 3 Mg/0.5 Mg (3 Ml) Ud) 3 ml INH RQ6 [facility] Last Admin: 09/01/16 07:34 Dose: 3 ml Aspirin (Aspirin Chewable) 81 mg PO DAILY [facility] Last Admin: 09/01/16 09:11 Dose: 81 mg Folic Acid (Folic Acid) 1 mg PO DAILY [facility] Last Admin: 09/01/16 09:11 Dose: 1 mg Heparin Sodium (Porcine) (Heparin) 5,000 units SC Q8 [facility] Last Admin: 09/01/16 05:00 Dose: 5,000 units Propofol (Diprivan) 1,000 mg in 100 mls @ 2.449 mls/hr IV .Q24H PRN; Protocol; 5 MCG/KG/MIN PRN Reason: TITRATE PER MD ORDER Last Admin: 09/01/16 07:35 Dose: 10 mcg/kg/min, 4.899 mls/hr Piperacillin Sod/Tazobactam Sod (Zosyn 2.25 Gm Iv Premix) 2.25 gm in 50 mls @ 100 mls/hr IVPB Q8H [facility] Last Admin: 09/01/16 09:12 Dose: 100 mls/hr Fentanyl Citrate 2,500 mcg/ (Sodium Chloride) 250 mls @ 86 mls/hr IV .Q2H55M [facility]; 10 MCG/KG/HR PRN Reason: Protocol Last Admin: 09/01/16 10:05 Dose: Not Given Moxifloxacin HCl (Avelox Iv 400mg/250ml Ns) 400 mg in 250 mls @ 167 mls/hr IVPB Q24H [facility] Last Admin: 08/31/16 17:08 Dose: 167 mls/hr Norepinephrine Bitartrate 8 mg (/ Sodium Chloride) 250 mls @ 7.5 mls/hr IV .Q24H PRN; Protocol; 4 MCG/MIN PRN Reason: TITRATE PER MD ORDER Diltiazem HCl 125 mg/ Sodium (Chloride) 125 mls @ 5 mls/hr IV .Q24H [facility]; 5 MG/ HR PRN Reason: Protocol Last Admin: 08/31/16 17:52 Dose: Not Given Trimethoprim/Sulfamethoxazole (80 mg/ Dextrose) 100 mls @ 100 mls/hr IVPB Q12H [facility] Last Admin: 09/01/16 05:45 Dose: 100 mls/hr Acyclovir 800 mg/ Sodium (Chloride) 250 mls @ 167 mls/hr IV Q24H [facility] Last Admin: 08/31/16 23:25 Dose: 167 mls/hr Lactobacillus Acidophilus (Bacid Acidophilus) 1 cap PO BID [facility] Last Admin: 09/01/16 09:13 Dose: 1 cap Lorazepam (Ativan) 2 mg IVP Q6H PRN PRN Reason: Anxiety Last Admin: 08/30/16 04:25 Dose: 2 mg Methylprednisolone (Solu-Medrol) 40 mg IVP Q8H [facility] Last Admin: 09/01/16 08:04 Dose: 40 mg Multivitamins (Hexavitamin) 1 tab PO DAILY [facility] Last Admin: 09/01/16 09:11 Dose: 1 tab Pantoprazole Sodium (Protonix Inj) 40 mg IVP DAILY [facility] Last Admin: 09/01/16 09:11 Dose: 40 mg Thiamine HCl (Vitamin B1 Inj) 100 mg IV DAILY [facility] Last Admin: 09/01/16 09:11 Dose: 100 mg - Labs Labs: 09/01/16 06:03 09/01/16 06:03 PT 10.5 SECONDS (9.7-12.2) 08/29/16 17:26 INR 0.9 08/29/16 17:26 APTT 63 SECONDS (21-34) H 08/29/16 17:26 - Constitutional Appears: No Acute Distress - Head Exam Head Exam: NORMAL INSPECTION - Eye Exam Eye Exam: Normal appearance. absent: Scleral icterus - ENT Exam ENT Exam: Mucous Membranes Moist - Neck Exam Additional comments: intubated; - Respiratory Exam Respiratory Exam: Rales Additional comments: tachypneic; - Cardiovascular Exam Cardiovascular Exam: Tachycardia, +S1, +S2 - GI/Abdominal Exam GI & Abdominal Exam: Soft. absent: Distended - Exam Exam: absent: Bladder Distension - Extremities Exam Additional comments: mild upper ext edema; - Neurological Exam Additional comments: sedated; not arousable to verbal stimuli; - Skin Skin Exam: absent: Cyanosis Additional comments: cool distal ext; Assessment and Plan (1) Acute renal failure Assessment & Plan: LUIS due to ATN; anuric renal failure; HD today emergently due to hypoxemic respiratory failure in the setting of hypertonic bicarb administration given overnight to stabilize hypotension and acidosis; able to achieve 3L UF today, plan on next HD tomorrow for UF; Status: Acute (2) Hyponatremia Assessment & Plan: Secondary to SIADH from PNA; now anuric and will be corrected with HD; Status: Acute (3) Proteinuria Assessment & Plan: Nephrotic range with marked hematuria; etiology unclear; needs renal biopsy when stable; Status: Acute (4) Pneumonia Assessment & Plan: Causing severe hypoxemic respiratory failure; on multiple abx; need to dose for HD; should re-dose vanco after each HD session; Status: Acute (5) Acute hypoxemic respiratory failure Assessment & Plan: In the setting of PNA; need to avoid excessive volume administration in an anuric patient; also, while volume can be removed with HD, limited by hypotension; Status: Acute
--- NOTE | 2016-09-01 10:56 | RAD ---
PROCEDURE: CHEST RADIOGRAPH, 1 VIEW HISTORY: VENT COMPARISON: 08/31/2016 FINDINGS: LUNGS: Lines and tubes in stable position. Persistent confluent airspace consolidative changes with a suggestion of a loculated effusion in the right mid to lower lung zone. Persistent consolidative opacities in the left mid to lower lung zone. PLEURA: As above. CARDIOVASCULAR: Normal. OSSEOUS STRUCTURES: No significant abnormalities. VISUALIZED UPPER ABDOMEN: Normal. OTHER FINDINGS: None. IMPRESSION: No significant interval change.
[2016-09-01 12:38] VITALS: TEMP 98.2
--- NOTE | 2016-09-01 13:27 | CP.PCM.PN ---
Subjective - Date & Time of Evaluation Date of Evaluation: 09/01/16 Time of Evaluation: 12:45 - Subjective Subjective: Medical Attending Note Follow-up: Sepsis, Aspiration Pneumonia, Acute Respiratory Failure with Hypoxia , Acute Renal Failure, Severe acidosis and multiple other co-morbidities Patient seen, examined, and case discussed with ICU. Discussed case with intensvist. Discussed with patient's family at bedside. Patient's hypoxic on high support vent, on IV abx fo pneumonia, and on dialysis. Spoke with family, want patient to be terminal extubated. Per sister, Ronny who verbalized "feels he has left his body already". Patient's sisters, Kendy and Ronny, for terminal extubation for today. In addition, the intenvist discussed with patient's brother, Shin ([phone]) over the telephone at 12: 45PM, witnessed by patient's nurse, Pat, and myself, who vocalized that he defers medical decision making to his sisters Kendy and Ronny. He reports he understands but in his words "he cannot live with making the medical decision and wants his sisters to make the decision". All questions answered. I personally spoke in-person with patient's sisters, Kendy and Ronny Jamir indicated to me that entire family is aware of patient's condition. Kendy expressed that her who is deacon expressed his prayers for their brother. Objective - Vital Signs/Intake and Output Vital Signs (last 24 hours): Temp Pulse Resp BP Pulse Ox 98.2 F 88 12 93/44 L 77 L 09/01/16 12:00 09/01/16 12:00 09/01/16 12:00 09/01/16 11:42 09/01/16 12:00 Intake and Output: 09/01/16 09/01/16 06:59 18:59 Intake Total 2018.4 680.2 Output Total 0 5 Balance 2017.4 675.2 - Medications Medications: Current Medications Acetaminophen (Tylenol 325mg Tab) 650 mg PO Q6 PRN PRN Reason: Fever >100.4 F Last Admin: 08/27/16 03:10 Dose: 650 mg Albuterol/Ipratropium (Duoneb 3 Mg/0.5 Mg (3 Ml) Ud) 3 ml INH RQ6 [facility] Last Admin: 09/01/16 07:34 Dose: 3 ml Aspirin (Aspirin Chewable) 81 mg PO DAILY [facility] Last Admin: 09/01/16 09:11 Dose: 81 mg Diltiazem HCl (Cardizem) 30 mg PO Q6H [facility] Last Admin: 09/01/16 11:40 Dose: 30 mg Folic Acid (Folic Acid) 1 mg PO DAILY [facility] Last Admin: 09/01/16 09:11 Dose: 1 mg Heparin Sodium (Porcine) (Heparin) 5,000 units SC Q8 [facility] Last Admin: 09/01/16 05:00 Dose: 5,000 units Propofol (Diprivan) 1,000 mg in 100 mls @ 2.449 mls/hr IV .Q24H PRN; Protocol; 5 MCG/KG/MIN PRN Reason: TITRATE PER MD ORDER Last Admin: 09/01/16 07:35 Dose: 10 mcg/kg/min, 4.899 mls/hr Piperacillin Sod/Tazobactam Sod (Zosyn 2.25 Gm Iv Premix) 2.25 gm in 50 mls @ 100 mls/hr IVPB Q8H [facility] Last Admin: 09/01/16 09:12 Dose: 100 mls/hr Fentanyl Citrate 2,500 mcg/ (Sodium Chloride) 250 mls @ 86 mls/hr IV .Q2H55M [facility]; 10 MCG/KG/HR PRN Reason: Protocol Last Titration: 09/01/16 10:45 Dose: 0 mcg/kg/hr, 0 mls/hr Moxifloxacin HCl (Avelox Iv 400mg/250ml Ns) 400 mg in 250 mls @ 167 mls/hr IVPB Q24H [facility] Last Admin: 08/31/16 17:08 Dose: 167 mls/hr Norepinephrine Bitartrate 8 mg (/ Sodium Chloride) 250 mls @ 7.5 mls/hr IV .Q24H PRN; Protocol; 4 MCG/MIN PRN Reason: TITRATE PER MD ORDER Diltiazem HCl 125 mg/ Sodium (Chloride) 125 mls @ 5 mls/hr IV .Q24H [facility]; 5 MG/ HR PRN Reason: Protocol Last Admin: 09/01/16 10:40 Dose: 5 mg/hr, 5 mls/hr Trimethoprim/Sulfamethoxazole (80 mg/ Dextrose) 100 mls @ 100 mls/hr IVPB Q12H [facility] Last Admin: 09/01/16 05:45 Dose: 100 mls/hr Acyclovir 800 mg/ Sodium (Chloride) 250 mls @ 167 mls/hr IV Q24H [facility] Last Admin: 08/31/16 23:25 Dose: 167 mls/hr Lactobacillus Acidophilus (Bacid Acidophilus) 1 cap PO BID [facility] Last Admin: 09/01/16 09:13 Dose: 1 cap Lorazepam (Ativan) 2 mg IVP Q6H PRN PRN Reason: Anxiety Last Admin: 08/30/16 04:25 Dose: 2 mg Lorazepam (Ativan) 2 mg IVP Q30M PRN PRN Reason: Anxiety Methylprednisolone (Solu-Medrol) 40 mg IVP Q8H [facility] Last Admin: 09/01/16 08:04 Dose: 40 mg Multivitamins (Hexavitamin) 1 tab PO DAILY [facility] Last Admin: 09/01/16 09:11 Dose: 1 tab Pantoprazole Sodium (Protonix Inj) 40 mg IVP DAILY [facility] Last Admin: 09/01/16 09:11 Dose: 40 mg Thiamine HCl (Vitamin B1 Inj) 100 mg IV DAILY [facility] Last Admin: 09/01/16 09:11 Dose: 100 mg - Labs Labs: 09/01/16 06:03 09/01/16 06:03 PT 10.5 SECONDS (9.7-12.2) 08/29/16 17:26 INR 0.9 08/29/16 17:26 APTT 63 SECONDS (21-34) H 08/29/16 17:26 - Constitutional Appears: Chronically Ill - ENT Exam ENT Exam: Mucous Membranes Dry - Respiratory Exam Respiratory Exam: Decreased Breath Sounds Additional comments: on vent - Cardiovascular Exam Cardiovascular Exam: +S1, +S2 - GI/Abdominal Exam GI & Abdominal Exam: Soft, Hypoactive Bowel Sounds. absent: Distended, Firm, Guarding, Rigid, Rebound - Extremities Exam Extremities Exam: absent: Pedal Edema, Tenderness - Skin Skin Exam: Dry, Normal Color Assessment and Plan (1) Sepsis Status: Acute (2) Metabolic encephalopathy Status: Acute (3) Acute respiratory failure Status: Acute (4) Aspiration pneumonia Status: Acute (5) Acute kidney injury Status: Acute (6) Alcohol intoxication Status: Acute (7) Seizure Status: Acute (8) History of DVT (deep vein thrombosis) Status: Chronic (9) Hypertension Status: Chronic (10) DVT (deep venous thrombosis) Status: Acute (11) Prophylactic measure Status: Acute - Assessment and Plan (Free Text) Assessment: For terminal extubation today per family decision. All questions answered.
[2016-09-01 13:33] VITALS: BP 100/47; PULSE 85; RESP 11; O2SAT 79
--- NOTE | 2016-09-01 14:59 | CP.PCM.PN ---
Subjective - Date & Time of Evaluation Date of Evaluation: 09/01/16 Time of Evaluation: 11:15 - Subjective Subjective: patient remains unresponsive, on MV support. Objective - Vital Signs/Intake and Output Vital Signs (last 24 hours): Temp Pulse Resp BP Pulse Ox 98.2 F 85 11 L 100/47 L 79 L 09/01/16 12:00 09/01/16 13:00 09/01/16 13:00 09/01/16 12:42 09/01/16 13:00 Intake and Output: 09/01/16 09/01/16 06:59 18:59 Intake Total 2018.4 800.4 Output Total 0 5 Balance 2018.4 795.4 - Medications Medications: Current Medications Acetaminophen (Tylenol 325mg Tab) 650 mg PO Q6 PRN PRN Reason: Fever >100.4 F Last Admin: 08/27/16 03:10 Dose: 650 mg Albuterol/Ipratropium (Duoneb 3 Mg/0.5 Mg (3 Ml) Ud) 3 ml INH RQ6 [facility] Last Admin: 09/01/16 13:28 Dose: Not Given Aspirin (Aspirin Chewable) 81 mg PO DAILY [facility] Last Admin: 09/01/16 09:11 Dose: 81 mg Diltiazem HCl (Cardizem) 30 mg PO Q6H [facility] Last Admin: 09/01/16 11:40 Dose: 30 mg Folic Acid (Folic Acid) 1 mg PO DAILY [facility] Last Admin: 09/01/16 09:11 Dose: 1 mg Heparin Sodium (Porcine) (Heparin) 5,000 units SC Q8 [facility] Last Admin: 09/01/16 05:00 Dose: 5,000 units Propofol (Diprivan) 1,000 mg in 100 mls @ 2.449 mls/hr IV .Q24H PRN; Protocol; 5 MCG/KG/MIN PRN Reason: TITRATE PER MD ORDER Last Titration: 09/01/16 13:50 Dose: 0 mcg/kg/min, 0 mls/hr Piperacillin Sod/Tazobactam Sod (Zosyn 2.25 Gm Iv Premix) 2.25 gm in 50 mls @ 100 mls/hr IVPB Q8H [facility] Last Admin: 09/01/16 09:12 Dose: 100 mls/hr Fentanyl Citrate 2,500 mcg/ (Sodium Chloride) 250 mls @ 86 mls/hr IV .Q2H55M [facility]; 10 MCG/KG/HR PRN Reason: Protocol Last Titration: 09/01/16 10:45 Dose: 0 mcg/kg/hr, 0 mls/hr Moxifloxacin HCl (Avelox Iv 400mg/250ml Ns) 400 mg in 250 mls @ 167 mls/hr IVPB Q24H [facility] Last Admin: 08/31/16 17:08 Dose: 167 mls/hr Norepinephrine Bitartrate 8 mg (/ Sodium Chloride) 250 mls @ 7.5 mls/hr IV .Q24H PRN; Protocol; 4 MCG/MIN PRN Reason: TITRATE PER MD ORDER Diltiazem HCl 125 mg/ Sodium (Chloride) 125 mls @ 5 mls/hr IV .Q24H [facility]; 5 MG/ HR PRN Reason: Protocol Last Titration: 09/01/16 13:45 Dose: 0 mg/hr, 0 mls/hr Trimethoprim/Sulfamethoxazole (80 mg/ Dextrose) 100 mls @ 100 mls/hr IVPB Q12H [facility] Last Admin: 09/01/16 05:45 Dose: 100 mls/hr Acyclovir 800 mg/ Sodium (Chloride) 250 mls @ 167 mls/hr IV Q24H [facility] Last Admin: 08/31/16 23:25 Dose: 167 mls/hr Lactobacillus Acidophilus (Bacid Acidophilus) 1 cap PO BID [facility] Last Admin: 09/01/16 09:13 Dose: 1 cap Lorazepam (Ativan) 2 mg IVP Q6H PRN PRN Reason: Anxiety Last Admin: 09/01/16 13:26 Dose: 2 mg Lorazepam (Ativan) 2 mg IVP Q30M PRN PRN Reason: Anxiety Last Admin: 09/01/16 13:49 Dose: 2 mg Methylprednisolone (Solu-Medrol) 40 mg IVP Q8H [facility] Last Admin: 09/01/16 08:04 Dose: 40 mg Multivitamins (Hexavitamin) 1 tab PO DAILY [facility] Last Admin: 09/01/16 09:11 Dose: 1 tab Pantoprazole Sodium (Protonix Inj) 40 mg IVP DAILY [facility] Last Admin: 09/01/16 09:11 Dose: 40 mg Thiamine HCl (Vitamin B1 Inj) 100 mg IV DAILY [facility] Last Admin: 09/01/16 09:11 Dose: 100 mg - Labs Labs: 09/01/16 06:03 09/01/16 06:03 PT 10.5 SECONDS (9.7-12.2) 08/29/16 17:26 INR 0.9 08/29/16 17:26 APTT 63 SECONDS (21-34) H 08/29/16 17:26 - Constitutional Appears: In Acute Distress - Head Exam Head Exam: ATRAUMATIC, NORMAL INSPECTION, NORMOCEPHALIC - Eye Exam Pupil Exam: Fixed - ENT Exam Additional comments: NGT - Neck Exam Neck Exam: Normal Inspection - Respiratory Exam Additional comments: Intubated on MV - Cardiovascular Exam Cardiovascular Exam: Irregular Rhythm - GI/Abdominal Exam GI & Abdominal Exam: Hypoactive Bowel Sounds - Rectal Exam Rectal Exam: Deferred - Extremities Exam Extremities Exam: Normal Inspection - Back Exam Back Exam: NORMAL INSPECTION - Neurological Exam Neurological Exam: Motor Sensory Deficit Neuro motor strength exam: Left Upper Extremity: 0, Right Upper Extremity: 0, Left Lower Extremity: 0, Right Lower Extremity: 0 - Psychiatric Exam Psychiatric exam: Flat Affect - Skin Skin Exam: Normal Color Assessment and Plan - Assessment and Plan (Free Text) Assessment: Patient remains on MV, unresponsive to stimuli, with very poor prognosis. Patient's two sister Ada and Dosi were present. I reviewed clinical picture of a patient and elicited their expectations. Both sisters were under the impression that patient was " only body" in the bed and they wanted him to peacefully without further support of MV. POLST was signed. DNR/DNI. This was communicated to Doctor Adeline and Doctor ingram. Family wanted patient to be removed from life support today. After further discussion between family and both Doctors, terminal extubation took place and patient peacefully.
--- NOTE | 2016-09-01 16:00 | CP.CCUPN ---
CCU Subjective - Physician Review Events Since Last Encounter (Free Text): 09/01/16 15:55 Patient seen and examined in the morning. Still doing poorly, on very high ventilator support peep 14, FiO2 100%, ventilator day #6. Today his mental status has worsened, no pupilary reflex, no gag, weak cough, moves upper extremities to pain, unable to elicit movement of the lower extremities. Still acidotic despite dialysis. I spoke to his 2 sisters: Kendy Zaidi and Justin Bowie, they have decided to terminally extubate him today, do not want to wait any longer since they have made up their mind. He has another brother, Shin. I spoke to him over the phone and communicated her sisters decisions, he leaves the choice up to them. This conversation was confirmed over the phone with Dr. Lr. Extubated and inless than 20 m. CCU Objective - Vital Signs / Intake & Output Vital Signs (Last 4 hours): Vital Signs Temp Pulse Resp BP Pulse Ox 09/01/16 13:00 85 11 L 79 L 09/01/16 12:42 86 11 L 100/47 L 77 L 09/01/16 12:00 98.2 F 88 12 77 L Intake and Output (Last 8hrs): Intake & Output 09/01/16 09/01/16 09/01/16 06:59 14:59 22:59 Intake Total 1525.6 800.4 Output Total 0 5 Balance 1525.6 795.4 Weight 189 lb 9.561 oz Intake: IV 500 372 Intake, IV Amount 785.6 218.4 Left Antecubital 400 10 Right Distal Port 41.6 36.4 Internal Jugular Right Forearm 344 172 Tube Feeding 240 210 Output: Urine 0 5 Urethral (Kumar) 0 5 - Physical Exam Head: Positive for: Atraumatic, Normocephalic Pupils: Positive for: PERRL Extroacular Muscles: Positive for: EOMI Conjunctiva: Positive for: Normal Mouth: Positive for: Moist Mucous Membranes Respiratory/Chest: Positive for: Accessory Muscle Use, Decreased Breath Sounds Cardiovascular: Positive for: Normal S1, S2 Abdomen: Positive for: Normal Bowel Sounds. Negative for: Tenderness, Distention Neurological: Positive for: Other (sedated) Skin: Positive for: Warm, Dry - Medications Active Medications: Active Medications Generic Name Dose Route Start Last Admin Trade Name Freq PRN Reason Stop Dose Admin Acetaminophen 650 mg 08/24/16 21:11 08/27/16 03:10 Tylenol 325mg Tab PO 650 mg Q6 PRN Administration Fever >100.4 F Albuterol/Ipratropium 3 ml 08/28/16 20:00 09/01/16 13:28 Duoneb 3 Mg/0.5 Mg (3 Ml) Ud INH Not Given RQ6 AMINTA Aspirin 81 mg 08/25/16 10:00 09/01/16 09:11 Aspirin Chewable PO 81 mg DAILY AMINTA Administration Diltiazem HCl 30 mg 09/01/16 11:15 09/01/16 11:40 Cardizem PO 30 mg Q6H AMINTA Administration Folic Acid 1 mg 08/25/16 10:00 09/01/16 09:11 Folic Acid PO 1 mg DAILY AMINTA Administration Heparin Sodium (Porcine) 5,000 units 08/29/16 14:00 09/01/16 05:00 Heparin SC 5,000 units Q8 AMINTA Administration Propofol 1,000 mg in 100 mls @ 2.449 mls/hr 08/27/16 16:43 09/01/16 13:50 Diprivan IV 0 mcg/kg/min .Q24H PRN 0 mls/hr TITRATE PER MD ORDER Titration Protocol 5 MCG/KG/MIN Piperacillin Sod/Tazobactam Sod 2.25 gm in 50 mls @ 100 mls/hr 08/29/16 10:00 09/01/16 09:12 Zosyn 2.25 Gm Iv Premix IVPB 100 mls/hr Q8H AMINTA Administration Fentanyl Citrate 2,500 mcg/ 250 mls @ 86 mls/hr 08/30/16 06:45 09/01/16 10:45 Sodium Chloride IV 0 mcg/kg/hr .Q2H55M AMINTA 0 mls/hr Protocol Titration 10 MCG/KG/HR Moxifloxacin HCl 400 mg in 250 mls @ 167 mls/hr 08/30/16 18:00 08/31/16 17:08 Avelox Iv 400mg/250ml Ns IVPB 167 mls/hr Q24H AMINTA Administration Norepinephrine Bitartrate 8 mg 250 mls @ 7.5 mls/hr 08/30/16 20:30 / Sodium Chloride IV .Q24H PRN TITRATE PER MD ORDER Protocol 4 MCG/MIN Diltiazem HCl 125 mg/ Sodium 125 mls @ 5 mls/hr 08/31/16 17:00 09/01/16 13:45 Chloride IV 0 mg/hr .Q24H AMINTA 0 mls/hr Protocol Titration 5 MG/HR Trimethoprim/Sulfamethoxazole 100 mls @ 100 mls/hr 08/31/16 18:00 09/01/16 05 :45 80 mg/ Dextrose IVPB 100 mls/hr Q12H AMINTA Administration Acyclovir 800 mg/ Sodium 250 mls @ 167 mls/hr 08/31/16 22:30 08/31/16 23:25 Chloride IV 167 mls/hr Q24H AMINTA Administration Lactobacillus Acidophilus 1 cap 08/27/16 18:00 09/01/16 09:13 Bacid Acidophilus PO 1 cap BID AMINTA Administration Lorazepam 2 mg 08/29/16 10:00 09/01/16 13:26 Ativan IVP 2 mg Q6H PRN Administration Anxiety Lorazepam 2 mg 09/01/16 13:13 09/01/16 13:49 Ativan IVP 2 mg Q30M PRN Administration Anxiety Methylprednisolone 40 mg 08/31/16 17:00 09/01/16 08:04 Solu-Medrol IVP 40 mg Q8H AMINTA Administration Multivitamins 1 tab 08/25/16 10:00 09/01/16 09:11 Hexavitamin PO 1 tab DAILY AMINTA Administration Pantoprazole Sodium 40 mg 08/29/16 10:00 09/01/16 09:11 Protonix Inj IVP 40 mg DAILY AMINTA Administration Thiamine HCl 100 mg 08/27/16 10:00 09/01/16 09:11 Vitamin B1 Inj IV 100 mg DAILY AMINTA Administration - Patient Studies Lab Studies: Microbiology Studies 08/29/16 19:00 Blood Culture - Preliminary Blood NO GROWTH AFTER 48 HOURS 08/29/16 19:00 Blood Culture - Preliminary Blood NO GROWTH AFTER 48 HOURS Lab Studies 09/01/16 09/01/16 09/01/16 Range/Units 12:10 06:03 06:03 WBC (4.8-10.8) K/uL RBC (4.40-5.90) Mil/uL Hgb (12.0-18.0) g/dL Hct (35.0-51.0) % MCV (80.0-94.0) fL MCH (27.0-31.0) pg MCHC (33.0-37.0) g/dL RDW (11.5-14.5) % Plt Count (130-400) K/uL MPV (7.2-11.7) fL Neut % (Auto) (50.0-75.0) % Lymph % (Auto) (20.0-40.0) % [place] % (Auto) (0.0-10.0) % Eos % (Auto) (0.0-4.0) % Baso % (Auto) (0.0-2.0) % Neut # (1.8-7.0) K/uL Lymph # (1.0-4.3) K/uL [place] # (0.0-0.8) K/uL Eos # (0.0-0.7) K/uL Baso # (0.0-0.2) K/uL Neutrophils % (Manual) (50-75) % Lymphocytes % (Manual) (20-40) % Monocytes % (Manual) (0-10) % Platelet Estimate (NORMAL) Hypochromasia (manual) Poikilocytosis (manual Anisocytosis (manual) Puncture Site pCO2 (35-45) mm/Hg pO2 (80-100) mm/Hg HCO3 (21-28) mmol/L ABG pH (7.35-7.45) ABG Total CO2 (22-28) mmol/L ABG O2 Saturation (95-98) % ABG Base Excess (-2.0-3.0) mmol/L ABG Hemoglobin (11.7-17.4) g/dL ABG Carboxyhemoglobin (0.5-1.5) % POC ABG HHb (Measured) (0.0-5.0) % ABG Methemoglobin (0.0-3.0) % Lisandro Test ABG Potassium (3.6-5.2) mmol/L A-a O2 Difference mm/Hg Respiratory Index Hgb O2 Saturation (95.0-98.0) % Sodium 132 (132-148) mmol/l Chloride 95 L (98-107) mmol/L Glucose (75-110) mg/dl Lactate (0.7-2.1) mmol/L Mechanical Rate FiO2 % Tidal Volume PEEP Crit Value Called To Crit Value Called By Crit Value Read Back Blood Gas Notified Time Potassium 5.5 H (3.6-5.2) mmol/L Carbon Dioxide 29 (22-30) mmol/L Anion Gap 14 (10-20) BUN 46 H (9-20) mg/dL Creatinine 6.6 H (0.8-1.5) MG/DL Est GFR ( Amer) 11 Est GFR (Non-Af Amer) 9 POC Glucose (mg/dL) 206 H 173 H (65-110) mg/dL Random Glucose 153 H (75-110) mg/dL Calcium 6.6 L (8.6-10.4) mg/dl Phosphorus 9.3 H (2.5-4.5) mg/dL Magnesium 2.5 H (1.6-2.3) mg/dL Total Bilirubin < 0.1 L (0.2-1.3) mg/dL AST 269 H D (17-59) U/L ALT 78 H (21-72) U/L Alkaline Phosphatase 111 (38-126) U/L Total Protein 4.8 L (6.3-8.3) g/dL Albumin 2.0 L (3.5-5.0) g/dL Globulin 2.8 (2.2-3.9) gm/dL Albumin/Globulin Ratio 0.7 L (1.0-2.1) Arterial Blood Potassium (3.6-5.2) mmol/L Random Vancomycin ug/mL Proteinase 3 (PR3) (<1.0) AI Myeloperoxidase Ab (<1.0) AI Glomerular Base Mem IgG (<1.0) AI Mycoplasma pneumon IgG (<=0.90) Mycoplasma pneumon IgM (<770) U/mL 09/01/16 09/01/16 09/01/16 Range/Units 06:03 06:03 05:10 WBC 12.9 H D (4.8-10.8) K/uL RBC 4.67 (4.40-5.90) Mil/uL Hgb 11.4 L (12.0-18.0) g/dL Hct 37.2 (35.0-51.0) % MCV 79.7 L (80.0-94.0) fL MCH 24.5 L (27.0-31.0) pg MCHC 30.7 L (33.0-37.0) g/dL RDW 15.2 H (11.5-14.5) % Plt Count 187 (130-400) K/uL MPV 8.7 (7.2-11.7) fL Neut % (Auto) 87.0 H (50.0-75.0) % Lymph % (Auto) 4.8 L (20.0-40.0) % [place] % (Auto) 8.1 (0.0-10.0) % Eos % (Auto) 0.0 (0.0-4.0) % Baso % (Auto) 0.1 (0.0-2.0) % Neut # 11.2 H (1.8-7.0) K/uL Lymph # 0.6 L (1.0-4.3) K/uL [place] # 1.0 H (0.0-0.8) K/uL Eos # 0.0 (0.0-0.7) K/uL Baso # 0.0 (0.0-0.2) K/uL Neutrophils % (Manual) 89 H (50-75) % Lymphocytes % (Manual) 6 L (20-40) % Monocytes % (Manual) 5 (0-10) % Platelet Estimate Normal (NORMAL) Hypochromasia (manual) Slight Poikilocytosis (manual Slight Anisocytosis (manual) Slight Puncture Site L rad pCO2 74 H* (35-45) mm/Hg pO2 49 L (80-100) mm/Hg HCO3 23.5 (21-28) mmol/L ABG pH 7.19 L* (7.35-7.45) ABG Total CO2 30.6 H (22-28) mmol/L ABG O2 Saturation 84.1 L (95-98) % ABG Base Excess -1.4 (-2.0-3.0) mmol/L ABG Hemoglobin 11.7 (11.7-17.4) g/dL ABG Carboxyhemoglobin 1.8 H (0.5-1.5) % POC ABG HHb (Measured) 15.4 H (0.0-5.0) % ABG Methemoglobin 1.0 (0.0-3.0) % Lisandro Test Pos ABG Potassium (3.6-5.2) mmol/L A-a O2 Difference 572.0 mm/Hg Respiratory Index 11.7 Hgb O2 Saturation 81.7 L (95.0-98.0) % Sodium (132-148) mmol/l Chloride (98-107) mmol/L Glucose (75-110) mg/dl Lactate (0.7-2.1) mmol/L Mechanical Rate 24 FiO2 100.0 % Tidal Volume 500 PEEP 14 Crit Value Called To Maddie herring rn Crit Value Called By Calixto culled fruit packer Crit Value Read Back Y Blood Gas Notified Time 552 Potassium (3.6-5.2) mmol/L Carbon Dioxide (22-30) mmol/L Anion Gap (10-20) BUN (9-20) mg/dL Creatinine (0.8-1.5) MG/DL Est GFR ( Amer) Est GFR (Non-Af Amer) POC Glucose (mg/dL) (65-110) mg/dL Random Glucose (75-110) mg/dL Calcium (8.6-10.4) mg/dl Phosphorus (2.5-4.5) mg/dL Magnesium (1.6-2.3) mg/dL Total Bilirubin (0.2-1.3) mg/dL AST (17-59) U/L ALT (21-72) U/L Alkaline Phosphatase (38-126) U/L Total Protein (6.3-8.3) g/dL Albumin (3.5-5.0) g/dL Globulin (2.2-3.9) gm/dL Albumin/Globulin Ratio (1.0-2.1) Arterial Blood Potassium (3.6-5.2) mmol/L Random Vancomycin 14.89 ug/mL Proteinase 3 (PR3) (<1.0) AI Myeloperoxidase Ab (<1.0) AI Glomerular Base Mem IgG (<1.0) AI Mycoplasma pneumon IgG (<=0.90) Mycoplasma pneumon IgM (<770) U/mL 08/31/16 08/31/16 08/31/16 Range/Units 23:33 17:50 17:00 WBC (4.8-10.8) K/uL RBC (4.40-5.90) Mil/uL Hgb (12.0-18.0) g/dL Hct (35.0-51.0) % MCV (80.0-94.0) fL MCH (27.0-31.0) pg MCHC (33.0-37.0) g/dL RDW (11.5-14.5) % Plt Count (130-400) K/uL MPV (7.2-11.7) fL Neut % (Auto) (50.0-75.0) % Lymph % (Auto) (20.0-40.0) % [place] % (Auto) (0.0-10.0) % Eos % (Auto) (0.0-4.0) % Baso % (Auto) (0.0-2.0) % Neut # (1.8-7.0) K/uL Lymph # (1.0-4.3) K/uL [place] # (0.0-0.8) K/uL Eos # (0.0-0.7) K/uL Baso # (0.0-0.2) K/uL Neutrophils % (Manual) (50-75) % Lymphocytes % (Manual) (20-40) % Monocytes % (Manual) (0-10) % Platelet Estimate (NORMAL) Hypochromasia (manual) Poikilocytosis (manual Anisocytosis (manual) Puncture Site Rra pCO2 74 H* (35-45) mm/Hg pO2 42 L* (80-100) mm/Hg HCO3 23.8 (21-28) mmol/L ABG pH 7.21 L (7.35-7.45) ABG Total CO2 31.9 H (22-28) mmol/L ABG O2 Saturation 79.2 L (95-98) % ABG Base Excess -0.3 (-2.0-3.0) mmol/L ABG Hemoglobin (11.7-17.4) g/dL ABG Carboxyhemoglobin (0.5-1.5) % POC ABG HHb (Measured) (0.0-5.0) % ABG Methemoglobin (0.0-3.0) % Lisandro Test Pos ABG Potassium 4.6 (3.6-5.2) mmol/L A-a O2 Difference 579.0 mm/Hg Respiratory Index 13.8 Hgb O2 Saturation (95.0-98.0) % Sodium 136.0 (132-148) mmol/l Chloride 104.0 (98-107) mmol/L Glucose 102 (75-110) mg/dl Lactate 1.2 (0.7-2.1) mmol/L Mechanical Rate 24 FiO2 100.0 % Tidal Volume 550 PEEP 12 Crit Value Called To Dr alegria Crit Value Called By Lawson carlos Crit Value Read Back Y Blood Gas Notified Time 1705 Potassium (3.6-5.2) mmol/L Carbon Dioxide (22-30) mmol/L Anion Gap (10-20) BUN (9-20) mg/dL Creatinine (0.8-1.5) MG/DL Est GFR ( Amer) Est GFR (Non-Af Amer) POC Glucose (mg/dL) 127 H 93 (65-110) mg/dL Random Glucose (75-110) mg/dL Calcium (8.6-10.4) mg/dl Phosphorus (2.5-4.5) mg/dL Magnesium (1.6-2.3) mg/dL Total Bilirubin (0.2-1.3) mg/dL AST (17-59) U/L ALT (21-72) U/L Alkaline Phosphatase (38-126) U/L Total Protein (6.3-8.3) g/dL Albumin (3.5-5.0) g/dL Globulin (2.2-3.9) gm/dL Albumin/Globulin Ratio (1.0-2.1) Arterial Blood Potassium 4.6 (3.6-5.2) mmol/L Random Vancomycin ug/mL Proteinase 3 (PR3) (<1.0) AI Myeloperoxidase Ab (<1.0) AI Glomerular Base Mem IgG (<1.0) AI Mycoplasma pneumon IgG (<=0.90) Mycoplasma pneumon IgM (<770) U/mL 08/29/16 08/27/16 08/27/16 Range/Units 06:53 11:08 06:27 WBC (4.8-10.8) K/uL RBC (4.40-5.90) Mil/uL Hgb (12.0-18.0) g/dL Hct (35.0-51.0) % MCV (80.0-94.0) fL MCH (27.0-31.0) pg MCHC (33.0-37.0) g/dL RDW (11.5-14.5) % Plt Count (130-400) K/uL MPV (7.2-11.7) fL Neut % (Auto) (50.0-75.0) % Lymph % (Auto) (20.0-40.0) % [place] % (Auto) (0.0-10.0) % Eos % (Auto) (0.0-4.0) % Baso % (Auto) (0.0-2.0) % Neut # (1.8-7.0) K/uL Lymph # (1.0-4.3) K/uL [place] # (0.0-0.8) K/uL Eos # (0.0-0.7) K/uL Baso # (0.0-0.2) K/uL Neutrophils % (Manual) (50-75) % Lymphocytes % (Manual) (20-40) % Monocytes % (Manual) (0-10) % Platelet Estimate (NORMAL) Hypochromasia (manual) Poikilocytosis (manual Anisocytosis (manual) Puncture Site pCO2 (35-45) mm/Hg pO2 (80-100) mm/Hg HCO3 (21-28) mmol/L ABG pH (7.35-7.45) ABG Total CO2 (22-28) mmol/L ABG O2 Saturation (95-98) % ABG Base Excess (-2.0-3.0) mmol/L ABG Hemoglobin (11.7-17.4) g/dL ABG Carboxyhemoglobin (0.5-1.5) % POC ABG HHb (Measured) (0.0-5.0) % ABG Methemoglobin (0.0-3.0) % Lisandro Test ABG Potassium (3.6-5.2) mmol/L A-a O2 Difference mm/Hg Respiratory Index Hgb O2 Saturation (95.0-98.0) % Sodium (132-148) mmol/l Chloride (98-107) mmol/L Glucose (75-110) mg/dl Lactate (0.7-2.1) mmol/L Mechanical Rate FiO2 % Tidal Volume PEEP Crit Value Called To Crit Value Called By Crit Value Read Back Blood Gas Notified Time Potassium (3.6-5.2) mmol/L Carbon Dioxide (22-30) mmol/L Anion Gap (10-20) BUN (9-20) mg/dL Creatinine (0.8-1.5) MG/DL Est GFR ( Amer) Est GFR (Non-Af Amer) POC Glucose (mg/dL) (65-110) mg/dL Random Glucose (75-110) mg/dL Calcium (8.6-10.4) mg/dl Phosphorus (2.5-4.5) mg/dL Magnesium (1.6-2.3) mg/dL Total Bilirubin (0.2-1.3) mg/dL AST (17-59) U/L ALT (21-72) U/L Alkaline Phosphatase (38-126) U/L Total Protein (6.3-8.3) g/dL Albumin (3.5-5.0) g/dL Globulin (2.2-3.9) gm/dL Albumin/Globulin Ratio (1.0-2.1) Arterial Blood Potassium (3.6-5.2) mmol/L Random Vancomycin ug/mL Proteinase 3 (PR3) <1.0 (<1.0) AI Myeloperoxidase Ab <1.0 (<1.0) AI Glomerular Base Mem IgG <1.0 (<1.0) AI Mycoplasma pneumon IgG 1.70 H (<=0.90) Mycoplasma pneumon IgM 43 (<770) U/mL Laboratory Results - last 24 hr 08/27/16 08/27/16 08/29/16 06:27 11:08 06:53 WBC RBC Hgb Hct MCV MCH MCHC RDW Plt Count MPV Neut % (Auto) Lymph % (Auto) [place] % (Auto) Eos % (Auto) Baso % (Auto) Neut # Lymph # [place] # Eos # Baso # Neutrophils % (Manual) Lymphocytes % (Manual) Monocytes % (Manual) Platelet Estimate Hypochromasia (manual) Poikilocytosis (manual Anisocytosis (manual) Puncture Site pCO2 pO2 HCO3 ABG pH ABG Total CO2 ABG O2 Saturation ABG Base Excess ABG Hemoglobin ABG Carboxyhemoglobin POC ABG HHb (Measured) ABG Methemoglobin Lisandro Test ABG Potassium A-a O2 Difference Respiratory Index Hgb O2 Saturation Sodium Chloride Glucose Lactate Mechanical Rate FiO2 Tidal Volume PEEP Crit Value Called To Crit Value Called By Crit Value Read Back Blood Gas Notified Time Potassium Carbon Dioxide Anion Gap BUN Creatinine Est GFR ( Amer) Est GFR (Non-Af Amer) POC Glucose (mg/dL) Random Glucose Calcium Phosphorus Magnesium Total Bilirubin AST ALT Alkaline Phosphatase Total Protein Albumin Globulin Albumin/Globulin Ratio Arterial Blood Potassium Random Vancomycin Proteinase 3 (PR3) <1.0 Myeloperoxidase Ab <1.0 Glomerular Base Mem IgG <1.0 Mycoplasma pneumon IgG 1.70 H Mycoplasma pneumon IgM 43 08/31/16 08/31/16 08/31/16 17:00 17:50 23:33 WBC RBC Hgb Hct MCV MCH MCHC RDW Plt Count MPV Neut % (Auto) Lymph % (Auto) [place] % (Auto) Eos % (Auto) Baso % (Auto) Neut # Lymph # [place] # Eos # Baso # Neutrophils % (Manual) Lymphocytes % (Manual) Monocytes % (Manual) Platelet Estimate Hypochromasia (manual) Poikilocytosis (manual Anisocytosis (manual) Puncture Site Rra pCO2 74 H* pO2 42 L* HCO3 23.8 ABG pH 7.21 L ABG Total CO2 31.9 H ABG O2 Saturation 79.2 L ABG Base Excess -0.3 ABG Hemoglobin ABG Carboxyhemoglobin POC ABG HHb (Measured) ABG Methemoglobin Lisandro Test Pos ABG Potassium 4.6 A-a O2 Difference 579.0 Respiratory Index 13.8 Hgb O2 Saturation Sodium 136.0 Chloride 104.0 Glucose 102 Lactate 1.2 Mechanical Rate 24 FiO2 100.0 Tidal Volume 550 PEEP 12 Crit Value Called To Dr alegria Crit Value Called By Lawson carlos Crit Value Read Back Y Blood Gas Notified Time 1705 Potassium Carbon Dioxide Anion Gap BUN Creatinine Est GFR ( Amer) Est GFR (Non-Af Amer) POC Glucose (mg/dL) 93 127 H Random Glucose Calcium Phosphorus Magnesium Total Bilirubin AST ALT Alkaline Phosphatase Total Protein Albumin Globulin Albumin/Globulin Ratio Arterial Blood Potassium 4.6 Random Vancomycin Proteinase 3 (PR3) Myeloperoxidase Ab Glomerular Base Mem IgG Mycoplasma pneumon IgG Mycoplasma pneumon IgM 09/01/16 09/01/16 09/01/16 05:10 06:03 06:03 WBC 12.9 H D RBC 4.67 Hgb 11.4 L Hct 37.2 MCV 79.7 L MCH 24.5 L MCHC 30.7 L RDW 15.2 H Plt Count 187 MPV 8.7 Neut % (Auto) 87.0 H Lymph % (Auto) 4.8 L [place] % (Auto) 8.1 Eos % (Auto) 0.0 Baso % (Auto) 0.1 Neut # 11.2 H Lymph # 0.6 L [place] # 1.0 H Eos # 0.0 Baso # 0.0 Neutrophils % (Manual) 89 H Lymphocytes % (Manual) 6 L Monocytes % (Manual) 5 Platelet Estimate Normal Hypochromasia (manual) Slight Poikilocytosis (manual Slight Anisocytosis (manual) Slight Puncture Site L rad pCO2 74 H* pO2 49 L HCO3 23.5 ABG pH 7.19 L* ABG Total CO2 30.6 H ABG O2 Saturation 84.1 L ABG Base Excess -1.4 ABG Hemoglobin 11.7 ABG Carboxyhemoglobin 1.8 H POC ABG HHb (Measured) 15.4 H ABG Methemoglobin 1.0 Lisandro Test Pos ABG Potassium A-a O2 Difference 572.0 Respiratory Index 11.7 Hgb O2 Saturation 81.7 L Sodium Chloride Glucose Lactate Mechanical Rate 24 FiO2 100.0 Tidal Volume 500 PEEP 14 Crit Value Called To Maddie herring rn Crit Value Called By Calixto culled fruit packer Crit Value Read Back Y Blood Gas Notified Time 552 Potassium Carbon Dioxide Anion Gap BUN Creatinine Est GFR ( Amer) Est GFR (Non-Af Amer) POC Glucose (mg/dL) Random Glucose Calcium Phosphorus Magnesium Total Bilirubin AST ALT Alkaline Phosphatase Total Protein Albumin Globulin Albumin/Globulin Ratio Arterial Blood Potassium Random Vancomycin 14.89 Proteinase 3 (PR3) Myeloperoxidase Ab Glomerular Base Mem IgG Mycoplasma pneumon IgG Mycoplasma pneumon IgM 09/01/16 09/01/16 09/01/16 06:03 06:03 12:10 WBC RBC Hgb Hct MCV MCH MCHC RDW Plt Count MPV Neut % (Auto) Lymph % (Auto) [place] % (Auto) Eos % (Auto) Baso % (Auto) Neut # Lymph # [place] # Eos # Baso # Neutrophils % (Manual) Lymphocytes % (Manual) Monocytes % (Manual) Platelet Estimate Hypochromasia (manual) Poikilocytosis (manual Anisocytosis (manual) Puncture Site pCO2 pO2 HCO3 ABG pH ABG Total CO2 ABG O2 Saturation ABG Base Excess ABG Hemoglobin ABG Carboxyhemoglobin POC ABG HHb (Measured) ABG Methemoglobin Lisandro Test ABG Potassium A-a O2 Difference Respiratory Index Hgb O2 Saturation Sodium 132 Chloride 95 L Glucose Lactate Mechanical Rate FiO2 Tidal Volume PEEP Crit Value Called To Crit Value Called By Crit Value Read Back Blood Gas Notified Time Potassium 5.5 H Carbon Dioxide 29 Anion Gap 14 BUN 46 H Creatinine 6.6 H Est GFR ( Amer) 11 Est GFR (Non-Af Amer) 9 POC Glucose (mg/dL) 173 H 206 H Random Glucose 153 H Calcium 6.6 L Phosphorus 9.3 H Magnesium 2.5 H Total Bilirubin < 0.1 L AST 269 H D ALT 78 H Alkaline Phosphatase 111 Total Protein 4.8 L Albumin 2.0 L Globulin 2.8 Albumin/Globulin Ratio 0.7 L Arterial Blood Potassium Random Vancomycin Proteinase 3 (PR3) Myeloperoxidase Ab Glomerular Base Mem IgG Mycoplasma pneumon IgG Mycoplasma pneumon IgM Fingerstick Blood Sugar Results: 173 Critical Care Progress Note - Nutrition Nutrition: Nutrition Category Date Time Status NPO Diet [DIET] Diets 08/27/16 Lunch Active
--- NOTE | 2016-09-01 19:43 | EEG ---
DATE: 09/01/2016 FAMILY PHYSICIAN: Dr. Mikel Carroll. REASON FOR STUDY: Concern for seizures. MEDICATIONS: Reviewed per the nurse's reconciliation sheet. INTERPRETATION: This is a 16-channel international recording. The background activity was composed of 5-8 cycles per second. There was a minimal amount of beta activity running at 14-18 cycles per se cond. There was increased amount of theta activity throughout the tracing at 5-7 cycles per second. Drowsiness was present with significant beta and theta activity. Sleep was not achieved. Photic st imulation did not significantly alter the tracing. There were several left temporal sharp wave disch arges noted in the T5 region. CONCLUSION: This is an abnormal electroencephalogram due to the presence of diffuse slowing througho ut the recording, as well as several left temporal lobe epileptiform discharges. Mikal Magana MD cc: [id number] TT: 09/01/2016 19:43:07 Confirmation # [id number] Dictation # [id number] [email or web address]
--- NOTE | 2016-09-01 21:30 | PN ---
DATE: 09/01/2016 A 56-year-old male with history of alcohol use, admitted status post witnessed seizure. Subsequently developed acute hypoxemic respiratory failure, acute renal failure, nephrology following for the harsha e. The patient's family today deciding on terminal extubation in the setting of marked hypoxemia that bear s not improved. Already made DNR yesterday. LABORATORY DATA: This morning, WBC 12.9, hemoglobin 11.3, hematocrit 37.2, platelets 187. Chemistry panel: Sodium 132, potassium 5.5, chloride 95, bicarb 29, BUN 46, creatinine 6.6, glucose 153, calc ium 6.6, phosphorus 9.3, albumin 2.0. ABG this morning: pH 7.19, pCO2 of 74, pO2 49, O2 sat 84% on 100% FIO2 via mechanical ventilation. The patient seen just after terminal extubation and after pronounced , although plans were alread y being made early in the day for hemodialysis as the patient had severe hypoxemic respiratory failur e and our plan was to attempt volume removal in order to help respiratory status as we had already ac hieved 2 liters ultrafiltration on hemodialysis yesterday. Ish Mascorro MD cc: [id number] TT: 09/01/2016 21:30:24 Confirmation # [id number] Dictation # [id number] [email or web address]
[2016-09-02 05:14] LABS: PHOSPHATIDYLSERINE AB IGM <25 U/mL (<25)
[2016-09-02 22:29] LABS: B2 GLYCOPROTEIN I AB(IGA) <9 SAU (<=20); B2 GLYCOPROTEIN I AB(IGG) <9 SGU (<=20); B2 GLYCOPROTEIN I AB(IGM) <9 SMU (<=20)
[2016-09-03 04:17] LABS: CARDIOLIPIN AB (IGA) <11 APL (<=11); PHOSPHATIDYLSERINE AB IGA <20 U/mL (<20)
--- NOTE | 2016-09-28 06:51 | PQF SEPSIS ---
This form is a permanent part of the medical record To DR MCWILLIAMS, Patient was admitted thru the ED with Seizure productive cough with fever. history of Alcohol dependence, asthma, HTN, Alcohol induced Seizure,. Diagnosed with Pneumonia on admissin ( 08/24/16) However on 08/27 Progress notes states Encephalopathy secondary to Sepsis ; 08/28 Progress Note states Sepsis due to Pneumonia; 08/29 Progress Note states Sepsis secondary to Pneumonia possible Aspiration. Was SEPSIS present on Admission? / POA Clarification of your documentation is requested to better reflect the severity of illness and intensity of treatment of your patient. Indicators present [] Temp < 96.8 or > 100.4 [] WBC count > 12,000/mm3 or <000/mm3 or 10% immature neutrophils [] Heart Rate > 90 [] Respiratory Rate > 20 [X] Fever or hypothermia [X Chills [] Positive blood cultures [X] Hypotension [] Metabolic acidosis (Elevated lactate level, anion gap or reduced blood pH) [] Acute confusion /Altered Mental Status [] Shock [] Other: [] Location in the medical record that reflects the above clinical findings: [X] Progress notes 08/27 ; 08/28 ; 08/29 ; 08/30 ; 08/31 -- Sepsis secondary to Pneumonia Treatment Provided: [] PHYSICIAN'S RESPONSE yes sepsis was present on admission Based on your medical judgment of the clinical indicators outlined above, are you treating this patient for a known or suspected: [x] Sepsis / Septicemia Please specify organism if known [] [x] SIRS (Systemic Inflammatory Response Syndrome) [] Severe Sepsis (Sepsis with Associated Organ Dysfunction) [] Fever of Unknown Origin [] Other, please indicate: [] [] If Unable to Determine, please check the box, sign and date. Present On Admission (POA) Indicator: [x] Present at the time of admission [] Not present at the time of admission [] Clinically Undetermined In responding to this query, please exercise your independent professional judgment. The fact that a question is asked does not imply that any particular answer is desired or expected. Thank you for your clarification on this documentation. If you have any questions please call:[ ] * Thank you, [ Coty Bravo, [facility]] sounding device operator LAURENCE
== END 2016-09-01 14:04 | DRG 870 ==
LOC: C.ER 14:56 → C.9E 18:06 → C.6T 19:11 → C.9I 08-27 16:13
PROVIDERS: ADMIT Family Medicine; ATTEND Family Medicine
PROC: 0BH17EZ Insertion of Endotracheal Airway into Trachea, Via Natural or Artificial Opening (ICD-10-PCS; principal; 2016-08-27)
PROC: 5A1955Z Respiratory Ventilation, Greater than 96 Consecutive Hours (ICD-10-PCS; 2016-08-27)
PROC: 5A1D60Z (ICD-10-PCS; 2016-08-30)
PROC: 3E033XZ Introduction of Vasopressor into Peripheral Vein, Percutaneous Approach (ICD-10-PCS; 2016-08-30)
PROC: 02HV33Z Insertion of Infusion Device into Superior Vena Cava, Percutaneous Approach (ICD-10-PCS; 2016-08-30)
DX: A41.9 Sepsis, unspecified organism (principal); J96.91 Respiratory failure, unspecified with hypoxia; N17.0 Acute kidney failure with tubular necrosis; J69.0 Pneumonitis due to inhalation of food and vomit; R65.21 Severe sepsis with septic shock; G93.41 Metabolic encephalopathy; E22.2 Syndrome of inappropriate secretion of antidiuretic hormone; E46 Unspecified protein-calorie malnutrition; I82.511 Chronic embolism and thrombosis of right femoral vein; F10.239 Alcohol dependence with withdrawal, unspecified; J43.9 Emphysema, unspecified; D69.59 Other secondary thrombocytopenia; G40.409 Other generalized epilepsy and epileptic syndromes, not intractable, without status epilepticus; F25.9 Schizoaffective disorder, unspecified; E86.0 Dehydration; I10 Essential (primary) hypertension; Z91.14 Patient's other noncompliance with medication regimen; Y90.1 Blood alcohol level of 20-39 mg/100 ml; F31.9 Bipolar disorder, unspecified; Z86.73 Personal history of transient ischemic attack (TIA), and cerebral infarction without residual deficits; F41.9 Anxiety disorder, unspecified; F17.210 Nicotine dependence, cigarettes, uncomplicated; E11.9 Type 2 diabetes mellitus without complications; Z51.5 Encounter for palliative care